=== PATIENT | female | born 1950 | race Caucasian/White ===

== ENCOUNTER 2017-02-16 21:42 | Inpatient (IN) | payer MEDICARE, OTHER, BC ==
[~2017-02-16 21:42] MED LIST: ISOVUE-370 76%-LOCM 1 ML ONE
[2017-02-16 22:16] LABS: PTT 28.6 SEC (22.9-36.1); Prothrombin Time 13.2 SEC (12.0-14.7)
[2017-02-16 22:33] LABS: ALT (SGPT) 15 U/L (8-55); AST (SGOT) 19 U/L (5-34); Alkaline Phosphatase 99 U/L (40-150); Anion Gap 14 mmol/L (10-20); BUN (Urea Nitrogen) 14 mg/dL (9.8-20.1); Bilirubin, Total 0.3 mg/dL (0.2-1.2); CK (CPK) 86 U/L (29-168); Calc. Creatinine Clearance 0 mL/min (70-130); Calcium 9.6 mg/dL (7.8-10.44); Carbon Dioxide 26 mmol/L (23-31); Chloride 100 mmol/L (98-107); Estimated GFR-MDRD 61; Globulin 3.3 g/dL (2.4-3.5); Protein, Total 7.2 g/dL (6.0-8.3)
[2017-02-16 22:35] LABS: Troponin I Less than 0.010 ng/mL (< 0.028)
[2017-02-16 22:36] LABS: Hematocrit 42.3 % (36.0-47.0); Mean Platelet Volume 7.3 fL (7.4-10.4); Neutrophil 31 % (42-75); White Blood Cell (WBC) Count 8.5 thou/uL (4.8-10.8)
--- NOTE | 2017-02-16 22:43 | RAD ---
PORTABLE CHEST: 02/16/17 HISTORY: Stroke-like symptoms. COMPARISON: 06/09/16 study. The heart size and mediastinum are within normal limits. An electronic device is seen overlying the left chest. No infiltrative process. IMPRESSION: No active intrathoracic disease. POS: [facility]
[2017-02-16] MEDS ORDERED: Labetalol HCl 100 MG/20 ML VIAL ONE (23:01)
--- NOTE | 2017-02-16 23:05 | CT ---
CT OF BRAIN PERFORMED WITHOUT CONTRAST ENHANCEMENT: 02/16/17 HISTORY: Slurred speech. COMPARISON: 06/14/16 study. Mild ventricular and sulcal prominence is noted. There is encephalomalacia change in the left fronta l lobe. This was an area of a previous infarct. No signs of hemorrhage or mass effect. IMPRESSION: No acute intracranial abnormalities. Findings telephoned to Dr. Lancaster at 2202 hours. POS: [facility]
--- NOTE | 2017-02-16 23:37 | CT ---
CT ANGIO OF HEAD AND NECK PERFORMED WITH INTRAVENOUS CONTRAST ENHANCEMENT WITH 3D RECONSTRUCTIONS: 02/16/17 HISTORY: Stroke alert. Patient has stroke-like symptoms with slurred speech. CT ANGIOGRAM OF NECK: This examination is degraded by venous contamination and some motion artifact at the carotid bifurca tion level. It makes it difficult to exclude some element of stenosis, particularly at the origin of the right internal carotid artery. No definitive signs of stenosis. Vertebral arteries are codomina nt. CT ANGIO OF BRAIN PERFORMED WITH CONTRAST ENHANCEMENT WITH 3D RECONSTRUCTIONS: There is some diminished vascularity in the left frontal lobe. This corresponds to the area of encep halomalacia change. I do not see any signs of any areas of significant narrowing of the anterior and middle cerebral artery main branches. No signs of any embolic finding. The posterior cerebral arter ies appear unremarkable. IMPRESSION: Area of encephalomalacia change in the left frontal lobe with some decreased vascularity in this reg ion, otherwise unremarkable exam. Findings telephoned to Dr. Lancaster at 2220 hours. POS: [facility]
[2017-02-17] MEDS ORDERED: Ondansetron HCl/PF 4 MG/2 ML Vial IVP PRN (01:25)
[2017-02-17] MEDS ORDERED: Ondansetron ODT 4 MG TAB SL PRN (01:25)
[2017-02-17] MEDS ORDERED: Sodium Chloride 0.45% 1,000 ML IV SCH (01:25)
[2017-02-17] MEDS ORDERED: Labetalol HCl 100 MG/20 ML VIAL SLOW IVP PRN ×2 (01:28→16:12)
[2017-02-17 01:38] VITALS: BMI 28.3
[2017-02-17 02:43] LABS: Troponin I 0.038 ng/mL (< 0.028)
[2017-02-17 05:44] LABS: Troponin I 0.029 ng/mL (< 0.028)
[2017-02-17] MEDS ORDERED: HumaLOG 300 UNITS/3 ML VIAL SC PRN (07:26)
[2017-02-17] MEDS ORDERED: Acetaminophen 325 MG TAB PO PRN (07:26)
[2017-02-17] MEDS ORDERED: Ondansetron ODT 4 MG TAB PO PRN ×2 (07:26→15:49)
[2017-02-17] MEDS ORDERED: Bisacodyl 5 MG TAB PO PRN (07:26)
[2017-02-17] MEDS ORDERED: Dextrose 50% Abboject 50 ML SYRINGE SLOW IVP PRN (07:26)
[2017-02-17] MEDS ORDERED: Dextrose 5% in Water 1,000 ML IV PRN (07:26)
[2017-02-17] MEDS ORDERED: Lorazepam 2 MG/ML VIAL SLOW IVP SCH (09:15)
--- NOTE | 2017-02-17 09:52 | HP ---
PRIMARY CARE PHYSICIAN: Ron Bennett M.D. CHIEF COMPLAINT: Garbled speech. HISTORY OF PRESENT ILLNESS: Ms. Gonsalves is a pleasant 66-year-old lady who was seen at [facility] on 02/17/2017. Last night, she had an episode where her speech was garbled f or about 45 minutes. She also had facial droop. Her noticed that her speech was garbled. Patient was also able to realize that her speech was garbled and it was coming out different from wh at she intended. She denies any chest pain or shortness of breath. She denies any fevers or chills . She denies any recurrence of the episode. The following complete review of systems was negative, unless otherwise mentioned in the HPI or belo w: Constitutional: Weight loss or gain, sense of well-being, ability to conduct usual activities, exer cise tolerance. Skin/Breast: Rash, itching, changes in hair growth or loss, nail changes, breast lumps, tenderness, swelling, nipple discharge. Eyes: Vision, double vision, tearing, blind spots, pain. ENT/Mouth: Headaches (location, time of onset, duration, precipitating factors), vertigo, lighthead edness, injury. Vision, double vision, tearing, blind spots, pain, nose bleeding, colds, obstruction , discharge, dental difficulties, gingival bleeding, dentures, neck stiffness, pain, tenderness, mas ses in thyroid or other areas. Cardiovascular: Precordial pain, substernal distress, palpitations, syncope, dyspnea on exertion, o rthopnea, nocturnal paroxysmal dyspnea, edema, cyanosis, hypertension, heart murmurs, varicosities, phlebitis, claudication. Respiratory: Pain, shortness of breath, wheezing, stridor, cough, hemoptysis, fever or night sweats . Gastrointestinal: Poor appetite, dysphagia, indigestion, abdominal pain, heartburn, eructation, [place], vomiting, hematemesis, jaundice, constipation, or diarrhea, abnormal stools (bunny-colored, tricia y, bloody, greasy, foul smelling), flatulence, hemorrhoids, recent changes in bowel habits. Genitourinary: Urgency, frequency, dysuria, nocturia, hematuria, polyuria, oliguria, unusual (or ch laura in) color of urine, stones, hesitancy, change in size of stream, dribbling, acute retention or incontinence, libido, potency. Musculoskeletal: Pain, swelling, redness or heat of muscles or joints, limitation, of motion, muscu lar weakness, atrophy, cramps. Neurologic/Psychiatric: Convulsions, paralyses, tremor, incoordination, paraesthesias, difficulties with memory of speech, sensory or motor disturbances, or muscular coordination (ataxia, tremor), em otional problems, anxiety, depression, previous psychiatric care, unusual perceptions, hallucination s. Allergy/Immunologic: Skin rash, anemia, bleeding tendency, polydipsia, polyuria, intolerance to hea t or cold. PAST MEDICAL HISTORY: Significant for deep vein thrombosis on Eliquis therapy, hypertension, dyslip idemia, diabetes mellitus type 2, fibromyalgia, and ischemic cerebrovascular accident x2. PAST SURGICAL HISTORY: Significant for right foot surgery, left humeral fracture surgery, hysterect jacob, and stent placement for DVT. SOCIAL HISTORY: The patient denies tobacco use, alcohol use or recreational drug use. ALLERGIES: No known drug allergies. FAMILY HISTORY: Congestive heart failure and cerebrovascular accident in her mother and a brother w ith multiple cerebrovascular accident episodes. CURRENT MEDICATIONS: Metformin 500 mg 3 times a day, Ambien 10 mg at bedtime, lisinopril 20 mg kristopher y, metoprolol 50 mg 2 times a day, Eliquis 5 mg 2 times a day, and simvastatin 40 mg daily. CODE STATUS: I discussed her code status. She is FULL CODE. PHYSICAL EXAMINATION: GENERAL: On examination, Ms. Gonsalves is awake and alert, not in acute distress. VITAL SIGNS: Blood pressure is 141/63, pulse is 70. She is breathing at rate of 14 and saturating 92% on room air. She is afebrile. EYES: No scleral icterus. No conjunctival pallor. ENT: Moist mucosal membranes, no oropharyngeal erythema or exudates. NECK: Supple, nontender, normal range of movement, trachea is midline. RESPIRATORY: Accessory muscles of breathing are not active. Chest wall movements are symmetric kimberly aterally. LUNGS: Clear to auscultation without wheeze, rhonchi or crepitations. CARDIOVASCULAR: S1 and S2 are heard, regular. Peripheral pulses palpable. No carotid bruit, no pe ricardial rub. ABDOMEN: Soft, nontender, bowel sounds heard, no hepatomegaly, no splenomegaly. NEUROLOGIC: She has expressive aphasia. Cranial nerves II-XII intact otherwise. No facial droop. Power is 5/5 in all 4 extremities. Deep tendon reflexes 2+, plantars downgoing bilaterally. MUSCULOSKELETAL: Power is 5/5 in all 4 extremities, normal range of movement at all major extremity joints. SKIN: No rashes or subcutaneous nodules. PSYCHIATRIC: Normal mood, normal affect, patient is oriented to person, place, and time. LYMPHATIC: No cervical lymphadenopathy. LABORATORY DATA: Ms. Gonsalves's labs and investigations were reviewed. I reviewed her electrocardi ogram, which shows normal sinus rhythm, no ST changes to suggest an acute coronary syndrome. I also reviewed her chest x-ray, which does not show any pulmonary infiltrates. CT scan of the brain with out contrast did not reveal any acute intracranial abnormalities. CT angiography of neck had motion artifact and radiologist could not exclude some element of stenosis, particularly at the origin of the right internal carotid artery. CT angiogram of the brain showed area of encephalomalacia in the left frontal lobe with some decreased vascularity in that region. Laboratory investigations showed an unremarkable CBC, INR 1.0, normal comprehensive metabolic profile and indeterminate troponin I o f 0.038. ASSESSMENT AND PLAN: Mr. Gonsalves is a pleasant 66-year-old lady who was seen at [facility] on 02/17/2017. Her problem list includes: 1. Transient ischemic attack: Her presentation is concerning for a transient ischemic attack. She will be admitted to the hospital for further workup, including MRI of the brain, carotid Dopplers, and 2D echocardiogram. Neurology Service and Stroke Team will be consulted. We will continue her h ome medications once clarified. 2. Elevated troponin: Her troponins are in the indeterminate range, trending down. She denies any chest pain at this time. If there are significant abnormalities on the 2D echocardiogram, may need further workup to rule out ischemic heart disease. 3. Diabetes mellitus: Continue home medications, start insulin sliding scale. 4. Hypertension: Her blood pressure was elevated in the emergency room. Monitor vital signs, resu me home medications and titrate antihypertensives as needed. 5. Dyslipidemia: Continue statin. 6. History of deep vein thrombosis: Continue apixaban. Many thanks for allowing me to participate in your patient's care. Please feel free to contact me w ith any questions or concerns. LEVEL OF RISK: High. LEVEL OF COMPLEXITY: High.
--- NOTE | 2017-02-17 10:01 | ULT ---
ULTRASOUND CAROTID DOPPLER: HISTORY: CVA. COMPARISON: Carotid Doppler 06/01/16. TECHNIQUE: Real-time cardenas scale color evaluation of the extracranial carotid arteries and vertebral arteries pe rformed with a linear ray transducer. FINDINGS: No elevated peak systolic velocity to suggest hemodynamically significant stenosis. Right internal carotid artery peak systolic velocity measures up to 95 cm/s and left internal carotid artery peak s ystolic velocity measures up to 88 cm/s. Right ICA/CCA ratio is 1.01. Left ICA/CCA ratio is 1.05. Antegrade flow of both vertebral arteries. IMPRESSION: No hemodynamically significant stenosis. POS: [facility]
--- NOTE | 2017-02-17 12:30 | MRI ---
NONCONTRAST MADINA MRI: CLINICAL HISTORY: TIA, slurred speech. FINDINGS: There is encephalomalacia of the anterior division left MCA territory correlating to prior infarctio n with associated hemosiderin staining. There are a few scattered punctate foci of restriction invo lving the left MCA territory indicating tiny scattered cortical/subcortical infarcts. No mass effec t or midline shift. Tiny remote left cerebellar hemispheric lacunar infarcts are present. IMPRESSION: 1. Punctate areas of cortical/subcortical infarction of the left cerebral hemisphere. 2. Encephalomalacia with hemosiderin staining of the anterior division left middle cerebral artery territory. POS: [facility]
[2017-02-17] MEDS ORDERED: hydrOXYzine 25 MG TAB PO PRN (15:49)
[2017-02-17] MEDS: metFORMIN 500 MG TAB PO SCH (16:28)
[2017-02-17] MEDS: Acetaminophen 500 MG TAB PO PRN ×2 (17:00→21:47)
--- NOTE | 2017-02-17 17:51 | CON ---
DATE OF CONSULTATION: 02/17/2017 CONSULTING PHYSICIAN: Hospitalist Service. HISTORY OF PRESENT ILLNESS: Ms. Gonsalves was admitted last evening with transient expressive aphasi a. Her initial workup including CT and CTA were unremarkable other than some diminished flow in the left frontal region. Subsequent MRI revealed evidence of some punctate ischemic changes in the lef t middle cerebral artery territory. Carotid ultrasound does not show any extracranial stenosis. Jaskaran quiroga has not had any recurrence of symptoms. She was on Eliquis and a statin prior to this event. On exam, now she has occasional stumbling in her speech with a little bit of word finding difficulty , but is otherwise, clear. Her exam is nonfocal. Given that she is already on anticoagulation, her only option left would be to add some aspirin for antiplatelet therapy, suggested that she did this about every third day. She will follow up with [facility] as an outpatient.
[2017-02-17] MEDS: Atorvastatin Calcium 20 MG TAB PO SCH (21:43)
[2017-02-17] MEDS: Zolpidem Tartrate 5 MG TAB PO PRN (21:44)
[2017-02-17] MEDS: Metoprolol Tartrate 50 MG TAB PO SCH (21:44)
[2017-02-18 05:13] LABS: Anion Gap 11 mmol/L (10-20); BUN (Urea Nitrogen) 12 mg/dL (9.8-20.1); Calc. Creatinine Clearance 91 mL/min (70-130); Calcium 8.8 mg/dL (7.8-10.44); Carbon Dioxide 26 mmol/L (23-31); Chloride 106 mmol/L (98-107); Cholesterol 115 mg/dl (< 200 Desired); Estimated GFR-MDRD 71; LDL Cholesterol, Calculated 52 mg/dL
[2017-02-18 05:35] LABS: Hematocrit 36.3 % (36.0-47.0); Mean Platelet Volume 7.1 fL (7.4-10.4); Neutrophil 42 % (42-75); Reactive Lymphocytes 7 % (0-10); Red Blood Cell (RBC) Count 3.74 mill/uL (4.20-5.40); White Blood Cell (WBC) Count 5.9 thou/uL (4.8-10.8)
[2017-02-18] MEDS: Loratadine 10 MG TAB PO SCH (08:53)
[2017-02-18] MEDS: Lisinopril 20 MG TAB PO SCH (08:54)
[2017-02-18] MEDS: Multivitamin W/ Minerals 1 TAB PO SCH (08:54)
[2017-02-18] MEDS: metFORMIN 500 MG TAB PO SCH ×3 (08:54→17:34)
[2017-02-18] MEDS: Metoprolol Tartrate 50 MG TAB PO SCH ×2 (08:54→21:23)
[2017-02-18] MEDS: Ubidecarenone 50 MG CAP PO SCH (08:54)
[2017-02-18] MEDS ORDERED: Apixaban 5 MG TAB PO SCH (11:30)
[2017-02-18] MEDS ORDERED: Aspirin 81 mg Enteric Coated Tablet PO SCH (11:30)
[2017-02-18] MEDS: Acetaminophen 500 MG TAB PO PRN (13:11)
--- NOTE | 2017-02-18 17:11 | PDOC.PN ---
- Subjective Encounter Start Date: 02/18/17 Encounter Start Time: 17:08 P{t seen for followup re: ischemic CVA. Denies chest pain, shortness of breath , fevers. - Objective Resuscitation Status: Resuscitation Status FULL:Full Resuscitation MAR Reviewed: Yes Vital Signs & Weight: Vital Signs (12 hours) Temp Pulse Resp BP BP BP Pulse Ox 02/18/17 15:35 97.5 F L 77 16 157/76 H 95 02/18/17 11:38 97.7 F 67 16 145/65 H 95 02/18/17 08:54 141/67 H 02/18/17 08:00 98.5 F 74 16 02/18/17 07:36 98.5 F 74 16 141/67 H 94 L Weight Weight 189 lb 4.8 oz Result Diagrams: 02/18/17 04:43 02/18/17 04:43 Additional Labs: Accuchecks 02/18/17 02/18/17 02/18/17 17:01 10:54 05:14 POC Glucose 106 139 H 116 H 02/17/17 02/17/17 19:47 17:34 POC Glucose 154 H 159 H EKG Reviewed by me: Yes (Tele: NSR) Phys Exam - Physical Examination Constitutional: NAD HEENT: oral pharynx no lesions Neck: supple Respiratory: clear to auscultation bilateral Cardiovascular: RRR Gastrointestinal: soft Musculoskeletal: pulses present Neurological: moves all 4 limbs expressive aphasia Psychiatric: normal affect Skin: no rash Dx/Plan (1) Idiopathic ischemic cerebrovascular accident (CVA) in adult Code(s): I63.9 - CEREBRAL INFARCTION, UNSPECIFIED Status: Acute (2) Hypertensive urgency Code(s): I16.0 - HYPERTENSIVE URGENCY Status: Acute (3) DM type 2 (diabetes mellitus, type 2) Status: Chronic (4) HLD (hyperlipidemia) Code(s): E78.5 - HYPERLIPIDEMIA, UNSPECIFIED Status: Chronic - Plan PT/OT, out of bed/ambulate * . Pt was discharged earlier but had high blood pressure, therefore holding the discharge. Eliquis resumed. Aspirin started. Will add PRN antihypertensives. Likely home tomorrow. Review of Systems - Review of Systems Constitutional: negative: Fever, Chills, Sweats, Weakness, Malaise Cardiovascular: negative: Chest Pain, Palpitations, Orthopnea, Paroxysmal Noc. Dyspnea, Edema, Light Headedness Neurological: Change in Speech. negative: Weakness, Numbness, Incoordination, Confusion, Seizures - Medications/Allergies Allergies/Adverse Reactions: Allergies Allergy/AdvReac Type Severity Reaction Status Date / Time No Known Allergies Allergy Verified 02/17/17 01:44 Medications: Current Medications Acetaminophen (Tylenol) 500 mg PO Q4H PRN PRN Reason: Pain Last Admin: 02/18/17 13:11 Dose: 500 mg Apixaban (Eliquis) 5 mg PO BID [facility] Aspirin (Ecotrin) 81 mg PO Q3D@0900 [facility] Atorvastatin Calcium (Lipitor) 20 mg PO HS [facility] Last Admin: 02/17/17 21:43 Dose: 20 mg Bisacodyl (Dulcolax) 10 mg PO DAILYPRN PRN PRN Reason: Constipation Clonidine HCl (Catapres) 0.2 mg PO NOW [facility] Stop: 02/18/17 19:15 Coenzyme Q10 (Coenzyme Q10) 100 mg PO DAILY [facility] Last Admin: 02/18/17 08:54 Dose: 100 mg Dextrose/Water (Dextrose 50%) 25 gm SLOW IVP PRN PRN PRN Reason: Hypoglycemia Glucagon (Glucagon) 1 mg IM PRN PRN PRN Reason: Hypoglycemia Hydroxyzine HCl (Atarax) 25 mg PO QID PRN PRN Reason: Itching Dextrose/Water (D5w) 1,000 mls @ 0 mls/hr IV .Q0M PRN; As Directed PRN Reason: Hypoglycemia Insulin Human Lispro (Humalog) 0 units SC .MILD SLIDING SCALE PRN PRN Reason: Mild Correctional Scale Iron/Minerals/Multivitamins (Theragran M) 1 tab PO DAILY [facility] Last Admin: 02/18/17 08:54 Dose: 1 tab Labetalol HCl (Normodyne) 20 mg SLOW IVP Q4H PRN PRN Reason: SBP Greater Than 180 Last Admin: 02/17/17 16:28 Dose: 20 mg Lisinopril (Zestril) 20 mg PO DAILY [facility] Last Admin: 02/18/17 08:54 Dose: 20 mg Loratadine (Claritin) 10 mg PO DAILY [facility] Last Admin: 02/18/17 08:53 Dose: 10 mg Metformin HCl (Glucophage) 500 mg PO TID-[facility] Last Admin: 02/18/17 11:15 Dose: 500 mg Metoprolol Tartrate (Lopressor) 50 mg PO BID [facility] Last Admin: 02/18/17 08:54 Dose: 50 mg Ondansetron HCl (Zofran Odt) 4 mg PO Q6H PRN PRN Reason: Nausea Sodium Chloride (Flush - Normal Saline) 10 ml IVF Q12HR [facility] Last Admin: 02/18/17 08:55 Dose: 10 ml Sodium Chloride (Flush - Normal Saline) 10 ml IVF PRN PRN PRN Reason: Saline Flush Zolpidem Tartrate (Ambien) 10 mg PO HSPRN PRN PRN Reason: Insomnia Last Admin: 02/17/17 21:44 Dose: 10 mg
[2017-02-18] MEDS ORDERED: cloNIDine 0.2 MG TAB PO SCH (17:15)
[2017-02-18] MEDS ORDERED: cloNIDine 0.1 MG TAB PO PRN (17:20)
--- NOTE | 2017-02-18 20:28 | DIS ---
PRIMARY CARE PHYSICIAN: Ron Bennett M.D. DATE OF ADMISSION: 02/17/2017 DATE OF DISCHARGE: 02/18/2017 DISCHARGE DIAGNOSIS: Ischemic cerebrovascular accident. CONDITION OF PATIENT AT THE TIME OF DISCHARGE: Stable. I assessed Ms. Gonsalves on the day of disch arge. She continues to have episodes of expressive aphasia from previous stroke, denies any new guadalupe rologic complaints. Vital signs are stable. S1 and S2 are heard, regular. Lungs are clear to ausc ultation bilaterally. CONSULTATIONS DURING THIS HOSPITALIZATION: Dr. Major from Neurology. DISCHARGE MEDICATIONS: Acetaminophen 500 mg every 4 hours as needed, apixaban 5 mg 2 times a day, c ephalexin 500 mg 3 times a day, lisinopril 20 mg daily, loratadine 10 mg daily, multivitamins 1 caps ule daily, metoprolol 50 mg 2 times a day, Zofran 4 mg every 6 hours as needed, Zocor 40 mg at bedti me, Coenzyme Q10 of 100 mg daily, Ambien 10 mg at bedtime as needed, hydroxyzine 25 mg 4 times a day as needed, metformin 500 mg 3 times a day, and aspirin 81 mg every 72 hours, it was started during this hospitalization. HOSPITAL COURSE: Ms. Gonsalves is a pleasant 66-year-old lady, who was admitted to [facility] for suspected TIA/CVA because of an episode of gibberish speech. MRI of the brain on 02/17/2017 showed punctate areas of cortical/subcortical infarction of the left cerebral hemisphe re. She also had encephalomalacia with hemosiderin staining of the anterior division of the left mi ddle cerebral artery territory. CT angiogram of [place] and neck showed areas of encephalo malacia in the left frontal lobe with some decreased vascularity. Because of motion artifact, it wa s difficult to exclude carotid stenosis particularly at the origin of the right internal carotid art pascual. She went on to have carotid Doppler study on 02/17/2017, which did not reveal any hemodynamica lly significant stenosis. Echocardiogram was also done, and the preliminary report indicates that she had an ejection fraction of 60% to 65%. She was seen by Neurology Service and has been started on aspirin 81 mg every third day. On 02/18/2017, she has white count of 5900, hemoglobin 12, platelet count 195,000, normal electrolyt es and normal creatinine. She has triglycerides 82, cholesterol 115, LDL cholesterol 52 and HDL cho lesterol 47. Many thanks for allowing me to participate in your patient's care. Please feel free to contact me w ith any questions or concerns. DISCHARGE DESTINATION: Home. TOTAL AMOUNT OF TIME SPENT COORDINATING THIS DISCHARGE: 33 minutes.
[2017-02-18] MEDS: Apixaban 5 MG TAB PO SCH (21:23)
[2017-02-18] MEDS: Atorvastatin Calcium 20 MG TAB PO SCH (21:23)
[2017-02-18] MEDS: Zolpidem Tartrate 5 MG TAB PO PRN (21:29)
[2017-02-19 05:40] LABS: Anion Gap 10 mmol/L (10-20); BUN (Urea Nitrogen) 17 mg/dL (9.8-20.1); Calc. Creatinine Clearance 94 mL/min (70-130); Carbon Dioxide 25 mmol/L (23-31); Chloride 104 mmol/L (98-107); Estimated GFR-MDRD 73
[2017-02-19 05:51] LABS: Band 3 % (5-11); Hematocrit 36.9 % (36.0-47.0); Mean Platelet Volume 7.7 fL (7.4-10.4); Neutrophil 40 % (42-75); White Blood Cell (WBC) Count 6.2 thou/uL (4.8-10.8)
[2017-02-19 07:35] VITALS: TEMP 98.6
[2017-02-19] MEDS: Multivitamin W/ Minerals 1 TAB PO SCH (09:23)
[2017-02-19] MEDS: Ubidecarenone 50 MG CAP PO SCH (09:23)
[2017-02-19] MEDS: Apixaban 5 MG TAB PO SCH (09:23)
[2017-02-19] MEDS: Loratadine 10 MG TAB PO SCH (09:24)
[2017-02-19] MEDS: Metoprolol Tartrate 50 MG TAB PO SCH (09:24)
[2017-02-19] MEDS: Lisinopril 20 MG TAB PO SCH (09:24)
[2017-02-19] MEDS: metFORMIN 500 MG TAB PO SCH (09:24)
--- NOTE | 2017-02-19 10:45 | DIS ---
DATE OF ADMISSION: 02/16/2017 DATE OF DISCHARGE: 02/19/2017 PRIMARY CARE PROVIDER: Ron Bennett M.D. DISCHARGE DIAGNOSIS: Ischemic cerebrovascular accident. Please note that I dictated a discharge summary yesterday, 02/18/2017, for this patient. However, sherly turner was not discharged, because her blood pressure was elevated. Her blood pressure was monitore d overnight and she is being discharged home. CONDITION OF PATIENT AT THE TIME OF DISCHARGE: Stable. I assessed Ms. Gonsalves on 02/19/2017. She denies any chest pain or shortness of breath. Vital signs are stable. S1 and S2 are heard, regula r. Lungs are clear to auscultation bilaterally. CONSULTATIONS DURING THIS HOSPITALIZATION: Neurology, Dr. Major. DISCHARGE MEDICATIONS: As dictated on the discharge summary from 02/18/2017. Her preadmission home medications were resumed. In addition, she is being discharged home on aspirin 81 mg every 72 hour s, which was started during this hospitalization. ADDENDUM: Ms. Gonsalves is also being discharged home on clonidine 0.1 mg daily every 8 hours as nee ded for systolic blood pressure greater than 170 mmHg, 30 doses to be dispensed. HOSPITAL COURSE: Ms. Gonsalves is a pleasant 66-year-old lady, who was admitted to [facility], because of an episode of gibberish speech on 02/16/2017. MRI of the brain showed punctate areas of cortical/subcortical infarction of the left cerebral hemisphere as well as encepha lomalacia with hemosiderin staining of anterior division of the left MCA territory. She also had CT angiogram, carotid Dopplers, and 2D echocardiogram. Results were summarized on the discharge summa ry dictated on 02/18/2017. She was seen by Neurology Service and started on aspirin 81 mg every thi rd day. She had high blood pressures on the evening of 02/18/2017. She received a dose of clonidin e, with improvement of her blood pressure. Her blood pressures have been stable since then. On the day of discharge, she has a white count of 6200, hemoglobin 12.4, and platelet count 199,000. Her sodium is 135, potassium 4, and creatinine 0.79. She also had a lipid profile during this hos pitalization, summarized on the discharge summary dictated on 02/18/2017. She has been advised to check her blood pressure and heart rate 3 times a day and show the readings to her primary care physician. Many thanks for allowing me to participate in your patient's care. Please feel free to contact me w ith any questions or concerns. DISCHARGE DESTINATION: Home. TOTAL AMOUNT OF TIME SPENT COORDINATING THIS DISCHARGE: 35 minutes.
[2017-02-19] MEDS ORDERED: cloNIDine 0.1 MG TAB PO PRN (11:57)
[2017-02-19 12:40] VITALS: BP 152/61
[2017-02-20] MEDS ORDERED: Aspirin 81 mg Enteric Coated Tablet PO SCH (09:00)
== END 2017-02-19 11:40 | disposition home or self-care (01) | DRG 66 ==
LOC: ERS 21:42 → 2SE 23:10
PROVIDERS: ADMIT Internal Medicine; ATTEND Internal Medicine
DX: I63.9 Cerebral infarction, unspecified (principal); G93.89 Other specified disorders of brain; I10 Essential (primary) hypertension; R47.81 Slurred speech; E11.9 Type 2 diabetes mellitus without complications; Z79.84 Long term (current) use of oral hypoglycemic drugs; E78.5 Hyperlipidemia, unspecified; Z86.73 Personal history of transient ischemic attack (TIA), and cerebral infarction without residual deficits; Z86.718 Personal history of other venous thrombosis and embolism; Z79.01 Long term (current) use of anticoagulants; I16.0 Hypertensive urgency
CPT/HCPCS: 36415; 36416; 70450; 70496; 70498; 70551; 71010; 80048; 80053; 80061; 82553; 84484; 85025; 85610; 85730; 86850; 86900; 86901; 93005; 93306; 93880; 94760; 96374; A4216; G8987-GO-CJ; G8988-GO-CJ; G8989-GO-CJ; G8996-GN-CJ; G8997-GN-CI; J2060

== ENCOUNTER 2017-02-19 22:29 | Observation (INO) | payer MEDICARE, OTHER, BC ==
--- NOTE | 2017-02-20 00:05 | CT ---
CT BRAIN: History: Altered mental status. Technique: Noncontrast enhanced CT images of the brain obtained. Date: 02-19-17 Comparison: 02-16-17 FINDINGS: There is an old area of stroke in the left frontal lobe. No evidence of significant interval changes seen. No acute intracranial pathology is noted. IMPRESSION: 1. Old left frontal lobe stroke. 2. No acute intracranial abnormality is seen. 3. Previous MRI areas of signal abnormality noted of MRI from two days earlier is not visible on CT. POS: [facility]
[2017-02-20] MEDS ORDERED: Ondansetron HCl/PF 4 MG/2 ML Vial IVP PRN ×2 (01:09→01:16)
[2017-02-20] MEDS ORDERED: Acetaminophen 325 MG TAB PO PRN ×2 (01:09→01:16)
[2017-02-20] MEDS ORDERED: Ondansetron ODT 4 MG TAB SL PRN (01:09)
[2017-02-20] MEDS ORDERED: Mag-Al 1200 mg/1200 mg/30 ML UDCUP PO PRN (01:16)
[2017-02-20] MEDS ORDERED: Ondansetron ODT 4 MG TAB PO PRN (01:16)
[2017-02-20] MEDS ORDERED: hydrALAZINE 20 MG/ML VIAL SLOW IVP PRN (01:16)
[2017-02-20] MEDS ORDERED: Senokot 8.6 MG TAB PO PRN (01:16)
[2017-02-20] MEDS ORDERED: HYDROcodone/Acetaminophen 5/325 mg Tablet PO PRN (01:16)
[2017-02-20] MEDS ORDERED: Milk Of Magnesia 30 ML UDCUP PO PRN (01:16)
[2017-02-20] MEDS ORDERED: Loperamide HCl 2 MG CAP PO PRN (01:16)
[2017-02-20] MEDS ORDERED: Zolpidem Tartrate 5 MG TAB PO PRN (01:16)
[2017-02-20] MEDS ORDERED: cloNIDine 0.1 MG TAB PO PRN (01:17)
[2017-02-20] MEDS ORDERED: HumaLOG 300 UNITS/3 ML VIAL SC PRN ×2 (01:18)
[2017-02-20] MEDS ORDERED: Dextrose 50% Abboject 50 ML SYRINGE SLOW IVP PRN (01:18)
[2017-02-20] MEDS ORDERED: Dextrose 5% in Water 1,000 ML IV PRN (01:18)
[2017-02-20] MEDS ORDERED: Lorazepam 2 MG/ML VIAL SLOW IVP PRN (01:19)
[2017-02-20 01:40] VITALS: BMI 27.2
--- NOTE | 2017-02-20 03:01 | HP ---
PRIMARY CARE PHYSICIAN: Ron Bennett M.D. REASON FOR ADMISSION: Stroke-like symptoms. HISTORY OF PRESENT ILLNESS: A 66-year-old female who was recently admitted in our hospital on 02/16/2017. At that time, the patient came to the emergency room and she had CT angiography which showed encephalomalacia in left frontal lobe. The patient also had MRI brain, which showed a punctate area of cortical and subcortical infarction in left cerebral hemisphere with encephalomalacia in left middle cerebral artery territory. Neurology consulted and they recommended to continue Eliquis therapy and they recommended to add aspirin every third day. After all this investigation, the patient was discharged home earlier today. After going home, the patient had supper and she also had a shower. After that, she was resting at home and she was doing aphasia puzzle work. She was having difficulty with puzzle and that is why she was asking her to help and her noticed that while playing puzzle game, the patient was having garbled speech and the patient was becoming more altered and that is why he was concerned about and decided to bring her back to the emergency room, but when she was coming to the ER, the patient's reported that her speech was improving and she was coming back to normal. Today in the emergency room, the patient had CT brain, which showed old left frontal lobe stroke, no acute intracranial abnormality. The patient denies any chest pain, palpitation, or shortness of breath. She denies any headache. She denies any focal motor or sensory symptoms. She denies any difficulty swallowing. She denies any facial asymmetry. REVIEW OF SYSTEMS: The following complete review of systems was negative, unless otherwise mentioned in the HPI or below: Constitutional: Weight loss or gain, ability to conduct usual activities. Skin: Rash, itching. Eyes: Double vision, pain. ENT/Mouth: Nose bleeding, neck stiffness, pain, tenderness. Cardiovascular: Palpitations, dyspnea on exertion, orthopnea. Respiratory: Shortness of breath, wheezing, cough, hemoptysis, fever or night sweats. Gastrointestinal: Poor appetite, abdominal pain, heartburn, nausea, vomiting, constipation, or diarrhea. Genitourinary: Urgency, frequency, dysuria, nocturia. Musculoskeletal: Pain, swelling. Neurologic/Psychiatric: Anxiety, depression. Allergy/Immunologic: Skin rash, bleeding tendency. Please see my HPI for pertinent positives and negatives. All other review of system reviewed and negative except as mentioned in the HPI. PAST MEDICAL HISTORY: History of ischemic CVA x2, history of subcortical infarct recently, DVT on chronic Eliquis therapy, hypertension, dyslipidemia, diabetes type 2, fibromyalgia. PAST SURGICAL HISTORY: Right foot surgery, left humeral fracture surgery, hysterectomy. PAST PSYCHIATRY HISTORY: Reviewed and negative. SOCIAL HISTORY: The patient is , lives at home with the family. No history of tobacco, alcohol, or illicit drug abuse. ALLERGIES: No known drug allergies. FAMILY HISTORY: Mother had a stroke as well as congestive heart failure. One brother diagnosed with multiple strokes. CURRENT HOME MEDICATIONS: The patient was discharged home on following medication: Eliquis 5 mg p.o. b.i.d., aspirin 81 mg p.o. every third day, lisinopril 20 mg p.o. daily, multivitamin 1 tablet p.o. daily, metoprolol 50 mg p.o. b.i.d., Zocor 40 mg p.o. at bedtime, Coenzyme Q10 100 mg p.o. daily, metformin 500 mg p.o. t.i.d., and clonidine 0.1 mg p.o. q. 8 hourly p.r.n. ADDITIONAL INFORMATION: When this patient was having stroke-like symptoms at that time, the patient's checked her blood pressure which was 190 systolic and after waiting for a while, the patient's blood pressure dropped to 160 and then again went up to 190s and this type of fluctuation was happening at home for blood pressure and the patient was given clonidine one dose. After that, blood pressure was improved. EMERGENCY ROOM COURSE: Reviewed. PHYSICAL EXAMINATION: VITAL SIGNS: On arrival, blood pressure 179/107, pulse 73, respiratory rate 18 , temperature 97.5, saturation 97% on room air. Weight 76.2 kilograms. GENERAL: The patient is currently alert, awake, no obvious acute distress. HEAD: Normocephalic, atraumatic. EYES: Pupils round, reactive to light. Extraocular muscle intact. ENT: Oropharynx within normal limits. Moist mucous membranes. No oral lesions. No pharyngeal erythema. No exudate. NECK: Supple. Range of motion is normal. No meningeal signs of irritation. LUNGS: Clear to auscultation without any rhonchi or rales. CARDIAC: S1, S2 appears regular without any murmur, no gallop, no rub. ABDOMEN: Soft, bowel sounds present, nontender, nondistended. No organomegaly , no mass, no suprapubic tenderness. BACK: Unremarkable, no CVA tenderness. EXTREMITIES: Upper extremity: Passive movement of all joints are normal. Lower extremity: No edema. Good peripheral pulsation. SKIN: No skin rash. HEMATOLOGIC: No lymphadenopathy. NEUROLOGIC: The patient is currently alert and oriented x3. Cranial nerves II through XII intact. Motor 5/5 in all four limbs. Sensation bilaterally symmetrical. Plantar bilateral flexor. No pronator drift. No cerebellar sign. No focal neurological deficit noted. SIGNIFICANT LABORATORY DATA: WBC 6.2, hemoglobin 12.4, platelets 199. INR 1.0. Sodium 135, potassium 4.0, BUN 17, creatinine 0.79, calcium 9.0. IMAGING STUDIES: CT brain is showing old left frontal lobe stroke, no acute abnormality seen. ASSESSMENT AND PLAN: 1. Stroke-like symptoms. At this point, the patient has some difficulty speaking which already resolved. Doubtful whether this is a transient ischemic attack or just frustration while playing puzzle game, but the patient and the patient's is really overanxious about ruling out stroke. This patient already had recently MRI brain and that did show a cortical-subcortical stroke. This patient's symptoms could be related with small vessel disease. At this point, the patient is already on the full treatment with Eliquis and aspirin. Only thing can be done at this point is aspirin on a daily basis. Risk and benefit of aspirin and Eliquis therapy were discussed with the patient. At this point, we do not want to repeat a lipid profile because she already had during the previous admission. We will repeat MRI brain per family request and the patient is claustrophobic and that is why we will give her Ativan 1 mg IV before MRI. Even after MRI, treatment plan will not change. This patient is advised to follow up with Neurology after discharge on an outpatient basis. In the next 24 hours, we will monitor on telemetry floor for her neuro check and then we will consider discharging her home. 2. History of recurrent cerebrovascular accident. The patient already had a full workup done in the past including homocysteine level is normal, lipid profile is at target. The patient is already on the full optimum treatment. We will monitor on the stroke floor. 3. Hypertension. We will continue lisinopril 20 mg p.o. daily, metoprolol 50 mg p.o. b.i.d. 4. Dyslipidemia. We will continue Zocor 40 mg p.o. at bedtime. 5. Diabetes type 2. We will continue insulin as per sliding scale protocol. We will continue metformin 500 mg p.o. t.i.d. 6. History of deep venous thrombosis on chronic anticoagulation therapy with Eliquis. We will continue Eliquis 5 mg p.o. b.i.d. 7. Deep venous thrombosis prophylaxis not needed because the patient is already on chronic anticoagulation therapy. 8. Gastrointestinal prophylaxis, Pepcid 20 mg p.o. b.i.d. CODE STATUS: The patient is FULL CODE. The patient's is the surrogate decision maker. DISPOSITION PLAN: Based on clinical course. We are expecting the patient's stay in the hospital for 24 hours. CRISTOFERD
[2017-02-20] MEDS: metFORMIN 500 MG TAB PO SCH ×3 (08:27→17:43)
[2017-02-20] MEDS ORDERED: Ubidecarenone 50 MG CAP PO SCH (09:00)
[2017-02-20] MEDS ORDERED: Lisinopril 10 MG TAB PO SCH (09:00)
[2017-02-20] MEDS ORDERED: Apixaban 5 MG TAB PO SCH (09:00)
[2017-02-20] MEDS ORDERED: Aspirin 81 mg Enteric Coated Tablet PO SCH (09:00)
[2017-02-20] MEDS ORDERED: Famotidine 20 MG TAB PO SCH (09:00)
[2017-02-20] MEDS ORDERED: Metoprolol Tartrate 50 MG TAB PO SCH (09:00)
--- NOTE | 2017-02-20 10:03 | MRI ---
BRAIN MRI WITHOUT CONTRAST: Date: 02-20-17 Comparison: 02-17-17 History: Transient ischemic attack, stroke. Technique: Multiplanar, multisequence MR imaging of the brain is obtained without contrast. FINDINGS: The diffusion weighted imaging demonstrates no evidence for acute infarction. The gradient echo imaging demonstrates persistent linear areas of blooming artifact which appear to be confined to the cortex and subcortical white matter of the left frontal region, in an area of gee or hemorrhagic infarction initially visualized on the 06-01-16 brain MRI. There is no additional moseley ing artifact seen to suggest the presence of interval development of intracranial hemorrhage. The T2 and FLAIR imaging demonstrate numerous foci of increased T2 and FLAIR signal within the periv entricular deep and subcortical white matter, evidence of small vessel disease. There are a few opac ified mastoid air cells bilaterally, right greater than left. Arterial flow voids at the axial level of the skull base appear grossly unremarkable. There is encephalomalacia within the MCA and SPENCER territory on the left in the frontal region, eviden ce of prior infarction, similar when compared to prior imaging. IMPRESSION: 1. Chronic findings as detailed above. No acute findings are seen. The punctate areas of cortical/pat bcortical infarction in the left cerebral hemisphere seen on the recent prior MRI are no longer visu alized. POS: LELO
--- NOTE | 2017-02-20 12:28 | PDOC.PN ---
- Subjective Encounter Start Date: 02/20/17 Encounter Start Time: 12:26 Patient seen at bedside. Her speech has improved and almost returned to baseline prior to this event. No overnight events, no new complaints. - Objective Resuscitation Status: Resuscitation Status FULL:Full Resuscitation MAR Reviewed: Yes Vital Signs & Weight: Vital Signs (12 hours) Temp Pulse Resp BP Pulse Ox 02/20/17 11:47 98.2 F 62 20 141/57 H 95 02/20/17 08:00 98.2 F 66 18 02/20/17 07:52 98.2 F 66 18 164/57 H 94 L 02/20/17 04:14 97.6 F 65 16 146/71 H 95 02/20/17 01:34 97.3 F L 85 18 02/20/17 01:05 97.3 F L 85 18 160/56 H 96 Weight Weight 179 lb 6.4 oz I&O: 02/19/17 02/20/17 02/21/17 06:59 06:59 06:59 Intake Total 470 Balance 470 Additional Labs: Accuchecks 02/20/17 02/20/17 11:20 06:04 POC Glucose 108 118 H Phys Exam - Physical Examination Constitutional: NAD HEENT: moist MMs Neck: no JVD Respiratory: no rales Cardiovascular: no significant murmur Gastrointestinal: soft Musculoskeletal: pulses present Neurological: moves all 4 limbs Psychiatric: A&O x 3 Dx/Plan (1) Hypertensive urgency Code(s): I16.0 - HYPERTENSIVE URGENCY Status: Resolved (2) DM type 2 (diabetes mellitus, type 2) Status: Chronic (3) HLD (hyperlipidemia) Code(s): E78.5 - HYPERLIPIDEMIA, UNSPECIFIED Status: Chronic (4) HTN (hypertension) Code(s): I10 - ESSENTIAL (PRIMARY) HYPERTENSION Status: Chronic (5) Dysarthria Code(s): R47.1 - DYSARTHRIA AND ANARTHRIA Status: Acute - Plan cont current plan of care, PT/OT, certified social workers in health care, out of bed/ambulate * Continue with current management. * Continue with Eliquis. * Currrently she is taking ASA every third day. Will consult neurology as to whether there is any utility to taking ASA daily with Eliquis * Neuro consult * OOB/Ambulate
[2017-02-20 15:35] VITALS: BP 111/44; TEMP 97.7
--- NOTE | 2017-02-20 19:55 | DIS ---
DATE OF OBSERVATION AND PLACEMENT: 02/20/2017 DATE OF DISCHARGE: 02/20/2017 DISCHARGE DISPOSITION: Home. DISCHARGE FOLLOWUP: With her PCP as an outpatient. DISCHARGE DIAGNOSES: 1. Dysarthria - from residual neurological event versus transient ischemic attack. 2. History of ischemic cerebrovascular accident x2. 3. History of deep venous thrombosis on chronic Eliquis therapy. 4. Hypertension. 5. Dyslipidemia. 6. Diabetes mellitus type 2. 7. Fibromyalgia. DISCHARGE MEDICATIONS: 1. Eliquis 5 mg p.o. b.i.d. 2. Aspirin 81 mg every other day. This has been changed from every 3 days. 3. Keflex 500 mg p.o. b.i.d. 4. Zestril 10 mg p.o. daily. 5. Loratadine. 6. Metoprolol tartrate 50 mg p.o. b.i.d. 7. Zocor 40 mg p.o. at bedtime. 8. CoQ10 100 mg p.o. daily. 9. Catapres p.r.n. q.8 hours 0.1 mg. 10. Atarax 25 mg p.o. 4 times a day. 11. Glucophage 500 mg p.o. t.i.d. with meals. INPATIENT CONSULTATION: Dr. Major, Neurology. INPATIENT PROCEDURES: None. INPATIENT RADIOGRAPHIC EXAMINATIONS: 1. CT of the brain without contrast, which revealed an old left frontal lobe stroke as well as prev ious MRI areas of signal abnormality. 2. MRI of the brain, which revealed chronic findings. There are no acute findings in the punctate areas of cortical/subcortical infarct in left cerebral hemisphere were no longer visualized. BRIEF HOSPITAL COURSE: Ms. Yolanda Gonsalves is a 66-year-old female who was recently admitted to [facility] who presented to the emergency room complaining of stroke-like symptoms. Patient stated sh junaid was having difficulty with her speech and her noticed that she was having difficulty with certain movements and was unable to express herself. She was subsequently brought to the emergency room where she was evaluated. In the emergency room, CT brain revealed old left frontal lobe stroke with no acute intracranial abnormalities. The patient was then subsequently placed in observation onto the stroke floor. The patient recently had an echocardiogram and carotid Doppler as these were not done. A repeat MRI was performed, whic h revealed no acute findings in the punctate areas of cortical and subcortical infarction in the lef t cerebral hemisphere when no longer visualized. Her speech has improved. She was evaluated by Theresa kim who recommended her aspirin be changed every 3 days to every 2 days and this may eventually a fter evaluation be discontinued in the outpatient setting. She is clinically appropriate for discha rge home and feels much better and will be discharged home later today in stable condition. DISCHARGE DIET: Heart healthy. ACTIVITY: As tolerated. RESTRICTIONS: None. CODE STATUS: FULL CODE. ALLERGIES: TETANUS VACCINE and TOXOID. DISCHARGE FOLLOWUP: With PCP as an outpatient. The patient understands all aspects of discharge. She will be discharged home later today in stable condition. Time required to prepare for discharge was 31 minutes.
[2017-02-20] MEDS ORDERED: Atorvastatin Calcium 20 MG TAB PO SCH (21:00)
--- NOTE | 2017-02-20 22:11 | CON ---
DATE OF CONSULTATION: 02/20/2017 FOLLOWUP NEUROLOGIC NOTE CONSULTING PHYSICIAN: Hospitalist Service. Mr. Gonsalves who was at home, working word puzzles when she noticed she was having a little more dif ficulty solving them than normally. Her noticed that she seemed to be coming out with words that did not make sense for the situation. He checked her blood pressure and found her systolic to be about 190. He gave her a clonidine at that point and rechecked it some 30 minutes later, systol ic dropped to 170. She continued to have some word choice abnormalities, decided to bring her to [facility], but gave her an Ambien on the way out. She came into the emergency room and had a CT sc an done, no acute hemorrhage was found. A subsequent MRI evaluation showed a resolution of her prio r diffusion abnormalities and no evidence of any acute ischemic changes. She is now back to her bas jacey. Given that she is already on maximum medical therapy with combination of Eliquis and aspirin. There is little else we can do, I have advised them that she would not be a TPA candidate as the result b eing on these medications. I have suggested that use EMS as a screening tool, if she has some furth er symptoms, she may show some variability in her aphasia, especially when she is fatigued, I am als o advised her to use Ambien cautiously and only right before bed. I will be happy to follow up with her as an outpatient.
[2017-02-22] MEDS ORDERED: Aspirin 81 mg Enteric Coated Tablet PO SCH (09:00)
--- NOTE | 2017-03-03 18:40 | EKG ---
Test Reason : Blood Pressure : / mmHG Vent. Rate : 069 BPM Atrial Rate : 069 BPM P-R Int : 138 ms QRS Dur : 088 ms QT Int : 412 ms P-R-T Axes : 029 030 053 degrees QTc Int : 441 ms Normal sinus rhythm Normal ECG Confirmed by ALETHA PICKARD, SANDI Garcia ([id number]), supervising editor trailer JEANETTE WINN ([id number]) on 03/03/2017 6:40:23 PM Referred By: Confirmed By:SANDI POMPA MD
== END 2017-02-20 19:03 | disposition home or self-care (01) ==
LOC: ERS 22:29 → 2SE 02-20 00:09
PROVIDERS: ADMIT Internal Medicine; ATTEND Internal Medicine
DX: I69.322 Dysarthria following cerebral infarction (principal); I10 Essential (primary) hypertension; E78.5 Hyperlipidemia, unspecified; E11.9 Type 2 diabetes mellitus without complications; M79.7 Fibromyalgia; G93.89 Other specified disorders of brain; I16.0 Hypertensive urgency; Z79.899 Other long term (current) drug therapy; Z79.2 Long term (current) use of antibiotics; Z79.01 Long term (current) use of anticoagulants; Z88.7 Allergy status to serum and vaccine; Z90.710 Acquired absence of both cervix and uterus; Z98.890 Other specified postprocedural states; Z87.81 Personal history of (healed) traumatic fracture; Z86.718 Personal history of other venous thrombosis and embolism; Z82.49 Family history of ischemic heart disease and other diseases of the circulatory system
CPT/HCPCS: 70450; 70551; 82962 ×2; 93005; 96374; 97139; 99285; G0378; 36416; A4216; J2060

== ENCOUNTER 2017-07-31 10:41 | Observation (INO) | payer MEDICARE, BC ==
[2017-07-31 11:01] LABS: #Basophils 0.1 thou/uL (0.0-0.2); #Lymphocytes 3.1 thou/uL (1.20-3.40); #Monocytes 0.6 thou/uL (0.11-0.59); #Neutrophils 4.7 thou/uL (1.40-6.50); %Basophils 1.1 % (0.0-1.0); %Eosinophils 0.4 % (0.0-10.0); %Lymphocytes 36.6 % (21.0-51.0); %Monocytes 6.5 % (0.0-10.0); %Neutrophils 55.3 % (42.0-75.0); Hemoglobin 14.7 g/dL (12.0-16.0); Mean Corpuscular HGB CONC 34.5 g/dL (32.0-36.0); Mean Corpuscular Hemoglobin 31.9 pg (27.0-31.0); Mean Corpuscular Volume 92.4 fl (81.0-99.0); Platelet Count 266 thou/uL (130-400); RBC Distribution Width 13.8 % (11.5-14.5); Red Blood Cell (RBC) Count 4.62 mill/uL (4.20-5.40); White Blood Cell (WBC) Count 8.6 thou/uL (4.8-10.8)
[2017-07-31 11:09] LABS: INR-International Normal Ratio 1.1; Prothrombin Time 14.3 SEC (12.0-14.7)
[2017-07-31 11:10] LABS: PTT 30.5 SEC (22.9-36.1)
[2017-07-31 11:16] LABS: ALT (SGPT) 18 U/L (8-55); AST (SGOT) 24 U/L (5-34); Albumin 4.5 g/dL (3.4-4.8); Alkaline Phosphatase 85 U/L (40-150); Anion Gap 13 mmol/L (10-20); BUN (Urea Nitrogen) 18 mg/dL (9.8-20.1); Bilirubin, Total 0.6 mg/dL (0.2-1.2); Calc. Creatinine Clearance 0 mL/min (70-130); Calcium 10.2 mg/dL (7.8-10.44); Carbon Dioxide 26 mmol/L (23-31); Chloride 90 mmol/L (98-107); Estimated GFR-MDRD 61; Globulin 3.6 g/dL (2.4-3.5); Glucose 133 mg/dL (80-115); Potassium 4.2 mmol/L (3.5-5.1); Protein, Total 8.1 g/dL (6.0-8.3); Sodium 125 mmol/L (136-145)
[2017-07-31 11:20] LABS: CKMB 2.4 ng/mL (0-6.6); Troponin I Less than 0.010 ng/mL (< 0.028)
--- NOTE | 2017-07-31 11:25 | CT ---
CT HEAD WITHOUT CONTRAST: INDICATIONS: Stroke protocol. There is a history of a prior stroke. New speech deficit and right-sided weakness. COMPARISON: CT from 02/19/2017 and MRI from 02/20/2017. TECHNIQUE: Multiple axial tomograms obtained through the head without IV enhancement. FINDINGS: Encephalomalacia in the left frontal lobe is again seen, consistent with an old left frontal lobe inf arct. This is stable in appearance. There is no evidence of acute cortical infarct. No mass or hem orrhage. Findings related to Dr. Gonzalez at 11:00 a.m. CODE CR POS: OSIEL
--- NOTE | 2017-07-31 11:47 | CT ---
CT ANGIO HEAD WITH CONTRAST: Date: 07/31/17 Multiple axial tomograms obtained through the head with arterial phase enhancement following angio pr otocol with multiplanar reconstruction and 3D postprocessing. INDICATION: Stroke. Right side weakness. FINDINGS: The intracranial internal carotid arteries are patent. There is atherosclerotic calcification in the cavernous portion of both internal carotid arteries, although no evidence of significant stenosis dutch ntified. The anterior cerebral arteries are patent and symmetric. The M1 and M2 branches of the middle cerebral arteries are patent and symmetric with no evidence of f ocal stenosis or occlusion. Basilar artery is patent. Posterior cerebrals appear symmetric and patent. IMPRESSION: No evidence of proximal cerebral artery stenosis or occlusion. CT ANGIO NECK: Multiple axial tomograms obtained through the neck following angio phase with multiplanar reconstruct ion and 3D postprocessing. INDICATION: Stroke. FINDINGS: No evidence of stenosis seen at the origin of the arch vessels. Left common carotid artery is unremarkable with no stenosis. There is mild atherosclerotic change at the left bulb and left proximal ICA. This does not produce he modynamically significant stenosis. The ICA above the bulb is unremarkable. The right common carotid is unremarkable with no stenosis. There is atherosclerotic change seen in the proximal right ICA with calcified and soft plaque present . This does result in mild stenosis in the proximal right ICA; however, the degree of stenosis does n ot appear hemodynamically significant and is estimated in the 30-40% diameter stenosis range. There i s evidence of ulceration into the soft plaque at the bulb and proximal ICA, which could represent a f ocus of emboli. The right ICA above the bulb is unremarkable. Vertebral arteries are patent and symmetric. IMPRESSION: Moderate atherosclerotic changes in the right bulb and proximal right ICA resulting in mild to modera te stenosis in the proximal right ICA. The degree of stenosis does not appear to be hemodynamically s ignificant according to NASCET criteria when comparison is made with the more distal ICA lumen. There is some ulceration of the soft plaque in the bulb on the right as described above. POS: OSIEL
[2017-07-31 12:00] LABS: Bilirubin Negative (Negative); Blood, Urine Negative (Negative); Clarity CLEAR (Clear); Glucose, Urine (Dipstick) Negative (Negative); Leukocyte Negative (Negative); Nitrite Negative (Negative); Protein, Urine (Dipstick) Negative (Neg-Trace); Specific Gravity, Urine 1.014 (1.002-1.036); Urobilinogen 0.2 mg/dL (0.2-1.0)
[2017-07-31 13:21] LABS: Magnesium 1.7 mg/dL (1.6-2.6); Phosphorus 3.4 mg/dL (2.3-4.7)
[2017-07-31 14:26] LABS: Troponin I 0.041 ng/mL (< 0.028)
[2017-07-31] MEDS ORDERED: ISOVUE-370 76%-LOCM 1 ML ONE (14:47)
[2017-07-31] MEDS ORDERED: Ondansetron HCl/PF 4 MG/2 ML Vial IVP PRN ×2 (14:48→20:02)
[2017-07-31] MEDS ORDERED: Ondansetron ODT 4 MG TAB PO PRN ×2 (14:48→20:02)
[2017-07-31] MEDS ORDERED: Acetaminophen 325 MG TAB PO PRN (14:49)
[2017-07-31 15:56] VITALS: BMI 27.8
[2017-07-31 17:14] LABS: Osmolality, Urine 250 mOsm/kg (300-900)
[2017-07-31 17:57] LABS: Sodium, Urine 73 mmol/L (Not Available)
[2017-07-31] MEDS ORDERED: Aspirin 81 mg Enteric Coated Tablet PO SCH (18:00)
[2017-07-31 18:19] LABS: Troponin I 0.047 ng/mL (< 0.028)
--- NOTE | 2017-07-31 19:55 | PDOC.PN ---
- Subjective Encounter Start Date: 07/31/17 Encounter Start Time: 19:53 Patient seen and examined. Note dictated. - Objective MAR Reviewed: Yes Vital Signs & Weight: Vital Signs (12 hours) Temp Pulse Resp 07/31/17 15:42 97.5 F L 72 18 Weight Weight 180 lb 8 oz I&O: 07/30/17 07/31/17 08/01/17 06:59 06:59 06:59 Intake Total 240 Output Total 900 Balance -660 Result Diagrams: 07/31/17 10:55 07/31/17 10:55 Radiology Reviewed by me: Yes (CT brain - neg) EKG Reviewed by me: Yes (SR) Phys Exam - Physical Examination Constitutional: NAD HEENT: PERRLA, moist MMs, sclera anicteric Neck: no nodes, no JVD, supple Respiratory: no wheezing, no rhonchi Cardiovascular: RRR, no significant murmur, no rub no heaves/pulsations Gastrointestinal: soft, non-tender, no distention, positive bowel sounds Musculoskeletal: no edema Neurological: normal sensation, moves all 4 limbs Psychiatric: normal affect, A&O x 3 Skin: no rash, normal turgor Dx/Plan - Plan * Dictated Review of Systems - Review of Systems Constitutional: negative: fever, chills, sweats, weakness, malaise, other Eyes: negative: Pain, Vision Change, Conjunctivae Inflammation, Eyelid Inflammation, Redness, Other ENT: negative: Ear Pain, Ear Discharge, Nose Pain, Nose Discharge, Nose Congestion, Mouth Pain, Mouth Swelling, Throat Pain, Throat Swelling, Other Respiratory: negative: Cough, Dry, Shortness of Breath, Hemoptysis, SOB with Excertion, Pleuritic Pain, Sputum, Wheezing Cardiovascular: negative: chest pain, palpitations, orthopnea, paroxysmal nocturnal dyspnea, edema, light headedness, other Gastrointestinal: negative: Nausea, Vomiting, Abdominal Pain, Diarrhea, Constipation, Melena, Hematochezia, Other Genitourinary: negative: Dysuria, Frequency, Incontinence, Hematuria, Retention , Other Musculoskeletal: negative: Neck Pain, Shoulder Pain, Arm Pain, Back Pain, Hand Pain, Leg Pain, Foot Pain, Other Skin: negative: Rash, Lesions, Blayne, Bruising, Other Neurological: Numbness (Rt hand), Change in Speech. negative: Weakness, Incoordination, Confusion, Seizures - Medications/Allergies Allergies/Adverse Reactions: Allergies Allergy/AdvReac Type Severity Reaction Status Date / Time Tetanus Vaccines and Toxoid Allergy Verified 07/31/17 15:14 Medications: Current Medications Acetaminophen (Tylenol) 650 mg PO Q4H PRN PRN Reason: Headache/Fever or Pain Stop: 07/31/17 23:00 Last Admin: 07/31/17 18:04 Dose: 650 mg Aspirin (Ecotrin) 81 mg PO NOW [facility] Stop: 07/31/17 20:00 Last Admin: 07/31/17 18:04 Dose: 81 mg Ondansetron HCl (Zofran) 4 mg IVP Q6H PRN PRN Reason: Nausea/Vomiting Stop: 07/31/17 23:00 Ondansetron HCl (Zofran Odt) 4 mg PO Q6H PRN PRN Reason: Nausea/Vomiting Stop: 07/31/17 23:00 Sodium Chloride (Flush - Normal Saline) 10 ml IVF Q12HR [facility] Last Admin: 07/31/17 19:50 Dose: 10 ml Sodium Chloride (Flush - Normal Saline) 10 ml IVF PRN PRN PRN Reason: Saline Flush
[2017-07-31] MEDS ORDERED: Senokot 8.6 MG TAB PO PRN (20:02)
[2017-07-31] MEDS ORDERED: Calcium Carbonate 500 MG ChewTAB PO PRN (20:02)
[2017-07-31] MEDS ORDERED: Nitroglycerin 0.4 MG TAB (25 Tab Bottle) PO PRN (20:02)
[2017-07-31] MEDS ORDERED: hydrALAZINE 20 MG/ML VIAL SLOW IVP PRN (20:07)
[2017-07-31] MEDS ORDERED: Insulin Regular 300 UNITS/3 ML VIAL SC PRN ×2 (20:13)
[2017-07-31] MEDS ORDERED: Dextrose 50% Abboject 50 ML SYRINGE SLOW IVP PRN (20:13)
[2017-07-31] MEDS ORDERED: Dextrose 5% in Water 1,000 ML IV PRN (20:13)
--- NOTE | 2017-07-31 20:14 | HP ---
DATE OF ADMISSION: 07/31/2017 PRIMARY CARE PHYSICIAN: Dr. Bennett. CHIEF COMPLAINT: Stroke-like symptoms. HISTORY OF PRESENT ILLNESS: Patient is a 67-year-old female with CVA in the past, currently on Eliqu is with 81 mg aspirin every other day, presented to the emergency room with above complaints. The patient presented with acute CVA in 05/2016 while she was on Pradaxa. Pradaxa was changed to Mitzy mary. She was discharged home after a loop recorder. In 01/2017, the patient presented again with stroke. At this time, she was started on aspirin every third day and was discharged. The next day, she presented back to the hospital with stroke-like symp toms; at this time, aspirin was changed to every other day. Since then she has not had stroke-like s ymptoms. This morning around 10:15 a.m., while she was at home, she had sudden onset of speech difficulty catherine g with numbness of the right hand. Her speech was garbled. There was no change in consciousness. S he was alert, awake, oriented x4. For this reason, she was brought in to the emergency room. She un derwent CT scan in the emergency room that was negative for acute findings. After the CT scan, jose sams's speech and right hand numbness resolved. She denies any headache, double vision, blurring of vi markus, facial asymmetry or weakness of any of her extremities. She is compliant with all of her medic ations. She was evaluated by Dr. Major last week and was advised to continue Eliquis with every ot her day, aspirin. She was seen by Dr. Naranjo earlier this year and underwent echocardiogram per sherly turner's report. PAST MEDICAL HISTORY: 1. History of several strokes in the past, currently on Eliquis with every other day, aspirin. 2. Chronic dysarthria from strokes. 3. History of deep venous thrombosis on chronic anticoagulation. 4. Hypertension. 5. Hyperlipidemia. 6. Fibromyalgia. PAST SURGICAL HISTORY: 1. Loop recorder placement. 2. Right foot surgery. 3. Left humeral fracture surgery. 4. Hysterectomy. ALLERGIES: TETANUS TOXOID and VACCINE. CURRENT HOME MEDICATIONS: Eliquis 5 mg b.i.d., aspirin every other day, clonidine as needed, Tylenol as needed, lisinopril 20 mg twice a day, hydroxyzine as needed, loratadine 10 mg daily, metformin 50 0 mg 3 times daily, metoprolol tartrate 50 mg b.i.d., multivitamin 1 tablet daily, Zofran as needed, Zocor 40 mg at bedtime, Coenzyme Q10 of 100 mg daily, Ambien as needed. SOCIAL HISTORY: Patient currently lives at home with her . No smoking, alcohol, drug use. S he makes her own decision with the help of her . She is FULL CODE. FAMILY HISTORY: Mother with stroke and congestive heart failure. One brother with several strokes. REVIEW OF SYSTEM, PHYSICAL EXAMINATION, LABORATORY FINDINGS: Please refer to my progress note from shannon timmons. IMPRESSION: 1. Transient ischemic attack. 2. Hypotonic hyponatremia of unclear etiology. 3. History of recurrent cerebrovascular accidents on Eliquis with every other day aspirin. 4. Hypertension. 5. Dyslipidemia. 6. Fibromyalgia. 7. Diabetes mellitus type 2. 8. History of deep venous thrombosis, on Eliquis. PLAN: The patient will be monitored in the stroke unit. Her home medications will be continued. MR I of the brain will be obtained. We will also interrogate loop recorder. Consult Neurology civil division deputy sheriff. Continue current home medications. We will consult Physical Therapy. Patient has passed swallow e valuation. Plan of care was discussed with the patient and the family at the bedside. They stated understanding .
[2017-07-31] MEDS: Sodium Chloride 0.9% 1,000 ML IV SCH (21:02)
[2017-07-31] MEDS: Docusate 100 MG CAP PO SCH (21:02)
[2017-07-31] MEDS: Lisinopril 20 MG TAB PO SCH (21:03)
[2017-07-31] MEDS: Famotidine 20 MG TAB PO SCH (21:03)
[2017-07-31] MEDS: Simvastatin 40 MG TAB PO SCH (21:03)
[2017-07-31] MEDS: Metoprolol Tartrate 50 MG TAB PO SCH (21:04)
[2017-07-31] MEDS: Apixaban 5 MG TAB PO SCH (21:04)
[2017-07-31] MEDS: Zolpidem Tartrate 5 MG TAB PO PRN (21:51)
[2017-08-01 05:00] LABS: Anion Gap 13 mmol/L (10-20); BUN (Urea Nitrogen) 15 mg/dL (9.8-20.1); Calc. Creatinine Clearance 84 mL/min (70-130); Calcium 9.3 mg/dL (7.8-10.44); Carbon Dioxide 24 mmol/L (23-31); Cardiac Risk 2.6 (Less than 4.5); Chloride 94 mmol/L (98-107); Cholesterol 128 mg/dl (< 200 Desired); Estimated GFR-MDRD 68; Glucose 101 mg/dL (80-115); HDL Cholesterol 50 mg/dL (>60 Neg Risk); LDL Cholesterol, Calculated 65 mg/dL; Potassium 3.8 mmol/L (3.5-5.1); Sodium 127 mmol/L (136-145); Triglycerides 66 mg/dL (Less than 150)
[2017-08-01 05:04] LABS: Troponin I 0.018 ng/mL (< 0.028)
[2017-08-01] MEDS ORDERED: Aspirin 81 mg Enteric Coated Tablet PO SCH (09:00)
[2017-08-01] MEDS: Apixaban 5 MG TAB PO SCH ×2 (09:13→20:22)
[2017-08-01] MEDS: Famotidine 20 MG TAB PO SCH ×2 (09:14→20:22)
[2017-08-01] MEDS: Lisinopril 20 MG TAB PO SCH ×2 (09:14→20:22)
[2017-08-01] MEDS: Metoprolol Tartrate 50 MG TAB PO SCH ×2 (09:14→20:22)
[2017-08-01] MEDS: Loratadine 10 MG TAB PO SCH (09:14)
[2017-08-01] MEDS: Docusate 100 MG CAP PO SCH ×2 (09:14→20:22)
[2017-08-01] MEDS ORDERED: ALPRAZolam 0.5 MG TAB PO SCH (11:45)
[2017-08-01] MEDS: Acetaminophen 325 MG TAB PO PRN (12:04)
--- NOTE | 2017-08-01 16:07 | PDOC.PN ---
- Subjective Encounter Start Date: 08/01/17 Encounter Start Time: 11:00 William is seen today with at Bedside, She has multiple Strokes in the past, and is on Eleiquis and Aspirin, Waiting on Neurology consult. - Objective Resuscitation Status: Resuscitation Status FULL:Full Resuscitation MAR Reviewed: Yes Vital Signs & Weight: Vital Signs (12 hours) Temp Pulse Pulse Pulse Resp BP BP 08/01/17 15:35 97.6 F 65 18 08/01/17 12:15 08/01/17 11:20 97.3 F L 63 18 08/01/17 09:14 191/74 H 08/01/17 08:32 66 66 190/75 H 08/01/17 07:56 97.8 F 64 18 08/01/17 07:45 98.1 F 60 20 BP BP Pulse Ox 08/01/17 15:35 135/63 96 08/01/17 12:15 154/88 H 08/01/17 11:20 189/73 H 96 08/01/17 09:14 08/01/17 08:32 146/64 H 08/01/17 07:56 173/75 H 92 L 08/01/17 07:45 Weight Weight 186 lb 14.4 oz I&O: 07/31/17 08/01/17 08/02/17 06:59 06:59 06:59 Intake Total 1455 600 Output Total 2200 1200 Balance -745 -600 Result Diagrams: 07/31/17 10:55 08/01/17 04:31 Additional Labs: Accuchecks 08/01/17 07/31/17 11:18 21:00 POC Glucose 172 H 162 H Radiology Reviewed by me: Yes Phys Exam - Physical Examination HEENT: PERRLA, moist MMs Neck: no nodes, no JVD Respiratory: no wheezing, no rales Cardiovascular: RRR, no significant murmur Gastrointestinal: soft, non-tender Musculoskeletal: no edema, pulses present Neurological: non-focal, normal sensation Lymphatic: no nodes Psychiatric: normal affect Dx/Plan (1) Acute CVA (cerebrovascular accident) Code(s): I63.9 - CEREBRAL INFARCTION, UNSPECIFIED Status: Acute Comment: ? failed Pradaxa and Eliquis and Aspirin now, She will need thorough evalautionby neurology for recurrent strokes. MRI is pending. (2) Dysarthria Code(s): R47.1 - DYSARTHRIA AND ANARTHRIA Status: Acute Comment: Base line deficits. (3) Idiopathic ischemic cerebrovascular accident (CVA) in adult Code(s): I63.9 - CEREBRAL INFARCTION, UNSPECIFIED Status: Acute (4) DM type 2 (diabetes mellitus, type 2) Status: Chronic Comment: well controlled, continue on SSI/ Home meds. (5) HLD (hyperlipidemia) Code(s): E78.5 - HYPERLIPIDEMIA, UNSPECIFIED Status: Chronic (6) HTN (hypertension) Code(s): I10 - ESSENTIAL (PRIMARY) HYPERTENSION Status: Chronic Comment: Continue on Htn MEds. - Plan cont current plan of care, PT/OT, aids social worker, incentive spirometry, DVT proph w/lovenox * . - Discharge Day Encounter end time: 11:35 Review of Systems - Review of Systems Constitutional: weakness, malaise Eyes: negative: Pain, Vision Change, Conjunctivae Inflammation, Eyelid Inflammation, Redness, Other ENT: negative: Ear Pain, Ear Discharge, Nose Pain, Nose Discharge, Nose Congestion, Mouth Pain, Mouth Swelling, Throat Pain, Throat Swelling, Other Respiratory: negative: Cough, Dry, Shortness of Breath, Hemoptysis, SOB with Excertion, Pleuritic Pain, Sputum, Wheezing Cardiovascular: negative: chest pain, palpitations, orthopnea, paroxysmal nocturnal dyspnea, edema, light headedness, other Neurological: Weakness, Change in Speech - Medications/Allergies Allergies/Adverse Reactions: Allergies Allergy/AdvReac Type Severity Reaction Status Date / Time Tetanus Vaccines and Toxoid Allergy Verified 07/31/17 15:14 Medications: Current Medications Acetaminophen (Tylenol) 650 mg PO Q4H PRN PRN Reason: Headache/Fever or Pain Last Admin: 08/01/17 12:04 Dose: 650 mg Apixaban (Eliquis) 5 mg PO BID [facility] Last Admin: 08/01/17 09:13 Dose: 5 mg Aspirin (Ecotrin) 81 mg PO Q2D [facility] Last Admin: 08/01/17 09:14 Dose: 81 mg Calcium Carbonate (Tums) 1,000 mg PO Q4H PRN PRN Reason: Heartburn or Indigestion Dextrose/Water (Dextrose 50%) 25 gm SLOW IVP PRN PRN PRN Reason: Hypoglycemia Docusate Sodium (Colace) 100 mg PO BID [facility] Last Admin: 08/01/17 09:14 Dose: 100 mg Famotidine (Pepcid) 20 mg PO BID [facility] Last Admin: 08/01/17 09:14 Dose: 20 mg Glucagon (Glucagon) 1 mg IM PRN PRN PRN Reason: Hypoglycemia Hydralazine HCl (Apresoline) 10 mg SLOW IVP Q4H PRN PRN Reason: SBP Greater Than 180 Dextrose/Water (D5w) 1,000 mls @ 0 mls/hr IV .Q0M PRN; As Directed PRN Reason: Hypoglycemia Insulin Human Regular (Humulin R) 0 units SC .MILD SLIDING SCALE PRN PRN Reason: Mild Correctional Scale Insulin Human Regular (Humulin R) 0 units SC .BEDTIME SLIDING SC PRN PRN Reason: Bedtime Correctional Scale Lisinopril (Zestril) 20 mg PO BID [facility] Last Admin: 08/01/17 09:14 Dose: 20 mg Loratadine (Claritin) 10 mg PO DAILY [facility] Last Admin: 08/01/17 09:14 Dose: 10 mg Metoprolol Tartrate (Lopressor) 50 mg PO BID [facility] Last Admin: 08/01/17 09:14 Dose: 50 mg Nitroglycerin (Nitrostat) 0.4 mg PO Q5MIN PRN PRN Reason: Chest Pain Ondansetron HCl (Zofran Odt) 4 mg PO Q6H PRN PRN Reason: Nausea/Vomiting Ondansetron HCl (Zofran) 4 mg IVP Q6H PRN PRN Reason: Nausea/Vomiting Senna (Senokot) 2 tab PO HSPRN PRN PRN Reason: Constipation Simvastatin (Zocor) 40 mg PO HS [facility] Last Admin: 07/31/17 21:03 Dose: 40 mg Sodium Chloride (Flush - Normal Saline) 10 ml IVF Q12HR [facility] Last Admin: 08/01/17 09:15 Dose: 10 ml Sodium Chloride (Flush - Normal Saline) 10 ml IVF PRN PRN PRN Reason: Saline Flush Zolpidem Tartrate (Ambien) 10 mg PO HS PRN PRN Reason: .INSOMNIA Last Admin: 07/31/17 21:51 Dose: 10 mg
[2017-08-01] MEDS: Sodium Chloride 0.9% 1,000 ML IV SCH (16:16)
--- NOTE | 2017-08-01 17:52 | MRI ---
BRAIN MRI WITHOUT CONTRAST: Date: 08/01/17 HISTORY: Stroke activation. Right-sided weakness. Stroke. COMPARISON: 02/20/17. CORRELATION: Angiogram head dated 07/31/17. TECHNIQUE: Brain MRI is performed without intravenous Gadolinium administration. Multisequential, multiplanar im aging is performed. FINDINGS: Calvarium has a normal T1 marrow signal intensity. Midline brain parenchymal structures are unremarka ble. There is stable malacic gliotic change involving the left frontal lobe, compatible with a remote MCA distribution infarction. Hypointensity in the axial gradient echo sequence due to hemosiderin deposit ion is noted. There is associated T2 and FLAIR hyperintensity. Small focus of malacic change/gliotic change in the left occipital lobe is also identified. Chronic small vessel ischemic changes are ident ified. Central arterial flow-voids are maintained. Absent restricted diffusion. Adequate aeration of the sin uses. Partial opacification of both mastoid air cells. IMPRESSION: 1. Remote left MCA distribution infarction. 2. Absent restricted diffusion. No acute infarct. POS: [facility]
[2017-08-01] MEDS: Simvastatin 40 MG TAB PO SCH (20:22)
[2017-08-01] MEDS: Zolpidem Tartrate 5 MG TAB PO PRN (21:15)
--- NOTE | 2017-08-02 00:10 | CON ---
DATE OF CONSULTATION: 08/01/2017 REFERRING PHYSICIAN: Martínez Hernandez MD REASON FOR CONSULTATION: Stroke-like symptoms. HISTORY OF PRESENT ILLNESS: Ms. Gonsalves is a pleasant 67-year-old female who has been con sulted for evaluation of stroke-like symptoms. History was obtained from the patient as well as the patient's medical chart. The patient reports that she has a history of stroke in 05/2016, which resu lted in significant difficulty with her speech, where she was having difficulty with expressing herse lf. She had to undergo extensive speech therapy both as inpatient as well as outpatient. She was ab le to recover most of her speech back. She states that she has been admitted to the hospital twice s dee dee then with similar episodes of worsening speech. She is now taking Eliquis along with aspirin 81 mg every other day for secondary stroke prevention. She reports that on yesterday, she had gone to a restaurant with her , where she suddenly started having difficulty with getting her words ou t. She was not able to talk at all at that time. She also noted numbness in her right hand. She wa s trying to explain that to her that she was having numbness in her right hand; however, was not able to get any words out. Her realized that she was struggling with her words, which pr ompted him to call EMS and the patient was brought [facility]. She had a CT he ad without contrast and CT angiogram of the head and neck on arrival to the emergency room, which ad wed moderate atherosclerotic changes in the right bulb and proximal right ICA resulting in mild-to-mo derate stenosis in the proximal right ICA, which was not hemodynamically significant stenosis. There were some ulcerations and soft plaque in the bulb of the right carotid artery. She notes that her s ymptoms started improving after she presented to the emergency room. She currently reports her sympt oms are back to baseline. She denies any headache, chest pain, palpitation, numbness, tingling, weak ness. PAST MEDICAL HISTORY: Significant for hypertension; hyperlipidemia; fibromyalgia; history of stroke; history of deep venous thrombosis, on chronic anticoagulation therapy. PAST SURGICAL HISTORY: Significant for right foot surgery, loop recorder placement, left humeral fra cture surgery, and hysterectomy. CURRENT MEDICATIONS: Please review MAR. ALLERGIES: Include TETANUS TOXOID and VACCINE. SOCIAL HISTORY: She denies smoking, alcohol use, or illicit drug use. She is currently and lives with her . FAMILY HISTORY: Significant for mother with stroke and congestive heart failure and one brother with history of strokes. REVIEW OF SYSTEMS: As mentioned above in HPI, otherwise negative. PHYSICAL EXAMINATION: VITAL SIGNS: Blood pressure of 135/63, pulse of 65, temperature of 97.6, respirations of 18, O2 sats of 96% on room air. GENERAL: Well-developed, well-nourished female in no apparent distress. RESPIRATORY: Clear to auscultation bilaterally. CARDIOVASCULAR: Regular rate and rhythm. NEUROLOGIC: Mental status: The patient is awake, alert, oriented x3. Speech and language: Mild ex pressive aphasia noted. Cranial nerves: Pupils are 3 mm and reactive. Visual yadav are intact. E xtraocular muscles are intact. No nystagmus is noted. Face is symmetric. Tongue and uvula midline. Motor exam showed normal tone and bulk with 5/5 strength in both upper and lower extremities. Sens ory: Sensation is intact and symmetric. Deep tendon reflexes 2+ flexion in both upper and lower ext remities. Babinski: Plantar responses flexion bilaterally. Coordination intact to [id number] er and finger tapping bilaterally. LABORATORY DATA: Reviewed, which included CBC, coag panel, CMP, lipid profile, urinalysis, which is significant for sodium of 127, glucose of 187, otherwise unremarkable. IMAGING STUDIES: MRI brain without contrast was reviewed, which showed no acute intracranial abnorma lity. CT angiogram results were reviewed. Findings are as noted in the HPI section. IMPRESSION: 1. Transient episode of expressive aphasia, now resolved, likely suggestive of transient ischemic at tack. 2. Hyponatremia. 3. Carotid artery stenosis. Ms. Gonsalves is a pleasant 67-year-old female who presented with worsening expressive aphas ia. Her symptoms resolved within few hours. She had an MRI brain done, which showed no acute intrac ranial abnormality. It showed prior left middle cerebral artery distribution ischemic infarct. She had a low sodium on arrival to the emergency room, which can precipitate prior stroke symptoms and ma y be a contributing factor to her event. She did have a CT angiogram of the head and neck, which did show carotid artery stenosis of mild to moderate with soft plaque in the right internal carotid john ry. I would recommend consulting Cardiovascular Surgery for their recommendations for right internal carotid artery plaque. I would recommend continuing her on Eliquis and aspirin at the current dose. Thank you for the consultation.
[2017-08-02 00:21] VITALS: TEMP 97.6
[2017-08-02] MEDS: Acetaminophen 325 MG TAB PO PRN (05:58)
[2017-08-02] MEDS: Loratadine 10 MG TAB PO SCH (08:38)
[2017-08-02] MEDS: Lisinopril 20 MG TAB PO SCH (08:38)
[2017-08-02] MEDS: Metoprolol Tartrate 50 MG TAB PO SCH (08:38)
[2017-08-02] MEDS: Docusate 100 MG CAP PO SCH (08:38)
[2017-08-02] MEDS: Apixaban 5 MG TAB PO SCH (08:38)
[2017-08-02] MEDS: Famotidine 20 MG TAB PO SCH (08:38)
--- NOTE | 2017-08-02 09:18 | PDOC.PN ---
- Subjective Encounter Start Date: 08/02/17 Encounter Start Time: 09:16 Ms. Gonsalves was seen today in follow-up. She does not have any complaints. she says her speech is back to normal. - Objective Resuscitation Status: Resuscitation Status FULL:Full Resuscitation MAR Reviewed: Yes Vital Signs & Weight: Vital Signs (12 hours) Temp Pulse Resp BP BP BP Pulse Ox 08/02/17 07:36 97.6 F 63 16 176/72 H 93 L 08/02/17 03:15 97.6 F 63 18 150/70 H 97 08/01/17 23:42 97.6 F 60 15 121/58 L 97 Weight Weight 190 lb 1.6 oz I&O: 08/01/17 08/02/17 08/03/17 06:59 06:59 06:59 Intake Total 1455 2490 Output Total 2200 3150 Balance -745 -660 Result Diagrams: 07/31/17 10:55 08/01/17 04:31 Additional Labs: Accuchecks 08/02/17 08/01/17 08/01/17 05:23 20:43 16:28 POC Glucose 124 H 117 H 187 H 08/01/17 11:18 POC Glucose 172 H Phys Exam - Physical Examination HEENT: PERRLA Respiratory: no wheezing, no rales, no rhonchi, clear to auscultation bilateral Cardiovascular: RRR, no significant murmur, no rub Gastrointestinal: soft, non-tender, positive bowel sounds Musculoskeletal: no edema Dx/Plan (1) Transient ischemic attack (TIA) Status: Acute (2) DM type 2 (diabetes mellitus, type 2) Status: Chronic Comment: well controlled, continue on SSI/ Home meds. (3) HLD (hyperlipidemia) Code(s): E78.5 - HYPERLIPIDEMIA, UNSPECIFIED Status: Chronic (4) HTN (hypertension) Code(s): I10 - ESSENTIAL (PRIMARY) HYPERTENSION Status: Chronic Comment: Continue on Htn MEds. - Plan * TIA- her symptoms have resolved * HTN- blood pressure has been labile * I discussed the results of the CTA with the patient, having an inpatient Vascular Surgery consult vs. Outpatient. She has discussed this with her , she would like to have this done as an outpatient * Stable for discharge home..
[2017-08-02 10:11] LABS: Sodium 127 mmol/L (136-145)
[2017-08-02 11:59] VITALS: BP 153/72
--- NOTE | 2017-08-02 13:39 | DIS ---
PRIMARY CARE: Dr. Ron Bennett DATE OF ADMISSION: 07/31/2017 DATE OF DISCHARGE: 08/02/2017 DISCHARGE DISPOSITION: Home. PRIMARY DISCHARGE DIAGNOSES: 1. Transient ischemic attack. 2. Hypertension. 3. History of cerebral vascular disease. 4. Dyslipidemia. 5. History of fibromyalgia. DISCHARGE MEDICATIONS: She is to continue aspirin 81 mg daily, Eliquis 5 mg twice a day, clonidine 0 .1. as needed, Tylenol q.4 hours as needed, hydroxyzine 25 mg p.r.n., Zestril 20 mg twice a day, anjelica atadine 10 mg daily, metformin 500 mg t.i.d. with meals, metoprolol 50 mg twice daily, Zofran 4 mg q. 6h. as needed, simvastatin 40 mg at bedtime, CoQ10 100 mg daily, Ambien 10 mg at bedtime and multivit amins with folic acid 1 capsule daily. HOSPITAL COURSE: Ms. Gonsalves is a pleasant 67-year-old female who presented to the emergency room w ith complaints of garbled speech. She also was having some right hand numbness, the symptoms of whic h have resolved. The patient was placed in observation. She had a CT scan of the brain done which w as negative. She also had a CT angiogram of the neck as well as the brain which demonstrated no flow limiting disease. There was some mild to moderate stenosis in the right internal carotid artery whi ch did not appear to be hemodynamically significant according to Nasik criteria and this is when comp arison was made to the more distal lumen and the left common carotid artery was unremarkable. There was no stenosis. The patient also had an MRI of the brain which was significant for remote left MCA distribution infarct, but no acute stroke was noted. The patient was seen by Neurology and it was re commended that she likely get a Vascular Surgery consult with regards to some of the plaque that was noted on the CT angiogram. I discussed this with the patient and the patient discussed these finding s with her as well and the decision was made to do this on an outpatient basis. Also, it was noted in Neurology's note that he felt that some of her symptoms could be based on her sodium level which was low on admission and appeared to be improving during the course of her hospital stay. We w ill recommend that the patient have the sodium rechecked as an outpatient as well. Otherwise, the pa aleshia is stable for discharge home. She is currently symptom free and will need close followup in [facility] outpatient setting.
--- NOTE | 2017-08-02 15:02 | EKG ---
Test Reason : Blood Pressure : / mmHG Vent. Rate : 074 BPM Atrial Rate : 074 BPM P-R Int : 160 ms QRS Dur : 076 ms QT Int : 382 ms P-R-T Axes : 041 037 068 degrees QTc Int : 424 ms Normal sinus rhythm Possible Left atrial enlargement Septal infarct , age undetermined Abnormal ECG Confirmed by BRITTANY HENNESSY ([id number]), social media editor JEANETTE WINN ([id number]) on 08/02/2017 3:00:41 PM Referred By: Confirmed By:BRITTANY HENNESSY
== END 2017-08-02 12:59 | disposition home or self-care (01) ==
LOC: ERS 10:41 → 2SW 15:05
PROVIDERS: ADMIT Internal Medicine; ATTEND Internal Medicine
DX: G45.9 Transient cerebral ischemic attack, unspecified; M79.7 Fibromyalgia; E78.5 Hyperlipidemia, unspecified; Z82.3 Family history of stroke; Z86.73 Personal history of transient ischemic attack (TIA), and cerebral infarction without residual deficits; E87.1 Hypo-osmolality and hyponatremia; I65.29 Occlusion and stenosis of unspecified carotid artery; I10 Essential (primary) hypertension; Z79.01 Long term (current) use of anticoagulants; Z98.890 Other specified postprocedural states; E11.9 Type 2 diabetes mellitus without complications; Z88.7 Allergy status to serum and vaccine
CPT/HCPCS: 70450; 70496; 70498; 70551; 80048; 80053; 80061; 81003; 82553; 82962 ×3; 83735; 83930; 83935; 84100; 84295; 84300; 84484 ×3; 85025; 85610; 85730; 93005; 94760 ×2; 96360; 96361 ×2; 97116; 97139 ×2; 97530; 97535; 99285; G0378; G8978; G8979; G8987; G8988; G8989; 36415; 36416; A4216; G9162-GN-CJ; G9163-GN-CI

== ENCOUNTER 2017-08-22 02:29 | Inpatient (IN) | payer MEDICARE, BC ==
[2017-08-22 03:20] LABS: #Basophils 0.1 thou/uL (0.0-0.2); #Eosinphils 0.1 thou/uL (0.0-0.7); #Lymphocytes 3.8 thou/uL (1.20-3.40); #Monocytes 0.6 thou/uL (0.11-0.59); #Neutrophils 3.6 thou/uL (1.40-6.50); %Basophils 0.9 % (0.0-1.0); %Lymphocytes 46.8 % (21.0-51.0); %Monocytes 7.3 % (0.0-10.0); Hemoglobin 12.9 g/dL (12.0-16.0); Mean Corpuscular HGB CONC 34.9 g/dL (32.0-36.0); Mean Corpuscular Hemoglobin 32.7 pg (27.0-31.0); Mean Corpuscular Volume 93.5 fl (81.0-99.0); Mean Platelet Volume 7.1 fL (7.4-10.4); Platelet Count 240 thou/uL (130-400); RBC Distribution Width 13.6 % (11.5-14.5); Red Blood Cell (RBC) Count 3.94 mill/uL (4.20-5.40); White Blood Cell (WBC) Count 8.1 thou/uL (4.8-10.8)
[2017-08-22 03:29] LABS: INR-International Normal Ratio 1.1; PTT 30.7 SEC (22.9-36.1)
[2017-08-22 03:48] LABS: ALT (SGPT) 17 U/L (8-55); AST (SGOT) 22 U/L (5-34); Alkaline Phosphatase 88 U/L (40-150); Anion Gap 15 mmol/L (10-20); BUN (Urea Nitrogen) 17 mg/dL (9.8-20.1); Bilirubin, Total 0.4 mg/dL (0.2-1.2); Calc. Creatinine Clearance 0 mL/min (70-130); Calcium 9.6 mg/dL (7.8-10.44); Carbon Dioxide 22 mmol/L (23-31); Chloride 92 mmol/L (98-107); Estimated GFR-MDRD 70; Glucose 102 mg/dL (80-115); Potassium 4.1 mmol/L (3.5-5.1); Sodium 125 mmol/L (136-145)
[2017-08-22 03:56] LABS: Bilirubin Negative (Negative); Blood, Urine Negative (Negative); Clarity CLEAR (Clear); Glucose, Urine (Dipstick) Negative (Negative); Leukocyte Negative (Negative); Nitrite Negative (Negative); Protein, Urine (Dipstick) Negative (Neg-Trace); Specific Gravity, Urine 1.006 (1.002-1.036); Urobilinogen 0.2 mg/dL (0.2-1.0)
[2017-08-22] MEDS ORDERED: Sodium Chloride 0.9% 1,000 ML IV SCH (05:09)
[2017-08-22] MEDS ORDERED: Ondansetron HCl/PF 4 MG/2 ML Vial IVP PRN (05:09)
[2017-08-22] MEDS ORDERED: Ondansetron ODT 4 MG TAB SL PRN (05:09)
[2017-08-22 05:58] VITALS: BMI 29.5
[2017-08-22] MEDS ORDERED: cloNIDine 0.1 MG TAB PO PRN (10:34)
[2017-08-22] MEDS ORDERED: Aspirin 81 mg Enteric Coated Tablet ONE (11:15)
[2017-08-22 11:16] LABS: Thyroid Stimulating Hormone 3.9861 uIU/mL (0.35-4.94)
[2017-08-22] MEDS: metFORMIN 500 MG TAB PO SCH ×2 (11:19→18:19)
[2017-08-22] MEDS: Acetaminophen 325 MG TAB PO PRN ×2 (11:19→18:19)
--- NOTE | 2017-08-22 12:07 | CT ---
PRELIMINARY REPORT/[facility]/EMERGENTY AFTER-HOURS PROCEDURE CT Head Without Intravenous Contrast CLINICAL HISTORY: 67 years old, female; Signs and symptoms; Weakness, facial; Patient HX: Patient reports that she had numbness/tingling of the left hand and lower face starting at ~2230 last night. TECHNIQUE: Axial computed tomography images of the head/brain without intravenous contrast. COMPARISON: No relevant prior studies available. FINDINGS: Brain: Age appropriate atrophy and small vessel ischemic change. There is an old infarct in the left frontal lobe. No mass effect, midline shift or extra axial fluid collections. Taylor-white matter diffe rentiation is normal. No hemorrhage. Ventricles: Unremarkable. No ventriculomegaly. Bones/joints: Unremarkable. No acute fracture. Soft tissues: Unremarkable. Vasculature: Carotid and vertebral artery atherosclerotic calcification. Sinuses: Unremarkable as visualized. No acute sinusitis. Mastoid air cells: Unremarkable as visualized. No mastoid effusion. IMPRESSION: No acute findings. Old left frontal lobe infarct. Thank you for allowing us to participate in the care of your patient. Dictated and Authenticated by: Jose Guadalupe Rondon MD 08/22/2017 3:58 AM Central Time ([place] & [place]) FINAL REPORT CT BRAIN WITHOUT CONTRAST: Date: 08/22/17 FINDINGS/IMPRESSION: I agree with the preliminary report given by Oskar. Comparison is made with exam of 07/31/17. No significant interval change is seen. POS: [facility]
[2017-08-22] MEDS ORDERED: Lisinopril 20 MG TAB PO SCH ×2 (13:00→21:00)
[2017-08-22] MEDS ORDERED: chlorproMAZINE HCl 25 MG TAB PO SCH (13:00)
[2017-08-22] MEDS ORDERED: Metoprolol Tartrate 50 MG TAB PO SCH ×2 (13:00→21:00)
[2017-08-22] MEDS ORDERED: Apixaban 5 MG TAB PO SCH ×2 (13:00→21:00)
[2017-08-22 15:20] LABS: Creatinine, Urine Less than 20.00 mg/dL (47-110); Sodium, Urine 78 mmol/L (Not Available)
--- NOTE | 2017-08-22 21:27 | HP ---
PRIMARY CARE PHYSICIAN: Dr. Bennett. CHIEF COMPLAINT: Left-sided facial numbness. HISTORY OF PRESENT ILLNESS: Patient is a very pleasant 67-year-old female with a history of a 3-4 TI As in the past and also history of left MCA with residual right-sided weakness, who was recently disc harged from the hospital earlier this month who comes in with complaints of left-sided lower face num bness. Patient stated that she was feeling well at home. Last night around 9:30 after eating her di nner, she was watching TV, suddenly started feeling numbness on her lower part of her face around her jaw and around her mouth. The patient at that time took her blood pressure which was elevated, so s he has instructions to take clonidine which she did. Patient's stated that we will reevaluat e her in about an hour. If she does not feel well, we will take her to the emergency room. However, the patient's stated that he kind of fell asleep, so did she and when she woke up at 2:00 a. m. to go to the bathroom, she continued to have numbness to her left lower face and also started havi ng numbness to her left hand. At this time, she was taken into the ER for further evaluation. The p atient in the ER had a CT head which did not indicate any acute abnormalities. PAST MEDICAL HISTORY: 1. History of several strokes in the past. She is currently on Eliquis and takes aspirin every othe r day. 2. Chronic dysarthria. 3. History of DVTs. 4. Hypertension. 5. Hyperlipidemia. 6. Fibromyalgia. PAST SURGICAL HISTORY: 1. She had a loop recorder placement. 2. Left humeral fracture surgery and hysterectomy. ALLERGIES: She is allergic to TETANUS TOXOID and VACCINES. CURRENT MEDICATIONS: She takes, 1. Eliquis 5 mg p.o. b.i.d. 2. Aspirin every other day. 3. Clonidine 0.1 b.i.d. p.r.n. for systolic greater than 170. 4. Lisinopril 20 mg twice a daily. 5. Hydroxyzine as needed. 6. Loratadine 10 mg daily. 7. Metformin 500 mg p.o. t.i.d. 8. Metoprolol 50 mg b.i.d. 9. Multivitamin 1 tablet daily. 10. Zofran 4 mg oral as needed. 11. Zocor 40 mg at bedtime. 12. Ambien as needed. SOCIAL HISTORY: She currently lives with her . She denies any alcohol or drug use or smoking history. FAMILY HISTORY: Mother young with stroke and heart failure. One brother had several strokes. REVIEW OF SYSTEMS: The following complete review of systems was negative, unless otherwise mentioned in the HPI or below: Constitutional: Weight loss or gain, ability to conduct usual activities. Sk in: Rash, itching. Eyes: Double vision, pain. ENT/Mouth: Nose bleeding, neck stiffness, pain, te nderness. Cardiovascular: Palpitations, dyspnea on exertion, orthopnea. Respiratory: Shortness of breath, wheezing, cough, hemoptysis, fever, or night sweats. Gastrointestinal: Poor appetite, abdo lamar pain, heartburn, nausea, vomiting, constipation, or diarrhea. Genitourinary: Urgency, frequen cy, dysuria, nocturia. Musculoskeletal: Pain, swelling. Neurologic/Psychiatric: Anxiety, depressi on. Allergy/Immunologic: Skin rash, bleeding tendency. Please see my HPI for pertinent positives a nd negatives. All other review of systems reviewed and negative except as mentioned in the HPI. LABORATORY DATA: WBC is 8.1, hemoglobin of 12.9, hematocrit of 36.9, platelets of 240. Chemistry: Sodium of 125, potassium of 4.1, BUN of 17, creatinine 0.81. LFTs are normal. ASSESSMENT AND PLAN: The patient is a very pleasant 67-year-old female who comes to the hospital wit h complaints of left-sided numbness: 1. Possible transient ischemic attack. Patient's CT initially is negative. She recently had an MRI of the brain on the which indicated remote left MCA distribution infarct. She was supposed to b e seen by Vascular Surgery for the plaque that was noted on her right carotid. We will consult Neuro logy. We will continue her Eliquis and her aspirin for now. 2. Hyponatremia. We will check serum osmolality. We will check urine electrolytes to calculate the cause of her hyponatremia. She is not on any diuretics which could possibly be causing her to have hyponatremia, nor is she on any SSRIs. 3. Deep venous thrombosis prophylaxis. The patient is already on Eliquis. 4. Hypertension. We will continue her home medication. 5. Diabetes. We will continue to monitor her Accu-Cheks.
[2017-08-22] MEDS: Zolpidem Tartrate 5 MG TAB PO PRN (21:50)
[2017-08-22] MEDS: Atorvastatin Calcium 20 MG TAB PO SCH (21:51)
[2017-08-22] MEDS: Metoprolol Tartrate 50 MG TAB PO SCH (21:51)
[2017-08-22] MEDS: Lisinopril 20 MG TAB PO SCH (21:51)
[2017-08-22] MEDS: Apixaban 5 MG TAB PO SCH (21:52)
--- NOTE | 2017-08-23 02:29 | CON ---
DATE OF CONSULTATION: 08/22/2017 REFERRING PROVIDER: Starla Nixon M.D. REASON FOR CONSULTATION: Left-sided numbness. HISTORY OF PRESENT ILLNESS: Ms. Gonsalves is a pleasant 67-year-old female, who has been co nsulted for evaluation of left-sided numbness. The patient is known patient to me from her prior adm ission on 08/01/2017. She has a history of hypertension, hyperlipidemia, history of DVT and embolic stroke in 2017 and on anticoagulation therapy and Eliquis. She presented with a complaint of left-si ded numbness. She reports that yesterday night she started noticing numbness on the left side of the face and left hand. She went to sleep hoping that they will resolve; around 3:00 at night, she noti leander that the symptoms were getting worse, which prompted her to wake her up who decided to br ing her to the [facility]. reported that she was able to talk appropriately. Her vision was not impaired. She was able to walk without any assistance and she did not complain o f having any weakness. She denies having any headache, chest pain, palpitation, lightheadedness or d izziness. She notes that her symptoms are persisting since being admitted to the hospital. PAST MEDICAL HISTORY: Significant for hypertension, hyperlipidemia, fibromyalgia, history of DVT, hi story of stroke on chronic anticoagulation therapy. PAST SURGICAL HISTORY: Significant for right foot surgery, loop recorder placement, left humeral fra cture surgery and hysterectomy. CURRENT MEDICATIONS: Please review MAR. ALLERGIES: Include TETANUS TOXOID and VACCINE. SOCIAL HISTORY: She denies smoking, alcohol use, or illicit drug use. She is and lives with her . FAMILY HISTORY: Significant for mother with history of stroke and congestive heart failure and one b rother with history of stroke. REVIEW OF SYSTEMS: As mentioned in the HPI, otherwise negative. PHYSICAL EXAMINATION: VITAL SIGNS: Blood pressure of 163/68, pulse of 70, temperature of 97.5, respirations of 16, O2 sats of 94% on room air. GENERAL: Well-developed, well-nourished female. RESPIRATORY: Clear to auscultation bilaterally. CARDIOVASCULAR: Regular rate and rhythm. NEUROLOGIC: Mental status: The patient is awake, alert, oriented x3. Speech and language: Fluent speech. Cranial nerves: Pupils are 3 mm and reactive. Visual yadav are intact. External muscles are intact. No nystagmus is noted. Face is symmetric. Tongue and uvula midline. Motor exam showed normal tone and bulk with 5/5 strength in both upper and lower extremities. Sensory: Sensation is subjectively diminished to the left side of the face and upper extremity to touch and temperature com pared to the right side. Deep tendon reflexes 2+ reflexes in both upper and lower extremities. Estefanía nski: Plantar responses flexion bilaterally. Coordination intact to [id number] on both side s. LABORATORY DATA: Reviewed, which included CBC, CMP, TSH, and urinalysis, which is significant for so dium of 125, glucose of 194, otherwise unremarkable. IMAGING STUDIES: CT head without contrast was reviewed which showed no acute intracranial abnormalit y. IMPRESSION: 1. Recurrent episode of left-sided numbness. 2. Right internal carotid artery stenosis with soft plaque. 3. Hyponatremia. Ms. Gonsalves is a pleasant 67-year-old female who presents with the recurrent episode of le ft-sided numbness. Given that she had right ICA and mild to moderate stenosis with soft plaque. I a m concerned that her symptoms are secondary to the thromboembolism to the right MCA distribution. I would recommend consulting Cardiovascular Surgery for their recommendations. This could also be seco ndary to hyponatremia, although it would be unusual to have hyponatremia causing unilateral numbness. I would recommend continuing her on Eliquis along with aspirin at the current dose. If Cardiovascu lar Surgery feels that there is no indication for surgery, then the aspirin can be changed to 81 mg o n a daily basis. Thank you for your consultation.
[2017-08-23] MEDS: Lisinopril 20 MG TAB PO SCH ×2 (08:05→21:11)
[2017-08-23] MEDS: Apixaban 5 MG TAB PO SCH ×2 (08:06→21:11)
[2017-08-23] MEDS: Acetaminophen 325 MG TAB PO PRN ×2 (08:06→13:38)
[2017-08-23] MEDS: Ubidecarenone 50 MG CAP PO SCH (08:06)
[2017-08-23] MEDS: Metoprolol Tartrate 50 MG TAB PO SCH ×2 (08:06→21:11)
[2017-08-23] MEDS: chlorproMAZINE HCl 25 MG TAB PO SCH (08:06)
[2017-08-23] MEDS: metFORMIN 500 MG TAB PO SCH ×3 (08:06→19:56)
[2017-08-23] MEDS ORDERED: Aspirin 81 mg Enteric Coated Tablet PO SCH (09:00)
[2017-08-23 10:41] LABS: Anion Gap 13 mmol/L (10-20); BUN (Urea Nitrogen) 15 mg/dL (9.8-20.1); Calc. Creatinine Clearance 84 mL/min (70-130); Calcium 9.1 mg/dL (7.8-10.44); Carbon Dioxide 25 mmol/L (23-31); Chloride 94 mmol/L (98-107); Estimated GFR-MDRD 65; Glucose 229 mg/dL (80-115); Potassium 3.9 mmol/L (3.5-5.1); Sodium 128 mmol/L (136-145)
--- NOTE | 2017-08-23 15:49 | PDOC.PN ---
- Subjective Encounter Start Date: 08/23/17 Encounter Start Time: 10:30 - Objective Resuscitation Status: Resuscitation Status FULL:Full Resuscitation Vital Signs & Weight: Vital Signs (12 hours) Temp Pulse Pulse Pulse Resp BP BP 08/23/17 11:42 97.2 F L 66 20 08/23/17 10:24 69 73 131/64 168/94 H 08/23/17 08:10 98.4 F 69 15 08/23/17 07:56 98.4 F 69 15 08/23/17 07:00 69 68 199/74 H 215/91 H BP Pulse Ox 08/23/17 11:42 136/59 L 96 08/23/17 10:24 08/23/17 08:10 95 08/23/17 07:56 197/77 H 95 08/23/17 07:00 Weight Weight 188 lb 12.8 oz I&O: 08/22/17 08/23/17 08/24/17 06:59 06:59 06:59 Intake Total 450 Balance 450 Result Diagrams: 08/22/17 03:04 08/23/17 10:00 Additional Labs: Accuchecks 08/23/17 08/23/17 11:39 05:54 POC Glucose 118 H 110 Phys Exam - Physical Examination HEENT: PERRLA, moist MMs, sclera anicteric, TM's clear, oral pharynx no lesions , 2+ tonsils Neck: no nodes, no JVD, supple, full ROM Respiratory: no wheezing, no rales, no rhonchi, wheezing present, clear to auscultation bilateral Cardiovascular: RRR, no significant murmur, no rub, gallop, irregular left lower face tingling and left hand tingling Psychiatric: normal affect, A&O x 3 Dx/Plan - Plan 1) tia 2) hyponatremia 3) hx of dvt 4) htn plan: neurology consulted, vascular surgery consulted given her current symptoms and she did have some Right ICA plaque. pt's hyponatremia is most likely due to SIADH based on urine osmolarity and urine sodium. will continue AC. Awaiting CV surgery recommendation. * . Review of Systems - Review of Systems Eyes: negative: Pain, Vision Change, Conjunctivae Inflammation, Eyelid Inflammation, Redness, Other ENT: negative: Ear Pain, Ear Discharge, Nose Pain, Nose Discharge, Nose Congestion, Mouth Pain, Mouth Swelling, Throat Pain, Throat Swelling, Other Respiratory: negative: Cough, Dry, Shortness of Breath, Hemoptysis, SOB with Excertion, Pleuritic Pain, Sputum, Wheezing Cardiovascular: negative: chest pain, palpitations, orthopnea, paroxysmal nocturnal dyspnea, edema, light headedness, other Gastrointestinal: negative: Nausea, Vomiting, Abdominal Pain, Diarrhea, Constipation, Melena, Hematochezia, Other Other: mild tingling - Medications/Allergies Allergies/Adverse Reactions: Allergies Allergy/AdvReac Type Severity Reaction Status Date / Time Tetanus Vaccines and Toxoid Allergy Verified 07/31/17 15:14 Medications: Current Medications Acetaminophen (Tylenol) 650 mg PO Q4H PRN PRN Reason: Headache/Fever or Pain Stop: 08/23/17 16:00 Last Admin: 08/23/17 13:38 Dose: 650 mg Apixaban (Eliquis) 5 mg PO BID [facility] Last Admin: 08/23/17 08:06 Dose: 5 mg Aspirin (Ecotrin) 81 mg PO Q2D [facility] Last Admin: 08/23/17 08:29 Dose: Not Given Atorvastatin Calcium (Lipitor) 20 mg PO HS [facility] Last Admin: 08/22/17 21:51 Dose: 20 mg Chlorpromazine HCl (Thorazine) 25 mg PO DAILY [facility] Last Admin: 08/23/17 08:06 Dose: 25 mg Clonidine (Catapres) 0.1 mg PO BID PRN PRN Reason: SBP Greater Than 170 Coenzyme Q10 (Coenzyme Q10) 100 mg PO DAILY [facility] Last Admin: 08/23/17 08:06 Dose: 100 mg Lisinopril (Zestril) 20 mg PO BID [facility] Last Admin: 08/23/17 08:05 Dose: 20 mg Metformin HCl (Glucophage) 500 mg PO TID-[facility] Last Admin: 08/23/17 13:38 Dose: 500 mg Metoprolol Tartrate (Lopressor) 50 mg PO BID [facility] Last Admin: 08/23/17 08:06 Dose: 50 mg Ondansetron HCl (Zofran) 4 mg IVP Q6H PRN PRN Reason: Nausea/Vomiting Stop: 08/23/17 16:00 Ondansetron HCl (Zofran Odt) 4 mg SL Q6H PRN PRN Reason: Nausea/Vomiting Stop: 08/23/17 16:00 Sodium Chloride (Flush - Normal Saline) 10 ml IVF Q12HR [facility]E Last Admin: 08/23/17 08:30 Dose: Not Given Sodium Chloride (Flush - Normal Saline) 10 ml IVF PRN PRN PRN Reason: Saline Flush Zolpidem Tartrate (Ambien) 10 mg PO HS PRN PRN Reason: Insomnia Last Admin: 08/22/17 21:50 Dose: 10 mg
[2017-08-23] MEDS ORDERED: cloNIDine 0.1 MG TAB PO PRN (16:16)
[2017-08-23] MEDS ORDERED: hydrALAZINE 20 MG/ML VIAL SLOW IVP PRN (19:05)
[2017-08-23] MEDS: Atorvastatin Calcium 20 MG TAB PO SCH (21:12)
[2017-08-23] MEDS: Zolpidem Tartrate 5 MG TAB PO PRN (21:15)
--- NOTE | 2017-08-23 22:27 | CON ---
DATE OF CONSULTATION: 08/23/2017 HISTORY OF PRESENT ILLNESS: This is a pleasant 67-year-old accompanied by her , who suffered a left middle cerebral artery CVA about 1 year ago or 15 months ago. Workup at that time included ca rotid ultrasonography, CT angiography, and a transesophageal echo. The only findings at that time we re about a 50% right carotid stenosis. She then presented in February with a TIA and some hypertensi on and her symptom at that time was expressive aphasia. Carotid Doppler study at that time was unrem arkable and CT angiography showed mild right internal carotid artery disease and an area of encephalo malacia in the left frontal lobe consistent with her stroke earlier in the year. She then presented again with expressive aphasia about [address] angiography again done showing mild to moderat e stenosis in the right internal carotid artery at the origin. She then presented this time with lef t facial numbness and left hand numbness with no new motor findings and no obvious speech changes, al though the thinks she may have slightly more difficulty with word finding. She has been on E liquis and then baby aspirin every other day at home. Her Eliquis this partially for treatment of he r TIAs, but she also has had a remote history of DVT in the right leg about 17 years ago and has been on some form of oral anticoagulation since that time. PAST MEDICAL HISTORY: Otherwise includes hypertension, dyslipidemia, and fibromyalgia. PAST SURGICAL HISTORY: Includes a loop recorder with evidently no significant findings and a previou s left arm fracture and a previous hysterectomy. MEDICATIONS: Include, lisinopril, clonidine, aspirin, and Eliquis. She is also on metformin 500 t.i .d., metoprolol 50 b.i.d., and Zocor 40 at bedtime. SOCIAL HISTORY: She has never smoked. She lives with her , who is retired nuclear equipment test engineer and [employer]. At this time, I do not think right carotid endarterectomy will be of any benefit to this lady. If georgina quiroga has recurrent right hemispheric symptoms, consideration could be given to this, but surgical interv ention for a 50% stenosis for sensory finding in her left hand is probably not indicated.
[2017-08-24 05:51] LABS: Hemoglobin 12.2 g/dL (12.0-16.0); Platelet Count 221 thou/uL (130-400)
[2017-08-24] MEDS: Ubidecarenone 50 MG CAP PO SCH (08:07)
[2017-08-24] MEDS: Metoprolol Tartrate 50 MG TAB PO SCH (08:07)
[2017-08-24] MEDS: metFORMIN 500 MG TAB PO SCH ×2 (08:07→11:16)
[2017-08-24] MEDS: Lisinopril 20 MG TAB PO SCH (08:07)
[2017-08-24] MEDS: chlorproMAZINE HCl 25 MG TAB PO SCH (08:07)
[2017-08-24] MEDS: Apixaban 5 MG TAB PO SCH (08:07)
[2017-08-24] MEDS ORDERED: Acetaminophen 325 MG TAB PO PRN (09:22)
[2017-08-24 12:03] VITALS: BP 143/66; TEMP 97.3
[2017-08-24 12:14] LABS: Sodium 129 mmol/L (136-145)
--- NOTE | 2017-08-25 19:06 | DIS ---
DATE OF DISCHARGE: 08/24/2017 DISCHARGE DISPOSITION: Home. FOLLOWUP: 1. Follow up with primary care physician, Dr. Ron Bennett, in 1 week. [facility]. [facility] 3. Follow up with Dr. Amarjit Major in 2 weeks. ALLERGIES: The patient is allergic to TETANUS TOXOID and VACCINE. The patient was seen on the day of discharge, denies any new complaints, no chest pain, shortness of breath or palpitations. No new focal deficit. DISCHARGE MEDICATIONS: Aspirin was changed to 81 mg daily from every other day. All other home medi cations were continued including Eliquis. BRIEF HOSPITAL COURSE: The patient is a 67-year-old female with several CVA, currently on aspirin ev pascual other day with Eliquis, presented to the emergency room with stroke like symptoms. Please refer to the history and physical dated 08/15/2017, by Dr. Nixon for further details. The patient was admitted to the hospital with a diagnosis of suspected CVA. A CT scan of the brain w as negative for acute findings. The patient was evaluated by Neurology, Dr. Parson. Dr. Parson recommen ded Cardiovascular consultation due to history of right internal carotid artery stenosis. The patien t was seen by Cardiovascular, Dr. Pride. Dr. Pride recommended not to proceed with carotid endartere ctomy due to 50% stenosis. The patient was advised to follow up with Neurology and Cardiovascular as outpatient. Aspirin has been changed to daily per neurology recommendation. FINAL DIAGNOSES 1. Transient ischemic attack with suspected acute cerebrovascular accident. 2. Hypertension. 3. Hyperlipidemia. 4. Diabetes mellitus type 2. 5. History of venous thrombosis on anticoagulation for the last 15 years. 6. History of cerebrovascular accident. 7. Right internal carotid artery stenosis approximately 50%. 8. Hyponatremia. Sodium on admission was 125, at discharge is 129. 9. Basic metabolic after 1 week is recommended. Primary care physician is advised to follow.
== END 2017-08-24 15:01 | disposition home health service (06) | DRG 65 ==
LOC: ERS 02:29 → 2SE 04:20
PROVIDERS: ADMIT Internal Medicine; ATTEND Internal Medicine
DX: I63.9 Cerebral infarction, unspecified (principal); E22.2 Syndrome of inappropriate secretion of antidiuretic hormone; Z79.01 Long term (current) use of anticoagulants; R47.1 Dysarthria and anarthria; I10 Essential (primary) hypertension; E78.5 Hyperlipidemia, unspecified; M79.7 Fibromyalgia; E11.9 Type 2 diabetes mellitus without complications; I65.21 Occlusion and stenosis of right carotid artery
CPT/HCPCS: 36415; 36416; 70450; 80048; 80053; 81003; 82533; 82565; 82570; 83930; 83935; 84295; 84300; 84443; 85014; 85018; 85025; 85049; 85610; 85730; 93005; A4216; G8978-GP-CI; G8979-GP-CI; G8980-GP-CI; G8987-GO-CI; G8988-GO-CI; G8989-GO-CI; G9162-GN-CJ; G9163-GN-CI; Q0161

== ENCOUNTER 2017-12-02 09:25 | Emergency (ER) | payer MEDICARE, BC ==
[2017-12-02] MEDS ORDERED: Ketorolac Tromethamine 30 MG/ML VIAL ONE (09:57)
--- NOTE | 2017-12-02 11:56 | RAD ---
LUMBAR SPINE 3 VIEWS: Date: 12/02/17 HISTORY: Emergency exam. Fall. Tailbone pain. COMPARISON: None. FINDINGS: The radiographs are severely limited due to patient rotation. There appears to be a new from comparis on examination superior end plate deformity at L5. There is narrowing of the L3-4, L4-5, and L2-3 int erspinous space. IMPRESSION: Age-indeterminate superior end plate deformity at L5. POS: LELO
--- NOTE | 2017-12-02 11:57 | RAD ---
SACRUM AND COCCYX AP AND LATERAL STANDARD: Date: 12/02/17 HISTORY: Injury. COMPARISON: None. FINDINGS: There is a very mild superior end plate deformity of L5. There is anterior displacement of the coccyx relative to the sacrum, age-indeterminate. Vascular stent projects over the right pelvis. Moderate vascular calcifications. IMPRESSION: 1. Anterior displacement of the coccyx relative to the sacrum is age-indeterminate. 2. Mild superior end plate deformity at L5, although does not appear as severe as the lumbar spine r adiographs have shown. Lumbar spine radiograph images, however, were limited. POS: OSIEL
[2017-12-02] MEDS ORDERED: traMADol HCl 50 MG TAB ONE (12:39)
[2017-12-02] MEDS ORDERED: cloNIDine 0.1 MG TAB ONE (12:53)
== END 2017-12-02 13:05 | disposition home or self-care (01) ==
LOC: ERS 09:25
DX: S30.0XXA Contusion of lower back and pelvis, initial encounter (principal); Z86.718 Personal history of other venous thrombosis and embolism; I10 Essential (primary) hypertension; E78.00 Pure hypercholesterolemia, unspecified; E11.9 Type 2 diabetes mellitus without complications; Z86.73 Personal history of transient ischemic attack (TIA), and cerebral infarction without residual deficits; Z79.899 Other long term (current) drug therapy; Z79.84 Long term (current) use of oral hypoglycemic drugs; W01.0XXA Fall on same level from slipping, tripping and stumbling without subsequent striking against object, initial encounter
CPT/HCPCS: 36416; 72100; 72220; 96372; J1885

== ENCOUNTER 2017-12-06 15:50 | Inpatient (IN) | payer MEDICARE, BC ==
[2017-12-06 16:29] LABS: Hemoglobin 15.8 g/dL (12.0-16.0); Mean Corpuscular HGB CONC 35.3 g/dL (32.0-36.0); Mean Corpuscular Volume 93.3 fL (78.0-98.0); Mean Platelet Volume 6.7 fL (7.4-10.4); Platelet Count 274 thou/uL (130-400); Red Blood Cell (RBC) Count 4.78 mill/uL (4.20-5.40); White Blood Cell (WBC) Count 18.1 thou/uL (4.8-10.8)
[2017-12-06 16:49] LABS: Band 12 % (5-11); Lymphocytes 9 % (21-51); MDiff Complete? YES; Monocytes 1 % (0-10); Neutrophil 77 % (42-75); PLT Morphology Comment Appears Adequate; RBC Morphology Normal; Reactive Lymphocytes 1 % (0-10)
--- NOTE | 2017-12-06 16:50 | CT ---
CT HEAD NONCONTRAST: 12/06/17 HISTORY: Altered mental status. COMPARISON: 08/22/17. FINDINGS: There is no evidence of acute intracranial hemorrhage or infarct. Old left frontal infarct and old la cunar infarcts are stable. There is no mass effect or shift of midline structures. The visualized par anasal sinuses remain well aerated. IMPRESSION: Chronic type findings are stable. No acute intracranial abnormalities are demonstrated on noncontrast CT head. POS: LELO
[2017-12-06 16:52] LABS: ALT (SGPT) 15 U/L (8-55); AST (SGOT) 22 U/L (5-34); Albumin 4.1 g/dL (3.4-4.8); Alkaline Phosphatase 106 U/L (40-150); Anion Gap 17 mmol/L (10-20); BUN (Urea Nitrogen) 15 mg/dL (9.8-20.1); Bilirubin, Total 0.7 mg/dL (0.2-1.2); Calc. Creatinine Clearance 0 mL/min (70-130); Calcium 9.6 mg/dL (7.8-10.44); Carbon Dioxide 23 mmol/L (23-31); Chloride 81 mmol/L (98-107); Estimated GFR-MDRD 49; Globulin 3.3 g/dL (2.4-3.5); Glucose 172 mg/dL (80-115); Magnesium 1.6 mg/dL (1.6-2.6); Potassium 4.1 mmol/L (3.5-5.1); Protein, Total 7.4 g/dL (6.0-8.3)
[2017-12-06 16:56] LABS: Sodium 117 mmol/L (136-145); Troponin I Less than 0.010 ng/mL (< 0.028)
[2017-12-06 17:08] LABS: Bilirubin Negative (Negative); Blood, Urine Negative (Negative); Clarity CLEAR (Clear); Glucose, Urine (Dipstick) Negative (Negative); Leukocyte Negative (Negative); Nitrite Negative (Negative); Protein, Urine (Dipstick) Negative (Neg-Trace); Specific Gravity, Urine 1.012 (1.002-1.036); pH, Urine 5.5 (5.0-9.0)
[2017-12-06] MEDS ORDERED: Senokot 8.6 MG TAB PO PRN (19:23)
[2017-12-06] MEDS ORDERED: Bisacodyl 5 MG TAB PO PRN (19:23)
[2017-12-06] MEDS ORDERED: Ondansetron ODT 4 MG TAB PO PRN ×2 (19:23→22:25)
[2017-12-06 20:19] LABS: Anion Gap 13 mmol/L (10-20); BUN (Urea Nitrogen) 13 mg/dL (9.8-20.1); Calc. Creatinine Clearance 0 mL/min (70-130); Calcium 9.1 mg/dL (7.8-10.44); Carbon Dioxide 25 mmol/L (23-31); Chloride 85 mmol/L (98-107); Estimated GFR-MDRD 66; Glucose 138 mg/dL (80-115); Potassium 4.1 mmol/L (3.5-5.1)
[2017-12-06 20:23] LABS: Sodium 119 mmol/L (136-145)
[2017-12-06] MEDS: Famotidine/PF 20 mg/2ml Vial SLOW IVP SCH (21:10)
[2017-12-06] MEDS ORDERED: Acetaminophen 500 MG TAB PO PRN (22:23)
[2017-12-06] MEDS ORDERED: cloNIDine 0.1 MG TAB PO PRN (22:24)
[2017-12-06] MEDS ORDERED: Metoprolol Tartrate 50 MG TAB PO SCH (23:15)
[2017-12-06] MEDS ORDERED: Apixaban 5 MG TAB PO SCH (23:15)
[2017-12-06] MEDS ORDERED: Simvastatin 40 MG TAB PO SCH (23:15)
[2017-12-07 02:04] VITALS: BMI 28.5
[2017-12-07 02:17] LABS: #Basophils 0.1 thou/uL (0.0-0.2); #Lymphocytes 2.7 thou/uL (1.20-3.40); #Monocytes 0.7 thou/uL (0.11-0.59); %Basophils 0.8 % (0.0-1.0); %Eosinophils 0.2 % (0.0-10.0); %Lymphocytes 28.5 % (21.0-51.0); %Monocytes 7.6 % (0.0-10.0); %Neutrophils 62.8 % (42.0-75.0); Mean Corpuscular HGB CONC 35.6 g/dL (32.0-36.0); Mean Corpuscular Hemoglobin 32.8 pg (27.0-31.0); Mean Corpuscular Volume 91.9 fL (78.0-98.0); Mean Platelet Volume 6.5 fL (7.4-10.4); Platelet Count 202 thou/uL (130-400); RBC Distribution Width 11.9 % (11.5-14.5); Red Blood Cell (RBC) Count 3.65 mill/uL (4.20-5.40); White Blood Cell (WBC) Count 9.5 thou/uL (4.8-10.8)
[2017-12-07 02:31] LABS: Anion Gap 13 mmol/L (10-20); BUN (Urea Nitrogen) 16 mg/dL (9.8-20.1); Calc. Creatinine Clearance 82 mL/min (70-130); Calcium 8.7 mg/dL (7.8-10.44); Carbon Dioxide 25 mmol/L (23-31); Chloride 85 mmol/L (98-107); Estimated GFR-MDRD 64; Glucose 184 mg/dL (80-115); Potassium 3.7 mmol/L (3.5-5.1)
[2017-12-07 02:34] LABS: Sodium 119 mmol/L (136-145)
[2017-12-07 02:41] LABS: Cardiac Risk 2.3 (Less than 4.5)
[2017-12-07 07:11] LABS: Anion Gap 14 mmol/L (10-20); BUN (Urea Nitrogen) 14 mg/dL (9.8-20.1); Calc. Creatinine Clearance 92 mL/min (70-130); Calcium 8.8 mg/dL (7.8-10.44); Carbon Dioxide 23 mmol/L (23-31); Chloride 86 mmol/L (98-107); Estimated GFR-MDRD 72; Glucose 113 mg/dL (80-115); Potassium 3.7 mmol/L (3.5-5.1)
[2017-12-07 07:15] LABS: Sodium 119 mmol/L (136-145)
[2017-12-07] MEDS ORDERED: metFORMIN 500 MG TAB PO SCH (08:00)
[2017-12-07] MEDS ORDERED: Ondansetron ODT 4 MG TAB PO PRN (08:23)
[2017-12-07] MEDS ORDERED: cloNIDine 0.1 MG TAB PO PRN ×2 (08:23→19:53)
--- NOTE | 2017-12-07 08:30 | PDOC.EVN ---
Event Note - Event Note Event Note: h&p [id number]
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
[2017-12-07] MEDS ORDERED: Ubidecarenone 50 MG CAP PO SCH (09:00)
[2017-12-07] MEDS ORDERED: Non-Formulary Item 1 EACH (Ubidecarenone [Co Q-10] 100 MG) PO SCH (09:00)
[2017-12-07] MEDS ORDERED: Aspirin 81 mg Enteric Coated Tablet PO SCH (09:00)
[2017-12-07] MEDS ORDERED: Metoprolol Tartrate 50 MG TAB PO SCH (09:00)
[2017-12-07] MEDS ORDERED: Apixaban 5 MG TAB PO SCH (09:00)
[2017-12-07] MEDS ORDERED: Lisinopril 20 MG TAB PO SCH (09:00)
[2017-12-07] MEDS ORDERED: Prevnar 13-Val Conj/PF 0.5 ML SYRINGE IM ONE (09:00)
[2017-12-07] MEDS ORDERED: Loratadine 10 MG TAB PO SCH (09:00)
[2017-12-07] MEDS ORDERED: Multivitamin W/ Minerals 1 TAB PO SCH (09:00)
[2017-12-07] MEDS: Multivitamin W/ Minerals 1 TAB PO SCH (09:32)
[2017-12-07] MEDS: Metoprolol Tartrate 50 MG TAB PO SCH ×2 (09:32→22:11)
[2017-12-07] MEDS: Apixaban 5 MG TAB PO SCH ×2 (09:32→22:11)
[2017-12-07] MEDS: Famotidine/PF 20 mg/2ml Vial SLOW IVP SCH ×2 (09:32→22:11)
[2017-12-07] MEDS: Ubidecarenone 50 MG CAP PO SCH (09:32)
[2017-12-07] MEDS: Lisinopril 20 MG TAB PO SCH (09:33)
[2017-12-07] MEDS: Loratadine 10 MG TAB PO SCH (09:33)
[2017-12-07] MEDS: Aspirin 81 mg Enteric Coated Tablet PO SCH (09:33)
[2017-12-07] MEDS: Sodium Chloride 0.9% 1,000 ML IV SCH (09:37)
--- NOTE | 2017-12-07 09:58 | CON ---
DATE OF CONSULTATION: 12/07/2017 IMPRESSION: Basilar transient ischemic attack versus hypotensive event. PLAN: 1. Continue aspirin and Eliquis. 2. Continue Lipitor. 3. Patient can be discharged home. Ms. Gonsalves is a 67-year-old woman with a past history of a left frontal stroke with mild expressive aphasia. She was sitting at home when she started experiencing dizziness, mild nausea, mild headach e, blurred vision and a little more difficulty speaking. Her symptoms lasted about 2 hours by her as sessment. She came into the emergency room for evaluation. Her CT scan of the brain only showed chr onic ischemic changes, but nothing acute. She was in the hospital in July and had an extensive vasc ular workup including a transesophageal echo. PHYSICAL EXAMINATION: On exam at this point she has a mild expressive aphasia. Her exam is otherwis e nonfocal. VITAL SIGNS: Appear unremarkable. SUMMARY: This is a 67-year-old woman on maximum medical therapy for stroke prevention. Her symptoms would suggest a possible basilar transient ischemic attack versus hypotensive event. She appears ba ck to baseline. I do not see anything further we can do to reduce her risk.
[2017-12-07] MEDS: Acetaminophen 500 MG TAB PO PRN ×2 (10:29→16:13)
[2017-12-07 10:35] LABS: Osmolality, Urine 162 mOsm/kg (300-900)
[2017-12-07 11:09] LABS: Sodium, Urine 32 mmol/L (Not Available)
[2017-12-07] MEDS ORDERED: Lorazepam 0.5 MG TAB PO PRN (11:44)
--- NOTE | 2017-12-07 12:43 | CON ---
DATE OF CONSULTATION: 12/07/2017 CONSULTING PHYSICIAN: Dr. Flores REASON FOR CONSULTATION: Hyponatremia. REASON FOR ADMISSION: Diarrhea and weakness. HISTORY OF PRESENT ILLNESS: This is a 67-year-old female with past medical history positive for DVT, TIAs and CVA. The patient was admitted to the hospital with weakness and was found to have hyponatremia, sodium level of 119. Nephrology is consulted. The patient complains of diarrhea lately. was at the bedside. No chest pain, no shortness of breath, no fever or chills. No nausea, vomiting. PAST MEDICAL HISTORY: 1. Positive for deep venous thrombosis. 2. Transient ischemic attacks. 3. Cerebrovascular accident. 4. ____. 5. Hypertension. 6. Hyperlipidemia. PAST SURGICAL HISTORY: 1. Hysterectomy. 2. Multiple orthopedic surgeries. HOME MEDICATIONS: Zofran, Eliquis, aspirin, lisinopril, metoprolol, simvastatin , clonidine, metformin. ALLERGIES: TETANUS TOXOID. SOCIAL HISTORY: No smoking or alcohol. FAMILY HISTORY: Noncontributory. REVIEW OF SYSTEMS: The following complete review of systems was negative, unless otherwise mentioned in the HPI or below: Constitutional: Weight loss or gain, ability to conduct usual activities. Skin: Rash, itching. Eyes: Double vision, pain. ENT/Mouth: Nose bleeding, neck stiffness, pain, tenderness. Cardiovascular: Palpitations, dyspnea on exertion, orthopnea. Respiratory: Shortness of breath, wheezing, cough, hemoptysis, fever or night sweats. Gastrointestinal: Poor appetite, abdominal pain, heartburn, nausea, vomiting, constipation, or diarrhea. Genitourinary: Urgency, frequency, dysuria, nocturia. Musculoskeletal: Pain, swelling. Neurologic/Psychiatric: Anxiety, depression. Allergy/Immunologic: Skin rash, bleeding tendency. PHYSICAL EXAMINATION: GENERAL: A 67-year-old female in no apparent distress. VITAL SIGNS: Temperature 96, pulse 70, respiratory rate 18, blood pressure 122/ 50. HEENT: Atraumatic, normocephalic. Oral mucosa is moist. NECK: Supple. HEART: S1, S2 heard. ABDOMEN: Soft, nontender. RESPIRATORY: Clear. MUSCULOSKELETAL: 1+ edema. DERMATOLOGIC: No skin rash. NEUROLOGIC: Alert and awake normal. PSYCH: Mood and affect normal. LABORATORY: Sodium is 190, potassium 3.7, BUN 14, creatinine 0.7. ASSESSMENT AND PLAN: 1. Hyponatremia, most likely volume depletion. Check urine studies, start on IV fluids, monitor sodium closely. Plan is to check BMP q.4h. x5. 2. Edema, controlled. 3. Hypertension, stable. 4. Hypochloremia. Monitor sodium closely. Continue IV fluids. Thank you for the consult. ROLLY
[2017-12-07 14:13] LABS: Anion Gap 13 mmol/L (10-20); BUN (Urea Nitrogen) 12 mg/dL (9.8-20.1); Calc. Creatinine Clearance 85 mL/min (70-130); Calcium 8.7 mg/dL (7.8-10.44); Carbon Dioxide 25 mmol/L (23-31); Chloride 87 mmol/L (98-107); Estimated GFR-MDRD 66; Glucose 159 mg/dL (80-115); Potassium 3.6 mmol/L (3.5-5.1); Sodium 121 mmol/L (136-145)
--- NOTE | 2017-12-07 15:38 | MRI ---
MRI LUMBAR SPINE: History: Back pain, history of fall. Technique: Multiplanar, multisequence noncontrast enhanced MRI images were obtained of the lumbar spi ne. FINDINGS: Images demonstrate signal abnormality seen in the T12 vertebral body with height loss in the inferior endplate of T12. This is compatible with T12 compression fracture which appears to be acute. No sign ificant retropulsed fragments seen posteriorly. The central canal is patent. T12-L1: Unremarkable. L1-2: Unremarkable. L2-3: Unremarkable. L3-4: There is mild broad based disc bulge with bilateral facet and ligamentous flavum hypertrophy re sulting in a mild degree of central and lateral recess stenosis. L4-5: Disc desiccation is seen. There is a broad based disc bulge with bilateral facet and ligamentum flavum hypertrophy resulting in mild to moderate central and lateral stenosis. The neural foramen ar e patent. L5-S1: Unremarkable. IMPRESSION: Acute T12 compression fracture. POS: [facility]
[2017-12-07] MEDS: metFORMIN 500 MG TAB PO SCH ×2 (17:08→17:56)
[2017-12-07] MEDS ORDERED: traMADol HCl 50 MG TAB PO PRN (18:12)
[2017-12-07] MEDS ORDERED: Lidocaine 5% Patch TD SCH (18:30)
[2017-12-07] MEDS: HYDROcodone/Acetaminophen 5/325 mg Tablet PO PRN (19:25)
[2017-12-07] MEDS ORDERED: Cyclobenzaprine 10 MG TAB PO PRN (19:53)
--- NOTE | 2017-12-07 19:54 | PDOC.PN ---
- Subjective Encounter Start Date: 12/07/17 Encounter Start Time: 20:00 Subjective: nsg notes rev, gertrdue ovn, pt c/o sig back pain - no change from prior -: denies further constipation/ no urinary incont/ no b/l LE paresthesias -: describes "spasm" like pain in her lower back, denies upper back pain - Objective Resuscitation Status: Resuscitation Status FULL:Full Resuscitation Vital Signs & Weight: Vital Signs (12 hours) Temp Pulse Resp BP BP Pulse Ox 12/07/17 16:48 145/77 H 12/07/17 16:47 94 L 12/07/17 16:27 98.0 F 76 16 219/86 H 94 L 12/07/17 12:21 97.3 F L 62 16 168/86 H 95 12/07/17 12:11 168/86 H 12/07/17 10:00 97.8 F 71 18 196/108 H 97 12/07/17 09:33 179/86 H Weight Weight 189 lb I&O: 12/06/17 12/07/17 12/08/17 06:59 06:59 06:59 Intake Total 300 Output Total 750 Balance -450 Result Diagrams: 12/08/17 01:12 12/08/17 12:06 Additional Labs: Accuchecks 12/07/17 12/07/17 12/07/17 17:08 12:17 06:06 POC Glucose 147 H 140 H 111 H 12/06/17 21:09 POC Glucose 124 H Phys Exam - Physical Examination Constitutional: NAD seated on the edge of the hospital bed HEENT: PERRLA, moist MMs, sclera anicteric Respiratory: no wheezing, no rales, no rhonchi, clear to auscultation bilateral Cardiovascular: RRR, no significant murmur Gastrointestinal: soft, non-tender, no distention, positive bowel sounds Musculoskeletal: no edema, pulses present Neurological: moves all 4 limbs Psychiatric: normal affect, A&O x 3 Dx/Plan - Plan cont current plan of care * back pain * pain is not at T12 compression fx site - conservative mgmt * minimize opioid and narcotic use - trial lidoderm patch and flexeril prn low dose metabolic encephalopathy, resolved possibly 2/2 hyponatremia. could have also sustained a TIA - has a hx of known TIAs but is already on maximal secondary prevention regimen apprec neuro c/s hyponatremia, improving suspect 2/2 excessive laxative use apprec nephrology c/s hx TIA, stroke continue home regimen, monitor diet: as kamran activity: PT/ OT/ ST dvt ppx Review of Systems - Medications/Allergies Allergies/Adverse Reactions: Allergies Allergy/AdvReac Type Severity Reaction Status Date / Time Tetanus Vaccines and Toxoid Allergy Verified 07/31/17 15:14 Medications: Current Medications Acetaminophen (Tylenol) 500 mg PO Q4H PRN PRN Reason: Pain Last Admin: 12/07/17 16:13 Dose: 500 mg Hydrocodone Bitart/Acetaminophen ([place] 5/325) 1 tab PO Q4H PRN PRN Reason: Moderate Pain (4-6) Last Admin: 12/07/17 19:25 Dose: 1 tab Apixaban (Eliquis) 5 mg PO BID [facility] Last Admin: 12/07/17 09:32 Dose: 5 mg Aspirin (Ecotrin) 81 mg PO DAILY [facility] Last Admin: 12/07/17 09:33 Dose: 81 mg Atorvastatin Calcium (Lipitor) 20 mg PO HS [facility] Bisacodyl (Dulcolax) 10 mg PO DAILYPRN PRN PRN Reason: Constipation Clonidine (Catapres) 0.05 mg PO BID PRN PRN Reason: Hypertension Coenzyme Q10 (Coenzyme Q10) 100 mg PO DAILY [facility] Last Admin: 12/07/17 09:32 Dose: 100 mg Cyclobenzaprine HCl (Flexeril) 5 mg PO TID PRN PRN Reason: Muscle Spasm Famotidine (Pepcid) 20 mg SLOW IVP Q12HR [facility] Last Admin: 12/07/17 09:32 Dose: 20 mg Sodium Chloride (Normal Saline 0.9%) 1,000 mls @ 75 mls/hr IV .[id number] [facility] Last Admin: 12/07/17 09:37 Dose: 1,000 mls Iron/Minerals/Multivitamins (Theragran M) 1 tab PO DAILY [facility] Last Admin: 12/07/17 09:32 Dose: 1 tab Lidocaine (Lidoderm 5% Patch) 1 patch TD DAILY [facility] Lisinopril (Zestril) 20 mg PO DAILY [facility] Last Admin: 12/07/17 09:33 Dose: 20 mg Loratadine (Claritin) 10 mg PO DAILY [facility] Last Admin: 12/07/17 09:33 Dose: 10 mg Metformin HCl (Glucophage) 500 mg PO TID-WM [facility] Last Admin: 12/07/17 17:56 Dose: 500 mg Metoprolol Tartrate (Lopressor) 50 mg PO BID [facility] Last Admin: 12/07/17 09:32 Dose: 50 mg Miscellaneous Medication (Lidocaine Patch Removal) 1 each TOP 2100 PETE Morphine Sulfate (Morphine) 2 mg SLOW IVP Q4H PRN PRN Reason: Breakthrough Pain Ondansetron HCl (Zofran Odt) 4 mg PO Q4HR PRN PRN Reason: Nausea/Vomiting Senna (Senokot) 2 tab PO HSPRN PRN PRN Reason: Constipation Sodium Chloride (Flush - Normal Saline) 10 ml IVF PRN PRN PRN Reason: Saline Flush Last Admin: 12/07/17 16:18 Dose: 10 ml Tramadol HCl (Ultram) 50 mg PO Q6H PRN PRN Reason: Mild Pain (1-3)
[2017-12-07 20:23] LABS: Anion Gap 14 mmol/L (10-20); BUN (Urea Nitrogen) 13 mg/dL (9.8-20.1); Calc. Creatinine Clearance 78 mL/min (70-130); Calcium 9.9 mg/dL (7.8-10.44); Carbon Dioxide 27 mmol/L (23-31); Chloride 89 mmol/L (98-107); Estimated GFR-MDRD 59; Glucose 151 mg/dL (80-115); Potassium 3.7 mmol/L (3.5-5.1); Sodium 126 mmol/L (136-145)
[2017-12-07] MEDS ORDERED: Simvastatin 40 MG TAB PO SCH ×2 (21:00)
[2017-12-07] MEDS: Atorvastatin Calcium 20 MG TAB PO SCH (22:11)
[2017-12-08 01:45] LABS: #Basophils 0.1 thou/uL (0.0-0.2); #Eosinphils 0.1 thou/uL (0.0-0.7); #Lymphocytes 3.8 thou/uL (1.20-3.40); #Monocytes 0.7 thou/uL (0.11-0.59); #Neutrophils 4.6 thou/uL (1.40-6.50); %Basophils 0.6 % (0.0-1.0); %Eosinophils 0.7 % (0.0-10.0); %Lymphocytes 41.3 % (21.0-51.0); %Monocytes 7.7 % (0.0-10.0); %Neutrophils 49.6 % (42.0-75.0); Mean Corpuscular HGB CONC 35.2 g/dL (32.0-36.0); Mean Corpuscular Hemoglobin 33.1 pg (27.0-31.0); Mean Platelet Volume 7.1 fL (7.4-10.4); Platelet Count 234 thou/uL (130-400); RBC Distribution Width 12.1 % (11.5-14.5); Red Blood Cell (RBC) Count 3.92 mill/uL (4.20-5.40); White Blood Cell (WBC) Count 9.2 thou/uL (4.8-10.8)
[2017-12-08 02:06] LABS: Anion Gap 16 mmol/L (10-20); BUN (Urea Nitrogen) 12 mg/dL (9.8-20.1); Calc. Creatinine Clearance 95 mL/min (70-130); Calcium 9.4 mg/dL (7.8-10.44); Carbon Dioxide 21 mmol/L (23-31); Chloride 93 mmol/L (98-107); Estimated GFR-MDRD 75; Glucose 111 mg/dL (80-115); Potassium 4.1 mmol/L (3.5-5.1); Sodium 126 mmol/L (136-145)
[2017-12-08] MEDS: Sodium Chloride 0.9% 1,000 ML IV SCH ×3 (04:15→14:15)
[2017-12-08] MEDS: Acetaminophen 500 MG TAB PO PRN (04:38)
[2017-12-08] MEDS: cloNIDine 0.1 MG TAB PO PRN ×2 (04:38→11:30)
[2017-12-08] MEDS ORDERED: Ondansetron ODT 4 MG TAB PO PRN (04:45)
[2017-12-08 05:35] LABS: Anion Gap 10 mmol/L (10-20); BUN (Urea Nitrogen) 11 mg/dL (9.8-20.1); Calc. Creatinine Clearance 96 mL/min (70-130); Calcium 8.9 mg/dL (7.8-10.44); Carbon Dioxide 27 mmol/L (23-31); Chloride 94 mmol/L (98-107); Estimated GFR-MDRD 76; Glucose 111 mg/dL (80-115); Potassium 3.7 mmol/L (3.5-5.1); Sodium 127 mmol/L (136-145)
[2017-12-08] MEDS: Ubidecarenone 50 MG CAP PO SCH (09:07)
[2017-12-08] MEDS: Lisinopril 20 MG TAB PO SCH (09:09)
[2017-12-08] MEDS: Apixaban 5 MG TAB PO SCH ×2 (09:09→20:36)
[2017-12-08] MEDS: Aspirin 81 mg Enteric Coated Tablet PO SCH (09:13)
[2017-12-08] MEDS: Multivitamin W/ Minerals 1 TAB PO SCH (09:13)
[2017-12-08] MEDS: metFORMIN 500 MG TAB PO SCH ×3 (09:13→18:16)
[2017-12-08] MEDS: Loratadine 10 MG TAB PO SCH (09:14)
[2017-12-08] MEDS: Metoprolol Tartrate 50 MG TAB PO SCH ×2 (09:14→20:36)
[2017-12-08] MEDS: Famotidine/PF 20 mg/2ml Vial SLOW IVP SCH (10:27)
[2017-12-08] MEDS: HYDROcodone/Acetaminophen 5/325 mg Tablet PO PRN ×2 (10:28→20:35)
[2017-12-08 12:41] LABS: Anion Gap 9 mmol/L (10-20); BUN (Urea Nitrogen) 11 mg/dL (9.8-20.1); Calc. Creatinine Clearance 96 mL/min (70-130); Calcium 9.4 mg/dL (7.8-10.44); Carbon Dioxide 30 mmol/L (23-31); Chloride 94 mmol/L (98-107); Estimated GFR-MDRD 76; Glucose 104 mg/dL (80-115); Potassium 3.8 mmol/L (3.5-5.1); Sodium 129 mmol/L (136-145)
--- NOTE | 2017-12-08 13:08 | PRG ---
DATE OF SERVICE: 12/08/2017 SUBJECTIVE: The patient was seen and examined at bedside and overnight events noted. The patient de nies any shortness of breath or chest pain or palpitation. No history of nausea or vomiting or diarr hea or fever or chills or cramps. OBJECTIVE: GENERAL: This is a thin-built female, in no apparent distress. VITAL SIGNS: Temperature 97.9, pulse 64, respiratory rate 16, blood pressure 143/72. HEENT: Atraumatic, normocephalic. Oral mucosa is moist. NECK: Supple. CARDIOVASCULAR: S1, S2 heard. Rate and rhythm regular. RESPIRATORY: Clear to auscultation. GASTROINTESTINAL: Abdomen is soft. MUSCULOSKELETAL: No tenderness. No edema. DERMATOLOGIC: No skin rash. NEUROLOGIC: Alert and awake and oriented x3. No focal neurologic deficits. Moving all the extremit ies. PSYCHIATRIC: Mood and affect normal. LABORATORY DATA: Potassium is 3.7, sodium is 127, creatinine is 0.7. ASSESSMENT AND PLAN: 1. Hyponatremia, getting better with volume depletion. Continue to monitor. 2. Edema, controlled. 3. Hypertension. 4. Hypochloremia. Continue IV fluids, monitor sodium.
[2017-12-08] MEDS: Lidocaine 5% Patch TD SCH ×2 (14:14→18:16)
[2017-12-08] MEDS: Cyclobenzaprine 10 MG TAB PO PRN ×2 (18:15→23:38)
[2017-12-08] MEDS: Famotidine 20 MG TAB PO SCH (20:35)
[2017-12-08] MEDS: Atorvastatin Calcium 20 MG TAB PO SCH (20:36)
[2017-12-08] MEDS: Lidocaine Patch Removal 1 EACH TOP SCH (20:36)
--- NOTE | 2017-12-08 20:38 | PDOC.PN ---
- Subjective Encounter Start Date: 12/08/17 Encounter Start Time: 20:37 Subjective: nsg notes rev, gertrude ovn, no new c/o -: back spasms better controlled, only req 1 norco in last 24 hr - Objective Resuscitation Status: Resuscitation Status FULL:Full Resuscitation Vital Signs & Weight: Vital Signs (12 hours) Temp Pulse Resp BP BP Pulse Ox 12/08/17 16:59 95 12/08/17 16:00 98.4 F 73 16 147/84 H 95 12/08/17 11:47 98.2 F 69 16 185/94 H 96 12/08/17 11:30 187/111 H 12/08/17 09:09 187/111 H Weight Weight 182 lb I&O: 12/07/17 12/08/17 12/09/17 06:59 06:59 06:59 Intake Total 300 1545 Output Total 750 Balance -450 1545 Result Diagrams: 12/08/17 01:12 12/08/17 12:06 Additional Labs: Accuchecks 12/08/17 12/08/17 11:06 06:44 POC Glucose 141 H 121 H Phys Exam - Physical Examination Constitutional: NAD seated on the edge of bed HEENT: moist MMs Respiratory: no wheezing, no rales, no rhonchi, clear to auscultation bilateral Cardiovascular: RRR, no significant murmur, no rub Gastrointestinal: soft, non-tender, no distention, positive bowel sounds Musculoskeletal: no edema, pulses present Neurological: moves all 4 limbs Psychiatric: normal affect, A&O x 3 slowed verbalization but not slurred. grossly stable c/w yesterday Dx/Plan - Plan back pain pain is not at T12 compression fx site - conservative mgmt minimize opioid and narcotic use - trial lidoderm patch and flexeril prn low dose metabolic encephalopathy, resolved possibly 2/2 hyponatremia. could have also sustained a TIA - has a hx of known TIAs but is already on maximal secondary prevention regimen apprec neuro c/s hyponatremia, improving suspect 2/2 excessive laxative use apprec nephrology c/s serial BMP - has been improving, suspect may be able to D/C IVF tomorrow hx TIA, stroke continue home regimen, monitor diet: as kamran activity: PT/ OT/ ST dvt ppx d/w pt at bedside. possible d/c home in AM if continued pain control, no anticipated inpt surgical intervention on T12 compression fx and pain is controlled. greater than 30 min at bedside Review of Systems - Medications/Allergies Allergies/Adverse Reactions: Allergies Allergy/AdvReac Type Severity Reaction Status Date / Time Tetanus Vaccines and Toxoid Allergy Verified 07/31/17 15:14 Medications: Current Medications Acetaminophen (Tylenol) 500 mg PO Q4H PRN PRN Reason: Pain Last Admin: 12/08/17 04:38 Dose: 500 mg Hydrocodone Bitart/Acetaminophen ([place] 5/325) 1 tab PO Q4H PRN PRN Reason: Moderate Pain (4-6) Last Admin: 12/08/17 20:35 Dose: 1 tab Apixaban (Eliquis) 5 mg PO BID [facility] Last Admin: 12/08/17 20:36 Dose: 5 mg Aspirin (Ecotrin) 81 mg PO DAILY [facility] Last Admin: 12/08/17 09:13 Dose: 81 mg Atorvastatin Calcium (Lipitor) 20 mg PO HS [facility] Last Admin: 12/08/17 20:36 Dose: 20 mg Bisacodyl (Dulcolax) 10 mg PO DAILYPRN PRN PRN Reason: Constipation Clonidine (Catapres) 0.05 mg PO BIDPRN PRN PRN Reason: Hypertension Last Admin: 12/08/17 11:30 Dose: 0.05 mg Coenzyme Q10 (Coenzyme Q10) 100 mg PO DAILY [facility] Last Admin: 12/08/17 09:07 Dose: 100 mg Cyclobenzaprine HCl (Flexeril) 5 mg PO TIDPRN PRN PRN Reason: Muscle Spasm Last Admin: 12/08/17 18:15 Dose: 5 mg Famotidine (Pepcid) 20 mg PO BID [facility] Last Admin: 12/08/17 20:35 Dose: 20 mg Sodium Chloride (Normal Saline 0.9%) 1,000 mls @ 75 mls/hr IV .[id number] [facility] Last Admin: 12/08/17 14:15 Dose: Not Given Iron/Minerals/Multivitamins (Theragran M) 1 tab PO DAILY [facility] Last Admin: 12/08/17 09:13 Dose: 1 tab Lidocaine (Lidoderm 5% Patch) 1 patch TD DAILY [facility] Last Admin: 12/08/17 18:16 Dose: 1 patch Lisinopril (Zestril) 20 mg PO DAILY [facility] Last Admin: 12/08/17 09:09 Dose: 20 mg Loratadine (Claritin) 10 mg PO DAILY [facility] Last Admin: 12/08/17 09:14 Dose: 10 mg Metformin HCl (Glucophage) 500 mg PO TID-[facility] Last Admin: 12/08/17 18:16 Dose: 500 mg Metoprolol Tartrate (Lopressor) 50 mg PO BID [facility] Last Admin: 12/08/17 20:36 Dose: 50 mg Miscellaneous Medication (Lidocaine Patch Removal) 1 each TOP 2100 [facility] Last Admin: 12/08/17 20:36 Dose: 1 each Morphine Sulfate (Morphine) 2 mg SLOW IVP Q4H PRN PRN Reason: Breakthrough Pain Ondansetron HCl (Zofran Odt) 4 mg PO Q4H PRN PRN Reason: Nausea/Vomiting Senna (Senokot) 2 tab PO HSPRN PRN PRN Reason: Constipation Last Admin: 12/08/17 09:07 Dose: 2 tab Sodium Chloride (Flush - Normal Saline) 10 ml IVF PRN PRN PRN Reason: Saline Flush Last Admin: 12/08/17 09:06 Dose: 10 ml Tramadol HCl (Ultram) 50 mg PO Q6H PRN PRN Reason: Mild Pain (1-3)
[2017-12-09] MEDS: Sodium Chloride 0.9% 1,000 ML IV SCH ×2 (06:39→16:13)
[2017-12-09] MEDS: Cyclobenzaprine 10 MG TAB PO PRN (06:40)
--- NOTE | 2017-12-09 08:03 | CON ---
DATE OF CONSULTATION: 12/09/2017 at 07:27 IMAGING REVIEW This is an imaging review of patient, Yolanda Gonsalves. She is a 67-year-old female, who was admitted for generalized weakness and hyponatremia. She also reported back pain, status post fall from a few days prior to admission, which reveals an inferior endplate acute T12 compression deformity of roughl y 15%-20% height loss. There is minimal kyphotic angulation and there is no retropulsion into the ca nal. From all notes that I have read from primary team, she has no significant neurologic complaint and her site of pain is actually distal, more towards the tailbone than it is up at the site of T12. Recommendation from the Neurosurgical service for this patient would be a TLSO brace and short-term followup in our outpatient clinic. Again, this is all based on imaging review and secondary report. I have not visited with this patient in person. Edgard Pryor PA-C., dictating for Dr. Jarrett.
[2017-12-09] MEDS: Lidocaine 5% Patch TD SCH (08:13)
[2017-12-09] MEDS: Lisinopril 20 MG TAB PO SCH ×2 (08:13→09:22)
[2017-12-09] MEDS: Ubidecarenone 50 MG CAP PO SCH (08:13)
[2017-12-09] MEDS: Famotidine 20 MG TAB PO SCH ×2 (08:13→20:35)
[2017-12-09] MEDS: Metoprolol Tartrate 50 MG TAB PO SCH ×2 (08:14→20:36)
[2017-12-09] MEDS: Aspirin 81 mg Enteric Coated Tablet PO SCH (08:14)
[2017-12-09] MEDS: Loratadine 10 MG TAB PO SCH (08:14)
[2017-12-09] MEDS: Apixaban 5 MG TAB PO SCH ×2 (08:14→20:35)
[2017-12-09] MEDS: Multivitamin W/ Minerals 1 TAB PO SCH (08:14)
[2017-12-09] MEDS: cloNIDine 0.1 MG TAB PO PRN ×2 (08:32→16:16)
[2017-12-09 08:48] LABS: #Basophils 0.1 thou/uL (0.0-0.2); #Eosinphils 0.1 thou/uL (0.0-0.7); #Lymphocytes 3.4 thou/uL (1.20-3.40); #Monocytes 0.6 thou/uL (0.11-0.59); #Neutrophils 4.4 thou/uL (1.40-6.50); %Eosinophils 0.7 % (0.0-10.0); %Lymphocytes 39.2 % (21.0-51.0); %Monocytes 7.2 % (0.0-10.0); Hemoglobin 13.6 g/dL (12.0-16.0); Mean Corpuscular Hemoglobin 32.9 pg (27.0-31.0); Mean Corpuscular Volume 94.2 fL (78.0-98.0); Mean Platelet Volume 6.5 fL (7.4-10.4); Platelet Count 242 thou/uL (130-400); RBC Distribution Width 12.3 % (11.5-14.5); Red Blood Cell (RBC) Count 4.12 mill/uL (4.20-5.40); White Blood Cell (WBC) Count 8.5 thou/uL (4.8-10.8)
[2017-12-09] MEDS: metFORMIN 500 MG TAB PO SCH ×3 (09:21→16:16)
[2017-12-09] MEDS: HYDROcodone/Acetaminophen 5/325 mg Tablet PO PRN ×2 (10:25→18:49)
--- NOTE | 2017-12-09 11:43 | PDOC.PN ---
- Subjective Encounter Start Date: 12/09/17 Encounter Start Time: 11:35 Subjective: f/u for hyponatremia, AMS and fall. MRI of L-spine showing compression fx -: T12 with recommendations for TLSO brace. Overall feels ok. Appetite -: improved. - Objective Resuscitation Status: Resuscitation Status FULL:Full Resuscitation MAR Reviewed: Yes Vital Signs & Weight: Vital Signs (12 hours) Temp Pulse Resp BP BP Pulse Ox 12/09/17 11:32 97.6 F 65 16 150/61 H 96 12/09/17 09:22 182/71 H 12/09/17 08:32 187/111 H 12/09/17 07:40 98.5 F 72 18 192/116 H 96 Weight Weight 182 lb I&O: 12/08/17 12/09/17 12/10/17 06:59 06:59 06:59 Intake Total 1545 Balance 1545 Result Diagrams: 12/09/17 08:39 12/08/17 12:06 Additional Labs: Accuchecks 12/09/17 12/09/17 10:50 06:44 POC Glucose 115 H 115 H Laboratory Tests 12/07/17 12/07/17 12/08/17 13:28 19:52 01:12 Sodium 121 L 126 L 126 L 12/08/17 05:03 Sodium 127 L Radiology Reviewed by me: Yes (MRI L-spine - T12 inf endplate compression fx) EKG Reviewed by me: Yes (Tele - SR) Phys Exam - Physical Examination Constitutional: NAD HEENT: PERRLA, sclera anicteric, oral pharynx no lesions Neck: no nodes, no JVD, supple, full ROM Respiratory: no wheezing, no rales, no rhonchi, clear to auscultation bilateral Cardiovascular: RRR, no significant murmur, no rub, gallop Gastrointestinal: soft, non-tender, no distention, positive bowel sounds Musculoskeletal: no edema, pulses present Neurological: non-focal, normal sensation, moves all 4 limbs Psychiatric: normal affect, A&O x 3 Skin: no rash, normal turgor, cap refill <2 seconds Dx/Plan (1) Hyponatremia Code(s): E87.1 - HYPO-OSMOLALITY AND HYPONATREMIA Status: Acute Comment: Likely multifactorial and improving, continue IV NS 70ml/h, serial Na+ (2) Acute metabolic encephalopathy Code(s): G93.41 - METABOLIC ENCEPHALOPATHY Status: Acute Comment: Secondary to #1, resolved (3) T12 vertebral fracture Code(s): S22.089A - UNSP FRACTURE OF T11-T12 VERTEBRA, INIT FOR CLOS FX Status : Acute Comment: Stable, TLSO bracing per Neurosurgery recommendations, ? home PT (4) Status post fall Code(s): Z91.81 - HISTORY OF FALLING Status: Acute Comment: Fall precautions , consider HH with PT (5) DM type 2 (diabetes mellitus, type 2) Status: Chronic Comment: well controlled, continue on SSI, Metformin 500mg TID (6) HTN (hypertension) Code(s): I10 - ESSENTIAL (PRIMARY) HYPERTENSION Status: Chronic Qualifiers: Hypertension type: essential hypertension Qualified Code(s): I10 - Essential (primary) hypertension Comment: Labile, serial monitoring, may need additional titration of home regimen - Plan plan discussed w/ family, PT/OT, perinatal social worker, out of bed/ambulate, DVT proph w/SCDs Stable overall -: TLSO brace application -: PT for mobilization -: Continue IVF's another 24h -: Pain control Lidoderm patch, Flexeril and [place] for back pain * AM lab: BMP * Likely home in am
--- NOTE | 2017-12-09 15:10 | PRG ---
DATE OF SERVICE: 12/09/2017 SUBJECTIVE: Patient was seen and examined at bedside and overnight events noted. Patient denies any shortness of breath or chest pain or palpitation. No history of nausea or vomitin g or diarrhea or fever or chills or cramps. OBJECTIVE: GENERAL: This is a thin built female, in no apparent distress. VITAL SIGNS: Temperature 97.6, pulse 60, respiratory rate 16, blood pressure 150/61. HEENT: Atraumatic, normocephalic. Oral mucosa is moist. NECK: Supple. CARDIOVASCULAR: S1 and S2 heard. Rate and rhythm regular. RESPIRATORY: Clear to auscultation. GASTROINTESTINAL: Abdomen is soft. MUSCULOSKELETAL: No tenderness. No edema. DERMATOLOGIC: No skin rash. NEUROLOGIC: Alert and awake and oriented x3. No focal neurologic deficits. Moving all the extremit ies. PSYCHIATRIC: Mood and affect normal. LABORATORY DATA: Potassium 3.8, BUN 11, creatinine 0.7. Sodium is 129. ASSESSMENT AND PLAN: 1. Hyponatremia, getting better with volume resuscitation and we will continue to follow. Recheck l abs in the morning. 2. Edema, controlled. 3. Hypertension. 4. Hypochloremia. 5. Sodium level is getting better. Continue IV fluids. We will reduce to 50 mL per hour.
[2017-12-09] MEDS: Atorvastatin Calcium 20 MG TAB PO SCH (20:36)
[2017-12-09] MEDS: Lidocaine Patch Removal 1 EACH TOP SCH (21:00)
[2017-12-10] MEDS: Sodium Chloride 0.9% 1,000 ML IV SCH (03:57)
[2017-12-10 05:21] LABS: Anion Gap 13 mmol/L (10-20); BUN (Urea Nitrogen) 10 mg/dL (9.8-20.1); Calc. Creatinine Clearance 99 mL/min (70-130); Calcium 9.3 mg/dL (7.8-10.44); Carbon Dioxide 24 mmol/L (23-31); Chloride 99 mmol/L (98-107); Estimated GFR-MDRD 82; Glucose 98 mg/dL (80-115); Potassium 3.8 mmol/L (3.5-5.1); Sodium 132 mmol/L (136-145)
[2017-12-10] MEDS: Cyclobenzaprine 10 MG TAB PO PRN ×2 (05:34→12:06)
[2017-12-10] MEDS: Multivitamin W/ Minerals 1 TAB PO SCH (08:21)
[2017-12-10] MEDS: Famotidine 20 MG TAB PO SCH (08:23)
[2017-12-10] MEDS: Ubidecarenone 50 MG CAP PO SCH (08:27)
[2017-12-10] MEDS: Aspirin 81 mg Enteric Coated Tablet PO SCH (08:28)
[2017-12-10] MEDS: metFORMIN 500 MG TAB PO SCH ×3 (08:28→18:18)
[2017-12-10] MEDS: Loratadine 10 MG TAB PO SCH (08:28)
[2017-12-10] MEDS: Metoprolol Tartrate 50 MG TAB PO SCH (08:28)
[2017-12-10] MEDS: Apixaban 5 MG TAB PO SCH (08:28)
[2017-12-10] MEDS: Lidocaine 5% Patch TD SCH (08:29)
[2017-12-10] MEDS: cloNIDine 0.1 MG TAB PO PRN (08:53)
[2017-12-10] MEDS: Lisinopril 20 MG TAB PO SCH (10:51)
--- NOTE | 2017-12-10 14:36 | DIS ---
DATE OF ADMISSION: 12/06/2017 DATE OF DISCHARGE: 12/10/2017 DISCHARGE DIAGNOSES: 1. Hyponatremia, multifactorial, resolving. 2. Acute metabolic encephalopathy secondary to #1, resolved. 3. T12 vertebral compression fracture, conservative management with TLSO bracing. 4. Status post mechanical fall. 5. Diabetes mellitus type 2, stable. 6. Hypertension, stable. CONSULTATIONS: Dr. Ji with Neurosurgical Service. Dr. Major with Neurology Service. PERTINENT LABORATORY DATA AND X-RAY FINDINGS: Sodium ranged between 117-132, total cholesterol 99, t riglycerides 109, HDL 43, LDL 34. CBC showed a white blood cell count ranging between 8.5-18.1, hemo globin ranged between 12.0-15.8. CT of the brain without contrast dated 12/06/2017 showed chronic is chemic white matter changes without acute process. Lumbar spine MRI dated 12/07/2017 showed acute T1 2 compression fracture. HOSPITAL COURSE: Patient was admitted after presenting with generalized weakness status post mechani isabella fall and back pain. The patient underwent extensive evaluation including neuro imaging showing n o central or acute neurologic process. The patient had been complaining of generalized weakness and difficulty with speech and initial concern resolved around potential TIA or CVA. The patient was guille luated by the Neurology Service; however, given patient's constellation of symptoms presentation and evaluation, likely patient's symptoms secondary to hypotensive event. The patient was also noted wit h severe hyponatremia with initial sodium level of 117. The patient was placed on IV normal saline a nd underwent Nephrology evaluation. The patient was monitored with serial sodium assessments showing overall improving values with IV fluid hydration. Likely patient's presentation also secondary to h yponatremia and dehydration. With supportive management and conservative therapy, patient continued to clinically improve. The patient had been complaining of back pain after a mechanical fall, underg oing MRI imaging showing evidence of an acute T12 endplate inferior endplate compression fracture. A fter neurosurgical evaluation and recommendations for conservative measures, patient was placed in oracic, thoracolumbar orthotic device for bracing and general supportive measures. Overall, patient did remain clinically stable throughout the hospital course. I have examined the patient at the time of discharge and discussed followup instructions, at which point the patient and spouse verbalized u nderstanding and agreement. The patient is ready for discharge 12/10/2017. DISCHARGE MEDICATIONS: 1. Tylenol 500 mg p.o. q.4-6 hours p.r.n. 2. Eliquis 5 mg p.o. b.i.d. 3. Clonidine 0.1 mg p.o. b.i.d. 4. Lisinopril 20 mg p.o. q.a.m. 5. Loratadine 10 mg p.o. daily. 6. Metoprolol 50 mg p.o. b.i.d. 7. Multivitamin 1 tab p.o. daily. 8. Zofran 4 mg p.o. q.4-6 hours p.r.n. 9. Zocor 40 mg p.o. at bedtime. 10. Coenzyme Q10 100 mg p.o. daily. 11. Enteric-coated aspirin 81 mg p.o. daily. 12. Flexeril 5 mg p.o. t.i.d. p.r.n. 13. [place] 5/325 mg 1 tab p.o. q.6. p.r.n. pain, #20. 14. Lidocaine patch 1 patch transdermally daily. 15. Metformin 500 mg p.o. t.i.d. FOLLOWUP: Patient will follow up with Dr. Ron Bennett within 7 days of discharge. CONDITION ON DISCHARGE: Stable. ACTIVITY: AD MITCH. DIET: Heart healthy and ADA. CODE STATUS: Full. DISPOSITION: Home 12/10/2017. Total time in preparing and coordinating discharge is 33 minutes.
[2017-12-10 15:44] VITALS: BP 170/61; TEMP 98.3
[2017-12-10] MEDS: HYDROcodone/Acetaminophen 5/325 mg Tablet PO PRN (16:27)
== END 2017-12-10 17:33 | disposition home or self-care (01) | DRG 640 ==
LOC: ERS 15:50 → 2NO 19:32 → 2SE 12-07 09:58
PROVIDERS: ADMIT Internal Medicine; ATTEND Internal Medicine
DX: E87.1 Hypo-osmolality and hyponatremia (principal); G93.41 Metabolic encephalopathy; S22.089A Unspecified fracture of T11-T12 vertebra, initial encounter for closed fracture; I10 Essential (primary) hypertension; E78.5 Hyperlipidemia, unspecified; R47.81 Slurred speech; E11.9 Type 2 diabetes mellitus without complications; M79.7 Fibromyalgia; W19.XXXA Unspecified fall, initial encounter; Z86.718 Personal history of other venous thrombosis and embolism; Z86.73 Personal history of transient ischemic attack (TIA), and cerebral infarction without residual deficits
CPT/HCPCS: 36415; 36416; 51701; 70450; 72148; 80048; 80053; 80061; 81003; 82553; 83735; 83935; 84300; 84484; 85025; 93005; 96360; 96361; A4353; G8978-GP-CJ; G8979-GP-CJ; G8980-GP-CJ; G8996-GN-CI; G8997-GN-CI; S0028

== ENCOUNTER 2018-01-24 13:55 | Outpatient (CLI) | payer MEDICARE, BC ==
--- NOTE | 2018-01-24 14:51 | RAD ---
THORACIC SPINE TWO VIEWS: History: 67-year-old female with unspecific thoracic vertebrae, T12 fracture. Comparison: 12-18-17 FINDINGS: Marked compression fracture of T12 with greater than 50% vertical height loss with retropulsion. Yovany le changed from the prior study. IMPRESSION: Compression fracture of T12 vertebral body with retropulsion showing little change from prior 12-18-17 study. POS: [facility]
== END 2018-01-24 13:56 | disposition home or self-care (01) ==
LOC: TBSIIMAG 13:55
PROVIDERS: ATTEND Neurological Surgery
DX: S22.089D Unspecified fracture of T11-T12 vertebra, subsequent encounter for fracture with routine healing (principal)
CPT/HCPCS: 72070

== ENCOUNTER 2018-03-14 14:57 | Outpatient (CLI) | payer MEDICARE, BC ==
--- NOTE | 2018-03-14 17:11 | RAD ---
THORACIC SPINE: 03/14/18 Three views. HISTORY: Unspecified abnormality of the thoracic vertebrae. Followup T12 fracture. COMPARISON: 12/18/17 exam. Prior exam reveals compression deformity of the T12 vertebra. On today's exam, this wedge compression deformity is again seen and does not appear significantly moises nged. Minimal retropulsion of the posterior inferior corner of T12 appears unchanged in appearance. T he other thoracic vertebrae maintain height and alignment with mild degenerative change. IMPRESSION: The anterior wedge compression deformity at T12 appears stable from 12/18/17. POS: [facility]
== END 2018-03-14 14:58 | disposition home or self-care (01) ==
LOC: TBSIIMAG 14:57
PROVIDERS: ATTEND Neurological Surgery
DX: S22.008A Other fracture of unspecified thoracic vertebra, initial encounter for closed fracture (principal); M43.9 Deforming dorsopathy, unspecified
CPT/HCPCS: 72072

== ENCOUNTER 2018-04-11 13:10 | Inpatient (IN) | payer MEDICARE, BC ==
[2018-04-11] MEDS ORDERED: Ondansetron PF 4 MG/2 ML Vial ONE (13:35)
--- NOTE | 2018-04-11 13:57 | RAD ---
CHEST 1 VIEW: HISTORY: Cough and congestion. COMPARISON: 02/16/2017. FINDINGS: Cardiac silhouette is magnified by projection. Pulmonary vasculature is unremarkable. Mediastinum i s midline. No confluent airspace consolidation or evidence of pneumothorax. Dystrophic calcificatio n just inferior to the right coracoid process is unchanged in appearance and likely represents loose body within the subcoracoid recess. Electronic monitoring device overlies the left lower chest. IMPRESSION: No active cardiopulmonary abnormalities are demonstrated. POS: [facility]
[2018-04-11 13:58] LABS: #Lymphocytes 2.8 thou/uL (1.20-3.40); #Monocytes 0.6 thou/uL (0.11-0.59); #Neutrophils 6.7 thou/uL (1.40-6.50); %Basophils 0.2 % (0.0-1.0); %Eosinophils 0.4 % (0.0-10.0); %Lymphocytes 27.5 % (21.0-51.0); %Monocytes 5.6 % (0.0-10.0); %Neutrophils 66.3 % (42.0-75.0); Hemoglobin 12.7 g/dL (12.0-16.0); Mean Corpuscular HGB CONC 35.3 g/dL (32.0-36.0); Mean Corpuscular Hemoglobin 32.4 pg (27.0-31.0); Mean Corpuscular Volume 91.9 fL (78.0-98.0); Mean Platelet Volume 6.7 fL (7.4-10.4); Platelet Count 265 thou/uL (130-400); RBC Distribution Width 11.5 % (11.5-14.5); Red Blood Cell (RBC) Count 3.91 mill/uL (4.20-5.40); White Blood Cell (WBC) Count 10.2 thou/uL (4.8-10.8)
[2018-04-11 14:22] LABS: ALT (SGPT) 19 U/L (8-55); AST (SGOT) 26 U/L (5-34); Albumin 3.7 g/dL (3.4-4.8); Alkaline Phosphatase 92 U/L (40-150); Anion Gap 14 mmol/L (10-20); BUN (Urea Nitrogen) 5 mg/dL (9.8-20.1); Bilirubin, Total 0.4 mg/dL (0.2-1.2); Calc. Creatinine Clearance 0 mL/min (70-130); Calcium 8.4 mg/dL (7.8-10.44); Carbon Dioxide 25 mmol/L (23-31); Estimated GFR-MDRD Greater than 90; Globulin 2.6 g/dL (2.4-3.5); Glucose 125 mg/dL (80-115); Magnesium 1.2 mg/dL (1.6-2.6); Potassium 3.3 mmol/L (3.5-5.1); Protein, Total 6.3 g/dL (6.0-8.3)
[2018-04-11 14:26] LABS: Chloride 73 mmol/L (98-107); Sodium 109 mmol/L (136-145)
[2018-04-11 15:27] LABS: Bilirubin Negative (Negative); Blood, Urine Negative (Negative); Clarity CLEAR (Clear); Glucose, Urine (Dipstick) 250 mg/dL (Negative); Leukocyte Negative (Negative); Nitrite Negative (Negative); Protein, Urine (Dipstick) Negative (Neg-Trace); Specific Gravity, Urine 1.007 (1.002-1.036); Urobilinogen 0.2 mg/dL (0.2-1.0); pH, Urine 7.5 (5.0-9.0)
[2018-04-11] MEDS ORDERED: Magnesium 2 GM/50 ML BAG (IN WATER) ONE (15:57)
[2018-04-11] MEDS ORDERED: Ondansetron ODT 4 MG TAB PO PRN (16:51)
[2018-04-11] MEDS ORDERED: Ondansetron PF 4 MG/2 ML Vial IVP PRN (16:51)
[2018-04-11] MEDS ORDERED: Acetaminophen 325 MG TAB PO PRN (16:51)
[2018-04-11] MEDS ORDERED: Sodium Chloride 0.9% 1,000 ML IV SCH (17:00)
[2018-04-11] MEDS: Famotidine 20 MG TAB PO SCH (22:51)
[2018-04-11 23:00] VITALS: BMI 26.6
[2018-04-11] MEDS ORDERED: HumaLOG 300 UNITS/3 ML VIAL SC PRN (23:10)
[2018-04-11] MEDS ORDERED: Dextrose 50% Abboject 50 ML SYRINGE SLOW IVP PRN (23:10)
[2018-04-11] MEDS ORDERED: Dextrose 5% in Water 1,000 ML IV PRN (23:10)
[2018-04-11 23:28] LABS: Osmolality, Urine 136 mOsm/kg (300-900)
[2018-04-11 23:42] LABS: Sodium, Urine 39 mmol/L (Not Available)
[2018-04-12] MEDS ORDERED: Midazolam HCl 2 mg/2 ml Vial ONE (00:08)
[2018-04-12] MEDS ORDERED: Midazolam HCl 2 mg/2 ml Vial IVP SCH (00:15)
[2018-04-12] MEDS ORDERED: Sodium Chloride 0.9% 1,000 ML IV SCH (01:00)
[2018-04-12] MEDS ORDERED: Sodium Chloride 3% 500 ML IVPB SCH (02:00)
[2018-04-12 03:33] LABS: Magnesium 1.3 mg/dL (1.6-2.6)
[2018-04-12 03:36] LABS: Osmolality, Serum 232 mOsm/kg (280-295)
[2018-04-12 03:37] LABS: Anion Gap 12 mmol/L (10-20); BUN (Urea Nitrogen) 5 mg/dL (9.8-20.1); Calc. Creatinine Clearance 110 mL/min (70-130); Calcium 8.4 mg/dL (7.8-10.44); Carbon Dioxide 28 mmol/L (23-31); Chloride 78 mmol/L (98-107); Estimated GFR-MDRD Greater than 90; Glucose 112 mg/dL (80-115)
[2018-04-12 03:38] LABS: Potassium 2.7 mmol/L (3.5-5.1); Sodium 115 mmol/L (136-145)
[2018-04-12] MEDS ORDERED: Magnesium 2 GM/50 ML 2 GM in Premix Bag 1 BAG IVPB SCH (04:30)
[2018-04-12] MEDS: Potassium Chloride 20 MEQ in Premix Bag 1 BAG IVPB SCH ×3 (05:00→11:48)
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
[2018-04-12 06:55] LABS: Sodium 116 mmol/L (136-145)
--- NOTE | 2018-04-12 08:14 | RAD ---
PORTABLE CHEST: Date: 04/12/18 PROVIDED CLINICAL HISTORY: Status post central line placement attempt. FINDINGS: Comparison with 04/11/18. Cardiac and mediastinal silhouette is unchanged in appearance. Vascular calcification involves the ao rtic arch. No focal consolidation, pleural fluid, or pneumothorax apparent. Implanted loop recorder d evice overlies the left chest. IMPRESSION: No evidence for an acute cardiopulmonary process. POS: [facility]
[2018-04-12] MEDS: Famotidine 20 MG TAB PO SCH ×2 (08:26→20:15)
[2018-04-12 08:46] LABS: Sodium 117 mmol/L (136-145)
[2018-04-12 10:45] LABS: Sodium 119 mmol/L (136-145)
[2018-04-12] MEDS: HumaLOG 300 UNITS/3 ML VIAL SC PRN (11:47)
[2018-04-12 13:11] LABS: Sodium 121 mmol/L (136-145)
--- NOTE | 2018-04-12 14:16 | PQF ---
CLINICAL DOCUMENTATION IMPROVEMENT CLARIFICATION FORM: ICD-10 Updated PLEASE DO AN ADDENDUM TO THE PROGRESS NOTE WITH ANY DOCUMENTATION UPDATES OR ADDITIONS AND CARRY THROUGH TO DC SUMMARY. THANK YOU. DATE: 04/12/18 ATTN: DR. ESPINOSA Please exercise your independent, professional judgment in responding to the clarification form. Clinical indicators are provided on the bottom of this form for your review Please check appropriate box(s): [ x ] Encephalopathy: Type: [ x ] Acute [ ] Subacute [ ] Chronic Etiology: [ ] Hypertensive [ x ] Metabolic [ ] Toxic [ ] Hepatic with Coma [ ] Hepatic w/o Coma [ ] Hypoxic [ ] Septic [ ] Drug induced: [ ] Unspecified [ ] in the setting of underlying dementia [ ] Other (please specify) [ ] Transient Alteration of Awareness [ ] Other diagnosis [ ] Unable to determine In addition, please specify: Present on Admission (POA): [ x ] Yes [ ] No [ ] Unable to determine For continuity of documentation, please document condition throughout progress notes and discharge summary. Thank You. CLINICAL INDICATORS - SIGNS / SYMPTOMS / LABS H&P: "SHE APPEARS PLEASANTLY CONFUSED AND IS EASILY DISTRACTED DURING MY VISIT..." "ALTERED MENTAL STATUS" RISKS: H/O STROKE H/O HYPERTENSION HYPONATREMIA TREATMENT: IMCU MONITORING IV FLUIDS (ER) ELECTROLYTE REPLACEMENT (04/12) SERIAL SODIUM LEVELS (This form is maintained as a part of the permanent medical record) 2014 [employer]. All Rights Reserved [email or web address] Office: [phone] [facility]
[2018-04-12 15:50] LABS: Sodium 123 mmol/L (136-145)
--- NOTE | 2018-04-12 17:25 | PDOC.PN ---
- Subjective Encounter Start Date: 04/12/18 Encounter Start Time: 08:30 Subjective: is awake and oriented this am -: no h/o alcohol or tob abuse -: had diarrhea 3-4 times and vomiting prior to arrival, is better now - Objective Resuscitation Status - Order Detail: 04/11/18 16:51 Resuscitation Status Routine Co-Sign Provider: Resuscitation Status: FULL: Full Resuscitation MAR Reviewed: Yes Vital Signs & Weight: Vital Signs (12 hours) Temp Pulse Pulse Pulse Resp BP BP 04/12/18 15:14 98.5 F 85 16 04/12/18 11:09 89 142/75 H 175/83 H 04/12/18 11:05 88 88 142/75 H 175/83 H 04/12/18 10:40 97.9 F 81 16 04/12/18 07:20 04/12/18 07:18 98.4 F 78 16 BP Pulse Ox Pulse Ox 04/12/18 15:14 138/60 93 L 04/12/18 11:09 97 04/12/18 11:05 04/12/18 10:40 127/54 L 96 04/12/18 07:20 98 04/12/18 07:18 152/61 H 93 L Weight Weight 170 lb 7 oz I&O: 04/11/18 04/12/18 04/13/18 06:59 06:59 06:59 Intake Total 600 Output Total 200 Balance 400 Result Diagrams: 04/11/18 13:47 04/12/18 15:13 Additional Labs: Accuchecks 04/12/18 04/12/18 04/12/18 16:28 10:19 05:32 POC Glucose 131 H 218 H 137 H Phys Exam - Physical Examination HEENT: PERRLA, moist MMs Neck: no JVD, supple Respiratory: no wheezing, no rales Cardiovascular: RRR, no significant murmur Gastrointestinal: soft, non-tender, positive bowel sounds Musculoskeletal: no edema, pulses present Neurological: non-focal, moves all 4 limbs Psychiatric: normal affect, A&O x 3 Dx/Plan (1) Hyponatremia Code(s): E87.1 - HYPO-OSMOLALITY AND HYPONATREMIA Status: Acute Comment: Likely multifactorial and improving (2) Acute metabolic encephalopathy Code(s): G93.41 - METABOLIC ENCEPHALOPATHY Status: Acute Comment: Secondary to #1, resolved (3) DM type 2 (diabetes mellitus, type 2) Status: Chronic Qualifiers: Diabetes mellitus alf insulin use: without alf use Diabetes mellitus complication status: with unspecified complications Qualified Code(s) : E11.8 - Type 2 diabetes mellitus with unspecified complications (4) H/O venous thrombosis and embolism Code(s): Z86.718 - PERSONAL HISTORY OF OTHER VENOUS THROMBOSIS AND EMBOLISM Status: Chronic (5) HLD (hyperlipidemia) Code(s): E78.5 - HYPERLIPIDEMIA, UNSPECIFIED Status: Chronic Qualifiers: Hyperlipidemia type: unspecified Qualified Code(s): E78.5 - Hyperlipidemia , unspecified (6) HTN (hypertension) Code(s): I10 - ESSENTIAL (PRIMARY) HYPERTENSION Status: Chronic Qualifiers: Hypertension type: essential hypertension (7) H/O: CVA (cerebrovascular accident) Code(s): Z86.73 - PRSNL HX OF TIA (TIA), AND CEREB INFRC W/O RESID DEFICITS Status: Chronic - Plan 3% nacl is off, sodium is steadily improving from 109 on admission -: replace potassium -: start home dose lopressor, eliquis, metformin bid and zocor -: may tx to medical floor -: PT to mobilize as tolerated, labs in am, encourage po fluid and food intake * . Review of Systems - Medications/Allergies Allergies/Adverse Reactions: Allergies Allergy/AdvReac Type Severity Reaction Status Date / Time Tetanus Vaccines and Toxoid Allergy Verified 07/31/17 15:14 Medications: Current Medications Acetaminophen (Tylenol) 650 mg PO Q4H PRN PRN Reason: Headache/Fever/Mild Pain (1-3) Dextrose/Water (Dextrose 50%) 25 gm SLOW IVP PRN PRN PRN Reason: Hypoglycemia Famotidine (Pepcid) 20 mg PO BID [facility] Last Admin: 04/12/18 08:26 Dose: 20 mg Glucagon (Glucagon) 1 mg IM PRN PRN PRN Reason: Hypoglycemia Dextrose/Water (D5w) 1,000 mls @ 0 mls/hr IV .Q0M PRN PRN Reason: Hypoglycemia Insulin Human Lispro (Humalog) 0 units SC .MILD SLIDING SCALE PRN PRN Reason: Mild Correctional Scale Last Admin: 04/12/18 11:47 Dose: 3 unit Insulin Human Lispro (Humalog) 0 units SC .BEDTIME SLIDING SC PRN PRN Reason: Bedtime Correctional Scale Ondansetron HCl (Zofran Odt) 4 mg PO Q6H PRN PRN Reason: Nausea/Vomiting Ondansetron HCl (Zofran) 4 mg IVP Q6H PRN PRN Reason: Nausea/Vomiting Sodium Chloride (Flush - Normal Saline) 10 ml IVF Q12HR PETE Last Admin: 04/12/18 08:26 Dose: Not Given Sodium Chloride (Flush - Normal Saline) 10 ml IVF PRN PRN PRN Reason: Saline Flush
[2018-04-12] MEDS ORDERED: Cyclobenzaprine 10 MG TAB PO PRN (17:28)
[2018-04-12 19:36] LABS: Sodium 121 mmol/L (136-145)
[2018-04-12] MEDS: Apixaban 5 MG TAB PO SCH (20:15)
[2018-04-12] MEDS: Simvastatin 40 MG TAB PO SCH (20:15)
[2018-04-12] MEDS: Lisinopril 5 MG TAB PO SCH (20:15)
[2018-04-12] MEDS: metFORMIN 500 MG TAB PO SCH (20:15)
[2018-04-12] MEDS: Metoprolol Tartrate 50 MG TAB PO SCH (20:22)
[2018-04-12 23:04] LABS: Sodium 123 mmol/L (136-145)
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
--- NOTE | 2018-04-13 01:00 | CON ---
DATE OF CONSULTATION: CONSULTING PHYSICIAN: Kelley Cook MD REQUESTING PHYSICIAN: Dr. Geovanny Brady. REASON FOR CONSULTATION: Severe hyponatremia. IMPRESSION: Severe hyponatremia disease in the context of poor p.o. osmolar intake compounded by excessive free water ingestion. PLAN: 1. Given the altered mental status of this patient and the neurologic symptoms from the severe hyponatremia, we will initiate hypertonic saline 3% infusion. Monitor the sodium level accordingly with the target of one-point change every 2 hours. 2. Counseled the patient on the need to increase the p.o. osmolar intake, be aware increased protein intake, and decreased excessive free water ingestion. HISTORY: A 68-year-old female patient who was brought in with altered mental status, weakness, nausea, and vomiting. According to the patient, she has not been eating well lately, but she has been drinking quite a bit of water. The patient on presentation was noted with a sodium of 117. The patient admitted recently, dates back as far back as November of this year. As a result of severe symptomatic hyponatremia, adecision was taken to involve Renal in the management of this case. PAST MEDICAL HISTORY: Significant for hyponatremia, vertebral compression fracture, hypertension, type 2 diabetes. MEDICATIONS: Reviewed and as documented on [employer]. SOCIAL HISTORY: Denies alcohol, tobacco, or illicit drug use. FAMILY HISTORY: No family history of kidney disease. REVIEW OF SYSTEMS: As documented in the body of history. All other systems were reviewed and found not to be significantly related to presenting illness. PHYSICAL EXAMINATION: VITAL SIGNS: On examination, the patient was found with the following vital signs; afebrile, temperature 97.9, pulse 81, respirations 16, O2 saturations 96% with blood pressure 142/75. HEENT: Unremarkable. Moist oral mucosa. NECK: Supple. No conjunctival injection or icterus. CARDIOVASCULAR: First and second heart sounds were heard. RESPIRATORY: Clear to auscultation. DIGESTIVE SYSTEM: Revealed a benign abdomen with positive bowel sounds. EXTREMITIES: No peripheral edema. SKIN: No new gross rash. LYMPHATICS: No peripheral lymphadenopathy. SUMMARY: A 68-year-old female patient who presented here with altered mental status in the context of severe hyponatremia. Thank you for this consultation. We will follow with you. Job ID: [id number]
[2018-04-13 05:34] LABS: ALT (SGPT) 27 U/L (8-55); AST (SGOT) 34 U/L (5-34); Albumin 3.1 g/dL (3.4-4.8); Alkaline Phosphatase 84 U/L (40-150); Anion Gap 13 mmol/L (10-20); BUN (Urea Nitrogen) 8 mg/dL (9.8-20.1); Bilirubin, Total 0.3 mg/dL (0.2-1.2); Calc. Creatinine Clearance 103 mL/min (70-130); Calcium 8.6 mg/dL (7.8-10.44); Carbon Dioxide 25 mmol/L (23-31); Chloride 88 mmol/L (98-107); Estimated GFR-MDRD Greater than 90; Globulin 3.6 g/dL (2.4-3.5); Glucose 114 mg/dL (80-115); Potassium 4.2 mmol/L (3.5-5.1); Protein, Total 6.7 g/dL (6.0-8.3); Sodium 122 mmol/L (136-145)
[2018-04-13 05:54] LABS: Band 4 % (5-11); Eosinophils 1 % (0-10); Hemoglobin 11.6 g/dL (12.0-16.0); Lymphocytes 21 % (21-51); MDiff Complete? YES; Mean Corpuscular Hemoglobin 32.6 pg (27.0-31.0); Mean Platelet Volume 7.5 fL (7.4-10.4); Metamyelocyte 1 % (0-0); Monocytes 3 % (0-10); Neutrophil 70 % (42-75); PLT Morphology Comment Appears Adequate; Platelet Count 269 thou/uL (130-400); RBC Distribution Width 11.8 % (11.5-14.5); RBC Morphology Normal; Red Blood Cell (RBC) Count 3.57 mill/uL (4.20-5.40); White Blood Cell (WBC) Count 9.9 thou/uL (4.8-10.8)
[2018-04-13] MEDS: Famotidine 20 MG TAB PO SCH ×2 (07:54→20:03)
[2018-04-13] MEDS: Apixaban 5 MG TAB PO SCH ×2 (07:54→20:02)
[2018-04-13] MEDS: metFORMIN 500 MG TAB PO SCH ×2 (07:55→20:03)
[2018-04-13] MEDS: Lisinopril 5 MG TAB PO SCH ×2 (07:55→20:02)
[2018-04-13] MEDS: Metoprolol Tartrate 50 MG TAB PO SCH ×2 (07:55→20:03)
[2018-04-13] MEDS: Nystatin Powder 15 GM BOT TOP SCH ×2 (11:00→20:04)
--- NOTE | 2018-04-13 11:53 | PDOC.PN ---
- Subjective Encounter Start Date: 04/13/18 Encounter Start Time: 10:20 Subjective: had rough night with confusion -: at bedside, is oriented now -: no sob, is moving all extremities - Objective Resuscitation Status - Order Detail: 04/11/18 16:51 Resuscitation Status Routine Co-Sign Provider: Resuscitation Status: FULL: Full Resuscitation MAR Reviewed: Yes Vital Signs & Weight: Vital Signs (12 hours) Temp Pulse Resp BP Pulse Ox 04/13/18 11:14 98.9 F 70 18 127/79 94 L 04/13/18 08:00 95 04/13/18 07:55 58 L 04/13/18 07:50 98.6 F 58 L 20 168/72 H 04/13/18 04:00 97.4 F L 58 L 18 145/78 H 95 Weight Weight 170 lb 7 oz I&O: 04/12/18 04/13/18 04/14/18 06:59 06:59 06:59 Intake Total 600 1770 240 Output Total 200 Balance 400 1770 240 Result Diagrams: 04/13/18 04:46 04/13/18 04:46 Additional Labs: Accuchecks 04/13/18 04/13/18 04/12/18 11:17 04:40 19:39 POC Glucose 112 H 124 H 128 H 04/12/18 16:28 POC Glucose 131 H Phys Exam - Physical Examination HEENT: PERRLA, sclera anicteric Neck: no JVD, supple Respiratory: no wheezing, no rales Cardiovascular: RRR, no significant murmur Gastrointestinal: soft, non-tender, positive bowel sounds Musculoskeletal: no edema, pulses present Neurological: non-focal, moves all 4 limbs Psychiatric: normal affect, A&O x 3 Dx/Plan (1) Hyponatremia Code(s): E87.1 - HYPO-OSMOLALITY AND HYPONATREMIA Status: Acute Comment: Likely multifactorial and improving (2) Acute metabolic encephalopathy Code(s): G93.41 - METABOLIC ENCEPHALOPATHY Status: Resolved Comment: Secondary to #1, resolved (3) DM type 2 (diabetes mellitus, type 2) Status: Chronic Qualifiers: Diabetes mellitus skilled nursing insulin use: without skilled nursing use Diabetes mellitus complication status: with unspecified complications Qualified Code(s) : E11.8 - Type 2 diabetes mellitus with unspecified complications (4) H/O venous thrombosis and embolism Code(s): Z86.718 - PERSONAL HISTORY OF OTHER VENOUS THROMBOSIS AND EMBOLISM Status: Chronic (5) HLD (hyperlipidemia) Code(s): E78.5 - HYPERLIPIDEMIA, UNSPECIFIED Status: Chronic Qualifiers: Hyperlipidemia type: unspecified Qualified Code(s): E78.5 - Hyperlipidemia , unspecified (6) HTN (hypertension) Code(s): I10 - ESSENTIAL (PRIMARY) HYPERTENSION Status: Chronic Qualifiers: Hypertension type: essential hypertension (7) H/O: CVA (cerebrovascular accident) Code(s): Z86.73 - PRSNL HX OF TIA (TIA), AND CEREB INFRC W/O RESID DEFICITS Status: Chronic Comment: no residual motor deficits - Plan mentions she drinks atleast 3 liters of water daily and eats poorly -: diarrhea has resolved with no nausea now, PT to mobilize more -: encourage po solid intake, stool studies if she gets diarrhea again -: nystatin powder to inframammary area, right lat neck echymosis sec to need -: -le stick?. Continue asp, eliquis, lopressor, lisinopril. Hold chorthalidon * . Review of Systems - Medications/Allergies Allergies/Adverse Reactions: Allergies Allergy/AdvReac Type Severity Reaction Status Date / Time Tetanus Vaccines and Toxoid Allergy Verified 07/31/17 15:14 Medications: Current Medications Acetaminophen (Tylenol) 650 mg PO Q4H PRN PRN Reason: Headache/Fever/Mild Pain (1-3) Apixaban (Eliquis) 5 mg PO BID [facility] Last Admin: 04/13/18 07:54 Dose: 5 mg Aspirin (Aspirin Chewable) 81 mg PO DAILY [facility] Last Admin: 04/13/18 07:55 Dose: 81 mg Cyclobenzaprine HCl (Flexeril) 5 mg PO TIDPRN PRN PRN Reason: Muscle Spasm Dextrose/Water (Dextrose 50%) 25 gm SLOW IVP PRN PRN PRN Reason: Hypoglycemia Famotidine (Pepcid) 20 mg PO BID [facility] Last Admin: 04/13/18 07:54 Dose: 20 mg Glucagon (Glucagon) 1 mg IM PRN PRN PRN Reason: Hypoglycemia Dextrose/Water (D5w) 1,000 mls @ 0 mls/hr IV .Q0M PRN PRN Reason: Hypoglycemia Insulin Human Lispro (Humalog) 0 units SC .MILD SLIDING SCALE PRN PRN Reason: Mild Correctional Scale Last Admin: 04/12/18 11:47 Dose: 3 unit Insulin Human Lispro (Humalog) 0 units SC .BEDTIME SLIDING SC PRN PRN Reason: Bedtime Correctional Scale Lisinopril (Zestril) 5 mg PO BID [facility] Last Admin: 04/13/18 07:55 Dose: 5 mg Metformin HCl (Glucophage) 500 mg PO BID [facility] Last Admin: 04/13/18 07:55 Dose: 500 mg Metoprolol Tartrate (Lopressor) 50 mg PO BID [facility] Last Admin: 04/13/18 07:55 Dose: 50 mg Nystatin (Mycostatin Powder) 0 gm TOP BID [facility] Ondansetron HCl (Zofran Odt) 4 mg PO Q6H PRN PRN Reason: Nausea/Vomiting Ondansetron HCl (Zofran) 4 mg IVP Q6H PRN PRN Reason: Nausea/Vomiting Simvastatin (Zocor) 40 mg PO HS [facility] Last Admin: 04/12/18 20:15 Dose: 40 mg Sodium Chloride (Flush - Normal Saline) 10 ml IVF Q12HR [facility] Last Admin: 04/13/18 07:55 Dose: 10 ml Sodium Chloride (Flush - Normal Saline) 10 ml IVF PRN PRN PRN Reason: Saline Flush
[2018-04-13 12:21] LABS: Sodium 122 mmol/L (136-145)
--- NOTE | 2018-04-13 13:43 | EKG ---
Test Reason : Blood Pressure : / mmHG Vent. Rate : 072 BPM Atrial Rate : 072 BPM P-R Int : 132 ms QRS Dur : 108 ms QT Int : 436 ms P-R-T Axes : 041 048 062 degrees QTc Int : 477 ms Normal sinus rhythm Possible Left atrial enlargement Incomplete left bundle branch block Nonspecific ST and T wave abnormality Abnormal ECG Confirmed by CRISTIN MACK ([id number]), editor [place] SHAVON FREEMAN ([id number]) on 04/13/2018 1:43:00 PM Referred By: Confirmed By:CRISTIN MACK
--- NOTE | 2018-04-13 18:08 | PRG ---
DATE OF SERVICE: SUBJECTIVE: Yolanda Gonsalves has no complaints. Apparently, she was confused last night. OBJECTIVE: VITAL SIGNS: She is afebrile. Heart rate 75, respiratory rate 20, oximetry is 94, blood pressure 158/82. LUNGS: Clear. HEART: Regular rhythm. S1, S2 are normal. ABDOMEN: Soft. EXTREMITIES: Without asymmetry. LABORATORY DATA: Sodium is still down at 122. IMPRESSION: 1. Syndrome of inappropriate antidiuretic hormone secretion. 2. History of hypertension. 3. Diabetes. 4. History of vertebral compression fractures. 5. Sundowning. 6. Peripheral vascular disease. PLAN: Continue current supportive care with fluid restriction. Job ID: [id number]
[2018-04-13] MEDS: Simvastatin 40 MG TAB PO SCH (20:03)
--- NOTE | 2018-04-13 21:39 | PRG ---
DATE OF SERVICE: 04/13/2018 SUBJECTIVE: The patient is seen and examined, seems to be feeling and doing much better and noted with the following vital signs. OBJECTIVE: VITAL SIGNS: Afebrile, temperature 98.2, pulse 75, respiratory rate of 18, O2 sats 93% with blood pressure 159/70. HEENT EXAMINATION: Unremarkable. CARDIOVASCULAR SYSTEM: First and second heart sounds were heard. RESPIRATORY SYSTEM: Clear to auscultation. DIGESTIVE SYSTEM: Revealed a benign abdomen. EXTREMITIES: No peripheral edema. SKIN EXAMINATION: No new gross rash. LYMPHATICS: No peripheral lymphadenopathy. LABORATORY INVESTIGATIONS: Presently showed sodium of 122. IMPRESSION: Hyponatremia in the context of poor osmolar intake and excessive oral intake. PLAN: 1. We will change the diet to regular diet with increased protein intake. 2. Repeat the sodium level in the morning. 3. Further management to be dependent on the clinical course. Job ID: [id number]
[2018-04-14] MEDS: Metoprolol Tartrate 50 MG TAB PO SCH ×2 (08:26→19:59)
[2018-04-14] MEDS: Apixaban 5 MG TAB PO SCH ×2 (08:26→19:58)
[2018-04-14] MEDS: Lisinopril 5 MG TAB PO SCH ×2 (08:26→19:59)
[2018-04-14] MEDS: metFORMIN 500 MG TAB PO SCH ×2 (08:26→19:58)
[2018-04-14] MEDS: Famotidine 20 MG TAB PO SCH ×2 (08:27→19:58)
[2018-04-14] MEDS: Nystatin Powder 15 GM BOT TOP SCH ×2 (08:27→19:59)
[2018-04-14 09:49] LABS: #Eosinphils 0.1 thou/uL (0.0-0.7); #Lymphocytes 2.2 thou/uL (1.20-3.40); #Monocytes 0.4 thou/uL (0.11-0.59); #Neutrophils 5.2 thou/uL (1.40-6.50); %Basophils 0.5 % (0.0-1.0); %Eosinophils 0.9 % (0.0-10.0); %Lymphocytes 27.9 % (21.0-51.0); %Monocytes 5.4 % (0.0-10.0); %Neutrophils 65.3 % (42.0-75.0); Hemoglobin 12.6 g/dL (12.0-16.0); Mean Corpuscular HGB CONC 34.9 g/dL (32.0-36.0); Mean Corpuscular Volume 94.7 fL (78.0-98.0); Mean Platelet Volume 6.7 fL (7.4-10.4); Platelet Count 277 thou/uL (130-400); RBC Distribution Width 11.8 % (11.5-14.5); White Blood Cell (WBC) Count 7.9 thou/uL (4.8-10.8)
[2018-04-14 10:08] LABS: Anion Gap 13 mmol/L (10-20); BUN (Urea Nitrogen) 7 mg/dL (9.8-20.1); Calc. Creatinine Clearance 109 mL/min (70-130); Calcium 9.2 mg/dL (7.8-10.44); Carbon Dioxide 27 mmol/L (23-31); Chloride 87 mmol/L (98-107); Estimated GFR-MDRD Greater than 90; Glucose 99 mg/dL (80-115); Potassium 3.6 mmol/L (3.5-5.1); Sodium 123 mmol/L (136-145)
[2018-04-14] MEDS: HumaLOG 300 UNITS/3 ML VIAL SC PRN (12:56)
--- NOTE | 2018-04-14 13:15 | PDOC.PN ---
- Subjective Encounter Start Date: 04/14/18 Encounter Start Time: 09:30 Subjective: awake, follows verbal stimuli -: at bedside says she told him [facility] -: is moving all extremities, trying to eat her breakfast - Objective Resuscitation Status - Order Detail: 04/11/18 16:51 Resuscitation Status Routine Co-Sign Provider: Resuscitation Status: FULL: Full Resuscitation MAR Reviewed: Yes Vital Signs & Weight: Vital Signs (12 hours) Temp Pulse Resp BP BP Pulse Ox 04/14/18 13:02 97.1 F L 71 16 150/79 H 93 L 04/14/18 08:47 170/72 H 93 L 04/14/18 08:26 75 174/81 H 04/14/18 08:00 93 L 04/14/18 07:58 98.5 F 77 18 174/81 H 90 L Weight Weight 168 lb 8 oz I&O: 04/13/18 04/14/18 04/15/18 06:59 06:59 06:59 Intake Total 1770 720 Balance 1770 720 Result Diagrams: 04/14/18 09:36 04/14/18 09:36 Additional Labs: Accuchecks 04/14/18 04/14/18 04/13/18 11:19 06:02 20:18 POC Glucose 185 H 123 H 145 H 04/13/18 16:40 POC Glucose 97 Phys Exam - Physical Examination HEENT: PERRLA, sclera anicteric Neck: no JVD, supple Respiratory: no wheezing, no rales Cardiovascular: RRR, no significant murmur Gastrointestinal: soft, non-tender, positive bowel sounds Musculoskeletal: no edema, pulses present Neurological: non-focal, moves all 4 limbs Dx/Plan (1) Hyponatremia Code(s): E87.1 - HYPO-OSMOLALITY AND HYPONATREMIA Status: Acute Comment: Likely multifactorial and improving (2) Acute metabolic encephalopathy Code(s): G93.41 - METABOLIC ENCEPHALOPATHY Status: Resolved Comment: Secondary to #1, resolved (3) DM type 2 (diabetes mellitus, type 2) Status: Chronic Qualifiers: Diabetes mellitus nursing home insulin use: without nursing home use Diabetes mellitus complication status: with unspecified complications Qualified Code(s) : E11.8 - Type 2 diabetes mellitus with unspecified complications (4) H/O venous thrombosis and embolism Code(s): Z86.718 - PERSONAL HISTORY OF OTHER VENOUS THROMBOSIS AND EMBOLISM Status: Chronic (5) HLD (hyperlipidemia) Code(s): E78.5 - HYPERLIPIDEMIA, UNSPECIFIED Status: Chronic Qualifiers: Hyperlipidemia type: unspecified Qualified Code(s): E78.5 - Hyperlipidemia , unspecified (6) HTN (hypertension) Code(s): I10 - ESSENTIAL (PRIMARY) HYPERTENSION Status: Chronic Qualifiers: Hypertension type: essential hypertension (7) H/O: CVA (cerebrovascular accident) Code(s): Z86.73 - PRSNL HX OF TIA (TIA), AND CEREB INFRC W/O RESID DEFICITS Status: Chronic Comment: no residual motor deficits - Plan still has off and on confusions, sod is 123 -: no imaging has been done for brain since admission, will get MRI in view of -: prior cva. Is moving all extremities -: on lopressor, asp, eliquis, lisinopril -: PT to mobilize in hallway as tolerated * . restrict oral fluid intake to 1500ml/day Review of Systems - Medications/Allergies Allergies/Adverse Reactions: Allergies Allergy/AdvReac Type Severity Reaction Status Date / Time Tetanus Vaccines and Toxoid Allergy Verified 07/31/17 15:14 Medications: Current Medications Acetaminophen (Tylenol) 650 mg PO Q4H PRN PRN Reason: Headache/Fever/Mild Pain (1-3) Apixaban (Eliquis) 5 mg PO BID [facility] Last Admin: 04/14/18 08:26 Dose: 5 mg Aspirin (Aspirin Chewable) 81 mg PO DAILY [facility] Last Admin: 04/14/18 08:26 Dose: 81 mg Cyclobenzaprine HCl (Flexeril) 5 mg PO TIDPRN PRN PRN Reason: Muscle Spasm Dextrose/Water (Dextrose 50%) 25 gm SLOW IVP PRN PRN PRN Reason: Hypoglycemia Famotidine (Pepcid) 20 mg PO BID [facility] Last Admin: 04/14/18 08:27 Dose: 20 mg Glucagon (Glucagon) 1 mg IM PRN PRN PRN Reason: Hypoglycemia Dextrose/Water (D5w) 1,000 mls @ 0 mls/hr IV .Q0M PRN PRN Reason: Hypoglycemia Insulin Human Lispro (Humalog) 0 units SC .MILD SLIDING SCALE PRN PRN Reason: Mild Correctional Scale Last Admin: 04/14/18 12:56 Dose: 2 unit Insulin Human Lispro (Humalog) 0 units SC .BEDTIME SLIDING SC PRN PRN Reason: Bedtime Correctional Scale Lisinopril (Zestril) 5 mg PO BID [facility] Last Admin: 04/14/18 08:26 Dose: 5 mg Metformin HCl (Glucophage) 500 mg PO BID [facility] Last Admin: 04/14/18 08:26 Dose: 500 mg Metoprolol Tartrate (Lopressor) 50 mg PO BID [facility] Last Admin: 04/14/18 08:26 Dose: 50 mg Nystatin (Mycostatin Powder) 0 gm TOP BID [facility] Last Admin: 04/14/18 08:27 Dose: 1 applic Ondansetron HCl (Zofran Odt) 4 mg PO Q6H PRN PRN Reason: Nausea/Vomiting Ondansetron HCl (Zofran) 4 mg IVP Q6H PRN PRN Reason: Nausea/Vomiting Simvastatin (Zocor) 40 mg PO HS [facility] Last Admin: 04/13/18 20:03 Dose: 40 mg Sodium Chloride (Flush - Normal Saline) 10 ml IVF Q12HR [facility] Last Admin: 04/14/18 08:27 Dose: 10 ml Sodium Chloride (Flush - Normal Saline) 10 ml IVF PRN PRN PRN Reason: Saline Flush
--- NOTE | 2018-04-14 14:53 | PRG ---
DATE OF SERVICE: 04/14/2018 SUBJECTIVE: Ms. Gonsalves is still very weak. She has not been out of bed. OBJECTIVE: VITAL SIGNS: She is afebrile. Heart rate 71, respiratory rate 16, oximetry is 93% on room air, blood pressure 150/79. LUNGS: Clear. HEART: Regular rhythm. ABDOMEN: Soft. LABORATORY DATA: White count 7.9, hemoglobin 12.6, platelets 277. Sodium 123, potassium 3.6, chloride 87, bicarb 27, BUN 7, creatinine 0.59. IMPRESSION: 1. Hyperosmotic hyponatremia. She needs fluid restriction. 2. Deconditioning. She will likely need placement for mcfp/physical therapy. 3. History of hypertension. 4. Diabetes. We will continue with supportive care. Job ID: [id number]
--- NOTE | 2018-04-14 15:47 | MRI ---
MRI BRAIN NONCONTRAST: DATE: 04/14/2018. TIME: 3:06 p.m. HISTORY: A 68-year-old female with altered mental status and generalized weakness. COMPARISON: MRI of 08/01/2017. FINDINGS: All of the images on the current study are degraded by patient motion, some more than others. There i s a moderately large region of encephalomalacia and gliosis in the left frontal lobe, representing an old infarction in the left MCA territory. It contains hemosiderin stain representing prior hemorrhag ic conversion. This is contiguous with a strip of encephalomalacia and gliosis in the left superior frontal gyrus, r epresenting an old infarction in the left SPENCER territory. There is a strip of encephalomalacia and gliosis in the left parietooccipital junction, representing another small old infarction, either in the left MCA territory, left INTERNET MARKETING COORDINATOR territory, or watershed zone in-between. There is mild to moderate ventriculomegaly due to diffuse parenchymal volume loss of the brain. No a cute hemorrhage, restricted diffusion, mass effect, midline shift, or extraaxial fluid collection. M oderate chronic ischemic white matter changes of the cerebrum. No restricted diffusion to indicate a ny acute infarction. There are bilateral mastoid effusions on the current MRI, worse than on the pre vious one. Otherwise, no major interval change is detected. IMPRESSION: 1. No acute findings. 2. Moderate to large old infarction in left middle cerebral artery territory. Prior hemorrhagic con version within it. 3. Small old infarction in the left anterior cerebral artery territory. 4. Small old infarction at either left posterior cerebral artery territory, left middle cerebral art pascual territory, or watershed zone in-between. 5. Involutional changes and moderate chronic ischemic white matter changes. 6. Bilateral mastoid effusions. PRECIOUS Perez POS: [facility]
--- NOTE | 2018-04-14 17:47 | PRG ---
DATE OF SERVICE: SUBJECTIVE: The patient noted with following vital signs. OBJECTIVE: VITAL SIGNS: Afebrile, temperature 97.1, pulse 71, respiratory rate of 16, O2 saturations are 93%, and blood pressure 150/79. HEENT: Unremarkable. CARDIOVASCULAR SYSTEM: First and second heart sounds were heard. RESPIRATORY SYSTEM: Clear to auscultation. DIGESTIVE SYSTEM: Revealed a benign abdomen. EXTREMITIES: No peripheral edema. SKIN: No new gross rash. LYMPHATICS: No peripheral edema. LABORATORY INVESTIGATION: Showed a sodium of 123, BUN of 7. IMPRESSION: Hyponatremia, which seems to be stuck at 123 now. This is in the context of poor p.o. osmolar intake. PLAN: The patient to continue with current high-protein diet, which was started today. Tomorrow, hopefully the sodium level will improve. Otherwise, we will initiate free water restriction in this patient. Job ID: [id number]
[2018-04-14] MEDS: Simvastatin 40 MG TAB PO SCH (19:59)
[2018-04-15 07:29] LABS: Anion Gap 14 mmol/L (10-20); BUN (Urea Nitrogen) 9 mg/dL (9.8-20.1); Calc. Creatinine Clearance 96 mL/min (70-130); Calcium 9.5 mg/dL (7.8-10.44); Carbon Dioxide 26 mmol/L (23-31); Chloride 88 mmol/L (98-107); Estimated GFR-MDRD 87; Glucose 111 mg/dL (80-115); Potassium 3.8 mmol/L (3.5-5.1); Sodium 124 mmol/L (136-145)
[2018-04-15] MEDS: Nystatin Powder 15 GM BOT TOP SCH (07:59)
[2018-04-15] MEDS: Apixaban 5 MG TAB PO SCH (07:59)
[2018-04-15] MEDS: Metoprolol Tartrate 50 MG TAB PO SCH (07:59)
[2018-04-15] MEDS: Famotidine 20 MG TAB PO SCH (07:59)
[2018-04-15] MEDS: metFORMIN 500 MG TAB PO SCH (07:59)
[2018-04-15] MEDS: Lisinopril 5 MG TAB PO SCH (07:59)
[2018-04-15] MEDS ORDERED: Bisacodyl 10 MG SUPP PR SCH (09:15)
[2018-04-15 12:03] VITALS: BP 151/79
--- NOTE | 2018-04-15 13:01 | PDOC.PN ---
- Subjective Encounter Start Date: 04/15/18 Encounter Start Time: 07:00 Subjective: feels good, is amb around 100ft with PT -: wants to go home -: at bedside agrees to above - Objective Resuscitation Status - Order Detail: 04/11/18 16:51 Resuscitation Status Routine Co-Sign Provider: Resuscitation Status: FULL: Full Resuscitation MAR Reviewed: Yes Vital Signs & Weight: Vital Signs (12 hours) Temp Pulse Resp BP Pulse Ox 04/15/18 12:02 99.0 F 73 20 151/79 H 90 L 04/15/18 08:00 97.6 F 84 18 178/67 H 92 L 04/15/18 04:00 97.7 F 71 18 152/64 H 91 L Weight Weight 169 lb 1 oz I&O: 04/14/18 04/15/18 04/16/18 06:59 06:59 06:59 Intake Total 720 850 Balance 720 850 Result Diagrams: 04/14/18 09:36 04/15/18 06:48 Additional Labs: Accuchecks 04/15/18 04/15/18 04/14/18 11:12 05:53 19:47 POC Glucose 126 H 117 H 129 H 04/14/18 17:04 POC Glucose 134 H Phys Exam - Physical Examination HEENT: PERRLA, moist MMs Neck: no JVD, supple Respiratory: no wheezing, no rales Cardiovascular: RRR, no significant murmur Gastrointestinal: soft, non-tender, positive bowel sounds Musculoskeletal: no edema, pulses present Neurological: non-focal, moves all 4 limbs Psychiatric: A&O x 3 Dx/Plan (1) Hyponatremia Code(s): E87.1 - HYPO-OSMOLALITY AND HYPONATREMIA Status: Acute Comment: Likely multifactorial and improving (2) Acute metabolic encephalopathy Code(s): G93.41 - METABOLIC ENCEPHALOPATHY Status: Resolved Comment: Secondary to #1, resolved (3) DM type 2 (diabetes mellitus, type 2) Status: Chronic Qualifiers: Diabetes mellitus chcf insulin use: without office aide use Diabetes mellitus complication status: with unspecified complications Qualified Code(s) : E11.8 - Type 2 diabetes mellitus with unspecified complications (4) H/O venous thrombosis and embolism Code(s): Z86.718 - PERSONAL HISTORY OF OTHER VENOUS THROMBOSIS AND EMBOLISM Status: Chronic (5) HLD (hyperlipidemia) Code(s): E78.5 - HYPERLIPIDEMIA, UNSPECIFIED Status: Chronic Qualifiers: Hyperlipidemia type: unspecified Qualified Code(s): E78.5 - Hyperlipidemia , unspecified (6) HTN (hypertension) Code(s): I10 - ESSENTIAL (PRIMARY) HYPERTENSION Status: Chronic Qualifiers: Hypertension type: essential hypertension (7) H/O: CVA (cerebrovascular accident) Code(s): Z86.73 - PRSNL HX OF TIA (TIA), AND CEREB INFRC W/O RESID DEFICITS Status: Chronic Comment: no residual motor deficits - Plan likely has vasc dementia with h/o multiple cva -: d/w and patient -: dc pt home with PT * .
[2018-04-15 13:43] LABS: Osmolality, Urine 327 mOsm/kg (300-900)
[2018-04-15 14:01] LABS: Sodium, Urine 45 mmol/L (Not Available)
[2018-04-15] MEDS ORDERED: Fleet Enema 133 ML BOT FS ONE (15:45)
[2018-04-15 16:38] VITALS: TEMP 98.1
--- NOTE | 2018-04-16 15:11 | DIS ---
DATE OF ADMISSION: 04/11/2018 DATE OF DISCHARGE: 04/15/2018 DISCHARGE DISPOSITION: To home with home health. PRIMARY DISCHARGE DIAGNOSES: Hyponatremia which is multifactorial and mostly due to excessive intake of oral fluids, acute encephalopathy secondary to above, and vascular dementia with sundowning. SECONDARY DISCHARGE DIAGNOSES: Hypertension, diabetes mellitus type 2, history of deep venous thrombosis, and dyslipidemia. PROCEDURES DONE DURING HOSPITALIZATION: Chest x-ray done showed no acute cardiopulmonary abnormalities. MRI brain done showed no acute findings. There was an old [id number] infarct in the left MCA territory, prior hemorrhagic conversion within it. There was old small infarct in the left anterior cerebral artery territory, small old infarct in either the left CATCHER FILTER TIP, left MCA, or watershed zone in between. There were also involutional changes and moderate chronic ischemic white matter changes seen. Hemoglobin and hematocrit were 12 and 36, platelet count 277, MCV is 94. Initial sodium level was 109 with discharge numbers of 124, BUN 9, creatinine 0.6 on the day of discharge. Albumin 3.1. Serum osmolality 232 on arrival. Cortisol was 9.3. TSH 0.95. Urine osmolality was 136 on admission with numbers of 327 on the day of discharge. INPATIENT CONSULTS: 1. Dr. Benson for Nephrology,. 2. Dr. Isabel for Pulmonology. DISCHARGE PLAN: The patient is to follow up with her primary care physician in one week and she will also need a metabolic panel to be done in a week. DISCHARGE MEDICATIONS: Eliquis 5 mg p.o. twice daily for history of chronic DVTs, Lopressor 50 mg twice daily, simvastatin 40 mg p.o. at bedtime, Ultram p.r.n., aspirin 81 mg p.o. daily, lisinopril 5 mg twice daily, and metformin 500 mg p.o. three times daily. ALLERGIES: TO TETANUS TOXOID. BRIEF COURSE DURING HOSPITALIZATION: The patient initially was brought to emergency room on the for confusion, nausea, and vomiting. She also had multiple episodes of diarrhea. Her initial sodium was around 109. In view of the patient being symptomatic with hyponatremia, the patient was admitted to [facility]. She was on 3% sodium chloride and the sodium levels were closely monitored. She has had consultation with Dr. Benson for the same. The patient's sodium has gradually responded well and is likely at her chronic baseline around 124. The patient has history of drinking up to 3 L of free water/fluids at home and likely might have gotten exacerbated with her diarrheal episodes as well. Medications might have contributed as well. The patient also has sundowning with likely vascular dementia with multiple prior strokes. Prior to discharge, she was ambulated more than 100 feet with a rolling walker and she is wanting to go home. is here at bedside and is ready to take care of her at home. She needs to have a repeat metabolic panel done in a week. I have discussed this with the patient's and the patient prior to discharge. She was also counseled not to drink more than 1.5 L of free water/all fluids in a day. Please see [id number] documentation for the day of discharge on [employer]. Job ID: [id number]
== END 2018-04-15 17:20 | disposition home health service (06) | DRG 640 ==
LOC: ERS 13:10 → IMCU/EMU 22:08 → T4-A 04-12 22:08
PROVIDERS: ADMIT Internal Medicine Infectious Disease; ATTEND Internal Medicine Infectious Disease
DX: E87.1 Hypo-osmolality and hyponatremia (principal); G93.41 Metabolic encephalopathy; I10 Essential (primary) hypertension; E78.5 Hyperlipidemia, unspecified; E11.9 Type 2 diabetes mellitus without complications; F01.50 Vascular dementia, unspecified severity, without behavioral disturbance, psychotic disturbance, mood disturbance, and anxiety; E86.0 Dehydration; Z79.82 Long term (current) use of aspirin; Z79.84 Long term (current) use of oral hypoglycemic drugs; Z86.73 Personal history of transient ischemic attack (TIA), and cerebral infarction without residual deficits; Z86.718 Personal history of other venous thrombosis and embolism; Z95.820 Peripheral vascular angioplasty status with implants and grafts
CPT/HCPCS: 36415; 36416; 70551; 71045; 80048; 80053; 81003; 82533; 83735; 83930; 83935; 84295; 84300; 84443; 84484; 85025; 93005; A4353; G8978-GP-CL; G8979-GP-CK; G8987-GO-CM; G8988-GO-CK; J2250; J2405; J3480; J7131

== ENCOUNTER 2018-05-16 13:03 | Outpatient (CLI) | payer MEDICARE, BC ==
--- NOTE | 2018-05-16 14:23 | RAD ---
THORACIC SPINE RADIOGRAPHS 3 VIEWS: DATE: 05/16/2018. PROVIDED CLINICAL HISTORY: Back pain. FINDINGS: Comparison is made with a study dated 01/24/2018. Compression deformity involving the T12 vertebral b gretchen is redemonstrated, stable. Thoracic vertebral body heights appear otherwise preserved. Thoracic alignment is unchanged. Pedicles appear intact. Implanted loop recorder device overlies the left c hest. IMPRESSION: Stable exam. POS: [facility]
== END 2018-05-16 13:04 | disposition home or self-care (01) ==
LOC: TBSIIMAG 13:03
PROVIDERS: ATTEND Neurological Surgery
DX: M54.9 Dorsalgia, unspecified (principal)
CPT/HCPCS: 72070

== ENCOUNTER 2018-06-20 09:58 | Outpatient (CLI) | payer MEDICARE, BC ==
--- NOTE | 2018-06-20 11:06 | RAD ---
THORACIC SPINE 3 VIEWS: INDICATION: Followup T12 fracture. COMPARISON: 05/16/2018. There is anterior wedge compression of the T12 vertebrae which does not appear significantly changed. There is mild loss of disk space at T11-T12 and T12-L1, stable. Minimal retropulsion of the rcp ior inferior corner of T12 is unchanged. The other thoracic vertebrae maintain height and alignment. Mild degenerative spurring is present. IMPRESSION: The compression deformity at T12 is stable when compared to prior exam. POS: [facility]
== END 2018-06-20 09:59 | disposition home or self-care (01) ==
LOC: TBSIIMAG 09:58
PROVIDERS: ATTEND Neurological Surgery
DX: S22.089D Unspecified fracture of T11-T12 vertebra, subsequent encounter for fracture with routine healing (principal); M43.8X4 Other specified deforming dorsopathies, thoracic region
CPT/HCPCS: 72072

== ENCOUNTER 2018-08-13 20:01 | Inpatient (IN) | payer MEDICARE, BC ==
--- NOTE | 2018-08-13 20:21 | CT ---
EXAM: Brain CT scan Without contrast: HISTORY: Slurred speech, incoherent, stroke alert COMPARISON: 12/06/2017 FINDINGS: Old area of encephalomalacia in the left posterior frontal lobe, stable. Atrophy and chronic white matter ischemic change. No focal mass or midline shift. No intra or extra-axial hemorrhage. IMPRESSION: No mass or bleed or other significant acute intracranial process. Findings discussed with Dr. Urena in the emergency room at 8:15 PM CODE CR
[2018-08-13 20:25] LABS: Hemoglobin 13.5 g/dL (12.0-16.0); Mean Corpuscular HGB CONC 33.5 g/dL (32.0-36.0); Mean Corpuscular Hemoglobin 32.2 pg (27.0-31.0); Mean Corpuscular Volume 96.1 fL (78.0-98.0); Mean Platelet Volume 7.3 fL (7.4-10.4); Platelet Count 262 thou/uL (130-400); RBC Distribution Width 12.8 % (11.5-14.5); White Blood Cell (WBC) Count 11.2 thou/uL (4.8-10.8)
[2018-08-13 20:30] LABS: INR-International Normal Ratio 0.9; PTT 28.9 SEC (22.9-36.1); Prothrombin Time 12.7 SEC (12.0-14.7)
[2018-08-13 20:45] LABS: ALT (SGPT) 14 U/L (8-55); AST (SGOT) 31 U/L (5-34); Albumin 4.3 g/dL (3.4-4.8); Alkaline Phosphatase 112 U/L (40-150); Anion Gap 16 mmol/L (10-20); BUN (Urea Nitrogen) 15 mg/dL (9.8-20.1); Bilirubin, Total 0.3 mg/dL (0.2-1.2); Calc. Creatinine Clearance 0 mL/min (70-130); Calcium 9.8 mg/dL (7.8-10.44); Carbon Dioxide 24 mmol/L (23-31); Chloride 92 mmol/L (98-107); Estimated GFR-MDRD 67; Glucose 116 mg/dL (80-115); Lymphocytes 68 % (21-51); MDiff Complete? YES; Monocytes 1 % (0-10); Neutrophil 28 % (42-75); Potassium 5.4 mmol/L (3.5-5.1); Protein, Total 8.3 g/dL (6.0-8.3); Reactive Lymphocytes 2 % (0-10); Sodium 127 mmol/L (136-145)
--- NOTE | 2018-08-13 20:57 | CT ---
EXAM: CT angiogram of the head including 3-D rendering: HISTORY: Level 2 stroke alert, slurred speech, incoherent COMPARISON: 07/31/2017 FINDINGS: There is adequate opacification of the intracranial arteries. Visualized vertebral and basilar arteries: Unremarkable. Right and left intracranial internal carotid arteries: Unremarkable. Right and left Anterior and posterior cerebral arteries: Unremarkable. Right and left middle cerebral arteries: Unremarkable. No evidence for an M1 segment occlusion. No evidence for intracranial aneurysm. IMPRESSION: No significant major branch occlusion or stenosis. No evidence for intracranial aneurysm. EXAM: CT angiogram of the neck including 3-D rendering: HISTORY: Stroke alert, slurred speech, incoherent COMPARISON: 07/31/2017 FINDINGS: There is adequate opacification of the extracranial arterial tree. The origins of the right and left carotid and vertebral arteries demonstrate no significant stenosis. Right common, internal, and external carotid arteries: Using Nascet Criteria, Mild to moderate stenos is of the proximal right ICA with associated calcified plaque. Left common, internal, and external carotid arteries:Mild stenosis of the proximal left ICA with asso ciated plaque. Right and left vertebral arteries and basilar artery:No significant stenosis or occlusion. Soft tissue neck demonstrates no evidence for significant adenopathy, mass, or abnormal fluid collect ion. IMPRESSION: Using Nascet Criteria, there is mild to moderate stenosis of the proximal right ICA and mild stenosis of the proximal left ICA with little change from prior study.
[2018-08-13] MEDS ORDERED: Aspirin Chewable 81 MG TAB ONE (21:39)
[2018-08-13 23:22] LABS: Bilirubin Negative (Negative); Blood, Urine Negative (Negative); Clarity CLEAR (Clear); Glucose, Urine (Dipstick) Negative (Negative); Leukocyte Negative (Negative); Nitrite Negative (Negative); Protein, Urine (Dipstick) Negative (Neg-Trace); Specific Gravity, Urine 1.014 (1.002-1.036); Urobilinogen 0.2 mg/dL (0.2-1.0)
[2018-08-14 04:01] VITALS: BMI 27.0
[2018-08-14] MEDS ORDERED: Acetaminophen 325 MG TAB PO PRN ×2 (05:09→06:40)
--- NOTE | 2018-08-14 06:25 | HP ---
CHIEF COMPLAINT: Slurred speech. HISTORY OF PRESENT ILLNESS: The patient is a 68-year-old female with a history of multiple strokes, currently on anticoagulation. She has a history of hyponatremia, history of hypertension and diabetes, who presented to the hospital with complaints of slurred speech. The patient states that she was talking with her when she noticed that she was talking "gibberish." The patient felt that her speech was not normal. She was having trouble word finding. At this time, her drove her to the ER for further evaluation. The patient stated that her symptoms started to resolve once she was in the ER. The patient states that she has been compliant with her medications and has not missed any medications. She denies any fevers, chills, any nausea, vomiting, diarrhea, or any shortness of breath. PAST MEDICAL HISTORY: 1. History of DVTs. She has a filter. 2. History of TIAs and CVAs. 3. History of diabetes. 4. Hypertension. 5. Hyperlipidemia. 6. Fibromyalgia. PAST SURGICAL HISTORY: 1. She does have IVC filter. 2. She had a hysterectomy. 3. She has had multiple orthopedic surgeries. ALLERGIES: SHE IS ALLERGIC TO TETANUS VACCINE. MEDICATIONS: 1. Eliquis 5 mg b.i.d. 2. Lisinopril 20 mg daily. 3. Aspirin 81 mg daily. 4. Metoprolol 50 mg b.i.d. 5. Simvastatin 40 mg daily. 6. Multivitamin 1 p.o. daily. 7. Metformin 500 mg t.i.d. FAMILY HISTORY: She denies any history of heart disease, strokes, or any kidney disease. SOCIAL HISTORY: She denies any alcohol use, drug use, or tobacco. She is and lives with her . She is currently a full code. REVIEW OF SYSTEMS: All negative except for the ones mentioned above in the HPI. PHYSICAL EXAMINATION: VITAL SIGNS: Temperature of 98.5, pulse 77, respiratory rate 18, oxygen saturation 93% on room air, blood pressure 119/58. GENERAL: She is awake, alert, and oriented x3. Does not appear in any distress. HEENT: Normocephalic, atraumatic. No lymphadenopathy noted. Pupils are equal and reactive to light. CV: S1 and S2 present. No murmurs, rubs, or gallops. LUNGS: Clear to auscultation. No rhonchi or wheezes noted. ABDOMEN: Soft and nontender. Bowel sounds are present x2. EXTREMITIES: No edema. Pedal pulses are present x2. NEUROVASCULAR: No focal deficits noted. The patient has 5/5 bilateral upper extremity and bilateral lower extremity strength. Sensation is intact bilaterally. According to the patient, the speech is still not back to her baseline. SKIN: No cuts, lesions, or bruises noted. LABORATORY RESULTS: WBC of 11.2, hemoglobin of 13.5, hematocrit of 40.4, platelets of 262. Chemistry; sodium of 127, potassium of 5.4, chloride of 92, BUN of 15, creatinine 0.84. Troponin x1 was negative. She did have a CTA that did not indicate any acute abnormalities. She also had a CT brain, which was also normal. ASSESSMENT AND PLAN: The patient is 68-year-old female, who presents to the hospital with slurred speech. 1. Slurred speech, most likely secondary to either transient ischemic attack versus a stroke. The patient's CTA is negative; however, she has had multiple CV strokes in the past that have been noted on the MRI. I will get an MRI brain. She had a CT angiogram, which was negative. A CT head was negative. Also, we will continue her lipid medications. We will hold off on the Eliquis till we get the results of the MRI. Also, the patient does have a loop recorder. 2. History of cerebrovascular accident and transient ischemic attacks. We will hold off on Eliquis for now. We will continue the aspirin. 3. History of deep vein thrombosis. The patient does have an IVC filter. We will continue to hold on the Eliquis till we get the MRI results. 4. Hypertension. We will hold off on some of the blood pressure medications. Her blood pressure currently is normal. 5. Deep vein thrombosis prophylaxis. We will put the patient on some SCDs. Job ID: [id number]
[2018-08-14] MEDS ORDERED: Ondansetron ODT 4 MG TAB PO PRN ×2 (06:40→12:12)
[2018-08-14] MEDS ORDERED: Ondansetron PF 4 MG/2 ML Vial IVP PRN (06:40)
[2018-08-14] MEDS ORDERED: Sodium Chloride 0.9% 1,000 ML IV SCH (06:45)
[2018-08-14] MEDS: Amlodipine 5 MG TAB PO SCH (09:21)
[2018-08-14] MEDS: Aspirin Chewable 81 MG TAB PO SCH (09:21)
[2018-08-14] MEDS: Loratadine 10 MG TAB PO SCH (09:26)
[2018-08-14] MEDS ORDERED: Diazepam 5 MG TAB PO SCH (09:30)
--- NOTE | 2018-08-14 11:20 | MRI ---
BRAIN MRI WITHOUT CONTRAST: Date 08/14/18 COMPARISON: 04/14/18. CLINICAL HISTORY: Slurred speech. History of stroke. FINDINGS: There are multifocal punctate areas of increased signal by DWI imaging within each centrum semiovale. Focus of increased restriction involving the medial aspect of the patient's chronic anterior divisio n left MCA infarction is similar, although the foci within the right centrum semiovale are new from 1 06/15/17 exam. Hemosiderin staining at patient's remote MCA territory infarction is redemonstrated, as is surrounding gliosis. There is scattered white matter gliosis related to chronic ischemic disease. Small area of encephalomalacia at the left parietooccipital lobe is similar, indicating sequelae fro m prior ischemia. There is no new mass effect or midline shift. Mild global atrophy with compensatory dilatation of ventricular system is present. Bilateral mastoid fluid is seen. IMPRESSION: 1. Foci of restriction, punctate in size involving the right centrum semiovale indicating recent nii ershed infarctions. 2. Areas of remote ischemia with associated hemosiderin staining again seen. POS: OFF
--- NOTE | 2018-08-14 12:17 | PDOC.EVN ---
Event Note - Event Note Event Note: MRI positive for watershed stroke, neurology consulted. No bleeding so anticoagulant restarted.
[2018-08-14] MEDS: metFORMIN 500 MG TAB PO SCH ×2 (12:59→17:58)
[2018-08-14] MEDS ORDERED: traMADol HCl 50 MG TAB PO PRN (13:00)
[2018-08-14] MEDS: Apixaban 5 MG TAB PO SCH (20:39)
[2018-08-14] MEDS ORDERED: Simvastatin 40 MG TAB PO SCH (21:00)
[2018-08-15 05:38] LABS: Anion Gap 14 mmol/L (10-20); BUN (Urea Nitrogen) 13 mg/dL (9.8-20.1); Calc. Creatinine Clearance 94 mL/min (70-130); Carbon Dioxide 23 mmol/L (23-31); Chloride 100 mmol/L (98-107); Estimated GFR-MDRD 83; Glucose 105 mg/dL (80-115); Potassium 4.2 mmol/L (3.5-5.1); Sodium 133 mmol/L (136-145)
[2018-08-15 06:10] LABS: Band 2 % (5-11); Eosinophils 1 % (0-10); Hemoglobin 11.6 g/dL (12.0-16.0); Lymphocytes 56 % (21-51); MDiff Complete? YES; Mean Corpuscular HGB CONC 32.3 g/dL (32.0-36.0); Mean Corpuscular Hemoglobin 31.1 pg (27.0-31.0); Mean Corpuscular Volume 96.4 fL (78.0-98.0); Mean Platelet Volume 7.2 fL (7.4-10.4); Monocytes 6 % (0-10); Neutrophil 35 % (42-75); Platelet Count 230 thou/uL (130-400); RBC Distribution Width 12.9 % (11.5-14.5); Red Blood Cell (RBC) Count 3.74 mill/uL (4.20-5.40); White Blood Cell (WBC) Count 6.5 thou/uL (4.8-10.8)
[2018-08-15] MEDS: metFORMIN 500 MG TAB PO SCH ×4 (08:34→17:26)
[2018-08-15] MEDS: Amlodipine 5 MG TAB PO SCH (08:34)
[2018-08-15] MEDS: Loratadine 10 MG TAB PO SCH (08:35)
[2018-08-15] MEDS: Aspirin Chewable 81 MG TAB PO SCH (08:35)
[2018-08-15] MEDS: Apixaban 5 MG TAB PO SCH (08:36)
[2018-08-15] MEDS ORDERED: Magnesium Oxide 400 MG TAB PO SCH (09:00)
[2018-08-15] MEDS ORDERED: Ubidecarenone 50 MG CAP PO SCH (09:00)
[2018-08-15] MEDS ORDERED: Multivit, Therapeutic 1 TAB PO SCH (09:00)
[2018-08-15 12:26] LABS: Hemoglobin A1c 5.3 % (4.0-6.0)
[2018-08-15] MEDS ORDERED: Dextrose 50% Abboject 50 ML SYRINGE IVP PRN (14:48)
[2018-08-15] MEDS ORDERED: Dextrose 5% in Water 1,000 ML IV PRN (14:48)
[2018-08-15] MEDS ORDERED: HumaLOG 300 UNITS/3 ML VIAL SC PRN (14:48)
--- NOTE | 2018-08-15 14:54 | PDOC.PN ---
- Subjective Encounter Start Date: 08/15/18 Encounter Start Time: 10:30 Subjective: pt up in bed no complains - Objective Resuscitation Status - Order Detail: 08/14/18 05:09 Resuscitation Status Routine Resuscitation Status: FULL: Full Resuscitation Vital Signs & Weight: Vital Signs (12 hours) Temp Pulse Resp BP BP Pulse Ox 08/15/18 11:00 98.8 F 89 20 153/67 H 95 08/15/18 08:40 95 08/15/18 08:34 94 175/70 H 08/15/18 07:00 98 F 75 20 145/67 H 95 08/15/18 03:27 97.6 F 76 16 157/72 H 92 L Weight Weight 172 lb 12.8 oz I&O: 08/14/18 08/15/18 08/16/18 06:59 06:59 06:59 Intake Total 573 Balance 573 Result Diagrams: 08/15/18 05:14 08/15/18 05:14 Additional Labs: Accuchecks 08/15/18 08/15/18 08/14/18 10:36 06:06 20:08 POC Glucose 209 H 111 H 169 H 08/14/18 08/14/18 16:28 10:55 POC Glucose 127 H 130 H Phys Exam - Physical Examination Neck: no nodes, no JVD, supple, full ROM Respiratory: no wheezing, no rales, no rhonchi, wheezing present, clear to auscultation bilateral Cardiovascular: RRR, no significant murmur, no rub, gallop, irregular Gastrointestinal: soft, non-tender, no distention, positive bowel sounds Musculoskeletal: no edema, pulses present, edema present Dx/Plan (1) Acute CVA (cerebrovascular accident) Code(s): I63.9 - CEREBRAL INFARCTION, UNSPECIFIED Status: Acute Comment: ? failed Pradaxa and Eliquis and Aspirin now, She will need thorough evalautionby neurology for recurrent strokes. MRI is pending. (2) Hyponatremia Code(s): E87.1 - HYPO-OSMOLALITY AND HYPONATREMIA Status: Acute Comment: Likely multifactorial and improving (3) HTN (hypertension) Code(s): I10 - ESSENTIAL (PRIMARY) HYPERTENSION Status: Chronic Qualifiers: (4) HLD (hyperlipidemia) Code(s): E78.5 - HYPERLIPIDEMIA, UNSPECIFIED Status: Chronic Qualifiers: - Plan pt on eliquis had a new stroke -: ? changing AC -: neurology consulted. * . Review of Systems - Review of Systems Respiratory: negative: Cough, Dry, Shortness of Breath, Hemoptysis, SOB with Excertion, Pleuritic Pain, Sputum, Wheezing Cardiovascular: negative: chest pain, palpitations, orthopnea, paroxysmal nocturnal dyspnea, edema, light headedness, other Gastrointestinal: negative: Nausea, Vomiting, Abdominal Pain, Diarrhea, Constipation, Melena, Hematochezia, Other Genitourinary: negative: Dysuria, Frequency, Incontinence, Hematuria, Retention , Other - Medications/Allergies Allergies/Adverse Reactions: Allergies Allergy/AdvReac Type Severity Reaction Status Date / Time Tetanus Vaccines and Toxoid Allergy Verified 07/31/17 15:14 Medications: Current Medications Acetaminophen (Tylenol) 650 mg PO Q4H PRN PRN Reason: Headache/Fever/Mild Pain (1-3) Last Admin: 08/14/18 20:43 Dose: 325 mg Amlodipine Besylate (Norvasc) 5 mg PO DAILY [facility] Last Admin: 08/15/18 08:34 Dose: 5 mg Apixaban (Eliquis) 5 mg PO BID [facility] Last Admin: 08/15/18 08:36 Dose: 5 mg Aspirin (Aspirin Chewable) 81 mg PO DAILY [facility] Last Admin: 08/15/18 08:35 Dose: 81 mg Coenzyme Q10 (Coenzyme Q10) 100 mg PO DAILY [facility] Last Admin: 08/15/18 08:35 Dose: 100 mg Dextrose/Water (Dextrose 50%) 25 gm IVP PRN PRN PRN Reason: HYPOGLYCEMIA PROTOCOL Diazepam (Valium) 10 mg PO WILLCALL [facility] Last Admin: 08/14/18 09:41 Dose: 10 mg Glucagon (Glucagon) 1 mg IM PRN PRN PRN Reason: HYPOGLYCEMIA PROTOCOL Dextrose/Water (D5w) 1,000 mls @ 0 mls/hr IV INF PRN PRN Reason: HYPOGLYCEMIA PROTOCOL Insulin Human Lispro (Humalog) 0 units SC .MILD SLIDING SCALE PRN; Protocol PRN Reason: MILD SLIDING SCALE Loratadine (Claritin) 10 mg PO DAILY [facility] Last Admin: 08/15/18 08:35 Dose: 10 mg Magnesium Oxide (Magnesium Oxide) 400 mg PO DAILY [facility] Last Admin: 08/15/18 08:35 Dose: 400 mg Metformin HCl (Glucophage) 500 mg PO TID-WM [facility] Last Admin: 08/15/18 08:34 Dose: 500 mg Multivitamins (Theragran) 1 tab PO DAILY [facility] Last Admin: 08/15/18 08:36 Dose: 1 tab Ondansetron HCl (Zofran Odt) 4 mg PO Q4H PRN PRN Reason: Nausea/Vomiting Simvastatin (Zocor) 40 mg PO HS [facility] Last Admin: 08/14/18 20:39 Dose: 40 mg Sodium Chloride (Flush - Normal Saline) 10 ml IVF Q12HR [facility] Last Admin: 08/15/18 08:36 Dose: 10 ml Sodium Chloride (Flush - Normal Saline) 10 ml IVF PRN PRN PRN Reason: Saline Flush Tramadol HCl (Ultram) 50 mg PO QID PRN PRN Reason: Pain
[2018-08-15 15:53] VITALS: BP 156/67; TEMP 97.7
--- NOTE | 2018-08-15 17:54 | CON ---
DATE OF CONSULTATION: 08/15/2018 CONSULTING PHYSICIAN: Hospitalist Service. Ms. Gonsalves was admitted for dysarthria. Her MRI of the brain showed a new right centrum semiovale area of infarct. Her previous CT angiogram last year did not show any large vessel disease. She was already on maximum medical therapy with anticoagulation, antiplatelet, and statin. She has made a full recovery. She has nothing focal on exam at this point. Given the current treatment plan, I do not see any need for further hospitalization. She can have an outpatient echo just for completeness, but it would not change our management. Job ID: [id number]
--- NOTE | 2018-08-15 19:01 | DIS ---
DATE OF ADMISSION: 08/13/2018 DATE OF DISCHARGE: 08/15/2018 DISCHARGE DIAGNOSES: 1. Slurred speech secondary to acute cerebrovascular accident. 2. Hyponatremia. 3. Hypertension. 4. Hyperlipidemia. HOSPITAL COURSE: The patient is a very pleasant 68-year-old female, who presented to the hospital with slurred speech. The patient has a history of multiple strokes in the past, is currently on Eliquis and on aspirin. The patient did undergo CT brain and CT angio, which did not indicate any acute abnormalities. However, a brain MRI did indicate a foci of restricted involving the right centrum semiovale indicating recent watershed infarct. The patient was seen by Neurology, no changes. Recommended to continue the Eliquis for now and echo as outpatient. The patient continued to improve. She had no significant deficits. We will provide her home health as outpatient. DISCHARGE MEDICATIONS: 1. Acetaminophen 500 mg q.4 p.r.n. 2. Eliquis 5 mg b.i.d. 3. Metoprolol 50 mg b.i.d. 4. Metformin 500 t.i.d. 5. Amlodipine 5 mg daily. 6. Olmesartan (Benicar) 40 mg daily. 7. Zocor 40 mg at bedtime. I have discontinued the hydrochlorothiazide given hyponatremia. However, the patient stated that her hyponatremia could be secondary to her not eating very much and drinking significant amounts of water, however, she was hyponatremic. She will follow up with her primary care doctor and Neurology as an outpatient. She will also require an echocardiogram. This has been communicated with the patient's and the patient. The patient was seen and examined. There is a progress note written for today. The patient is stable to be discharged home. Job ID: [id number]
== END 2018-08-15 19:51 | disposition home or self-care (01) | DRG 65 ==
LOC: ERS 20:01 → 2SE 21:37
PROVIDERS: ADMIT Emergency Medicine; ATTEND Emergency Medicine
DX: I63.9 Cerebral infarction, unspecified (principal); E87.1 Hypo-osmolality and hyponatremia; R47.81 Slurred speech; I10 Essential (primary) hypertension; E11.9 Type 2 diabetes mellitus without complications; E78.5 Hyperlipidemia, unspecified; M79.7 Fibromyalgia; Z79.82 Long term (current) use of aspirin; Z79.01 Long term (current) use of anticoagulants; Z79.84 Long term (current) use of oral hypoglycemic drugs; Z86.718 Personal history of other venous thrombosis and embolism; Z86.73 Personal history of transient ischemic attack (TIA), and cerebral infarction without residual deficits
CPT/HCPCS: 36415; 36416; 70450; 70496; 70498; 70551; 80048; 80053; 81003; 83036; 84484; 85025; 85610; 85730; 93005; 93306; Q9966

== ENCOUNTER 2018-10-29 12:39 | Observation (INO) | payer MEDICARE, BC ==
[2018-10-29 12:57] LABS: #Eosinphils 0.1 thou/uL (0.0-0.7); #Lymphocytes 3.9 thou/uL (1.20-3.40); #Monocytes 0.5 thou/uL (0.11-0.59); #Neutrophils 4.2 thou/uL (1.40-6.50); %Basophils 0.2 % (0.0-1.0); %Lymphocytes 45.5 % (21.0-51.0); %Monocytes 5.3 % (0.0-10.0); Hemoglobin 13.2 g/dL (12.0-16.0); Mean Corpuscular HGB CONC 33.9 g/dL (32.0-36.0); Mean Corpuscular Hemoglobin 32.5 pg (27.0-31.0); Mean Corpuscular Volume 95.9 fL (78.0-98.0); Mean Platelet Volume 7.5 fL (7.4-10.4); Platelet Count 245 thou/uL (130-400); Red Blood Cell (RBC) Count 4.07 mill/uL (4.20-5.40); White Blood Cell (WBC) Count 8.7 thou/uL (4.8-10.8)
--- NOTE | 2018-10-29 12:58 | CT ---
CT BRAIN NONCONTRAST: DATE: 10/29/2018 HISTORY: 68-year-old female with acute onset stroke symptoms, unilateral weakness. Dr. Gonzáles gave this acute stroke alert protocol CT report stat to Dr. Morillo of the emergency Depart[facility] at 12:54 PM on 10/29/2018. FINDINGS: There is no evidence of acute intra-axial or extra-axial hemorrhage. There is no midline shift or any other mass effect. There is no extra-axial fluid collection. There is no evidence of obstructive hydrocephalus. Calvarium is intact. Moderate-sized old infarction lateral left frontal lobe. Small to moderate-sized old infarction left paramedian upper frontal lobe. Small old infarction left parieto-occipital junction. No interval change overall compared to 08/13/2018. IMPRESSION: 1. No acute intracranial findings. 2. old infarctions in left middle cerebral artery territory and left anterior cerebral artery territ ory. 3. Tiny old lacunar infarction in right thalamus.
[2018-10-29 13:02] LABS: INR-International Normal Ratio 1.1; PTT 31.4 SEC (22.9-36.1); Prothrombin Time 14.2 SEC (12.0-14.7)
[2018-10-29 13:09] LABS: ALT (SGPT) 14 U/L (8-55); AST (SGOT) 19 U/L (5-34); Albumin 4.3 g/dL (3.4-4.8); Alkaline Phosphatase 96 U/L (40-150); Anion Gap 12 mmol/L (10-20); BUN (Urea Nitrogen) 13 mg/dL (9.8-20.1); Bilirubin, Total 0.4 mg/dL (0.2-1.2); CK (CPK) 50 U/L (29-168); Calc. Creatinine Clearance 0 mL/min (70-130); Carbon Dioxide 26 mmol/L (23-31); Chloride 101 mmol/L (98-107); Estimated GFR-MDRD 65; Globulin 3.3 g/dL (2.4-3.5); Glucose 142 mg/dL (80-115); Potassium 4.4 mmol/L (3.5-5.1); Protein, Total 7.6 g/dL (6.0-8.3); Sodium 135 mmol/L (136-145)
--- NOTE | 2018-10-29 13:24 | RAD ---
PORTABLE CHEST 10/29/18 PROVIDED CLINICAL HISTORY: Left arm weakness. COMPARISON: 04/12/18. FINDINGS: The cardiac and mediastinal silhouette is unchanged in appearance. Vascular calcification is noted. I mplanted loop recorder device overlies the left chest. No focal consolidation, pleural fluid or pneum othorax apparent. IMPRESSION: No evidence for an acute cardiopulmonary process. POS: OFF
--- NOTE | 2018-10-29 13:30 | CT ---
CTA Angio Head W WO Con History: Level 1 stroke alert. Comparison: CT angiogram August 13, 2018 Findings: CT angiogram of the head and neck performed after the intravenous administration of contras t. 3-D rendering provided. Lung apices are clear. Visualized portion of the transverse aorta is normal. Normal cervical spine alignment. Left vertebral artery is dominant. Origins of both vertebral arteries are patent. Mild calcifications of the intradural vertebral arteries. Origins of both common carotid arteries are patent. Per NASCET criteria a approximately 40% narrowing proximal right internal carotid artery for length o f 5 mm due to calcific and soft plaque. Remainder the internal carotid artery is patent. Left common carotid artery is patent. Per NASCET there is approximately 20% stenosis proximal left internal carotid artery due to calcific and soft plaque for a length of 4 mm. [place] is patent without stenosis, thrombosis, nor aneurysm formation. Impression: 1. Patent ak chin of [place] without stenosis, thrombosis, nor aneurysm formation. 2. Per NASCET criteria no hemodynamically significant stenosis of the internal carotid arteries. CODE: AMY Morillo
[2018-10-29] MEDS ORDERED: HYDROcodone/Acetaminophen 5/325 mg Tablet PO PRN (16:12)
[2018-10-29] MEDS ORDERED: Acetaminophen 325 MG TAB PO PRN (16:12)
[2018-10-29] MEDS ORDERED: Senokot S 8.6-50 MG TAB PO PRN (16:12)
[2018-10-29] MEDS ORDERED: Acetaminophen 500 MG TAB PO PRN (16:20)
[2018-10-29] MEDS ORDERED: Dextrose 50% Abboject 50 ML SYRINGE SLOW IVP PRN (16:22)
[2018-10-29] MEDS ORDERED: Dextrose 5% in Water 1,000 ML IV PRN (16:22)
[2018-10-29] MEDS ORDERED: HumaLOG 300 UNITS/3 ML VIAL SC PRN ×2 (16:22)
[2018-10-29] MEDS: Lorazepam 2 MG/ML VIAL SLOW IVP PRN ×2 (16:35→16:41)
[2018-10-29] MEDS ORDERED: metFORMIN 500 MG TAB PO SCH (17:00)
[2018-10-29 17:16] VITALS: BMI 28.8
--- NOTE | 2018-10-29 18:04 | MRI ---
NONCONTRAST MRI OF BRAIN: 10/29/18 HISTORY: Left arm and hand numbness for one month. COMPARISON: 08/14/18. FINDINGS: There is a noted area of encephalomalacia and associated gliosis involving the left anterior frontal lobe in the distribution of remote anterior division left MCA infarction is again seen. A punctate fo cus of restricted diffusion at the medial aspect of the remote MCA distribution infarction is redemon strated and unchanged. Areas of hemosiderin deposition within the remote left MCA distribution infarc tion are also again seen and stable. There is a stable area of encephalomalacia and gliosis in the left parieto-occipital lobe likely rela tracy to remote area of infarction as well. Again noted is increased FLAIR and T2 weighted signal intensity within the periventricular and subcor tical white matter which is nonspecific but likely attributable to chronic small vessel ischemic rob ges which have not significantly progressed when compared to the prior exam. Punctate remote cavitate d infarction in the right thalamus as well as right lentiform nucleus are again present. No new focal area of restricted diffusion is seen to suggest interval development of an acute area of infarction. The punctate signal abnormalities in the right centrum semiovale noted on the prior exam are not visualized on this study. The septum pellucidum and third ventricle are in the midline. The ventricular system is normal in siz e, shape and position. There is mild cerebral and cerebellar volume loss again present. Mastoid effusions are seen bilaterally which were also present on the prior exam although mastoid eff usions on the left do appear minimally improved. IMPRESSION: 1. No acute intracranial abnormality is demonstrated. 2. Remote areas of infarction with areas of encephalomalacia and gliosis within the left cerebra l hemisphere with associated hemosiderin staining unchanged from prior exam. 3. Stable chronic small vessel ischemic changes and cerebral volume loss. 4. Stable remote cavitated lacunar infarctions in the right lentiform nucleus and right thalamus . 5. Stable bilateral mastoid effusions. POS: VICKY
[2018-10-29 18:06] LABS: Troponin I Less than 0.010 ng/mL (< 0.028)
[2018-10-29] MEDS ORDERED: Simvastatin 40 MG TAB PO SCH (21:00)
[2018-10-29 21:26] LABS: Troponin I Less than 0.010 ng/mL (< 0.028)
[2018-10-29] MEDS: Apixaban 5 MG TAB PO SCH (22:48)
[2018-10-29] MEDS: Famotidine 20 MG TAB PO SCH (22:48)
[2018-10-29] MEDS: Metoprolol Tartrate 50 MG TAB PO SCH (22:49)
--- NOTE | 2018-10-29 23:48 | CON ---
DATE OF CONSULTATION: 10/29/2018 CONSULTING PHYSICIAN: Hospitalist Service. IMPRESSION: Mild left upper extremity weakness, possibly secondary to a new lacunar infarction. PLAN: MRI is pending. HISTORY OF PRESENT ILLNESS: Ms. Gonsalves is a 68-year-old woman with a past history of multiple TIAs and strokes. She presented with complaints of left arm weakness. She had a CT scan of the brain done in the emergency room and all that was noted was old infarctions in the left middle cerebral and anterior cerebral artery territory. CT angiogram was also performed. No evidence of blockage was noted in the osage of [place] and there was no evidence of carotid disease present either. On exam now, she is alert and appropriate. Her speech is fluent and clear. There is no facial asymmetry. She has some slightly diminished rapid alternating movements in the left hand. She has no problem with the right side at this point. She is currently on maximum medical therapy with both anticoagulation and antiplatelet as well as a statin. I do not see anything further that can be done. Job ID: [id number]
--- NOTE | 2018-10-30 00:01 | HP ---
PRIMARY CARE PHYSICIAN: Dr. Bennett. CHIEF COMPLAINT: Left arm numbness, fatigue, and dysarthria. HISTORY OF PRESENT ILLNESS: Ms. Gonsalves is a 68-year-old female who presented to the emergency room today for evaluation of left arm numbness and tingling that started an hour and a half prior to arrival. Reports that she has a headache, which worsened this morning and initially she started feeling more fatigued and had this left arm weakness, has some lingering dysarthria. Reports intermittent vision changes and some blurriness. Reports that she had a pretty strong headache when all this started, but it has since eased up, but is still present. She denies any chest pain, recent falls. Reports that she has taken her Eliquis and her aspirin as scheduled. Blood sugar was 134. She does take some metformin. Past medical historyis pertinent for prior strokes, she has had about 5 in the last 2 years. She also has a history of deep vein thrombosis, hypertension, high cholesterol, diabetes type 2, fibromyalgia, has had TIAs x3. The patient underwent CT of the head, which showed an old lacunar infarct and an old left-sided MCA. No acute findings. Cervical spine CT was also negative. The patient had a chest x-ray which showed no evidence of acute cardiopulmonary process. The patient also had a CTA of her brain and neck, which showed a patent [place] without stenosis, thrombosis, or aneurysm formation. Per NSAID criteria, no hemodynamically significant stenosis of the internal carotid arteries. Lab work unremarkable and the patient is subsequently admitted to the stroke unit for further management. The patient was admitted here in July 2018 for some similar symptoms. At that time, she had experienced some slurred speech. MRI on 08/14/2018 shows a foci of restriction punctate and size involving the right centrum semiovale indicating recent watershed infarctions. Areas of remote ischemia with associated hemosiderin staining again seen. The patient also had an echocardiogram on 08/21/2018 which showed an LVEF of 55 to 60. E/A flow reversal suggestive of diastolic dysfunction. She had some mild mitral regurg, mitral annular calcification, mild tricuspid regurg, and normal pulmonary artery pressure. We will admit for further management. PAST MEDICAL HISTORY: As above, history of DVTs, has a filter, history of TIAs and CVAs, history of diabetes, hypertension, hyperlipidemia, and fibromyalgia. PAST SURGICAL HISTORY: Has an IVC filter, has had a hysterectomy, multiple orthopedic surgeries. ALLERGIES: SHE IS ALLERGIC TO TETANUS VACCINE. HOME MEDICATIONS: Include; 1. Tylenol 500 mg p.o. q.4 hours as needed. 2. Amlodipine 5 mg p.o. daily. 3. Eliquis 5 mg p.o. b.i.d. 4. Loratadine 10 mg p.o. daily. 5. Mag-Ox 400 mg p.o. daily. 6. Metoprolol 500 mg p.o. b.i.d. 7. Multivitamin 1 capsule p.o. daily. 8. Benicar 40 mg p.o. daily. 9. Zofran 4 mg p.o. q.4 hours as needed. 10. Simvastatin 40 mg p.o. at bedtime. 11. Coenzyme Q 100 mg p.o. daily. 12. Aspirin 81 mg p.o. daily. 13. Metformin 500 mg p.o. t.i.d. FAMILY HISTORY: She denies any history of heart disease, strokes, or any kidney disease. SOCIAL HISTORY: Denies any alcohol, drug, or tobacco use. She is and lives with her . REVIEW OF SYSTEMS: All negative except the ones mentioned above in the HPI. PHYSICAL EXAMINATION: VITAL SIGNS: Blood pressure 148/71, pulse is 72, respirations 18, pO2 sats are 97% on room air, temperature 98.2. CONSTITUTIONAL: The patient appears nontoxic. She is alert and oriented to person, place, and time, is in no apparent distress. She does have some difficulty finding her words, but speech is not slurred. HEAD: Atraumatic and normocephalic. EYES: Pupils are equally round and reactive to light. Extraocular muscles are intact. ENT: Mouth exam is normal. Mucous membranes are moist. NECK: Normal range of motion. Trachea is midline. RESPIRATORY/CHEST: Breath sounds are clear. Chest movement is symmetrical. CARDIOVASCULAR: Regular heart rate and rhythm. Systolic murmur present, grade 2/6 at the right sternal border. ABDOMEN: Nontender. Bowel sounds are heard. BACK: Normal range of motion. No tenderness. UPPER EXTREMITY: Normal inspection. Normal range of motion. LOWER EXTREMITY: Normal inspection. Normal range of motion. Pedal pulses are equal. NEURO: Cranial nerves 2 through 12 are grossly intact. 4/5, left upper extremity and left lower extremity strength. NEURO: Oriented to person, place, and time. Speech is somewhat dysarthric. She does have some sensory deficits to the left arm. Reports sensation is decreased, left versus right. SKIN: Warm, dry, normal in color. PSYCH: She has a normal affect. PERTINENT LABORATORY DATA: White blood cell count 8.7, hemoglobin 13.2, hematocrit is 39, platelet count is 245. Troponin is undetectable. CK is 50. Sodium is 135, potassium 4.4, chloride 101, carbon dioxide 26, gap is 12, BUN is 13, creatinine is 0.86, estimated GFR is 65, glucose is 142, calcium 10. Liver function tests are unremarkable. PT is 14, INR is 1.1, PTT 31.4. EKG in the emergency room shows a normal sinus rhythm, beats per minute 75. No changes seen since last EKG. Nonspecific ST abnormality. T-waves are normal. [place] is normal. PLAN/ASSESSMENT: 1. Left-sided weakness, primarily left arm with some dysarthria. The patient is already on Eliquis and aspirin. However, due to her history and symptoms, we will schedule MRI in the a.m. without contrast. The patient has asked to be premedicated which we will order due to claustrophobia. We will ask the Stroke Team to evaluate. We will ask Neurology for further input. 2. Hypertension. We will continue home medications. 3. Diabetes mellitus type 2. We will Accu-Chek before meals and at bedtime. Add sliding scale for coverage. We will restart home medications. We are going to hold the metformin today and tomorrow as the patient has some contrast for the CTA and then we will resume. 4. Hyperlipidemia. We will restart home medication. 5. Chronic anticoagulation. We will restart her Eliquis and her aspirin. There were no signs of bleeding on the CT scan of her brain. 6. Deep venous thrombosis and gastrointestinal prophylaxis. Deep venous thrombosis, the patient is already on Eliquis and aspirin, and Pepcid b.i.d. will be started. 7. Hospital course will be dependent on clinical findings. Job ID: [id number]
[2018-10-30 05:20] LABS: Band 2 % (5-11); Hemoglobin 11.4 g/dL (12.0-16.0); Lymphocytes 59 % (21-51); MDiff Complete? YES; Mean Corpuscular HGB CONC 33.8 g/dL (32.0-36.0); Mean Corpuscular Hemoglobin 32.6 pg (27.0-31.0); Mean Corpuscular Volume 96.4 fL (78.0-98.0); Mean Platelet Volume 7.5 fL (7.4-10.4); Neutrophil 39 % (42-75); Platelet Count 209 thou/uL (130-400); Platelet Morphology Comment Appears Adequate; RBC Distribution Width 13.3 % (11.5-14.5); RBC Morphology Normal; White Blood Cell (WBC) Count 7.6 thou/uL (4.8-10.8)
[2018-10-30 05:24] LABS: ALT (SGPT) 11 U/L (8-55); AST (SGOT) 17 U/L (5-34); Albumin 3.5 g/dL (3.4-4.8); Alkaline Phosphatase 79 U/L (40-150); Anion Gap 14 mmol/L (10-20); BUN (Urea Nitrogen) 16 mg/dL (9.8-20.1); Bilirubin, Total 0.4 mg/dL (0.2-1.2); Calc. Creatinine Clearance 78 mL/min (70-130); Calcium 9.3 mg/dL (7.8-10.44); Carbon Dioxide 22 mmol/L (23-31); Chloride 103 mmol/L (98-107); Estimated GFR-MDRD 62; Globulin 2.7 g/dL (2.4-3.5); Glucose 102 mg/dL (80-115); Potassium 4.1 mmol/L (3.5-5.1); Protein, Total 6.2 g/dL (6.0-8.3); Sodium 135 mmol/L (136-145)
[2018-10-30 08:02] VITALS: TEMP 97.9
[2018-10-30] MEDS ORDERED: Amlodipine 5 MG TAB PO SCH (09:00)
[2018-10-30] MEDS ORDERED: Loratadine 10 MG TAB PO SCH (09:00)
[2018-10-30] MEDS ORDERED: Magnesium Oxide 400 MG TAB PO SCH (09:00)
[2018-10-30] MEDS ORDERED: Aspirin Chewable 81 MG TAB PO SCH (09:00)
[2018-10-30] MEDS ORDERED: Multivitamin W/ Minerals 1 TAB PO SCH (09:00)
[2018-10-30] MEDS: Apixaban 5 MG TAB PO SCH (09:16)
[2018-10-30] MEDS: Famotidine 20 MG TAB PO SCH (09:16)
[2018-10-30] MEDS: Metoprolol Tartrate 50 MG TAB PO SCH (09:17)
[2018-10-30 13:13] LABS: Cardiac Risk 2.1 (Less than 4.5)
[2018-10-30 13:21] VITALS: BP 129/68
--- NOTE | 2018-10-30 16:47 | DIS ---
DATE OF ADMISSION: 10/29/2018 DATE OF DISCHARGE: 10/30/2018 DISCHARGE DIAGNOSES: As of the following; 1. Left-sided weakness and dysarthria. 2. Hypertension. 3. Diabetes. 4. History of previous strokes, on anticoagulation. 5. Hyperlipidemia. 6. Deep vein thrombosis. HOSPITAL COURSE: The patient is a very nice 68-year-old female with history of multiple strokes, who presents to the hospital with complaints of left arm numbness, fatigue, and dysarthria. Please refer to the H and P for further evaluation. The patient did have a CTA, which indicated patent [place] without stenosis, thrombosis nor aneurysm formation. No significant stenosis was noted to the internal carotid arteries. The patient at that time had a CT brain, which indicated no acute intracranial findings. The patient then underwent a brain MRI, which indicated no acute intracranial abnormalities. No new strokes, just had stable chronic small vessel ischemic changes and also stable remote cavitated lacunar infarcts in right lentiform nuclei and right thalamus and remote areas of infarct in encephalomalacia and gliosis in the left cerebral hemisphere. The patient, at this time, was back to her baseline. Since she recently had an echocardiogram in July, I did not order an echocardiogram. Her echocardiogram in July indicated an EF of 55% to 60% with mild mitral regurgitation and mild tricuspid regurgitation. The patient was at baseline. She will be discharged home. She will follow up with her primary and Dr. Major as needed. MEDICATIONS: 1. Aspirin 81 mg daily. 2. Eliquis 5 mg b.i.d. 3. Amlodipine 5 mg daily. 4. Zocor 40 mg at bedtime. 5. Benicar 40 mg daily. 6. Metformin 500 mg t.i.d., I told her to start that tomorrow due to the contrast. 7. Metoprolol 50 mg b.i.d. 8. Magnesium 400 mg daily. 9. Multivitamin one p.o. daily. PHYSICAL EXAMINATION: VITAL SIGNS: Temperature of 97.9, pulse 66, respiratory rate 16, oxygen saturation 93% on room air, and blood pressure 121/56. GENERAL: She is awake, alert, and oriented x3. Does not appear in distress. CARDIOVASCULAR: S1 and S2 present. No murmurs, rubs, or gallops. ABDOMEN: Soft and nontender. Bowel sounds are present x2. EXTREMITIES: No edema. Again, she will be discharged home. Follow up with her Primary And neurology as needed. Job ID: [id number]
== END 2018-10-30 15:05 | disposition home or self-care (01) ==
LOC: ERS 12:39 → 2SE 15:41
PROVIDERS: ADMIT Internal Medicine; ATTEND Internal Medicine
DX: R53.1 Weakness (principal); R47.1 Dysarthria and anarthria; R20.0 Anesthesia of skin; I10 Essential (primary) hypertension; E11.9 Type 2 diabetes mellitus without complications; E78.5 Hyperlipidemia, unspecified; E78.00 Pure hypercholesterolemia, unspecified; M79.7 Fibromyalgia; Z86.718 Personal history of other venous thrombosis and embolism; Z86.73 Personal history of transient ischemic attack (TIA), and cerebral infarction without residual deficits; Z79.01 Long term (current) use of anticoagulants; Z79.82 Long term (current) use of aspirin; Z79.84 Long term (current) use of oral hypoglycemic drugs; Z79.899 Other long term (current) drug therapy; Z88.7 Allergy status to serum and vaccine; Z98.890 Other specified postprocedural states
CPT/HCPCS: 70450; 70496; 70498; 70551; 71045; 80053 ×2; 80061; 82550; 82962 ×2; 84484 ×2; 85025 ×2; 85610; 85730; 93005; 96374; 97139 ×3; 99285; G0378 ×2; 36415; 36416; J2060; Q9966

== ENCOUNTER 2018-12-17 13:00 | Outpatient (CLI) | payer MEDICARE, BC ==
--- NOTE | 2018-12-17 13:25 | RAD ---
XR Lumbar Spine 2 Or 3 View History: Low back pain Comparison: Radiographs November 2017 Findings: 5 nonrib-bearing lumbar type vertebrae. New compression fracture at T12 with near complete anterior height loss. There is abnormal narrowing of the interspinous space with sclerosis. The right pelvic vascular stent is present. High-grade vascular calcifications. Impression: New from 2018 compression fracture at T12 with near complete anterior height loss.
--- NOTE | 2018-12-17 13:28 | RAD ---
XR Thoracic Spine 3 V STANDARD History: M [age] low [age] pain Comparison: Radiograph May 2018 Findings: T12 compression fracture is unchanged from the May 2018 examination without further he ight loss.. Paraspinal soft tissues are unremarkable. Cardiac silhouette and mediastinal contours are normal. Impression: No significant further height loss of the T12 compression fracture. No new fracture.
== END 2018-12-17 13:01 | disposition home or self-care (01) ==
LOC: TBSIIMAG 13:00
PROVIDERS: ATTEND Neurological Surgery
DX: M54.5 Low back pain (principal); S22.029D Unspecified fracture of second thoracic vertebra, subsequent encounter for fracture with routine healing
CPT/HCPCS: 72072; 72100

== ENCOUNTER 2019-01-27 08:54 | Observation (INO) | payer MEDICARE, BC ==
[2019-01-27 09:13] LABS: Hemoglobin 14.6 g/dL (12.0-16.0); Mean Corpuscular HGB CONC 33.7 g/dL (32.0-36.0); Mean Corpuscular Hemoglobin 32.7 pg (27.0-31.0); Mean Corpuscular Volume 97.2 fL (78.0-98.0); Mean Platelet Volume 7.5 fL (7.4-10.4); Platelet Count 261 thou/uL (130-400); RBC Distribution Width 12.5 % (11.5-14.5); Red Blood Cell (RBC) Count 4.45 mill/uL (4.20-5.40)
--- NOTE | 2019-01-27 09:14 | CT ---
CT Brain WO Con: 01/27/2019 12:00 AM CLINICAL HISTORY: TIA symptoms, currently resolved. COMPARISON: Brain MRI, and head CT, 10/29/2018 FINDINGS: Hemorrhage: None. Ventricular system: Mild ex vacuo dilatation. Cerebral parenchyma: Chronic ischemic disease and superimposed encephalomalacia most pronounced at le ft frontal lobe. Midline shift: None. Mass: No mass effect. Calvarium: Normal. Visualized Paranasal sinuses: Clear. IMPRESSION: No acute intracranial abnormalities. Chronic ischemic disease and superimposed remote infarctions. Telephone call to ER physician placed at 0907 hours.
[2019-01-27 09:17] LABS: Prothrombin Time 12.9 SEC (12.0-14.7)
[2019-01-27 09:29] LABS: Band 3 % (5-11); Lymphocytes 58 % (21-51); MDiff Complete? YES; Monocytes 4 % (0-10); Neutrophil 33 % (42-75); RBC Morphology Normal; Reactive Lymphocytes 1 % (0-10)
[2019-01-27 09:35] LABS: ALT (SGPT) 15 U/L (8-55); AST (SGOT) 20 U/L (5-34); Albumin 4.8 g/dL (3.4-4.8); Alkaline Phosphatase 101 U/L (40-110); Anion Gap 16 mmol/L (10-20); BUN (Urea Nitrogen) 9 mg/dL (9.8-20.1); Bilirubin, Total 0.4 mg/dL (0.2-1.2); CK (CPK) 50 U/L (29-168); Calc. Creatinine Clearance 0 mL/min (70-130); Calcium 9.9 mg/dL (7.8-10.44); Carbon Dioxide 25 mmol/L (23-31); Chloride 103 mmol/L (98-107); Estimated GFR-MDRD 67; Globulin 3.3 g/dL (2.4-3.5); Glucose 161 mg/dL (80-115); Potassium 4.5 mmol/L (3.5-5.1); Protein, Total 8.1 g/dL (6.0-8.3); Sodium 139 mmol/L (136-145)
[2019-01-27] MEDS ORDERED: Aspirin 325 MG TAB ONE (09:49)
[2019-01-27] MEDS ORDERED: Clopidogrel Bisulfate 75 MG TAB PO SCH (10:30)
[2019-01-27 11:47] LABS: Bilirubin Negative (Negative); Blood, Urine Negative (Negative); Glucose, Urine (Dipstick) Negative (Negative); Leukocyte Small (Negative); Nitrite Negative (Negative); Protein, Urine (Dipstick) Negative (Neg-Trace); Urobilinogen 0.2 mg/dL (Less than 2)
[2019-01-27 11:52] LABS: Clarity Clear (Clear)
[2019-01-27 11:56] LABS: Bacteria/HPF None Seen HPF (None Seen); RBC/HPF None Seen HPF (0-3); Squamous Epithelial 0-3 HPF (0-3); WBC/HPF 0-3 HPF (0-3)
[2019-01-27] MEDS ORDERED: Metoprolol Tartrate 50 MG TAB PO SCH ×2 (12:30→21:00)
[2019-01-27] MEDS ORDERED: Losartan 25 MG TAB PO SCH (12:30)
[2019-01-27] MEDS ORDERED: Apixaban 5 MG TAB PO SCH ×2 (12:30→21:00)
[2019-01-27 12:53] LABS: Troponin I 0.021 ng/mL (< 0.028)
[2019-01-27] MEDS ORDERED: Clopidogrel Bisulfate 75 MG TAB ONE (14:04)
[2019-01-27 15:36] LABS: Troponin I 0.034 ng/mL (< 0.028)
[2019-01-27 15:53] VITALS: TEMP 97.7; BMI 28.5
[2019-01-27 18:14] VITALS: BP 159/78
[2019-01-27 19:06] LABS: Troponin I Less than 0.010 ng/mL (< 0.028)
[2019-01-27] MEDS ORDERED: Atorvastatin Calcium 40 MG TAB PO SCH (21:00)
--- NOTE | 2019-01-27 23:02 | SS ---
DATE OF ADMISSION: 01/27/2019 DATE OF DISCHARGE: 01/27/2019 DISCHARGE DIAGNOSES: 1. Left-sided weakness, possible stroke. 2. Hypertension. 3. History of previous strokes in the past. HOSPITAL COURSE: The patient is a 68-year-old female, who initially presented to the hospital with left-sided weakness and also slurred speech. The patient did complain of slight headache and was noted to have elevated blood pressure. She denied any chest pain, nausea, vomiting, diarrhea or shortness of breath. When the patient came into the hospital, her symptoms resolved. She underwent a CT brain that was unchanged from her prior CAT scans. PAST MEDICAL HISTORY: 1. DVTs. She has a filter, TIAs and CVAs. 2. Diabetes. 3. Hypertension. 4. Hyperlipidemia. 5. Fibromyalgia. PAST SURGICAL HISTORY: 1. She does have an IVC filter. 2. Hysterectomy. 3. Multiple orthopedic surgeries. ALLERGIES: SHE IS ALLERGIC TO TETANUS VACCINE. MEDICATIONS: 1. Eliquis 5 mg b.i.d. 2. Lisinopril 20 mg daily. 3. Aspirin 81 mg daily. 4. Metoprolol 50 mg b.i.d. 5. Simvastatin 40 mg daily. 6. Multivitamin one p.o. daily. 7. Metformin 500 mg t.i.d. FAMILY HISTORY: She denies any history of heart disease, however, her mother had strokes. SOCIAL HISTORY: She denies any alcohol use, drug use, or tobacco. She is , lives with her . She is a full code. REVIEW OF SYSTEMS: All negative except for the ones mentioned above in the HPI. PHYSICAL EXAMINATION: VITAL SIGNS: Temperature of 98.8, heart rate of 80, respirations 16, 98% on room air, blood pressure 121/56. GENERAL: She is awake, alert, and oriented x3. Does not appear in distress. HEENT: Normocephalic, atraumatic. No lymphadenopathy noted. Pupils are equal and reactive to light. CV: S1 and S2 present. No murmurs, rubs, or gallops. LUNGS: Clear to auscultation. No rhonchi or wheezes noted. ABDOMEN: Soft and nontender. Bowel sounds are present x2. EXTREMITIES: No edema. Pedal pulses are present x2. NEUROVASCULAR: No focal deficits noted. She does have some numbness to her left maxillary area, however, everything else is intact. SKIN: No cuts, lesions, or bruises noted. LABORATORY RESULTS: As of the following; WBCs of 9.0, hemoglobin of 14.6, hematocrit of 43.3. Chemistry; sodium of 138, potassium 4.5, BUN of 9, creatinine 0.84. Her troponin was negative. Initially, she did have a CT brain as I mentioned, which did not show any acute abnormalities. ASSESSMENT AND PLAN: The patient is a 68-year-old female, who presents to the hospital with left-sided weakness. 1. Transient ischemic attack, stroke. The patient's symptoms resolved. She is on adequate anticoagulation with Eliquis and aspirin. She recently had an MRI brain in October, which did indicate remote infarcts and encephalomalacia, however, everything was stable. She is on adequate stroke medications. She was seen by Neurology, who did not recommend anymore further treatment or testing. She has also had a recent echocardiogram. This was discussed with the patient and patient was okay to be discharged home. She will follow up with Neurology, has an appointment in February. 2. Diabetes. We will continue her home medications. 3. Hypertension. We will continue her home medications. 4. History of strokes, deep venous thrombosis, and pulmonary embolism. I will continue her Eliquis and aspirin. This was discussed with the patient and patient is agreeable to this and she will be discharged home and she will follow up with her primary and with Neurology. Job ID: [id number]
[2019-01-28] MEDS ORDERED: Aspirin 81 mg Enteric Coated Tablet PO SCH (09:00)
[2019-01-28] MEDS ORDERED: Amlodipine 5 MG TAB PO SCH (09:00)
[2019-01-28] MEDS ORDERED: Clopidogrel Bisulfate 75 MG TAB PO SCH (09:00)
[2019-01-28] MEDS ORDERED: Losartan 25 MG TAB PO SCH (09:00)
--- NOTE | 2019-02-01 10:36 | EKG ---
Test Reason : Blood Pressure : / mmHG Vent. Rate : 080 BPM Atrial Rate : 080 BPM P-R Int : 130 ms QRS Dur : 084 ms QT Int : 386 ms P-R-T Axes : 016 030 052 degrees QTc Int : 445 ms Normal sinus rhythm Normal ECG Confirmed by SPENSER ARTEAGA MD ([id number]), publication editor JEANETTE WINN ([id number]) on 02/01/2019 10:35:29 AM Referred By: Confirmed By:SPENSER ARTEAGA MD
== END 2019-01-27 20:20 | disposition home or self-care (01) ==
LOC: ERS 08:54 → ERHOLD 09:55 → 2SE 15:34 → IMCU/EMU 19:34 → 2SE 19:41
PROVIDERS: ADMIT Internal Medicine; ATTEND Internal Medicine
DX: R53.1 Weakness (principal); R47.81 Slurred speech; I10 Essential (primary) hypertension; E11.9 Type 2 diabetes mellitus without complications; E78.5 Hyperlipidemia, unspecified; M79.7 Fibromyalgia; E78.00 Pure hypercholesterolemia, unspecified; Z86.718 Personal history of other venous thrombosis and embolism; Z86.73 Personal history of transient ischemic attack (TIA), and cerebral infarction without residual deficits; Z79.82 Long term (current) use of aspirin; Z79.01 Long term (current) use of anticoagulants; Z79.84 Long term (current) use of oral hypoglycemic drugs; Z79.899 Other long term (current) drug therapy; Z88.7 Allergy status to serum and vaccine
CPT/HCPCS: 70450; 80053; 82550; 82962; 84484 ×2; 85025; 85610; 85730; 93005; 94760; 99291; G0378 ×2; 36415; 36416; 81003; 81015

== ENCOUNTER 2019-05-14 19:02 | Emergency (ER) | payer MEDICARE, BC ==
[2019-05-14 19:29] LABS: Hemoglobin 13.8 g/dL (12.0-16.0); Mean Corpuscular HGB CONC 33.3 g/dL (32.0-36.0); Mean Corpuscular Hemoglobin 32.4 pg (27.0-31.0); Mean Corpuscular Volume 97.5 fL (78.0-98.0); Platelet Count 252 thou/uL (130-400); RBC Distribution Width 12.6 % (11.5-14.5); Red Blood Cell (RBC) Count 4.27 mill/uL (4.20-5.40); White Blood Cell (WBC) Count 9.7 thou/uL (4.8-10.8)
--- NOTE | 2019-05-14 19:34 | CT ---
CT head noncontrast HISTORY: Left arm symptoms. COMPARISON: 01/27/2019. FINDINGS: There is no evidence of acute intracranial hemorrhage. A subtle wedge-shaped area of decrea sed density in involves the posterior aspect of the right temporal lobe. Not present on the previous exam. Encephalomalacia from an old left frontal infarct is stable. There is no mass effect o r shift of midline structures. Fluid within the right maxillary sinus. IMPRESSION: Interval development of right posterior temporal abnormality. Ischemia/infarct of uncerta in age. Old left frontal infarct and other chronic-type findings are stable. Right maxillary sinusitis. Findings were called to Dr. Hudson in the emergency department at 1927 hours. Code CR.
[2019-05-14 19:55] LABS: Lymphocytes 51 % (21-51); MDiff Complete? YES; Monocytes 4 % (0-10); Neutrophil 44 % (42-75); Platelet Morphology Comment Appears Adequate; RBC Morphology Normal; Reactive Lymphocytes 1 % (0-10)
[2019-05-14 20:23] LABS: Albumin 4.1 g/dL (3.4-4.8)
[2019-05-14 20:24] LABS: Chloride 102 mmol/L (98-107); Potassium 4.3 mmol/L (3.5-5.1); Sodium 138 mmol/L (136-145)
[2019-05-14 20:25] LABS: Calcium 9.5 mg/dL (7.8-10.44); Glucose 113 mg/dL (80-115)
[2019-05-14 20:26] LABS: Globulin 3.2 g/dL (2.4-3.5); Protein, Total 7.3 g/dL (6.0-8.3)
[2019-05-14 20:27] LABS: Anion Gap 14 mmol/L (10-20); Bilirubin, Total 0.3 mg/dL (0.2-1.2); Carbon Dioxide 26 mmol/L (23-31)
[2019-05-14 20:28] LABS: Alkaline Phosphatase 86 U/L (40-110)
[2019-05-14 20:29] LABS: Calc. Creatinine Clearance 0 mL/min (70-130); Estimated GFR-MDRD 62
[2019-05-14 20:30] LABS: AST (SGOT) 20 U/L (5-34); BUN (Urea Nitrogen) 11 mg/dL (9.8-20.1)
[2019-05-14 20:31] LABS: ALT (SGPT) 10 U/L (8-55)
--- NOTE | 2019-05-17 12:00 | EKG ---
Test Reason : Blood Pressure : / mmHG Vent. Rate : 087 BPM Atrial Rate : 087 BPM P-R Int : 142 ms QRS Dur : 080 ms QT Int : 384 ms P-R-T Axes : 048 050 010 degrees QTc Int : 462 ms Sinus rhythm with Premature supraventricular complexes and with occasional Premature ventricular comp lexes Possible Left atrial enlargement Borderline ECG Confirmed by LEIGH PICKARD, ZINA ([id number]), film and video editor SHAVON FREEMAN ([id number]) on 05/17/2019 11:59:56 AM Referred By: Confirmed By:ZINA ABRAHAM MD
== END 2019-05-14 20:46 | disposition home or self-care (01) ==
LOC: ERS 19:02
DX: I63.9 Cerebral infarction, unspecified (principal); E11.9 Type 2 diabetes mellitus without complications; E78.5 Hyperlipidemia, unspecified; E78.00 Pure hypercholesterolemia, unspecified; I10 Essential (primary) hypertension; M79.7 Fibromyalgia; Z79.899 Other long term (current) drug therapy; Z79.01 Long term (current) use of anticoagulants; Z79.84 Long term (current) use of oral hypoglycemic drugs; Z86.718 Personal history of other venous thrombosis and embolism; Z79.82 Long term (current) use of aspirin
CPT/HCPCS: 36415; 36416; 70450; 80053; 85025; 93005

== ENCOUNTER 2019-07-18 07:34 | Inpatient (IN) | payer MEDICARE, BC ==
[2019-07-18 07:56] LABS: Hemoglobin 13.4 g/dL (12.0-16.0); Mean Corpuscular HGB CONC 33.1 g/dL (32.0-36.0); Mean Corpuscular Hemoglobin 32.4 pg (27.0-31.0); Mean Platelet Volume 7.7 fL (7.4-10.4); Platelet Count 231 thou/uL (130-400); RBC Distribution Width 12.6 % (11.5-14.5); Red Blood Cell (RBC) Count 4.12 mill/uL (4.20-5.40); White Blood Cell (WBC) Count 8.1 thou/uL (4.8-10.8)
[2019-07-18 07:57] LABS: INR-International Normal Ratio 0.9; PTT 29.5 SEC (22.9-36.1)
--- NOTE | 2019-07-18 07:59 | CT ---
Brain CT without IV contrast: HISTORY: Level One stroke, left-sided facial droop multiple TIAs COMPARISON: 05/14/2019 FINDINGS: Old left frontal encephalomalacia evidence for old left middle cerebral artery distribution infarct. On the right side there is a poorly defined area of low attenuation change in the posterior temporal region solid more prominent in size than on the prior study evidence for prior infarct. In a ddition there is a small focus of abnormal low-attenuation change in the right frontal lobe which are somewhat more prominent than on prior study. No evidence for significant mass effect or midline s hift. No acute hemorrhage. Extensive right-sided sinus mucosal changes including the frontal sinus, ethmoid sinus, and maxillary sinus. Mastoids are clear. IMPRESSION: Prominent area of encephalomalacia in the left frontal lobe with 2 areas of abnormal low-attenuation change on the right side one of the right frontal region, the other one in the right posterior temporal region more prominent than on prior study, evidence for multiple infarct areas.. No evidence for acute hemorrhage or mass effect. Right-sided sinus mucosal changes. Findings were discussed with Dr. Hinojosa in the emergency room at 7:45 AM CODE CR
[2019-07-18 08:05] LABS: ALT (SGPT) 10 U/L (8-55); AST (SGOT) 19 U/L (5-34); Albumin 4.2 g/dL (3.4-4.8); Alkaline Phosphatase 91 U/L (40-110); Anion Gap 12 mmol/L (10-20); BUN (Urea Nitrogen) 15 mg/dL (9.8-20.1); Bilirubin, Total 0.4 mg/dL (0.2-1.2); Calc. Creatinine Clearance 0 mL/min (70-130); Calcium 9.2 mg/dL (7.8-10.44); Carbon Dioxide 26 mmol/L (23-31); Chloride 103 mmol/L (98-107); Estimated GFR-MDRD 59; Globulin 2.7 g/dL (2.4-3.5); Glucose 151 mg/dL (80-115); Potassium 4.4 mmol/L (3.5-5.1); Protein, Total 6.9 g/dL (6.0-8.3); Sodium 137 mmol/L (136-145)
[2019-07-18 08:12] LABS: Eosinophils 1 % (0-10); Lymphocytes 54 % (21-51); MDiff Complete? YES; Monocytes 8 % (0-10); Neutrophil 37 % (42-75); Platelet Morphology Comment Appears Adequate; RBC Morphology Normal
--- NOTE | 2019-07-18 08:23 | CT ---
EXAM: CT angiogram of the head including 3-D rendering: HISTORY: Facial droop Level One stroke COMPARISON: 10/29/2018 FINDINGS: There is adequate opacification of the intracranial arteries. Visualized vertebral and basilar arteries: Unremarkable. Right and left intracranial internal carotid arteries: Elongated calcified plaques noted within the r ight and left intracranial internal carotid arteries, using [place] Criteria with less than 50% stenosis. Right and left Anterior and posterior cerebral arteries: Unremarkable. Right and left middle cerebral arteries: Unremarkable. No evidence for an M1 segment occlusion. No evidence for intracranial aneurysm. IMPRESSION: No significant major branch occlusion or stenosis. No evidence for intracranial aneurysm. Calcified p laques in the right and left intracranial internal carotid arteries, cavernous region, less than 50% stenosis. Stable from prior study. Right sinus mucosal disease. EXAM: CT angiogram of the neck including 3-D rendering: HISTORY: Level One stroke, facial droop COMPARISON: 10/29/2018 FINDINGS: There is adequate opacification of the extracranial arterial tree. The origins of the right and left carotid and vertebral arteries demonstrate no significant stenosis. Right common, internal, and external carotid arteries:Using N[place]et Criteria there is less than 50% st enosis of the right common carotid artery and proximal ICA at bifurcation. Left common, internal, and external carotid arteries:Less than 50% stenosis of the left common caroti d artery and proximal ICA at the bifurcation. Right and left vertebral arteries and basilar artery:No significant stenosis or occlusion. Soft tissue neck demonstrates no evidence for significant adenopathy, mass, or abnormal fluid collect ion. IMPRESSION: Less than 50% stenosis of the right and left common carotid artery-proximal internal carotid artery b ifurcation region.
[2019-07-18] MEDS ORDERED: Aspirin Chewable 81 MG TAB ONE (09:22)
[2019-07-18] MEDS ORDERED: Iopamidol 370 76% 100 ML VIAL ONE (09:38)
[2019-07-18] MEDS ORDERED: Labetalol HCl 100 MG/20 ML VIAL SLOW IVP PRN (12:51)
[2019-07-18] MEDS ORDERED: hydrALAZINE 20 MG/ML VIAL SLOW IVP PRN (12:51)
[2019-07-18] MEDS ORDERED: Dextrose 50% Abboject 50 ML SYRINGE SLOW IVP PRN (12:55)
[2019-07-18] MEDS ORDERED: Dextrose 5% in Water 1,000 ML IV PRN (12:55)
[2019-07-18] MEDS ORDERED: ALPRAZolam 0.25 MG TAB PO PRN (13:04)
[2019-07-18 13:57] LABS: Troponin I 0.026 ng/mL (< 0.028)
--- NOTE | 2019-07-18 14:11 | HP ---
PRIMARY CARE PROVIDER: Dr. Ron Bennett. CHIEF COMPLAINT: Facial droop. HISTORY OF PRESENT ILLNESS: Ms. Gonsalves is a pleasant 69-year-old lady, who was seen at [facility] on July 18, 2019. She has a history of recurrent CVA and TIA. She reports that today morning shortly after waking up, she noticed that she had a left-sided facial droop. She also reports facial numbness. She reports slurring of speech. She denies any weakness anywhere else in her body. She denies any chest pain, shortness of breath, fevers, or chills. She denies any abdominal pain. REVIEW OF SYSTEMS: All systems were reviewed and found to be negative except for the pertinent positives mentioned above. PAST MEDICAL HISTORY: Diabetes mellitus type 2, dyslipidemia, hypertension, deep vein thrombosis, fibromyalgia, CVA x2, TIA x3, hyponatremia. PAST SURGICAL HISTORY: Hysterectomy, right foot injury, left femoral fracture, IVC filter. SOCIAL HISTORY: The patient denies tobacco use, alcohol use, or recreational drug use. FAMILY HISTORY: No family history of premature coronary artery disease. ALLERGIES: TETANUS VACCINE AND TETANUS TOXOID. CURRENT MEDICATIONS: 1. Amlodipine 7.5 mg daily. 2. Metformin 500 mg 3 times a day. 3. Metoprolol tartrate 50 mg 2 times a day. 4. Eliquis 5 mg 2 times a day. 5. Aspirin 81 mg daily. 6. Magnesium oxide 400 mg daily. 7. Coenzyme Q10 100 mg daily. 8. Centrum Silver 1 tablet daily. 9. Vitamin K 100 mcg daily. 10. Benicar 40 mg daily. 11. Atorvastatin 40 mg daily. PHYSICAL EXAMINATION: GENERAL: On examination, Ms. Gonsalves is awake and alert, not in acute distress. VITAL SIGNS: Blood pressure is 164/69, pulse 90, respiratory rate 18, and oxygen saturation 96% on room air. She is afebrile. EYES: No scleral icterus, no conjunctival pallor. ENT: Moist mucosal membranes. No oropharyngeal erythema or exudates. NECK: Supple, nontender, trachea is midline. RESPIRATORY: Accessory muscles of breathing are not active. Chest wall movements are symmetric bilaterally. LUNGS: Clear to auscultation without wheeze, rhonchi, or crepitations. CARDIOVASCULAR: S1 and S2 are heard, regular. Peripheral pulses palpable. NEUROLOGIC: She has left facial droop and slurring of speech. Otherwise, cranial nerves 2 through 12 are intact. No focal motor or sensory deficits otherwise. Deep tendon reflexes 2+, plantars downgoing bilaterally. ABDOMEN: Soft, nontender, bowel sounds heard. MUSCULOSKELETAL: Power is 5/5 in all 4 extremities. SKIN: No rashes or subcutaneous nodules. LYMPHATIC: No cervical lymphadenopathy. PSYCHIATRIC: Normal mood, normal affect, the patient is oriented to person, place, and time. DIAGNOSTIC DATA: Ms. Gonsalves's labs and investigations were reviewed. I reviewed her electrocardiogram, which shows normal sinus rhythm, no ST changes to suggest an acute coronary syndrome. She has occasional premature ventricular complexes. I also reviewed her noncontrast CT scan of the brain, which showed evidence for multiple infarcts. There is no evidence of bleed. She also had CT angiogram of neck and [place], which did not show any significant abnormalities. She had calcified plaques in the right and left intracranial internal carotid arteries, cavernous region, less than 50% of stenosis. She had less than 50% stenosis of the right and left common carotid artery-proximal internal carotid artery bifurcation region. She has normal white count, normal hemoglobin, normal platelet count, INR 0.9, unremarkable comprehensive metabolic profile, and normal troponin-I x2. CK is normal. ASSESSMENT AND PLAN: Ms. Gonsalves is a pleasant 69-year-old lady, who was seen at [facility] on July 18, 2019. Her problem list includes: 1. Left facial droop: The concern is over recurrence of cerebrovascular accident/transient ischemic attack. She will be admitted to the hospital for further management. She will be monitored on telemetry. I will obtain MRI of the brain as well as 2D echocardiogram. Neurology Service will be consulted. Stroke Team will be consulted as well. I will continue her home medications once clarifying the doses. 2. Diabetes mellitus type 2: She will be started on Accu-Cheks and insulin sliding scale. Metformin will be on hold because of IV contrast study. 3. Dyslipidemia: Continue statin. 4. Hypertension: Resume home medications, monitor vital signs, and titrate antihypertensives as needed. 5. History of deep vein thrombosis: The patient is on Eliquis, which I will continue. Many thanks for allowing me to participate in your patient's care. Please feel free to contact me with any questions or concerns. LEVEL OF RISK: High. LEVEL OF COMPLEXITY: High. Job ID: [id number]
--- NOTE | 2019-07-18 15:10 | MRI ---
MRI BRAIN WITHOUT CONTRAST: HISTORY: Left-sided facial droop, multiple TIAs. COMPARISON: 10/29/2018. CORRELATION: CT brain and CTA of brain and neck of same date. FINDINGS: There are areas of encephalomalacia and gliosis due to old infarctions in the cerebral hemispheres bi laterally. Linear hemosiderin deposition in the left frontoparietal lobe is again seen. There is a new small area of restricted diffusion in the right prefrontal gyrus consistent with acute infarction . The ventricular size is appropriate and the basilar cisterns patent. Changes of cortical atrophy and chronic small-vessel ischemic disease are again seen. No midline shift or abnormal extraaxial fl uid collections are noted. There is mucosal disease in the paranasal sinuses and fluid in the mastoi d air cells, right greater than left. IMPRESSION: Small area of acute right sided infarction. POS: TPC
--- NOTE | 2019-07-18 15:34 | CON ---
DATE OF CONSULTATION: 07/18/2019 IMPRESSION: 1. Questionable transient ischemic attack versus nonconvulsive seizures. 2. Past history of multiple strokes. 3. Maximum medical therapy for stroke prevention. PLAN: 1. Review MRI report when available. 2. Consider adding Keppra 250 mg twice a day. HISTORY OF PRESENT ILLNESS: Ms. Gonsalves is a 69-year-old woman, whom I have seen for several years. She has had multiple admissions for stroke. She came in with complaints of some increased slurred speech from her baseline. She felt like her left side of her face was pulling. She has been under a fair amount of stress. Her was in [facility] with cancer and pneumonia. She reports being compliant with her blood thinners and aspirin. Since admission, she had a CT of the brain and CT angiogram, both of which did not show any significant findings. Her MRI has been completed, but the results are pending. On my review, I do not see any acute diffusion abnormalities. Otherwise, she was a bit hypertensive with diastolics between the mid 90s and 113. She had missed her morning medications including her Xarelto. PHYSICAL EXAMINATION: NEUROLOGIC: On exam, she was alert and cooperative. Her speech had some variable dysarthria. There was some rhythmic movement noted in her abdomen and left leg. She denied that this was purposeful. Gait was not tested. LABORATORY STUDIES: Including a CBC, coags, and chemistry panel were unremarkable other than a blood glucose of 150. SUMMARY: This is a recurrent admission for similar complaints of increased dysarthria from her baseline. The rhythmic movements would raise some question of some focal seizure activity. Her MRI is negative for ischemia. I would add the Keppra as noted and I would be happy to follow up with her as an outpatient. Job ID: [id number]
[2019-07-18] MEDS ORDERED: Ondansetron ODT 4 MG TAB PO PRN (15:35)
[2019-07-18 15:50] VITALS: BMI 28.0
[2019-07-18] MEDS ORDERED: Apixaban 5 MG TAB PO SCH (16:00)
[2019-07-18] MEDS: Metoprolol Tartrate 50 MG TAB PO SCH (16:11)
[2019-07-18] MEDS: Losartan 25 MG TAB PO SCH (21:01)
[2019-07-18] MEDS: Amlodipine 5 MG TAB PO SCH (21:02)
[2019-07-18] MEDS: Atorvastatin Calcium 40 MG TAB PO SCH (21:03)
[2019-07-18] MEDS: Acetaminophen 325 MG TAB PO PRN (22:02)
[2019-07-19 06:01] LABS: Cardiac Risk 2.1 (Less than 4.5)
[2019-07-19] MEDS: Apixaban 5 MG TAB PO SCH ×2 (08:42→22:02)
[2019-07-19] MEDS: Metoprolol Tartrate 50 MG TAB PO SCH ×2 (08:43→16:03)
[2019-07-19] MEDS: Aspirin Chewable 81 MG TAB PO SCH (08:44)
[2019-07-19] MEDS: Magnesium Oxide 400 MG TAB PO SCH (08:45)
[2019-07-19] MEDS: Multivit, Therapeutic 1 TAB PO SCH (08:49)
[2019-07-19] MEDS: Ubidecarenone 50 MG CAP PO SCH (08:50)
[2019-07-19] MEDS ORDERED: VITAMIN K2 100 MG FS SCH (09:00)
[2019-07-19] MEDS: Losartan 25 MG TAB PO SCH (09:38)
[2019-07-19 09:39] LABS: Hemoglobin 12.4 g/dL (12.0-16.0); Platelet Count 246 thou/uL (130-400)
[2019-07-19] MEDS: Amlodipine 5 MG TAB PO SCH (09:40)
[2019-07-19] MEDS: HumaLOG 300 UNITS/3 ML VIAL SC PRN (11:38)
--- NOTE | 2019-07-19 13:13 | PDOC.HOSPP ---
- Subjective Encounter Date: 07/19/19 Encounter Time: 07:00 Subjective: Pt seen for followup re: ischemic CVA. Feels better today. - Objective Vital Signs & Weight: Vital Signs (12 hours) Temp Pulse Resp BP BP Pulse Ox 07/19/19 11:00 97.7 F 76 16 146/102 H 96 07/19/19 09:40 75 162/72 H 07/19/19 08:42 97 07/19/19 07:00 97.5 F L 75 16 162/67 H 97 07/19/19 03:02 97.7 F 67 14 139/67 94 L Weight Weight 179 lb 3 oz I&O: 07/18/19 07/19/19 07/20/19 06:59 06:59 06:59 Intake Total 480 Balance 480 Result Diagrams: 07/19/19 09:15 07/19/19 09:15 Additional Labs: Accuchecks 07/19/19 07/19/19 07/18/19 10:55 05:42 19:12 POC Glucose 189 H 137 H 149 H Labs and MARs reviewed by ut Hospitalist ROS - Review of Systems Respiratory: denies: cough, shortness of breath, SOB with excertion, pleuritic pain, wheezing Cardiovascular: denies: chest pain, palpitations, orthopnea, paroxysmal noc. dyspnea, edema, light headedness Gastrointestinal: denies: nausea, vomiting, abdominal pain, diarrhea, constipation, melena, hematochezia Genitourinary: denies: dysuria, frequency, incontinence, hematuria, retention Musculoskeletal: denies: neck pain, shoulder pain, arm pain, back pain, hand pain, leg pain, foot pain Skin: denies: rash, lesions, paul, bruising Neurological: reports: other (facial droop) - Medication Medications: Active Medications Generic Name Dose Route Start Last Admin Trade Name Freq PRN Reason Stop Dose Admin Acetaminophen 650 mg 07/18/19 21:55 07/18/19 22:02 Tylenol PO 650 mg Q4H PRN Administration Headache/Fever or Pain Alprazolam 0.25 mg 07/18/19 13:04 07/18/19 13:24 Xanax PO 0.25 mg BIDPRN PRN Administration Anxiety Amlodipine Besylate 7.5 mg 07/19/19 09:00 07/19/19 09:40 Norvasc PO 7.5 mg DAILY PETE Administration Apixaban 5 mg 07/19/19 09:00 07/19/19 08:42 Eliquis PO 5 mg BID PETE Administration Aspirin 81 mg 07/19/19 09:00 07/19/19 08:44 Aspirin Chewable PO 81 mg DAILY PETE Administration Atorvastatin Calcium 40 mg 07/18/19 21:00 07/18/19 21:03 Lipitor PO 40 mg HS PETE Administration Coenzyme Q10 100 mg 07/19/19 09:00 07/19/19 08:50 Coenzyme Q10 PO 100 mg DAILY PETE Administration Insulin Human Lispro 0 units 07/18/19 12:55 07/19/19 11:38 Humalog SC 2 unit .MILD SLIDING SCALE PRN Administration Mild Correctional Scale Losartan Potassium 100 mg 07/19/19 09:00 07/19/19 09:38 Cozaar PO 100 mg DAILY PETE Administration Magnesium Oxide 400 mg 07/19/19 09:00 07/19/19 08:45 Magnesium Oxide PO 400 mg DAILY PETE Administration Metoprolol Tartrate 50 mg 07/18/19 17:00 07/19/19 08:43 Lopressor PO 50 mg BID-WM PETE Administration Multivitamins 1 tab 07/19/19 09:00 07/19/19 08:49 Theragran PO 1 tab DAILY PETE Administration Sodium Chloride 10 ml 07/18/19 12:51 07/19/19 08:51 Flush - Normal Saline IVF 10 ml PRN PRN Administration Saline Flush - Exam General Appearance: awake alert Eye: anicteric sclera ENT: normocephalic atraumatic, no oropharyngeal lesions Neck: supple, symmetric, no thyromegaly, no lymphadenopathy Heart: RRR, no gallops, no rubs, normal peripheral pulses Respiratory: CTAB, no wheezes, no rales, no ronchi Gastrointestinal: soft, non-tender, non-distended, normal bowel sounds Skin: no rashes Neurological - other findings: left facial droop Psychiatric: normal affect, normal behavior, A&O x 3 Hosp A/P (1) Acute CVA (cerebrovascular accident) Code(s): I63.9 - CEREBRAL INFARCTION, UNSPECIFIED Status: Acute (2) DM type 2 (diabetes mellitus, type 2) Status: Chronic Qualifiers: Diabetes mellitus long term care pharmacist insulin use: without chcf use Diabetes mellitus complication status: with unspecified complications (3) HLD (hyperlipidemia) Code(s): E78.5 - HYPERLIPIDEMIA, UNSPECIFIED Status: Chronic Qualifiers: (4) HTN (hypertension) Code(s): I10 - ESSENTIAL (PRIMARY) HYPERTENSION Status: Chronic Qualifiers: (5) H/O venous thrombosis and embolism Code(s): Z86.718 - PERSONAL HISTORY OF OTHER VENOUS THROMBOSIS AND EMBOLISM Status: Chronic - Plan PT/OT, out of bed/ambulate Continue aspirin, apixaban. Continue statin. Continue accuchecks and insulin sliding scale. Monitor vital signs and titrate antihyypertensives as needed.
[2019-07-19] MEDS ORDERED: Loratadine 10 MG TAB PO PRN (13:16)
[2019-07-19] MEDS ORDERED: Polyethylene Glycol 3350 17 GM Packet PO PRN (13:16)
[2019-07-19] MEDS: Atorvastatin Calcium 40 MG TAB PO SCH (22:02)
[2019-07-20] MEDS: Ubidecarenone 50 MG CAP PO SCH (08:32)
[2019-07-20] MEDS: Multivit, Therapeutic 1 TAB PO SCH (08:32)
[2019-07-20] MEDS: Apixaban 5 MG TAB PO SCH ×2 (08:32→20:12)
[2019-07-20] MEDS: Losartan 25 MG TAB PO SCH (08:33)
[2019-07-20] MEDS: Aspirin Chewable 81 MG TAB PO SCH (08:33)
[2019-07-20] MEDS: Metoprolol Tartrate 50 MG TAB PO SCH ×2 (08:33→16:16)
[2019-07-20] MEDS: Magnesium Oxide 400 MG TAB PO SCH (08:34)
[2019-07-20] MEDS: Amlodipine 5 MG TAB PO SCH (08:34)
[2019-07-20] MEDS: Acetaminophen 325 MG TAB PO PRN (08:50)
--- NOTE | 2019-07-20 10:48 | PDOC.HOSPP ---
- Subjective Encounter Date: 07/20/19 Encounter Time: 07:00 Subjective: Pt seen for followup re: stroke. Feels better today. - Objective Vital Signs & Weight: Vital Signs (12 hours) Temp Pulse Resp BP Pulse Ox 07/20/19 08:34 70 07/20/19 07:03 97.7 F 70 20 122/60 97 07/20/19 03:35 97.6 F 68 16 135/63 95 07/19/19 22:54 97.8 F 77 16 135/63 98 Weight Weight 179 lb 3 oz I&O: 07/19/19 07/20/19 07/21/19 06:59 06:59 06:59 Intake Total 480 1280 360 Balance 480 1280 360 Result Diagrams: 07/19/19 09:15 07/19/19 09:15 Additional Labs: Accuchecks 07/20/19 07/19/19 07/19/19 05:33 19:17 16:37 POC Glucose 116 H 169 H 115 H 07/19/19 10:55 POC Glucose 189 H Labs and MARs reviewed by me EKG Reviewed by me: Yes (Tele; NSR) Hospitalist ROS - Review of Systems Respiratory: denies: cough, dry, shortness of breath, hemoptysis, SOB with excertion, pleuritic pain, sputum, wheezing Cardiovascular: denies: chest pain, palpitations, orthopnea, paroxysmal noc. dyspnea, edema, light headedness Skin: denies: rash, lesions, paul, bruising Neurological: reports: change in speech - Medication Medications: Active Medications Generic Name Dose Route Start Last Admin Trade Name Gilbertoq PRN Reason Stop Dose Admin Acetaminophen 650 mg 07/18/19 21:55 07/20/19 08:50 Tylenol PO 650 mg Q4H PRN Administration Headache/Fever or Pain Alprazolam 0.25 mg 07/18/19 13:04 07/18/19 13:24 Xanax PO 0.25 mg BIDPRN PRN Administration Anxiety Amlodipine Besylate 7.5 mg 07/19/19 09:00 07/20/19 08:34 Norvasc PO 7.5 mg DAILY PETE Administration Apixaban 5 mg 07/19/19 09:00 07/20/19 08:32 Eliquis PO 5 mg BID PETE Administration Aspirin 81 mg 07/19/19 09:00 07/20/19 08:33 Aspirin Chewable PO 81 mg DAILY PETE Administration Atorvastatin Calcium 40 mg 07/18/19 21:00 07/19/19 22:02 Lipitor PO 40 mg HS PETE Administration Coenzyme Q10 100 mg 07/19/19 09:00 07/20/19 08:32 Coenzyme Q10 PO 100 mg DAILY PETE Administration Insulin Human Lispro 0 units 07/18/19 12:55 07/19/19 11:38 Humalog SC 2 unit .MILD SLIDING SCALE PRN Administration Mild Correctional Scale Loratadine 10 mg 07/19/19 13:16 07/19/19 14:23 Claritin PO 10 mg DAILYPRN PRN Administration Allergies Losartan Potassium 100 mg 07/19/19 09:00 07/20/19 08:33 Cozaar PO 100 mg DAILY PETE Administration Magnesium Oxide 400 mg 07/19/19 09:00 07/20/19 08:34 Magnesium Oxide PO 400 mg DAILY PETE Administration Metoprolol Tartrate 50 mg 07/18/19 17:00 07/20/19 08:33 Lopressor PO 50 mg BID-WM PETE Administration Multivitamins 1 tab 07/19/19 09:00 07/20/19 08:32 Theragran PO 1 tab DAILY PETE Administration Polyethylene Glycol 17 gm 07/19/19 13:16 07/20/19 08:32 Miralax PO 17 gm DAILYPRN PRN Administration Constipation Sodium Chloride 10 ml 07/18/19 12:51 07/20/19 08:36 Flush - Normal Saline IVF 10 ml PRN PRN Administration Saline Flush - Exam General Appearance: NAD Eye: anicteric sclera ENT: moist mucosa Neck: supple Heart: RRR Respiratory: CTAB Gastrointestinal: soft, non-tender Neurological: facial droop, speech deficit Psychiatric: normal affect, normal behavior Hosp A/P (1) Acute CVA (cerebrovascular accident) Code(s): I63.9 - CEREBRAL INFARCTION, UNSPECIFIED Status: Acute (2) DM type 2 (diabetes mellitus, type 2) Status: Chronic Qualifiers: Diabetes mellitus residential insulin use: without marine oil terminal superintendent use Diabetes mellitus complication status: with unspecified complications (3) HLD (hyperlipidemia) Code(s): E78.5 - HYPERLIPIDEMIA, UNSPECIFIED Status: Chronic Qualifiers: (4) HTN (hypertension) Code(s): I10 - ESSENTIAL (PRIMARY) HYPERTENSION Status: Chronic Qualifiers: (5) H/O venous thrombosis and embolism Code(s): Z86.718 - PERSONAL HISTORY OF OTHER VENOUS THROMBOSIS AND EMBOLISM Status: Chronic - Plan PT/OT, out of bed/ambulate Continue aspirin and apixaban. Continue atorvastatin. Continue accuchecks and insulin sliding scale. Monitor vital signs and titrate antihyypertensives as needed. Dispo: Rehab vs home with HH
[2019-07-20] MEDS: HumaLOG 300 UNITS/3 ML VIAL SC PRN (12:22)
[2019-07-20] MEDS: Atorvastatin Calcium 40 MG TAB PO SCH (20:12)
[2019-07-21] MEDS: Multivit, Therapeutic 1 TAB PO SCH (09:10)
[2019-07-21] MEDS: Magnesium Oxide 400 MG TAB PO SCH (09:10)
[2019-07-21] MEDS: Losartan 25 MG TAB PO SCH (09:10)
[2019-07-21] MEDS: Ubidecarenone 50 MG CAP PO SCH (09:10)
[2019-07-21] MEDS: Apixaban 5 MG TAB PO SCH (09:10)
[2019-07-21] MEDS: Amlodipine 5 MG TAB PO SCH (09:10)
[2019-07-21] MEDS: Aspirin Chewable 81 MG TAB PO SCH (09:11)
[2019-07-21] MEDS: Metoprolol Tartrate 50 MG TAB PO SCH (09:11)
[2019-07-21] MEDS: HumaLOG 300 UNITS/3 ML VIAL SC PRN (12:43)
[2019-07-21] MEDS: Acetaminophen 325 MG TAB PO PRN (14:53)
--- NOTE | 2019-07-21 14:53 | DIS ---
DATE OF ADMISSION: 07/18/2019 DATE OF DISCHARGE: 07/21/2019 PRIMARY CARE PROVIDER: Dr. Ron Bennett. DISCHARGE DIAGNOSES: Ischemic cerebrovascular accident. CONDITION: Condition of the patient on the day of discharge, stable. I assessed Ms. Gonsalves on the day of discharge. She denies any chest pain or shortness of breath. Vital signs are stable. S1 and S2 are heard, regular. Lungs are clear to auscultation bilaterally. DISCHARGE MEDICATIONS: No change was made to her pre-admission home medications as dictated in my history and physical note dated July 18, 2019. CONSULTATIONS DURING THIS HOSPITALIZATION: Neurology, Dr. Major. HOSPITAL COURSE: Ms. Gonsalves is a pleasant 69-year-old lady, who was admitted to [facility] on July 21, 2019, for acute ischemic cerebrovascular accident. Please refer to my history and physical note dated July 18, 2019, for further details. She was seen by Neurology Service. Initially, it was felt that her symptoms could be secondary to atypical seizure and Keppra was recommended. However, MRI of the brain showed a small area of acute right-sided infarction. No change was made to her pre-admission home medications. She was seen by Therapy Services. She improved clinically. She is being discharged home on home health for alf, occupational therapy, physical therapy, and speech therapy. POST-ACUTE CARE FOLLOWUP: With primary care provider in 3 days and with neurologist in 2 weeks. DIET: Diabetic and heart healthy. ACTIVITY: As tolerated. DISCHARGE DESTINATION: Home. TIME SPENT: Total amount of time spent in coordinating this discharge: 32 minutes. Please note that fasting lipid profile showed triglycerides 72, cholesterol 103, LDL cholesterol 40, and HDL cholesterol 49. Creatinine was 0.95 on July 18, 2019. Hemoglobin was 12.4 on July 19, 2019. Job ID: [id number]
[2019-07-21 15:38] VITALS: BP 145/65; TEMP 98.4
== END 2019-07-21 16:36 | disposition home health service (06) | DRG 66 ==
LOC: ERS 07:34 → OBSVTOIN 09:30 → 2SE 09:30
PROVIDERS: ADMIT Internal Medicine; ATTEND Internal Medicine
DX: I63.9 Cerebral infarction, unspecified (principal); R29.702 NIHSS score 2; R40.2362 Coma scale, best motor response, obeys commands, at arrival to emergency department; R40.2142 Coma scale, eyes open, spontaneous, at arrival to emergency department; R40.2252 Coma scale, best verbal response, oriented, at arrival to emergency department; R29.810 Facial weakness; E78.5 Hyperlipidemia, unspecified; I10 Essential (primary) hypertension; M79.7 Fibromyalgia; E11.9 Type 2 diabetes mellitus without complications; R47.1 Dysarthria and anarthria; Z86.73 Personal history of transient ischemic attack (TIA), and cerebral infarction without residual deficits; Z88.7 Allergy status to serum and vaccine; Z86.718 Personal history of other venous thrombosis and embolism; Z79.899 Other long term (current) drug therapy; Z79.84 Long term (current) use of oral hypoglycemic drugs; Z79.01 Long term (current) use of anticoagulants; Z79.82 Long term (current) use of aspirin; Z90.710 Acquired absence of both cervix and uterus
CPT/HCPCS: 36415; 36416; 70450; 70496; 70498; 70551; 80053; 80061; 82550; 82565; 84484; 85014; 85018; 85025; 85049; 85610; 85730; 93005; 93306; Q9967

== ENCOUNTER 2019-09-22 21:28 | Observation (INO) | payer MEDICARE, BC ==
[2019-09-22 21:55] LABS: Hemoglobin 13.4 g/dL (12.0-16.0); Mean Corpuscular HGB CONC 32.9 g/dL (32.0-36.0); Mean Corpuscular Hemoglobin 32.5 pg (27.0-31.0); Mean Corpuscular Volume 98.9 fL (78.0-98.0); Mean Platelet Volume 7.6 fL (7.4-10.4); Platelet Count 231 thou/uL (130-400); RBC Distribution Width 12.8 % (11.5-14.5); Red Blood Cell (RBC) Count 4.12 mill/uL (4.20-5.40); White Blood Cell (WBC) Count 11.6 thou/uL (4.8-10.8)
[2019-09-22 21:59] LABS: ALT (SGPT) 11 U/L (8-55); AST (SGOT) 21 U/L (5-34); Albumin 4.3 g/dL (3.4-4.8); Alkaline Phosphatase 88 U/L (40-110); Anion Gap 16 mmol/L (10-20); BUN (Urea Nitrogen) 16 mg/dL (9.8-20.1); Bilirubin, Total 0.4 mg/dL (0.2-1.2); CK (CPK) 58 U/L (29-168); Calc. Creatinine Clearance 0 mL/min (70-130); Calcium 9.4 mg/dL (7.8-10.44); Carbon Dioxide 21 mmol/L (23-31); Chloride 106 mmol/L (98-107); Estimated GFR-MDRD 57; Globulin 2.9 g/dL (2.4-3.5); Glucose 132 mg/dL (80-115); Potassium 4.3 mmol/L (3.5-5.1); Protein, Total 7.2 g/dL (6.0-8.3); Sodium 139 mmol/L (136-145)
[2019-09-22 22:01] LABS: INR-International Normal Ratio 1.2; PTT 29.7 sec (22.9-36.1); Prothrombin Time 14.8 sec (12.0-14.7)
[2019-09-22 22:10] LABS: Eosinophils 4 % (0-10); Lymphocytes 48 % (21-51); MDiff Complete? YES; Monocytes 6 % (0-10); Neutrophil 42 % (42-75)
--- NOTE | 2019-09-22 23:19 | PDOC.FPRHP ---
- History of Present Illness Chief Complaint: L-sided weakness, slurred speech History of Present Illness: 69yo CF with h/o multiple CVA's and TI's with residual L-sided facial droop and speech deficits presents for acute onset of worsening L-sided weakness, facial droop, and slurred speech. Patient states she has been under increased stress lately, her recently within the past few days. She was at usual state of health until approx 1999 when she noted acute onset of sxs. She then presented to ED. Since arriving to ED, sxs have slowly improved and now she only notes mild LUE weakness and slight slurred speech. She denies any sensory deficits, vision changes, CP, SOB, fever/chills, recent illness or sick contacts. She states she has been taking her medications as prescribed and has not missing any doses. She is known to Dr. Major. Of note, patient last admitted 07/18/19 for new R-sided CVA with LUE weakness, slurred speech, and facial droop. At that time an Echo demonstrated 50-55% EF with diastolic dysfunction, CTA demonstrated <50% BL stenosis of ICAs, and Lipid panel demonstrated LDL 40s. She states she has no known cardiac history and no history of arrhythmias. ED Course: CT head without contrast negative. - Allergies/Adverse Reactions Allergies Allergy/AdvReac Type Severity Reaction Status Date / Time Tetanus Vaccines and Toxoid Allergy Verified 09/23/19 01:37 - Home Medications Medication Instructions Recorded Confirmed Type Apixaban [Eliquis] 5 mg PO BID 02/17/17 09/23/19 History Metoprolol Tartrate 50 mg PO BID- 02/17/17 09/23/19 History Amlodipine Besylate [amLODIPine 7.5 mg PO DAILY 08/14/18 09/23/19 History Besylate] Magnesium Oxide 400 mg PO DAILY 08/14/18 09/23/19 History Olmesartan Medoxomil [Benicar] 40 mg PO DAILY 01/27/19 09/23/19 History Ubidecarenone [Co Q-10] 100 mg PO DAILY 01/27/19 09/23/19 History metFORMIN [Glucophage] 500 mg PO TID- 01/27/19 09/23/19 History Atorvastatin Calcium 40 mg PO HS 07/18/19 09/23/19 History Multivit, Therapeutic [Theragran] 1 tab PO DAILY 07/18/19 09/23/19 History Loratadine [Claritin] 10 mg PO DAILY 07/19/19 09/23/19 History Clopidogrel Bisulfate [Plavix] 75 mg PO DAILY 30 Days #30 tab 09/23/19 Rx - History PMHx: CVA x3 (first in 2016, most recent June 2019) - with residual LUE weakness L-facial droop and slight slurred speech; DMII; HLD; HTN; h/o DVT on anticoagulation; TIA x3; allergic rhinitis PSHx: Hyst, L femur repair, RLE stent placement FHx: Mother had multiple CVA's first at age 39 and from CVA at age 57 Social: Recently . No tob, EtOH, or illicit drug use. Lives alone. No children. Has 3 sisters who she would want to make medical decision for her if she was unable. - Review of Systems General: denies: fever/chills, weight/appetite/sleep changes, night sweats, fatigue Eyes: denies: vision changes ENT: denies: nasal congestion, rhinorrhea Respiratory: denies: cough, congestion, shortness of breath Cardiovascular: denies: chest pain, palpitation, edema Gastrointestinal: denies: nausea, vomiting, diarrhea, constipation, abdominal pain Genitourinary: denies: incontinence, dysuria Skin: denies: rashes Musculoskeletal: denies: pain Neurological: reports: weakness (per HPI) Psychological: reports: other (grief, increased stress) - Vital signs BP: 115/72 HR: 83 RR: 20 Tmax: 97.9 Pox: 99% on RA Wt: 79kg - Physical Exam Constitutional: NAD, awake, alert and oriented, well developed HEENT: normocephalic and atraumatic, PERRLA, EOMI, conjunctiva clear, no scleral icterus, normal nasal mucosa, MMM, oropharynx clear Neck: supple, trachea midline Heart: RRR, normal S1/S2, no murmurs/rubs/gallops, pulses present, no edema Lungs: CTAB, no respiratory distress, good air movement, no rales/rhonchi, no wheezing Abdomen: soft, non-tender, bowel sounds present Musculoskeletal: normal structure, normal tone, other (5/5 strength BL UE and LE both proximal and distal) Neurological: normal sensation, other (Mild L-sided facial droop with tongue deviation to the L. 5/5 strength BL UE and LE, normal sensation. Normal finger- to-nose. Articulate speech without slurring or aphasia. No visual field deficit. ) Skin: no rash/lesions Heme/Lymphatic: no unusual bruising or bleeding Psychiatric: normal mood and affect, good judgment and insight, intact recent and remote memory FMR H&P: Results - Labs Result Diagrams: 09/22/19 21:31 09/22/19 21: Lab results: WBC 11.6 thou/uL (4.8-10.8) H 09/22/19 21: Hgb 13.4 g/dL (12.0-16.0) 09/22/19 21: Hct 40.7 % (36.0-47.0) 09/22/19 21: MCV 98.9 fL (78.0-98.0) H 09/22/19 21: Plt Count 231 thou/uL (130-400) 09/22/19 21: Sodium 139 mmol/L (136-145) 09/22/19 21: Potassium 4.3 mmol/L (3.5-5.1) 09/22/19 21: Chloride 106 mmol/L (98-107) 09/22/19 21: Carbon Dioxide 21 mmol/L (23-31) L 09/22/19 21: BUN 16 mg/dL (9.8-20.1) 09/22/19 21: Creatinine 0.97 mg/dL (0.6-1.1) 09/22/19 21: Glucose 132 mg/dL (80-115) H 09/22/19 21: Calcium 9.4 mg/dL (7.8-10.44) 09/22/19 21: Total Bilirubin 0.4 mg/dL (0.2-1.2) 09/22/19 21: AST 21 U/L (5-34) 09/22/19 21: ALT 11 U/L (8-55) 09/22/19 21: Alkaline Phosphatase 88 U/L (40-110) 09/22/19 21: Creatine Kinase 58 U/L (29-168) 09/22/19 21:31 Serum Total Protein 7.2 g/dL (6.0-8.3) 09/22/19 21:31 Albumin 4.3 g/dL (3.4-4.8) 09/22/19 21:31 - EKG Interpretation EKG: NSR. Good R wave progression, no acute ST or T wave changes. Intervals WNL. - Radiology Interpretation CT scan - head Status: image reviewed by me (no acute bleed. areas of BL old infarctions.) Chest x-ray Status: image reviewed by me (sharp costodiaphragmatic angles, no focal consolidation, trachea midline) FMR H&P: A/P - Problem List (1) Transient ischemic attack (TIA) Current Visit: Yes Status: Acute (2) DM type 2 (diabetes mellitus, type 2) Current Visit: Yes Status: Chronic Qualifiers: Diabetes mellitus snf insulin use: without intermediate designer use Diabetes mellitus complication status: with unspecified complications (3) H/O venous thrombosis and embolism Current Visit: Yes Status: Chronic Code(s): Z86.718 - PERSONAL HISTORY OF OTHER VENOUS THROMBOSIS AND EMBOLISM (4) H/O: CVA (cerebrovascular accident) Current Visit: Yes Status: Chronic Code(s): Z86.73 - PRSNL HX OF TIA (TIA), AND CEREB INFRC W/O RESID DEFICITS (5) HLD (hyperlipidemia) Current Visit: Yes Status: Chronic Code(s): E78.5 - HYPERLIPIDEMIA, UNSPECIFIED Qualifiers: (6) HTN (hypertension) Current Visit: Yes Status: Chronic Code(s): I10 - ESSENTIAL (PRIMARY) HYPERTENSION Qualifiers: - Plan 69yo CF with h/o multiple CVA's and TI's with residual L-sided facial droop and speech deficits presents for acute onset of worsening L-sided weakness, facial droop, and slurred speech; admitted for suspected TIA vs CVA. #TIA vs CVA - Presented with acute onset worsening L-facial droop, tongue deviation, LUE weakness, and slurred speech @ 1999 - CT w/o contrast negative for acute bleed - sxs rapidly resolving in ED, NIH 2 - At admission, subjective LUE weakness with mild L facial droop and tongue deviation - multiple CVA's and TIA's in past, most recent June 2019 - records reviewed and at that time new r-sided CVA, Echo 50-55%, and lipid panel at goal. CTA [place] at that time with BL <50% stenosis of ICA's. - EKG without acute changes, troponin negative - Known to Dr. Major, consider neuro consult in AM - MRI ordered for AM - risk stratify with TSH and A1C - Admit to stroke, neuro checks and NIH stroke scale - PT/OT/Speech - Consider addition of plavix for minimum 3 months, ABCD2 score of 5 - permissive HTN until either MRI negative or 48hours post event #h/o DVT - cont home eliquis #DMII - cont home metformin, will check A1C #HLD - lipids at goal at last admission, cont atorva #HTN - Permissive HTN until either MRI negative or 48hours post event - Holding Benicar and norvasc #CKD IIIa - GFR 57, appears at baseline PCP: Dr. Bennett ([facility]) Code: Full Diet: CC IVF: SL VTE: Home Eliquis Disposition/LOS: Admit to stroke obs for TIA vs CVA. MRI pending. Medically optimize. Anticipate LOS <48hrs. FMR H&P: Upper Level - Pertinent history 69 yo F here with complaint of L sided facial droop and UE weakness which started at home today. Upon arrival for EMS, symptoms had resolved. She has a hx of multiple CVAs in the past, most recent 2 months ago. During her previous hospitalization there was some concern for a possible seizure, however MRI was c /w cva. She has been seen by neuro in the outpatient setting. She has been compliant with all meds. Most recent work up found a normal echo other than E/A flow reversal and a normal CTA [place]. At the time of examination she states that she is back to her baseline function. PMHx CVA x2 HTN Afib DM2 Surgical hx Hysterectomy, L femur ORIF Social hx Does not use etoh, tobacco or illicit drugs. - Pertinent findings See dental intern note for full ROS, PE, vitals, and labs ROS General denies fever or chills CV Denies CP, palpitation, or peripheral edema Resp Denies SOB or cough GI Denies n/v/d/c Endo denies of increased thirst and increased urinary frequency denies increased frequency or dysuria Neuro complains of transient left sided facial droop and UE weakness PE General A&O x4, NAD HEENT NCAT CV RRR, no murmur Resp CTA, no respiratory distress Abd Non tender normal BS no distension Extremities no edema, equal pedal pulses Neuro Mild L sided facial droop. Tongue deviates to the L. Numbness in CN V branches 2-3. Normal UE and LE strength - Plan Date/Time: 09/22/19 [id number] I, Bulmaro Adair, DO PGY3, have evaluated this patient and agree with findings/ plan as outlined by dental intern resident. Pertinent changes/additions are listed here. 1.CVA vs TIA -Admit to stroke, MRI in am -Continue home med -Given recent echo and CTA [place], will not repeat. -Consult neurology -Consider starting Plavix due to continue vascular events in setting of otherwise optimal medical management -Check TSH and A1c, most recent lipid shows low normal values 2.HTN -Home meds 3.DM2 -Home meds -Accucheck ACHS -Check A1c -Low carb diet PPx SCD Diet heart healthy, low carb Code Full Addendum - Attending - Attending Attestation Date/Time: 09/23/19 1150 I personally evaluated the patient and discussed the management with Dr. Arroyo/ Giovany. I agree with the History, Examination, Assessment and Plan documented above with any addition or exceptions noted below. Patient with acute life stressor here with concerns for recurrent TIA versus CVA. She is overall medically optimized due to her history of similar events. MRI this morning, possible neuro consult if recurrent CVA with escalation to Plavix. If negative, she should be stable for dc home with outpatient follow up with her neurologist.
[2019-09-23] MEDS ORDERED: Acetaminophen 325 MG TAB PO PRN (01:29)
[2019-09-23] MEDS ORDERED: Calcium Carbonate 500 MG ChewTAB PO PRN (01:29)
[2019-09-23 01:34] VITALS: BMI 27.0
[2019-09-23 01:47] LABS: Hemoglobin A1c 5.9 % (4.0-6.0)
[2019-09-23 07:54] VITALS: BP 176/68
[2019-09-23] MEDS ORDERED: Metoprolol Tartrate 50 MG TAB PO SCH (08:00)
--- NOTE | 2019-09-23 08:00 | CT ---
CT BRAIN WITHOUT CONTRAST: HISTORY: Facial droop. COMPARISON: CT 07/18/2019. FINDINGS: Chronic right maxillary sinusitis. Left anterior MCA, right anterior MCA, right posterior MCA territ ory encephalomalacia is similar. Multiple right-sided lacunar infarcts, similar. No acute hemorrhage. No midline shift. No new focal area of cardenas-white matter differentiation loss. IMPRESSION: No acute hemorrhage. Multifocal old infarcts. Dr. Yoder notified of findings via telephone at 9:58 p.m. CODE CR POS: HOME
--- NOTE | 2019-09-23 08:17 | RAD ---
CHEST 1 VIEW: HISTORY: Altered mental status. COMPARISON: Radiograph 2019. FINDINGS: Lungs are clear. No pneumothorax or effusion. Cardiac silhouette and mediastinal contours within no rmal limits. There is a recording device projecting over the left upper quadrant of the abdomen. IMPRESSION: No acute intrathoracic abnormality. POS: HOME
[2019-09-23] MEDS ORDERED: Aspirin Chewable 81 MG TAB PO SCH (09:00)
[2019-09-23] MEDS ORDERED: Prevnar 13-Val Conj/PF 0.5 ML SYRINGE IM ONE (09:00)
[2019-09-23] MEDS ORDERED: Apixaban 5 MG TAB PO SCH (09:00)
[2019-09-23] MEDS ORDERED: Multivit, Therapeutic 1 TAB PO SCH (09:00)
[2019-09-23] MEDS ORDERED: Magnesium Oxide 400 MG TAB PO SCH (09:00)
[2019-09-23] MEDS ORDERED: Ubidecarenone 50 MG CAP PO SCH (09:00)
[2019-09-23] MEDS ORDERED: Loratadine 10 MG TAB PO SCH (09:00)
--- NOTE | 2019-09-23 09:00 | MRI ---
Exam: Brain MRI without contrast HISTORY: TIA versus stroke. Anxiety attack. COMPARISON: 07/18/2019 FINDINGS: Calvarial marrow signal intensity: Appropriate T1 signal Gradient echo sequence: Stable hemosiderin deposition due to remote insult involving the left frontal lobe. Brain parenchyma: No mass, mass effect or midline shift. Overall, there is age-appropriate atrophy. T here is encephalomalacia and gliosis involving the left frontal lobe, right frontal lobe, right temporal lobe and the left occipital parietal region. The overall degree and distribution is unchange d. No new areas of encephalomalacia or gliosis. The remainder the cerebrum does demonstrate preservation of cortical cardenas-white white matter differentiation Cortical cardenas-white matter differentiation: As above Restricted diffusion: Central arterial flow voids are maintained. Absent restricted diffusion White matter signal intensities:Stable T2 and FLAIR white matter hyperintensities as described above Sinuses: Mild mucosal thickening involving the paranasal sinuses. Bilateral mastoid air cell opacific ation, right greater than left. The degree of sinus and mastoid opacification is similar to the previous exam IMPRESSION: 1. Absent motion effusion. No acute infarct 2. Stable encephalomalacia and gliosis. 3. Stable sinus and mastoid air cell opacification
[2019-09-23] MEDS: metFORMIN 500 MG TAB PO SCH ×2 (09:15→12:29)
[2019-09-23 11:21] VITALS: TEMP 98.3
[2019-09-23] MEDS ORDERED: Clopidogrel Bisulfate 300 MG TAB PO SCH (11:30)
[2019-09-23] MEDS ORDERED: Atorvastatin Calcium 40 MG TAB PO SCH (21:00)
--- NOTE | 2019-09-24 07:09 | DIS ---
DATE OF ADMISSION: 09/23/2019 DATE OF DISCHARGE: 09/23/2019 RESIDENT: Liban Arroyo MD ADMITTING ATTENDING: Huang Maynard MD DISCHARGE ATTENDING: Lavell Anthony MD CONSULTS: Dr. Major was consulted because he is familiar with the patient due to the recurrent history of CVAs and TIAs. He recommended discontinuation of low-dose aspirin 81 mg and to start Plavix 75 mg daily with her continued Eliquis. PROCEDURES: * Brain CT, 09/22/2019, shows no acute hemorrhage. Old multifocal infarcts. * Chest x-ray, 09/22/2019, no acute intrathoracic abnormality. * Brain MRI, 09/23/2019, no acute infarct, stable encephalomalacia and gliosis, stable sinus and mastoid air cell opacification. PRIMARY DIAGNOSIS: 1. TIA. SECONDARY DIAGNOSES: 1. Hypertension 2. Hyperlipidemia 3. Diabetes 4. History of prior CVA 5. History of venous thrombosis and embolism DISCHARGE MEDICATIONS: Continue home medication regimen of: 1. Amlodipine 7.5 mg daily. 2. Metformin 500 mg t.i.d. 3. CoQ10 100 mg daily. 4. Olmesartan 40 mg daily. 5. Theragran 1 tab daily. 6. Metoprolol 50 mg b.i.d. 7. Magnesium oxide 400 mg daily. 8. Claritin 10 mg daily. 9. Atorvastatin 40 mg at bedtime. 10. Eliquis 5 mg daily. Start new medication Plavix 75 mg daily. Discontinue aspirin 81 mg daily. Pneumovax was given during this hospitalization. HISTORY OF PRESENT ILLNESS: The patient is a 69-year-old female with history of multiple CVAs and TIAs with residual left-sided facial droop and speech defects presented for acute onset of worsening left-sided weakness, facial droop and slurred speech. The patient states she has been under increased stress lately, recently within the past few days. She was in her usual state of health until approximately 8 p.m. on 09/22/2019 when she noted acute onset of symptoms. She then presented to the ED. Since arriving to the ED, she had slow symptom improvement and now notes only mild left upper extremity weakness and slight slurred speech, which have resolved during the hospitalization. She denies any sensory deficits, vision changes, chest pain, shortness of breath, fevers, chills, recent illness or sick contacts. She states she has been taking her medications as prescribed, not missing any doses. She is known to Dr. Major. Of note, the patient was last admitted 07/18/2019 for new right-sided CVA with upper extremity weakness, slurred speech and facial droop. At that time, an echo noted demonstrated EF of 50% to 55% with diastolic dysfunction. CTA demonstrated lessthan 50% bilateral stenosis of ICAs and lipid panel demonstrated LDLs in the 40s. She states she has no known cardiac history, no history of arrhythmias. In the ED, CT head was negative. 1. TIA versus CVA. Ruled to be TIA. a. Presented with acute onset of worsening left facial droop, tongue deviation, left upper extremity weakness and slurred speech. At 2000 hours, CT without contrast , negative for acute bleed. b. Symptoms rapidly resolving in ED, NIH 2. c. On admission, subjective left upper extremity weakness with mild left facial droop and tongue deviation. d. Multiple CVAs and TIAs in the past, most recent July 18, 2019. Record reviewed at that time shows new right-sided CVA, echo 50% to 55% and lipid panel. CTA of [place] at that time with bilateral less than 50% ICA stenosis. e. Known to Dr. Major, discussed the case with him and he recommended discontinuing aspirin and starting clopidogrel daily. f. MRI shows no new infarcts as noted above. g. TSH and A1c were within normal limits. h. Lipid panel wnl i. PT recommended home health with physical therapy. j. ABCD2 score of 7. 2. History of DVT. Continue home Eliquis. 3. Diabetes type 2. Continue metformin, A1c was 5.9. 4. Hyperlipidemia. Continue atorvastatin. Lipid panel was within normal limits during last admission in June. 5. Hypertension. Continue home Benicar, Norvasc and metoprolol. 6. CKD stage 3. GFR 57, which is baseline. DISCHARGE INSTRUCTIONS: 1. Location: Home. 2. Activity: As tolerated with the assistance of walker. 3. Diet: Diabetic. 4. Follow up with Dr. Major in 2 weeks; PCP, Dr. Bennett, in 7 days. Discuss with him the need for possible event recorder to rule out cardiac causes. Job ID: [id number] [facility]
== END 2019-09-23 13:13 | disposition home health service (06) ==
LOC: ERS 21:28 → 2SE 09-23 00:09
PROVIDERS: ADMIT Family Medicine; ATTEND Family Medicine
DX: G45.9 Transient cerebral ischemic attack, unspecified (principal); I12.9 Hypertensive chronic kidney disease with stage 1 through stage 4 chronic kidney disease, or unspecified chronic kidney disease; E11.22 Type 2 diabetes mellitus with diabetic chronic kidney disease; N18.3 Chronic kidney disease, stage 3 (moderate); E78.5 Hyperlipidemia, unspecified; I69.334 Monoplegia of upper limb following cerebral infarction affecting left non-dominant side; I69.392 Facial weakness following cerebral infarction; I69.328 Other speech and language deficits following cerebral infarction; J30.9 Allergic rhinitis, unspecified; I48.91 Unspecified atrial fibrillation; M79.7 Fibromyalgia; Z86.718 Personal history of other venous thrombosis and embolism; Z79.01 Long term (current) use of anticoagulants; Z79.84 Long term (current) use of oral hypoglycemic drugs; Z79.899 Other long term (current) drug therapy; Z88.7 Allergy status to serum and vaccine; Z23 Encounter for immunization
CPT/HCPCS: 70450; 70551; 71045; 80053; 82550; 82962 ×2; 83036; 84443; 84484; 85025; 85610; 85730; 90670; 93005; 97116; 97139 ×4; 99285; G0009; G0378 ×2; 36416; 90471

== ENCOUNTER 2019-09-30 19:14 | Observation (INO) | payer MEDICARE, BC ==
[2019-09-30 19:41] LABS: Hemoglobin 13.9 g/dL (12.0-16.0); Mean Corpuscular HGB CONC 34.1 g/dL (32.0-36.0); Mean Corpuscular Hemoglobin 33.5 pg (27.0-31.0); Mean Corpuscular Volume 98.4 fL (78.0-98.0); Mean Platelet Volume 7.9 fL (7.4-10.4); Platelet Count 246 thou/uL (130-400); RBC Distribution Width 12.9 % (11.5-14.5); Red Blood Cell (RBC) Count 4.14 mill/uL (4.20-5.40); White Blood Cell (WBC) Count 11.3 thou/uL (4.8-10.8)
[2019-09-30 19:45] LABS: PTT 27.8 sec (22.9-36.1); Prothrombin Time 12.2 sec (12.0-14.7)
[2019-09-30 19:47] LABS: INR-International Normal Ratio 0.9
--- NOTE | 2019-09-30 19:49 | CT ---
CT HEAD NONCONTRAST: 09/30/19 HISTORY: Altered mental status. COMPARISON: 09/22/19 FINDINGS: There is no evidence of acute intracranial hemorrhage or infarct. Wedge shaped areas of gliosis invol ving each frontal lobe, the right temporal lobe, and the left parietal lobe are similar in appearance to the prior study. No mass effect or shift of midline structures. Ventricles are unremarkable. Righ t paranasal sinusitis is similar in appearance to the prior study. IPMRESSION: Prominent old bilateral infarcts appear stable. No acute intracranial abnormalities are d emonstrated. Findings were called to Dr. Galarza in the Emergency Department at 1935 hours. Code CR POS: BST
[2019-09-30 19:52] LABS: Calcium 9.6 mg/dL (7.8-10.44); Chloride 105 mmol/L (98-107); Potassium 4.3 mmol/L (3.5-5.1); Sodium 139 mmol/L (136-145)
[2019-09-30 20:02] LABS: ALT (SGPT) 13 U/L (8-55); AST (SGOT) 23 U/L (5-34); Albumin 4.3 g/dL (3.4-4.8); Alkaline Phosphatase 105 U/L (40-110); BUN (Urea Nitrogen) 13 mg/dL (9.8-20.1); Bilirubin, Total 0.4 mg/dL (0.2-1.2); Calc. Creatinine Clearance 0 mL/min (70-130); Carbon Dioxide 24 mmol/L (23-31); Estimated GFR-MDRD 64; Globulin 3.5 g/dL (2.4-3.5); Glucose 107 mg/dL (80-115); Protein, Total 7.8 g/dL (6.0-8.3)
[2019-09-30 20:03] LABS: Eosinophils 1 % (0-10); Lymphocytes 55 % (21-51); MDiff Complete? YES; Monocytes 4 % (0-10); Neutrophil 27 % (42-75); Platelet Morphology Comment Appears Adequate; RBC Morphology Normal; Reactive Lymphocytes 13 % (0-10)
[2019-09-30] MEDS ORDERED: Potassium Chloride 20 MEQ TAB ONE (20:07)
[2019-09-30] MEDS ORDERED: Aspirin Chewable 81 MG TAB ONE (20:07)
[2019-09-30 20:11] LABS: Anion Gap 14 mmol/L (10-20)
[2019-09-30] MEDS ORDERED: Labetalol HCl 100 MG/20 ML VIAL SLOW IVP PRN (22:05)
[2019-09-30] MEDS ORDERED: Enalaprilat Dihydrate 1.25 MG/ML VIAL SLOW IVP PRN (22:05)
[2019-09-30] MEDS ORDERED: hydrALAZINE 20 MG/ML VIAL SLOW IVP PRN (22:05)
[2019-09-30] MEDS ORDERED: Ondansetron PF 4 MG/2 ML Vial IVP PRN (22:10)
[2019-09-30] MEDS ORDERED: HYDROcodone/Acetaminophen 5/325 mg Tablet PO PRN (22:10)
[2019-09-30] MEDS ORDERED: Morphine 2 MG/ML SYRINGE SLOW IVP PRN (22:10)
[2019-09-30] MEDS ORDERED: Promethazine HCl 12.5 MG in Sodium Chloride 0.9% 50 ML IVPB PRN (22:10)
[2019-09-30] MEDS ORDERED: Dextrose 5% in Water 1,000 ML IV PRN (22:12)
[2019-09-30] MEDS ORDERED: HumaLOG 300 UNITS/3 ML VIAL SC PRN (22:12)
[2019-09-30] MEDS ORDERED: Dextrose 50% Abboject 50 ML SYRINGE SLOW IVP PRN (22:12)
--- NOTE | 2019-09-30 22:14 | PDOC.HHP ---
Hospitalist HPI - History of Present Illness Dysarthria History of Present Illness: Patient is a 69 year old female with PMH T2DM, HLD, HTN, DVT, fibromyalgia, multiple TIA and strokes who presents to ED with dysarthria which began this morning, patinet having a difficul time speaking and making out the words, may be an aphasia as well, patient denies focal weakness or numbness anywhere else that she is aware of. She has a bif of R sided residual weakness from previous stroke which did not change today. In ED, vitals hypertensive, CT head with 2 areas appearing to be prior strokes but nothing decribed as acute. CTA ordered. Patient sees Dr Major as outaptient. Given ASA and admitted for stroke workup Hospitalist ROS - Review of Systems Constitutional: denies: fever, chills, sweats, weakness, malaise, other Eyes: denies: pain, vision change, conjunctivae inflammation, eyelid inflammation, redness, other ENT: denies: ear pain, ear discharge, nose pain, nose discharge, nose congestion , mouth pain, mouth swelling, throat pain, throat swelling, other Respiratory: denies: cough, dry, shortness of breath, hemoptysis, SOB with excertion, pleuritic pain, sputum, wheezing, other Cardiovascular: denies: chest pain, palpitations, orthopnea, paroxysmal noc. dyspnea, edema, light headedness, other Gastrointestinal: denies: nausea, vomiting, abdominal pain, diarrhea, constipation, melena, hematochezia, other Genitourinary: denies: dysuria, frequency, incontinence, hematuria, retention, other Musculoskeletal: denies: neck pain, shoulder pain, arm pain, back pain, hand pain, leg pain, foot pain, other Skin: denies: rash, lesions, paul, bruising, other Neurological: reports: other (aphasia/dysarthria). denies: weakness, numbness, incoordination, change in speech, confusion, seizures All other systems reviewed; all pertinent +/- noted in HPI/Subj Hospitalist History - Past Medical History Other Medical History: T2DM, HLD, HTN, DVT, fibromyalgia, multiple TIA and strokes - Past Surgical History Other Surgical History: Surgical history of hysterectomy, R FOOT CRUSH INJURY, L FEMUR FX, Stent placement r LEG for DVT. - Family History Family History: reports: no pertinent history - Social History Smoking Status: Never smoker Alcohol: reports: None Drugs: reports: none - Exam General Appearance: NAD, awake alert Eye: PERRL, anicteric sclera ENT: normocephalic atraumatic Neck: supple, symmetric, no JVD, no thyromegaly, no lymphadenopathy, no carotid bruit Heart: RRR, no murmur, no gallops, no rubs, normal peripheral pulses Respiratory: CTAB, no wheezes, no rales, no ronchi, normal chest expansion, no tachypnea, normal percussion Gastrointestinal: soft, non-tender, non-distended, normal bowel sounds, no palpable masses, no hepatomegaly, no splenomegaly, no bruit Extremities: no cyanosis Skin: normal turgor, no lesions, no rashes Neurological: cranial nerve grossly intact, normal sensation to touch, speech deficit Neurological - other findings: aphasia/dysarthria, some chronic R sided weakness Musculoskeletal: normal tone, normal strength, no muscle wasting Psychiatric: normal affect, normal behavior, A&O x 3 Hospitalist Results - Labs Result Diagrams: 10/01/19 04:13 10/01/19 04:13 Lab results: WBC 11.3 thou/uL (4.8-10.8) H 09/30/19 19:29 Hgb 13.9 g/dL (12.0-16.0) 09/30/19 19:29 Hct 40.7 % (36.0-47.0) 09/30/19 19:29 MCV 98.4 fL (78.0-98.0) H 09/30/19 19:29 Plt Count 246 thou/uL (130-400) 09/30/19 19:29 Sodium 139 mmol/L (136-145) 09/30/19 19:29 Potassium 4.3 mmol/L (3.5-5.1) 09/30/19 19:29 Chloride 105 mmol/L (98-107) 09/30/19 19:29 Carbon Dioxide 24 mmol/L (23-31) 09/30/19 19:29 BUN 13 mg/dL (9.8-20.1) 09/30/19 19:29 Creatinine 0.87 mg/dL (0.6-1.1) 09/30/19 19:29 Glucose 107 mg/dL (80-115) 09/30/19 19: Calcium 9.6 mg/dL (7.8-10.44) 09/30/19 19: Total Bilirubin 0.4 mg/dL (0.2-1.2) 09/30/19 19: AST 23 U/L (5-34) 09/30/19: ALT 13 U/L (8-55) 09/30/19: Alkaline Phosphatase 105 U/L (40-110) 09/30/19 19: Troponin I Less than 0.010 ng/mL (< 0.028) 09/30/19: Serum Total Protein 7.8 g/dL (6.0-8.3) 09/30/19: Albumin 4.3 g/dL (3.4-4.8) 09/30/19 19:29 Hospitalist H&P A/P - Plan Plan: Patient is a 69 year old female with PMH T2DM, HLD, HTN, DVT, fibromyalgia, multiple TIA and strokes who presents to ED with dysarthria and aphasia, not given tPA due to old infarct and non-catastrophic symptoms per ED. # new onset aphasia/dysarthria # T2DM #HLD #HTN #history of DVT #fibromyalgia # history of multiple TIA and strokes - admit to stroke floor - consult Dr Major - stroke order set and MRI ordered - SSI for DM, resume home meds for chronic conditions
[2019-09-30 23:08] VITALS: BMI 27.2
[2019-10-01 04:35] LABS: #Basophils 0.1 thou/uL (0.0-0.2); #Eosinphils 0.1 thou/uL (0.0-0.7); #Lymphocytes 4.4 thou/uL (1.20-3.40); #Monocytes 0.6 thou/uL (0.11-0.59); %Basophils 0.6 % (0.0-1.0); %Eosinophils 0.6 % (0.0-10.0); %Lymphocytes 48.4 % (21.0-51.0); %Monocytes 6.3 % (0.0-10.0); %Neutrophils 44.1 % (42.0-75.0); Hemoglobin 12.9 g/dL (12.0-16.0); Mean Corpuscular HGB CONC 33.5 g/dL (32.0-36.0); Mean Corpuscular Hemoglobin 33.4 pg (27.0-31.0); Mean Corpuscular Volume 99.6 fL (78.0-98.0); Mean Platelet Volume 7.9 fL (7.4-10.4); Platelet Count 209 thou/uL (130-400); Red Blood Cell (RBC) Count 3.87 mill/uL (4.20-5.40)
[2019-10-01 04:58] LABS: Anion Gap 12 mmol/L (10-20); BUN (Urea Nitrogen) 12 mg/dL (9.8-20.1); Calc. Creatinine Clearance 92 mL/min (70-130); Carbon Dioxide 22 mmol/L (23-31); Chloride 106 mmol/L (98-107); Estimated GFR-MDRD 81; Potassium 3.9 mmol/L (3.5-5.1); Sodium 136 mmol/L (136-145)
[2019-10-01 04:59] LABS: Cardiac Risk 2.1 (Less than 4.5); Cholesterol 106 mg/dl (< 200 Desired); Glucose 90 mg/dL (80-115); HDL Cholesterol 51 mg/dL (>60 Neg Risk); LDL Cholesterol, Calculated 44 mg/dL; Triglycerides 57 mg/dL (Less than 150)
[2019-10-01] MEDS ORDERED: Non-Formulary Item 1 EACH (Olmesartan Medoxomil [Benicar] 40 MG) PO SCH (09:00)
[2019-10-01] MEDS ORDERED: Non-Formulary Item 1 EACH (Ubidecarenone [Co Q-10] 100 MG) PO SCH (09:00)
[2019-10-01] MEDS: Aspirin 81 mg Enteric Coated Tablet PO SCH (09:16)
[2019-10-01] MEDS: Famotidine 20 MG TAB PO SCH ×2 (09:17→20:27)
[2019-10-01] MEDS: Metoprolol Tartrate 50 MG TAB PO SCH ×2 (09:17→15:56)
[2019-10-01] MEDS: Apixaban 5 MG TAB PO SCH ×2 (09:17→20:27)
[2019-10-01] MEDS: Multivit, Therapeutic 1 TAB PO SCH (09:17)
[2019-10-01] MEDS: Clopidogrel Bisulfate 75 MG TAB PO SCH (09:18)
[2019-10-01] MEDS: Magnesium Oxide 400 MG TAB PO SCH (09:18)
[2019-10-01] MEDS: Polyethylene Glycol 3350 17 GM Packet PO SCH (09:18)
[2019-10-01] MEDS: Ubidecarenone 50 MG CAP PO SCH (09:18)
[2019-10-01] MEDS: Amlodipine 5 MG TAB PO SCH (09:19)
[2019-10-01] MEDS: Losartan 25 MG TAB PO SCH (09:20)
--- NOTE | 2019-10-01 09:35 | MRI ---
MRI BRAIN WITHOUT CONTRAST: HISTORY: Stroke. COMPARISON: 09/23/2019. CORRELATION: CT brain from previous day. FINDINGS: Encephalomalacia and gliosis due to old infarctions are again seen in the left frontal lobe, right fr ontal lobe, right temporal lobe, and the left occipitoparietal region. Cortical atrophy and chronic small-vessel ischemic disease are again noted. The ventricular size is stable and the basilar cister ns patent. No restricted diffusion is seen. No evidence of acute infarct, hemorrhage, midline shift, or abnorma l extraaxial fluid collections are seen. There is mucosal disease in the paranasal sinuses and fluid in the mastoid air cells (right greater than left). IMPRESSION: Stable exam. No evidence of acute intracranial process. POS: AH
--- NOTE | 2019-10-01 10:17 | PDOC.HOSPP ---
- Subjective Encounter Date: 10/01/19 Encounter Time: 07:00 Subjective: Patient seen and examined. No new complaints. No overnight events this morning pt is getting EEG, MRI is negative per pt her speech has improvement - Objective Vital Signs & Weight: Vital Signs (12 hours) Temp Pulse Resp BP BP Pulse Ox 10/01/19 09:19 63 181/70 H 10/01/19 07:33 97.6 F 63 16 181/70 H 97 10/01/19 04:49 97.5 F L 87 18 162/87 H 95 10/01/19 00:00 97.6 F 84 20 178/80 H 100 09/30/19 23:32 99 09/30/19 22:49 97.4 F L 99 20 191/90 H 99 Weight Weight 174 lb Result Diagrams: 10/01/19 04:13 10/01/19 04:13 Additional Labs: Accuchecks 10/01/19 09/30/19 05:28 19:21 POC Glucose 172 H 111 H Radiology Reviewed by me: Yes EKG Reviewed by me: Yes Hospitalist ROS - Review of Systems Constitutional: denies: fever, chills, sweats, weakness, malaise, other Eyes: denies: pain, vision change, conjunctivae inflammation, eyelid inflammation, redness, other ENT: denies: ear pain, ear discharge, nose pain, nose discharge, nose congestion , mouth pain, mouth swelling, throat pain, throat swelling, other Respiratory: denies: cough, dry, shortness of breath, hemoptysis, SOB with excertion, pleuritic pain, sputum, wheezing, other Cardiovascular: denies: chest pain, palpitations, orthopnea, paroxysmal noc. dyspnea, edema, light headedness, other Gastrointestinal: denies: nausea, vomiting, abdominal pain, diarrhea, constipation, melena, hematochezia, other Genitourinary: denies: dysuria, frequency, incontinence, hematuria, retention, other Musculoskeletal: denies: neck pain, shoulder pain, arm pain, back pain, hand pain, leg pain, foot pain, other Neurological: denies: weakness, numbness, incoordination, change in speech, confusion, seizures, other - Medication Medications: Active Medications Generic Name Dose Route Start Last Admin Trade Name Freq PRN Reason Stop Dose Admin Hydrocodone Bitart/Acetaminophen 1 tab 09/30/19 22:10 10/01/19 04:26 [place] 5/325 PO 1 tab Q4H PRN Administration Moderate Pain (4-6) Amlodipine Besylate 5 mg 10/01/19 09:00 10/01/19 09:19 Norvasc PO 5 mg DAILY PETE Administration Apixaban 5 mg 10/01/19 09:00 10/01/19 09:17 Eliquis PO 5 mg BID PETE Administration Aspirin 81 mg 10/01/19 09:00 10/01/19 09:16 Ecotrin PO 81 mg DAILY PETE Administration Clopidogrel Bisulfate 75 mg 10/01/19 09:00 10/01/19 09:18 Plavix PO 75 mg DAILY PETE Administration Coenzyme Q10 100 mg 10/01/19 09:00 10/01/19 09:18 Coenzyme Q10 PO 100 mg DAILY PETE Administration Famotidine 20 mg 10/01/19 09:00 10/01/19 09:17 Pepcid PO 20 mg BID PETE Administration Insulin Human Lispro 0 units 09/30/19 22:12 10/01/19 05:45 Humalog SC 2 unit .MILD SLIDING SCALE PRN Administration Mild Correctional Scale Losartan Potassium 100 mg 10/01/19 09:00 10/01/19 09:20 Cozaar PO 100 mg DAILY PETE Administration Magnesium Oxide 400 mg 10/01/19 09:00 10/01/19 09:18 Magnesium Oxide PO 400 mg DAILY PETE Administration Metoprolol Tartrate 50 mg 10/01/19 08:00 10/01/19 09:17 Lopressor PO 50 mg BID-WM PETE Administration Multivitamins 1 tab 10/01/19 09:00 10/01/19 09:17 Theragran PO 1 tab DAILY PETE Administration Polyethylene Glycol 17 gm 10/01/19 09:00 10/01/19 09:18 Miralax PO 17 gm DAILY PETE Administration - Exam General Appearance: NAD, awake alert Eye: PERRL, anicteric sclera ENT: normocephalic atraumatic, no oropharyngeal lesions Neck: supple, symmetric, no JVD, no thyromegaly Heart: RRR, no murmur, no gallops, no rubs Respiratory: CTAB, no wheezes, no rales, no ronchi, normal chest expansion Gastrointestinal: soft, non-tender, non-distended, normal bowel sounds Extremities: no cyanosis, no clubbing, no edema Skin: normal turgor, no lesions Neurological: cranial nerve grossly intact, normal sensation to touch, no focal deficits, no new deficit Musculoskeletal: normal tone, normal strength Psychiatric: normal affect, normal behavior Hosp A/P (1) Transient ischemic attack (TIA) Status: Acute (2) DM type 2 (diabetes mellitus, type 2) Status: Chronic Qualifiers: Diabetes mellitus chcf insulin use: without molding manager use Diabetes mellitus complication status: with unspecified complications (3) H/O venous thrombosis and embolism Code(s): Z86.718 - PERSONAL HISTORY OF OTHER VENOUS THROMBOSIS AND EMBOLISM Status: Chronic (4) H/O: CVA (cerebrovascular accident) Code(s): Z86.73 - PRSNL HX OF TIA (TIA), AND CEREB INFRC W/O RESID DEFICITS Status: Chronic (5) HLD (hyperlipidemia) Code(s): E78.5 - HYPERLIPIDEMIA, UNSPECIFIED Status: Chronic Qualifiers: (6) HTN (hypertension) Code(s): I10 - ESSENTIAL (PRIMARY) HYPERTENSION Status: Chronic Qualifiers: - Plan old records reviewed/req, PT/OT, speech therapy MRI is negative for acute process, pt has improvement, today EEG pt already had recent echo and CTA head and neck, no need to repeat neurology following continue PT/OT/ST pt is on goal directed therapy expecting discharge soon medication reviewed, symptomatic treatment, supportive care
--- NOTE | 2019-10-01 12:10 | CON ---
NEUROLOGY CONSULTATION DATE OF CONSULTATION: 10/01/2019 REASON FOR CONSULTATION: Dysarthria. HISTORY OF PRESENT ILLNESS: Ms. Gonsalves is a 69-year-old female with medical history significant for diabetes mellitus, hyperlipidemia, hypertension, DVT, multiple TIAs and stroke, presented to the emergency room with an episode of slurred speech this morning. According to the patient, she has difficult time speaking and getting words out of her mouth. The patient denies any new focal weakness or focal paresthesias, nausea, vomiting, headache, dizziness, vertigo, chest pain, abdominal pain, loss of vision, loss of problems with swallowing or loss of vision associated with the episode. She does have residual right-sided weakness from the previous stroke, which is at her baseline. The patient was brought to the emergency room where she was found to be hypertensive. Head CT showed 2 areas of prior stroke , but nothing acute. The symptoms were now improved. PAST MEDICAL HISTORY: Diabetes mellitus, hyperlipidemia, hypertension, deep venous thrombosis, fibromyalgia, multiple TIAs, and prior stroke. PAST SURGICAL HISTORY: Hysterectomy, left femur fracture, stent placement, and surgery for right leg DVT. FAMILY HISTORY: No family history of seizures or stroke. SOCIAL HISTORY: The patient denies smoking, alcohol, or illegal drug use. Vital Signs & Weight: Vital Signs (12 hours) Temp Pulse Resp BP BP Pulse Ox 10/01/19 09:19 63 181/70 H 10/01/19 07:33 97.6 F 63 16 181/70 H 97 10/01/19 04:49 97.5 F L 87 18 162/87 H 95 10/01/19 00:00 97.6 F 84 20 178/80 H 100 09/30/19 23:32 99 09/30/19 22:49 97.4 F L 99 20 191/90 H 99 Weight Weight 174 lb Result Diagrams: 10/01/19 04:13 10/01/19 04:13 Additional Labs: Accuchecks 10/01/19 09/30/19 05:28 19:21 POC Glucose 172 H 111 H Radiology Reviewed by me: Yes EKG Reviewed by me: Yes Hospitalist ROS - Review of Systems Constitutional: denies: fever, chills, sweats, weakness, malaise, other Eyes: denies: pain, vision change, conjunctivae inflammation, eyelid inflammation, redness, other ENT: denies: ear pain, ear discharge, nose pain, nose discharge, nose congestion , mouth pain, mouth swelling, throat pain, throat swelling, other Respiratory: denies: cough, dry, shortness of breath, hemoptysis, SOB with excertion, pleuritic pain, sputum, wheezing, other Cardiovascular: denies: chest pain, palpitations, orthopnea, paroxysmal noc. dyspnea, edema, light headedness, other Gastrointestinal: denies: nausea, vomiting, abdominal pain, diarrhea, constipation, melena, hematochezia, other Genitourinary: denies: dysuria, frequency, incontinence, hematuria, retention, other Musculoskeletal: denies: neck pain, shoulder pain, arm pain, back pain, hand pain, leg pain, foot pain, other Neurological: denies: weakness, numbness, incoordination, change in speech, confusion, seizures, other - Medication Active Medications Generic Name Dose Route Start Last Admin Trade Name Freq PRN Reason Stop Dose Admin Hydrocodone Bitart/Acetaminophen 1 tab 09/30/19 22:10 10/01/19 04:26 [place] 5/325 PO 1 tab Q4H PRN Administration Moderate Pain (4-6) Amlodipine Besylate 5 mg 10/01/19 09:00 10/01/19 09:19 Norvasc PO 5 mg DAILY PETE Administration Apixaban 5 mg 10/01/19 09:00 10/01/19 09:17 Eliquis PO 5 mg BID PETE Administration Aspirin 81 mg 10/01/19 09:00 10/01/19 09:16 Ecotrin PO 81 mg DAILY PETE Administration Clopidogrel Bisulfate 75 mg 10/01/19 09:00 10/01/19 09:18 Plavix PO 75 mg DAILY PETE Administration Coenzyme Q10 100 mg 10/01/19 09:00 10/01/19 09:18 Coenzyme Q10 PO 100 mg DAILY PETE Administration Famotidine 20 mg 10/01/19 09:00 10/01/19 09:17 Pepcid PO 20 mg BID PETE Administration Insulin Human Lispro 0 units 09/30/19 22:12 10/01/19 05:45 Humalog SC 2 unit .MILD SLIDING SCALE PRN Administration Mild Correctional Scale Losartan Potassium 100 mg 10/01/19 09:00 10/01/19 09:20 Cozaar PO 100 mg DAILY PETE Administration Magnesium Oxide 400 mg 10/01/19 09:00 10/01/19 09:18 Magnesium Oxide PO 400 mg DAILY PETE Administration Metoprolol Tartrate 50 mg 10/01/19 08:00 10/01/19 09:17 Lopressor PO 50 mg BID-WM PETE Administration Multivitamins 1 tab 10/01/19 09:00 10/01/19 09:17 Theragran PO 1 tab DAILY PETE Administration Polyethylene Glycol 17 gm 10/01/19 09:00 10/01/19 09:18 Miralax PO 17 gm DAILY PETE Administration - Exam General Appearance: NAD, awake alert Eye: PERRL, anicteric sclera ENT: normocephalic atraumatic, no oropharyngeal lesions Neck: supple, symmetric, no JVD, no thyromegaly Heart: RRR, no murmur, no gallops, no rubs Respiratory: CTAB, no wheezes, no rales, no ronchi, normal chest expansion Gastrointestinal: soft, non-tender, non-distended, normal bowel sounds Extremities: no cyanosis, no clubbing, no edema Skin: normal turgor, no lesions NEUROLOGIC: Mental status, the patient is alert and oriented to person, place, and time. Speech is clear. Cranial nerves 2 through 12 intact. Motor, muscle tone and bulk are normal. Moving all 4 extremities equally and symmetrically. Right upper extremity, 3+/5 to 4+/5, rest 5/5. Sensory, intact. Gait deferred due to the patient's safety reasons. Cerebellar; finger-nose testing intact. DIAGNOSTIC STUDIES: Results reviewed. I reviewed the CT scan which was negative for acute intracranial pathology. I also reviewed the MRI of the brain, which did not reveal any acute intracranial process. The last CT angiogram of the head and neck reviewed, which was also performed on 07/18/2019, which showed no significant major branch occlusion or stenosis. No evidence of intracranial aneurysm. Calcified plaques in right and left intracranial internal carotid artery cavernous region, less than 50% stable study. Labs were essentially unremarkable. ASSESSMENT AND PLAN: Ms. Yolanda Gonsalves is a 69-year-old female with medical history significant for diabetes mellitus, hyperlipidemia, hypertension, deep venous thrombosis, fibromyalgia, multiple transient ischemic attacks and stroke, presented with dysarthria and receptive aphasia, which has now improved. MRI of brain reviewed, which was negative for acute intracranial pathology. Continue home medications. Continue medical management per primary team. Prior echocardiogram performed on 2019 reviewed, which showed ejection fraction of 50% to 55%, no patent foramen ovale or thrombus. Neuro checks every 4 hours. Continue aspirin and Plavix for secondary stroke prevention. Continue high-intensity statin for secondary stroke prevention. Strict control of the blood pressure and blood glucose. PT/OT/Speech. Thank you for the consult. Job ID: [id number] [facility]Jose
--- NOTE | 2019-10-01 14:50 | EEG ---
Referring Physician: Alma Rosa RAMIREZ EEG # [id number] TEST TYPE: CONTINUOUS EXTENDED VIDEO EEG RECORDING REPORT: This EEG was performed using 24 channel [employer] video digital EEG machine with 24 disc electrodes. This was an extended 2 hour 5 minutes of inpatient video EEG recording. Digital analysis of the EEG was done for spike and seizure detection which revealed no abnormalities. BACKGROUND: The posterior background rhythm is 9-10 hertz. The background rhythm attenuates with eye opening and enhances with eye closure. HYPERVENTILATION: Not performed. PHOTIC STIMULATION: Bioccipital symmetric driving response is observed. SLEEP: Drowsiness is observed. EEG DIAGNOSIS: NORMAL AWAKE AND DROWSY EEG. Bilingual Sales Representative: DARIEL Snow Removing Supervisor: EEG.MSJúnior MTDJose
[2019-10-01] MEDS: Acetaminophen 325 MG TAB PO PRN (18:17)
[2019-10-01] MEDS ORDERED: Atorvastatin Calcium 40 MG TAB PO SCH (21:00)
[2019-10-01] MEDS ORDERED: HumaLOG 300 UNITS/3 ML VIAL SC PRN (23:02)
[2019-10-02 05:18] LABS: Anion Gap 13 mmol/L (10-20); BUN (Urea Nitrogen) 14 mg/dL (9.8-20.1); Calc. Creatinine Clearance 84 mL/min (70-130); Calcium 8.9 mg/dL (7.8-10.44); Carbon Dioxide 22 mmol/L (23-31); Chloride 106 mmol/L (98-107); Estimated GFR-MDRD 73; Glucose 94 mg/dL (80-115); Potassium 4.2 mmol/L (3.5-5.1); Sodium 137 mmol/L (136-145)
[2019-10-02 05:36] LABS: Band 1 % (5-11); Eosinophils 1 % (0-10); Hemoglobin 12.9 g/dL (12.0-16.0); Lymphocytes 60 % (21-51); MDiff Complete? YES; Mean Corpuscular HGB CONC 31.6 g/dL (32.0-36.0); Mean Corpuscular Volume 98.3 fL (78.0-98.0); Mean Platelet Volume 7.5 fL (7.4-10.4); Monocytes 7 % (0-10); Neutrophil 30 % (42-75); Platelet Count 216 thou/uL (130-400); Platelet Morphology Comment Appears Adequate; RBC Distribution Width 13.1 % (11.5-14.5); Red Blood Cell (RBC) Count 4.15 mill/uL (4.20-5.40)
[2019-10-02] MEDS: Acetaminophen 325 MG TAB PO PRN ×2 (06:47→10:57)
[2019-10-02] MEDS: Polyethylene Glycol 3350 17 GM Packet PO SCH (09:07)
[2019-10-02] MEDS: Famotidine 20 MG TAB PO SCH (09:08)
[2019-10-02] MEDS: Metoprolol Tartrate 50 MG TAB PO SCH (09:08)
[2019-10-02] MEDS: Ubidecarenone 50 MG CAP PO SCH (09:08)
[2019-10-02] MEDS: Aspirin 81 mg Enteric Coated Tablet PO SCH (09:08)
[2019-10-02] MEDS: Losartan 25 MG TAB PO SCH (09:08)
[2019-10-02] MEDS: Magnesium Oxide 400 MG TAB PO SCH (09:09)
[2019-10-02] MEDS: Multivit, Therapeutic 1 TAB PO SCH (09:09)
[2019-10-02] MEDS: Clopidogrel Bisulfate 75 MG TAB PO SCH (09:09)
[2019-10-02] MEDS: Apixaban 5 MG TAB PO SCH (09:09)
[2019-10-02] MEDS: Amlodipine 5 MG TAB PO SCH (09:09)
--- NOTE | 2019-10-02 10:29 | DIS ---
DATE OF ADMISSION: 09/30/2019 DATE OF DISCHARGE: 10/02/2019 PRIMARY CARE PHYSICIAN: Dr. Ron Bennett. DISCHARGE DISPOSITION: Home. PRIMARY DISCHARGE DIAGNOSIS: Transient ischemic attack, stroke ruled out. SECONDARY DISCHARGE DIAGNOSES: 1. Hypertension. 2. History of cerebrovascular accident. 3. Dyslipidemia. 4. History of deep venous thrombosis and PE. 5. Diabetes type 2. 6. History of T12 vertebral fracture. 7. History of recurrent transient ischemic attack. PRIMARY PROCEDURE/OPERATION: None. RADIOLOGICAL INVESTIGATION: CT of brain on admission, which showed old bilateral infarct. No acute intracranial process. MRI of brain showed no acute intracranial process. EEG was normal. SIGNIFICANT LABORATORY DATA: WBC 8.0, hemoglobin 12.9, platelet 216. INR 0.9. Sodium 137, potassium 4.2, BUN 14, creatinine 0.78, calcium 8.9. DISCHARGE MEDICATIONS: 1. Amlodipine 5 mg p.o. daily. 2. Eliquis 5 mg p.o. b.i.d. 3. Lipitor 40 mg p.o. daily. 4. Claritin 10 mg p.o. daily p.r.n. 5. Magnesium oxide 400 mg p.o. daily. 6. Metformin 500 mg p.o. t.i.d. 7. Metoprolol 50 mg p.o. b.i.d. 8. Multivitamin 1 tablet daily. 9. Benicar 40 mg daily. 10. Coenzyme Q10 of 100 mg daily. 11. Plavix 75 mg p.o. daily. CONTRAINDICATION: None. CODE STATUS: Full code. INPATIENT FLYER MAKER: Dr. Coby Aguilar, Neurology was following while in hospital. TEST RESULTS PENDING ON DISCHARGE: None. ALLERGY: Tetanus toxoid. DISCHARGE PLAN: Post hospital, the patient will follow up with primary care physician in 1 week. HOSPITAL COURSE: A 69-year-old female with above-mentioned medical problem, who was admitted by Dr. Jose Guadalupe Rodriguez. Please see his H and P for more details. The patient has multiple risk factor for CVA and TIA, who presented to the emergency room with dysarthria. The patient was having difficulty speaking as well as difficulty word finding. The patient did not have any focal weakness or numbness anywhere in her body. Initially in the emergency room, CT of brain was showing old infarct without any acute process. The patient was admitted to the hospital and Neurology was consulted. Neurology did EEG, which was normal. MRI of brain was obtained, which was also negative for any acute stroke. Next day, the patient's speech completely improved and she was up to her baseline. We continued all her previous medication. We have not done any change in her medication. PHYSICAL EXAMINATION: GENERAL: The patient is seen and examined at bedside today. The patient is currently alert and oriented x3. VITAL SIGNS: Currently, temperature 97.2, pulse 75, respiratory rate 16, saturation 99% on room air, blood pressure 145/58, weight 174 pounds. HEENT: Head; normocephalic, atraumatic. NECK: Supple. No JVD. No meningeal signs of irritation. LUNGS: Clear to auscultation without any rhonchi or rales. CARDIAC: S1 and S2, regular. No murmur. No gallop. No rub. ABDOMEN: Soft, bowel sounds present, nontender, nondistended. No organomegaly. No mass. EXTREMITIES: No edema. NEUROLOGIC: Nonfocal examination. This patient was initially admitted as an inpatient status, but she was no longer meeting inpatient criteria and that is why on the day of discharge, we did status change to observation. Condition Code 44 will be obtained before discharge. The patient is planned for discharge later on today. Job ID: [id number]
[2019-10-02 11:23] VITALS: BP 166/54; TEMP 98
--- NOTE | 2019-10-02 13:51 | PDOC.HOSPP ---
- Subjective Encounter Date: 10/02/19 Subjective: NEUROLOGY PROGRESS NOTE No acute events overnight. Neurological symptoms resolved. - Objective Vital Signs & Weight: Vital Signs (12 hours) Temp Pulse Resp BP Pulse Ox 10/02/19 11:20 98.0 F 72 16 166/54 H 97 10/02/19 09:09 75 10/02/19 07:09 97.2 F L 75 16 145/58 H 99 10/02/19 04:00 96.6 F L 70 18 145/66 H 96 Weight Weight 174 lb I&O: 10/01/19 10/02/19 10/03/19 06:59 06:59 06:59 Intake Total 480 Balance 480 Result Diagrams: 10/02/19 04:42 10/02/19 04:42 Additional Labs: Accuchecks 10/02/19 10/02/19 10/01/19 10:57 05:54 19:54 POC Glucose 166 H 100 225 H 10/01/19 10/01/19 16:33 14:22 POC Glucose 122 H 150 H Radiology Reviewed by me: Yes EKG Reviewed by me: Yes Hospitalist ROS - Review of Systems Constitutional: denies: fever, chills, sweats, weakness, malaise, other Eyes: denies: pain, vision change, conjunctivae inflammation, eyelid inflammation, redness, other ENT: denies: ear pain, ear discharge, nose pain, nose discharge, nose congestion , mouth pain, mouth swelling, throat pain, throat swelling, other (headache) Respiratory: denies: cough, dry, shortness of breath, hemoptysis, SOB with excertion, pleuritic pain, sputum, wheezing, other Cardiovascular: denies: chest pain, palpitations, orthopnea, paroxysmal noc. dyspnea, edema, light headedness, other Genitourinary: denies: dysuria, frequency, incontinence, hematuria, retention, other Musculoskeletal: denies: neck pain, shoulder pain, arm pain, back pain, hand pain, leg pain, foot pain, other Skin: denies: rash, lesions, paul, bruising, other Neurological: denies: weakness, numbness, incoordination, change in speech, confusion, seizures, other - Medication Medications: Active Medications Generic Name Dose Route Start Last Admin Trade Name Freq PRN Reason Stop Dose Admin Acetaminophen 650 mg 09/30/19 22:10 06/04/20 10:57 Tylenol PO 650 mg Q4H PRN Administration Headache/Fever/Mild Pain (1-3) Hydrocodone Bitart/Acetaminophen 1 tab 09/30/19 22:10 10/01/19 04:26 [place] 5/325 PO 1 tab Q4H PRN Administration Moderate Pain (4-6) Amlodipine Besylate 5 mg 10/01/19 09:00 10/02/19 09:09 Norvasc PO 5 mg DAILY PETE Administration Apixaban 5 mg 10/01/19 09:00 10/02/19 09:09 Eliquis PO 5 mg BID PETE Administration Aspirin 81 mg 10/01/19 09:00 10/02/19 09:08 Ecotrin PO 81 mg DAILY PETE Administration Atorvastatin Calcium 40 mg 10/01/19 21:00 10/01/19 20:27 Lipitor PO 40 mg HS PETE Administration Clopidogrel Bisulfate 75 mg 10/01/19 09:00 10/02/19 09:09 Plavix PO 75 mg DAILY PETE Administration Coenzyme Q10 100 mg 10/01/19 09:00 10/02/19 09:08 Coenzyme Q10 PO 100 mg DAILY PETE Administration Famotidine 20 mg 10/01/19 09:00 10/02/19 09:08 Pepcid PO 20 mg BID PETE Administration Insulin Human Lispro 0 units 09/30/19 22:12 10/01/19 05:45 Humalog SC 2 unit .MILD SLIDING SCALE PRN Administration Mild Correctional Scale Insulin Human Lispro 0 units 10/01/19 23:02 10/01/19 23:43 Humalog SC 2 unit .BEDTIME SLIDING SC PRN Administration Bedtime Correctional Scale Losartan Potassium 100 mg 10/01/19 09:00 10/02/19 09:08 Cozaar PO 100 mg DAILY PETE Administration Magnesium Oxide 400 mg 10/01/19 09:00 10/02/19 09:09 Magnesium Oxide PO 400 mg DAILY PETE Administration Metoprolol Tartrate 50 mg 10/01/19 08:00 10/02/19 09:08 Lopressor PO 50 mg BID-WM PETE Administration Multivitamins 1 tab 10/01/19 09:00 10/02/19 09:09 Theragran PO 1 tab DAILY PETE Administration Polyethylene Glycol 17 gm 10/01/19 09:00 10/02/19 09:07 Miralax PO 17 gm DAILY PETE Administration Sodium Chloride 10 ml 09/30/19 22:05 10/01/19 20:25 Flush - Normal Saline IVF 10 ml PRN PRN Administration Saline Flush - Exam General Appearance: awake alert Eye: PERRL, anicteric sclera ENT: normocephalic atraumatic, no oropharyngeal lesions, moist mucosa Neck: supple Heart: RRR Respiratory: CTAB Gastrointestinal: soft Extremities: no cyanosis, no clubbing, no edema Skin: normal turgor, no lesions, no rashes Neurological: cranial nerve grossly intact, normal sensation to touch, no weakness, no focal deficits, no new deficit Musculoskeletal: normal tone, normal strength, no muscle wasting Psychiatric: normal affect, normal behavior, A&O x 3, oriented to person, oriented to place, oriented to time Hosp A/P (1) Transient ischemic attack (TIA) Status: Acute (2) Dysarthria Code(s): R47.1 - DYSARTHRIA AND ANARTHRIA Status: Acute (3) Hyponatremia Code(s): E87.1 - HYPO-OSMOLALITY AND HYPONATREMIA Status: Acute (4) 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 MRI brain reviewed which was negative for acute intracranial process, EEG negative. Recent echo and CTA head and neck reviewed. No need to repeat PT/OT/Speech Telemetry Continue asa, plavix and high intensity statin for secondary stroke prevention. Continue home medications Continue medical management per primary team.
--- NOTE | 2019-10-04 14:22 | EKG ---
Test Reason : Blood Pressure : / mmHG Vent. Rate : 108 BPM Atrial Rate : 108 BPM P-R Int : 128 ms QRS Dur : 080 ms QT Int : 342 ms P-R-T Axes : 036 037 033 degrees QTc Int : 458 ms Sinus tachycardia with Premature atrial complexes Possible Left atrial enlargement Nonspecific ST and T wave abnormality Abnormal ECG Confirmed by PAOLO PICKARD, CHAPINCITO Glaser ([id number]), greeting card editor SHAVON FREEMAN ([id number]) on 10/04/2019 2:22:49 PM Referred By: Confirmed By:CHAPINCITO BOONE MD
== END 2019-10-02 14:00 | disposition home health service (06) ==
LOC: ERS 19:14 → INTOOBSV 20:36 → 2SE 20:36
PROVIDERS: ADMIT Internal Medicine; ATTEND Internal Medicine
DX: G45.9 Transient cerebral ischemic attack, unspecified (principal); I10 Essential (primary) hypertension; I69.351 Hemiplegia and hemiparesis following cerebral infarction affecting right dominant side; E78.5 Hyperlipidemia, unspecified; E11.9 Type 2 diabetes mellitus without complications; M79.7 Fibromyalgia; E87.1 Hypo-osmolality and hyponatremia; Z86.711 Personal history of pulmonary embolism; Z86.718 Personal history of other venous thrombosis and embolism; Z79.02 Long term (current) use of antithrombotics/antiplatelets; Z79.84 Long term (current) use of oral hypoglycemic drugs; Z79.899 Other long term (current) drug therapy; Z88.7 Allergy status to serum and vaccine
CPT/HCPCS: 70450; 70551; 80048 ×2; 80053; 80061; 82962 ×3; 84484; 85025 ×3; 85610; 85730; 93005; 95712; 95816; 95819; 95957; 97116; 97139 ×4; 99285; G0378; 36415; 36416

== ENCOUNTER 2020-06-07 13:29 | Outpatient (CLI) | payer MEDICARE ==
[~2020-06-07 13:29] MED LIST changes: -ISOVUE-370 76%-LOCM 1 ML ONE; +Magnevist 469MG/ML 20 ML VIAL ONE
--- NOTE | 2020-06-07 15:34 | MRI ---
Exam: Brain MRI with and without contrast HISTORY: Frequent headaches. Daily headaches. For CVA. COMPARISON: 10/01/2019 FINDINGS: Gradient echo sequence: Hemosiderin deposition along the left frontal temporal region due to remote i nsult. Calvarium: Appropriate T1 marrow signal intensity Midline brain parenchyma: Unremarkable Cerebrum:Redemonstration of T2 and FLAIR hyperintensities along the left frontal temporal region comp atible with gliosis and mild encephalomalacia. There is T2 and FLAIR hyperintensity along the right temporal region also due to gliosis and encephalomalacia. There is additional T2 and FLAIR hyperinten sity along the right frontal region representing encephalomalacia and gliosis due to remote insult. The overall T2 and FLAIR white matter hyperintensity is similar to the examination from September 2019. Th ere is no midline shift. Ventricles: No evidence of hydrocephalus. Sinuses and mastoid air cells: There is right maxillary, right anterior ethmoid air cell and right fr ontal sinus disease. Diffusion: Central arterial flow is maintained. Absent restricted diffusion. Postcontrast images: No pathologic enhancement of the brain parenchyma. IMPRESSION: 1. 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 No pathologic enhancement the brain parenchyma 3. Absent restricted diffusion. No acute infarct 4. Right-sided sinus disease.
== END 2020-06-07 13:30 | disposition home or self-care (01) ==
LOC: BICMRI 13:29
PROVIDERS: ATTEND Nurse Practitioner Acute Care
DX: R51.9 Headache, unspecified (principal); J32.9 Chronic sinusitis, unspecified; G93.89 Other specified disorders of brain
CPT/HCPCS: 70553; 82565; A9579

== ENCOUNTER 2022-08-07 03:39 | Inpatient (IN) | payer MEDICARE ==
[2022-08-07 04:35] LABS: #Eosinphils 0.1 thou/uL (0.0-0.7); #Monocytes 0.4 thou/uL (0.11-0.59); #Neutrophils 4.5 thou/uL (1.40-6.50); %Basophils 0.5 % (0.0-1.0); %Eosinophils 0.9 % (0.0-10.0); %Lymphocytes 44.1 % (21.0-51.0); %Monocytes 4.4 % (0.0-10.0); %Neutrophils 50.1 % (42.0-75.0); Hemoglobin 11.3 g/dL (12.0-16.0); Mean Corpuscular HGB CONC 33.4 g/dL (32.0-36.0); Mean Corpuscular Hemoglobin 32.5 pg (27.0-31.0); Mean Corpuscular Volume 97.4 fl (78.0-98.0); Mean Platelet Volume 7.6 fL (7.4-10.4); Platelet Count 274 10x3/uL (130-400); RBC Distribution Width 13.6 % (11.5-14.5); Red Blood Cell (RBC) Count 3.48 mill/uL (4.20-5.40); White Blood Cell (WBC) Count 9.1 10x3/uL (4.8-10.8)
[2022-08-07 04:45] LABS: ALT (SGPT) 66 U/L (8-55); AST (SGOT) 44 U/L (5-34); Albumin 3.7 g/dL (3.4-4.8); Alkaline Phosphatase 85 U/L (40-110); Anion Gap 18 mmol/L (10-20); BUN (Urea Nitrogen) 19 mg/dL (9.8-20.1); Bilirubin, Total 0.6 mg/dL (0.2-1.2); Calc. Creatinine Clearance 0 mL/min (70-130); Calcium 9.4 mg/dL (7.8-10.44); Carbon Dioxide 23 mmol/L (23-31); Chloride 92 mmol/L (98-107); Estimated GFR 61; Globulin 3.4 g/dL (2.4-3.5); Glucose 168 mg/dL (83-110); Potassium 3.6 mmol/L (3.5-5.1); Protein, Total 7.1 g/dL (5.8-8.1); Sodium 129 mmol/L (136-145)
[2022-08-07 05:05] LABS: CKMB 2.9 ng/mL (0-6.6)
[2022-08-07] MEDS ORDERED: Ondansetron ODT 4 MG TAB PO PRN (06:30)
[2022-08-07] MEDS ORDERED: Furosemide 40 MG/4 ML VIAL ONE ×2 (07:20→13:03)
[2022-08-07 07:58] LABS: Magnesium 1.4 mg/dL (1.6-2.6)
[2022-08-07 08:04] LABS: Troponin I 0.147 ng/mL (< 0.028)
[2022-08-07] MEDS ORDERED: Famotidine 20 MG TAB ONE (09:20)
[2022-08-07] MEDS ORDERED: Aspirin Chewable 81 MG TAB ONE (09:20)
[2022-08-07 09:28] LABS: SARS-CoV-2 NAA Rapid Test Not Detected (NotDetected)
[2022-08-07] MEDS ORDERED: Magnesium 2 GM/50 ML(in water) 2 GM in Premix Bag 1 BAG IVPB SCH (09:45)
[2022-08-07] MEDS: Aspirin Chewable 81 MG TAB PO SCH (09:55)
[2022-08-07] MEDS: Famotidine 20 MG TAB PO SCH ×2 (09:58→20:48)
[2022-08-07] MEDS: Sacubitril 24MG/Valsartan 26 MG TAB PO SCH ×2 (09:59→20:48)
[2022-08-07] MEDS: Famotidine/PF 20 mg/2ml Vial SLOW IVP SCH ×2 (10:00→20:48)
[2022-08-07] MEDS ORDERED: Dextrose 50% Abboject 50 ML SYRINGE SLOW IVP PRN (10:41)
[2022-08-07] MEDS ORDERED: Dextrose 5% in Water 1,000 ML IV PRN (10:41)
[2022-08-07] MEDS ORDERED: Magnesium 2 GM/50 ML BAG (IN WATER) ONE (13:03)
[2022-08-07] MEDS: Furosemide 40 MG/4 ML VIAL SLOW IVP SCH (14:20)
[2022-08-07 16:30] LABS: Troponin I 0.243 ng/mL (< 0.028)
[2022-08-07 16:42] VITALS: BMI 26.9
[2022-08-07] MEDS: Atorvastatin Calcium 40 MG TAB PO SCH (20:48)
[2022-08-08 04:56] LABS: #Eosinphils 0.1 thou/uL (0.0-0.7); #Lymphocytes 2.8 thou/uL (1.20-3.40); #Monocytes 0.5 thou/uL (0.11-0.59); #Neutrophils 4.1 thou/uL (1.40-6.50); %Basophils 0.6 % (0.0-1.0); %Eosinophils 0.8 % (0.0-10.0); %Lymphocytes 37.2 % (21.0-51.0); %Monocytes 6.4 % (0.0-10.0); Hemoglobin 10.1 g/dL (12.0-16.0); Mean Corpuscular Hemoglobin 32.3 pg (27.0-31.0); Mean Corpuscular Volume 97.6 fl (78.0-98.0); Mean Platelet Volume 7.3 fL (7.4-10.4); Platelet Count 270 10x3/uL (130-400); RBC Distribution Width 13.6 % (11.5-14.5); Red Blood Cell (RBC) Count 3.14 mill/uL (4.20-5.40); White Blood Cell (WBC) Count 7.4 10x3/uL (4.8-10.8)
[2022-08-08 05:24] LABS: Anion Gap 14 mmol/L (10-20); BUN (Urea Nitrogen) 19 mg/dL (9.8-20.1); Calc. Creatinine Clearance 81 mL/min (70-130); Calcium 8.9 mg/dL (7.8-10.44); Carbon Dioxide 25 mmol/L (23-31); Chloride 97 mmol/L (98-107); Estimated GFR 80; Glucose 111 mg/dL (83-110); Magnesium 1.5 mg/dL (1.6-2.6); Potassium 3.7 mmol/L (3.5-5.1); Sodium 132 mmol/L (136-145)
[2022-08-08] MEDS: Furosemide 40 MG/4 ML VIAL SLOW IVP SCH ×2 (06:05→13:51)
[2022-08-08] MEDS ORDERED: Magnesium Sulfate 4 GM in Sodium Chloride 0.9% 250 ML 250 ML IVPB SCH (07:45)
[2022-08-08] MEDS ORDERED: Electrolyte Replacement Protocol 1 EACH FS SCH (07:45)
[2022-08-08] MEDS: Aspirin Chewable 81 MG TAB PO SCH (08:52)
[2022-08-08] MEDS: Famotidine/PF 20 mg/2ml Vial SLOW IVP SCH ×2 (08:52→22:33)
[2022-08-08] MEDS: Famotidine 20 MG TAB PO SCH ×2 (08:52→22:33)
[2022-08-08] MEDS: Sacubitril 24MG/Valsartan 26 MG TAB PO SCH ×2 (08:52→22:33)
[2022-08-08] MEDS ORDERED: Apixaban 5 MG TAB PO SCH (09:00)
[2022-08-08] MEDS ORDERED: Magnesium Sulfate In Water 4 GM in Premix Bag 1 BAG IVPB SCH (09:00)
[2022-08-08] MEDS: Acetaminophen 325 MG TAB PO PRN (10:22)
[2022-08-08] MEDS: Atorvastatin Calcium 40 MG TAB PO SCH (22:33)
[2022-08-09] MEDS: Furosemide 40 MG/4 ML VIAL SLOW IVP SCH ×2 (05:36→14:37)
[2022-08-09 05:53] LABS: #Monocytes 0.5 thou/uL (0.11-0.59); #Neutrophils 3.6 thou/uL (1.40-6.50); %Basophils 0.1 % (0.0-1.0); %Eosinophils 0.6 % (0.0-10.0); %Neutrophils 50.3 % (42.0-75.0); Hemoglobin 10.5 g/dL (12.0-16.0); Mean Corpuscular HGB CONC 32.7 g/dL (32.0-36.0); Mean Corpuscular Hemoglobin 32.3 pg (27.0-31.0); Mean Corpuscular Volume 98.6 fl (78.0-98.0); Mean Platelet Volume 7.5 fL (7.4-10.4); Platelet Count 280 10x3/uL (130-400); RBC Distribution Width 14.2 % (11.5-14.5); Red Blood Cell (RBC) Count 3.26 mill/uL (4.20-5.40); White Blood Cell (WBC) Count 7.2 10x3/uL (4.8-10.8)
[2022-08-09 06:18] LABS: Anion Gap 15 mmol/L (10-20); BUN (Urea Nitrogen) 16 mg/dL (9.8-20.1); Calc. Creatinine Clearance 74 mL/min (70-130); Carbon Dioxide 25 mmol/L (23-31); Chloride 97 mmol/L (98-107); Estimated GFR 73; Glucose 141 mg/dL (83-110); Magnesium 1.7 mg/dL (1.6-2.6); Potassium 3.6 mmol/L (3.5-5.1); Sodium 133 mmol/L (136-145)
[2022-08-09 06:36] LABS: Free T4 (Free Thyroxine) 1.01 ng/dL (0.70-1.48)
[2022-08-09] MEDS ORDERED: Magnesium 2 GM/50 ML(in water) 2 GM in Premix Bag 1 BAG IVPB SCH (08:00)
[2022-08-09] MEDS: Acetaminophen 325 MG TAB PO PRN ×2 (08:47→14:37)
[2022-08-09] MEDS: Sacubitril 24MG/Valsartan 26 MG TAB PO SCH ×2 (08:47→21:01)
[2022-08-09] MEDS: Famotidine 20 MG TAB PO SCH ×2 (08:49→21:01)
[2022-08-09] MEDS: Famotidine/PF 20 mg/2ml Vial SLOW IVP SCH ×2 (08:49→21:04)
[2022-08-09] MEDS: Aspirin Chewable 81 MG TAB PO SCH (08:49)
[2022-08-09] MEDS ORDERED: Non-Formulary Item 1 EACH (Loratadine [Claritin] 10 MG Capsule) PO SCH (09:00)
[2022-08-09] MEDS: Polyethylene Glycol 3350 17 GM Packet PO PRN (10:11)
[2022-08-09] MEDS: Loratadine 10 MG TAB PO SCH (10:11)
[2022-08-09] MEDS: HumaLOG 300 UNITS/3 ML VIAL SC PRN ×2 (11:35→18:38)
[2022-08-09] MEDS ORDERED: Non-Formulary Item 1 EACH (Travoprost [Travoprost] 2.5 ML Drops) EA EYE SCH (21:00)
[2022-08-09] MEDS: Atorvastatin Calcium 40 MG TAB PO SCH (21:01)
[2022-08-09] MEDS: Latanoprost 0.005% Ophth Soln 2.5 ml Bottle EA EYE SCH (21:01)
[2022-08-10] MEDS: Melatonin 3 MG TAB PO PRN (00:50)
[2022-08-10] MEDS: Furosemide 40 MG/4 ML VIAL SLOW IVP SCH ×2 (05:30→14:14)
[2022-08-10] MEDS: Polyethylene Glycol 3350 17 GM Packet PO PRN (05:30)
[2022-08-10] MEDS: Acetaminophen 325 MG TAB PO PRN ×2 (05:57→10:12)
[2022-08-10] MEDS: HumaLOG 300 UNITS/3 ML VIAL SC PRN ×2 (06:07→20:52)
[2022-08-10] MEDS: Sacubitril 24MG/Valsartan 26 MG TAB PO SCH ×2 (10:12→20:36)
[2022-08-10] MEDS: Aspirin Chewable 81 MG TAB PO SCH (10:12)
[2022-08-10] MEDS: Spironolactone 25 MG TAB PO SCH (10:13)
[2022-08-10] MEDS: Loratadine 10 MG TAB PO SCH (10:14)
[2022-08-10] MEDS: Famotidine 20 MG TAB PO SCH ×2 (10:14→20:36)
[2022-08-10] MEDS: Famotidine/PF 20 mg/2ml Vial SLOW IVP SCH ×2 (10:14→20:37)
[2022-08-10] MEDS: Atorvastatin Calcium 40 MG TAB PO SCH (20:36)
[2022-08-10] MEDS: Latanoprost 0.005% Ophth Soln 2.5 ml Bottle EA EYE SCH (20:36)
[2022-08-11 05:07] LABS: INR-International Normal Ratio 1.1; Prothrombin Time 14.3 sec (12.0-14.7)
[2022-08-11 05:28] LABS: Anion Gap 18 mmol/L (10-20); BUN (Urea Nitrogen) 21 mg/dL (9.8-20.1); Calc. Creatinine Clearance 72 mL/min (70-130); Carbon Dioxide 25 mmol/L (23-31); Chloride 98 mmol/L (98-107); Estimated GFR 71; Glucose 112 mg/dL (83-110); Potassium 3.5 mmol/L (3.5-5.1); Sodium 137 mmol/L (136-145)
[2022-08-11] MEDS: Furosemide 40 MG/4 ML VIAL SLOW IVP SCH ×2 (05:37→16:04)
[2022-08-11] MEDS ORDERED: Potassium Chloride 20 MEQ TAB PO SCH (08:00)
[2022-08-11] MEDS: Acetaminophen 325 MG TAB PO PRN ×3 (09:04→20:53)
[2022-08-11] MEDS: Sacubitril 24MG/Valsartan 26 MG TAB PO SCH ×2 (09:05→20:49)
[2022-08-11] MEDS: Loratadine 10 MG TAB PO SCH (09:05)
[2022-08-11] MEDS: Famotidine 20 MG TAB PO SCH ×2 (09:05→20:50)
[2022-08-11] MEDS: Aspirin Chewable 81 MG TAB PO SCH (09:05)
[2022-08-11] MEDS: Spironolactone 25 MG TAB PO SCH (09:05)
[2022-08-11] MEDS: Polyethylene Glycol 3350 17 GM Packet PO PRN (09:06)
[2022-08-11] MEDS: Famotidine/PF 20 mg/2ml Vial SLOW IVP SCH ×2 (09:06→20:50)
[2022-08-11] MEDS ORDERED: [UNRECOGNIZED DRUG - OTHER] FS SCH (13:58)
[2022-08-11] MEDS: Atorvastatin Calcium 40 MG TAB PO SCH (20:50)
[2022-08-11] MEDS: Latanoprost 0.005% Ophth Soln 2.5 ml Bottle EA EYE SCH (20:50)
[2022-08-11] MEDS: Melatonin 3 MG TAB PO PRN (20:53)
[2022-08-11] MEDS: HumaLOG 300 UNITS/3 ML VIAL SC PRN (21:09)
[2022-08-12] MEDS: Furosemide 40 MG/4 ML VIAL SLOW IVP SCH ×2 (04:44→14:24)
[2022-08-12 05:11] LABS: #Eosinphils 0.1 thou/uL (0.0-0.7); #Lymphocytes 2.7 thou/uL (1.20-3.40); #Monocytes 0.6 thou/uL (0.11-0.59); %Basophils 0.6 % (0.0-1.0); %Eosinophils 1.1 % (0.0-10.0); %Lymphocytes 42.8 % (21.0-51.0); %Monocytes 9.3 % (0.0-10.0); %Neutrophils 46.2 % (42.0-75.0); Hemoglobin 11.8 g/dL (12.0-16.0); Mean Corpuscular Hemoglobin 32.9 pg (27.0-31.0); Mean Corpuscular Volume 99.9 fl (78.0-98.0); Mean Platelet Volume 7.2 fL (7.4-10.4); Platelet Count 338 10x3/uL (130-400); RBC Distribution Width 14.1 % (11.5-14.5); White Blood Cell (WBC) Count 6.4 10x3/uL (4.8-10.8)
[2022-08-12 05:32] LABS: Anion Gap 16 mmol/L (10-20); BUN (Urea Nitrogen) 22 mg/dL (9.8-20.1); Calc. Creatinine Clearance 67 mL/min (70-130); Calcium 9.2 mg/dL (7.8-10.44); Carbon Dioxide 25 mmol/L (23-31); Chloride 98 mmol/L (98-107); Estimated GFR 62; Glucose 121 mg/dL (83-110); Sodium 135 mmol/L (136-145)
[2022-08-12] MEDS: Famotidine 20 MG TAB PO SCH ×2 (08:37→20:36)
[2022-08-12] MEDS: Loratadine 10 MG TAB PO SCH (08:37)
[2022-08-12] MEDS: Aspirin Chewable 81 MG TAB PO SCH (08:37)
[2022-08-12] MEDS: Sacubitril 24MG/Valsartan 26 MG TAB PO SCH ×2 (08:37→20:35)
[2022-08-12] MEDS: Spironolactone 25 MG TAB PO SCH (08:38)
[2022-08-12] MEDS: Famotidine/PF 20 mg/2ml Vial SLOW IVP SCH ×2 (08:40→20:36)
[2022-08-12] MEDS: Acetaminophen 325 MG TAB PO PRN ×2 (10:33→20:41)
[2022-08-12] MEDS: Polyethylene Glycol 3350 17 GM Packet PO PRN (10:33)
[2022-08-12] MEDS: Atorvastatin Calcium 40 MG TAB PO SCH (20:35)
[2022-08-12] MEDS: Latanoprost 0.005% Ophth Soln 2.5 ml Bottle EA EYE SCH (20:36)
[2022-08-12] MEDS: Melatonin 3 MG TAB PO PRN (20:41)
[2022-08-13 05:41] LABS: Anion Gap 17 mmol/L (10-20); BUN (Urea Nitrogen) 22 mg/dL (9.8-20.1); Calc. Creatinine Clearance 68 mL/min (70-130); Calcium 9.3 mg/dL (7.8-10.44); Carbon Dioxide 24 mmol/L (23-31); Chloride 97 mmol/L (98-107); Estimated GFR 63; Glucose 134 mg/dL (83-110); Potassium 3.9 mmol/L (3.5-5.1); Sodium 134 mmol/L (136-145)
[2022-08-13] MEDS: Furosemide 40 MG/4 ML VIAL SLOW IVP SCH (05:48)
[2022-08-13] MEDS: Famotidine/PF 20 mg/2ml Vial SLOW IVP SCH ×2 (08:31→21:21)
[2022-08-13] MEDS ORDERED: Loratadine 10 MG TAB PO SCH (09:00)
[2022-08-13] MEDS: Loratadine 10 MG TAB PO SCH ×2 (09:22→21:20)
[2022-08-13] MEDS: Aspirin Chewable 81 MG TAB PO SCH (09:22)
[2022-08-13] MEDS: Famotidine 20 MG TAB PO SCH ×2 (09:22→21:20)
[2022-08-13] MEDS: Spironolactone 25 MG TAB PO SCH ×2 (09:22→11:12)
[2022-08-13] MEDS: Sacubitril 24MG/Valsartan 26 MG TAB PO SCH ×3 (09:23→21:19)
[2022-08-13] MEDS: HumaLOG 300 UNITS/3 ML VIAL SC PRN (11:48)
[2022-08-13] MEDS: Acetaminophen 325 MG TAB PO PRN (15:14)
[2022-08-13] MEDS: Melatonin 3 MG TAB PO PRN (21:21)
[2022-08-13] MEDS: Atorvastatin Calcium 40 MG TAB PO SCH (21:21)
[2022-08-13] MEDS: Latanoprost 0.005% Ophth Soln 2.5 ml Bottle EA EYE SCH (21:21)
[2022-08-14] MEDS ORDERED: Albumin 5% 500 ML ONE (06:18)
[2022-08-14] MEDS ORDERED: Midazolam HCl 5 mg/5 ml Vial ONE (06:43)
[2022-08-14] MEDS ORDERED: Fentanyl 250 MCG/5 ML VIAL ONE (06:43)
[2022-08-14] MEDS ORDERED: Dexmedetomidine 200 MCG/2 ML VIAL ONE (06:43)
[2022-08-14] MEDS ORDERED: Heparin 10,000 UNITS/1 ML VIAL 30,000 UNITS in Sodium Chloride 0.9% 1,000 ML FS SCH (06:45)
[2022-08-14] MEDS ORDERED: Sodium Chloride 0.9% 100 ML ONE (07:16)
[2022-08-14] MEDS ORDERED: CEFAZOLIN 2 GM VIAL ONE (07:16)
[2022-08-14] MEDS ORDERED: Milrinone 10 MG/10 ML VIAL ONE (07:21)
[2022-08-14] MEDS ORDERED: GLYCOPYRROLATE/PF 0.2 MG/ML VIAL ONE (07:39)
[2022-08-14] MEDS ORDERED: Potassium Chloride 60 MEQ/30 ML VIAL ONE (07:39)
[2022-08-14] MEDS ORDERED: Sodium Bicarb 50 MEQ/50 ML VIAL ONE (07:39)
[2022-08-14] MEDS ORDERED: NEOSTIGMINE 3 MG/3 ML SYR 3 MG/3 ML SYRINGE ONE (07:39)
[2022-08-14] MEDS ORDERED: Dexamethasone 20 MG/5 ML VIAL ONE (07:39)
[2022-08-14] MEDS ORDERED: Thrombin 5000 UNITS/5 ML VIAL ONE (07:39)
[2022-08-14] MEDS ORDERED: Heparin 5,000 UNITS/ML VIAL ONE (07:39)
[2022-08-14] MEDS ORDERED: Norepinephrine 4 MG/4 ML VIAL ONE (07:39)
[2022-08-14] MEDS ORDERED: Aminocaproic Acid 5 GM/20 ML VIAL ONE (07:39)
[2022-08-14] MEDS ORDERED: Protamine Sulfate 250 MG/25 ML VIAL ONE (07:39)
[2022-08-14] MEDS ORDERED: Magnesium 5 GM/10 ML VIAL ONE (07:39)
[2022-08-14] MEDS ORDERED: Vancomycin 1 GM VIAL ONE (07:39)
[2022-08-14] MEDS ORDERED: Papaverine 60 MG/2 ML VIAL ONE (07:39)
[2022-08-14] MEDS ORDERED: Ondansetron PF 4 MG/2 ML Vial ONE (07:39)
[2022-08-14] MEDS ORDERED: Lidocaine 2% PF 100 mg/5 ml Syringe ONE (07:39)
[2022-08-14] MEDS ORDERED: Lidocaine 1% PF 5 ML VIAL ONE (07:39)
[2022-08-14] MEDS ORDERED: Heparin 30,000 units/30 ml VIAL ONE (07:39)
[2022-08-14] MEDS ORDERED: Cardioplegic Soln 1,000 ML BAG ONE (07:39)
[2022-08-14] MEDS ORDERED: Vecuronium 10 MG VIAL ONE (07:39)
[2022-08-14] MEDS ORDERED: Mannitol 12.5 GM/50 ML ONE (07:39)
[2022-08-14] MEDS ORDERED: Calcium Chloride 1 GM/10 ML Abboject SYRINGE ONE (07:39)
[2022-08-14] MEDS ORDERED: Esmolol 100 MG/10 ML VIAL ONE (07:39)
[2022-08-14] MEDS ORDERED: Insulin Regular 300 UNITS/3 ML VIAL ONE (08:13)
[2022-08-14] MEDS: Loratadine 10 MG TAB PO SCH (09:44)
[2022-08-14] MEDS: Spironolactone 25 MG TAB PO SCH (09:44)
[2022-08-14] MEDS: Sacubitril 24MG/Valsartan 26 MG TAB PO SCH (09:46)
[2022-08-14] MEDS ORDERED: niCARdipine 25 MG in Sodium Chloride 0.9% 250 ML 250 ML IVPB PRN (10:17)
[2022-08-14] MEDS ORDERED: Guaifenesin DM 100-10/5 ML UDCUP PO PRN (10:17)
[2022-08-14] MEDS ORDERED: Ipratropium/Albuterol 3 ML NEB NEB PRN (10:17)
[2022-08-14] MEDS ORDERED: Nitroglycerin 50 MG/250 ML BOT 250 ML IVPB PRN (10:17)
[2022-08-14] MEDS ORDERED: DOPamine 400 MG/D5W 250 ML 250 ML IVPB PRN (10:17)
[2022-08-14] MEDS ORDERED: hydrALAZINE 20 MG/ML VIAL SLOW IVP PRN (10:17)
[2022-08-14] MEDS ORDERED: Hetastarch 6% 500 ML 500 ML IVPB PRN (10:17)
[2022-08-14] MEDS ORDERED: Bisacodyl 5 MG TAB PO PRN (10:17)
[2022-08-14] MEDS ORDERED: Bisacodyl 10 MG SUPP PR PRN (10:17)
[2022-08-14] MEDS ORDERED: Post-Op Insulin Drip Protocol IVPB ONE (10:17)
[2022-08-14] MEDS ORDERED: Mag-Al 1200 mg/1200 mg/30 ML UDCUP PO PRN (10:17)
[2022-08-14] MEDS ORDERED: NOREPINEPHRINE 8 MG/250 ML-D5W 250 ML IVPB PRN (10:17)
[2022-08-14] MEDS ORDERED: Morphine 2 MG/ML VIAL SLOW IVP PRN (10:17)
[2022-08-14] MEDS ORDERED: KETAMINE 100 MG/ML (5ML VIAL) ONE (10:27)
[2022-08-14] MEDS ORDERED: Dextrose 50% Abboject 50 ML SYRINGE SLOW IVP PRN (10:30)
[2022-08-14] MEDS ORDERED: Insulin Regular 300 UNITS/3 ML VIAL SC PRN (10:30)
[2022-08-14] MEDS ORDERED: Dextrose 5% in Water 1,000 ML IV PRN (10:30)
[2022-08-14] MEDS ORDERED: HUMULIN R 100 UNITS in Sodium Chloride 0.9% 100 ML IVPB SCH (10:30)
[2022-08-14] MEDS: Lactated Ringer's 1,000 ML IV SCH (11:13)
[2022-08-14 11:35] LABS: Hemoglobin 11.9 g/dL (12.0-16.0); Mean Corpuscular HGB CONC 35.4 g/dL (32.0-36.0); Mean Corpuscular Hemoglobin 34.5 pg (27.0-31.0); Mean Corpuscular Volume 97.6 fl (78.0-98.0); Mean Platelet Volume 7.6 fL (7.4-10.4); Platelet Count 262 10x3/uL (130-400); RBC Distribution Width 14.2 % (11.5-14.5); Red Blood Cell (RBC) Count 3.46 mill/uL (4.20-5.40); White Blood Cell (WBC) Count 19.8 10x3/uL (4.8-10.8)
[2022-08-14 11:48] LABS: INR-International Normal Ratio 1.3; PTT 34.6 sec (22.9-36.1); Prothrombin Time 16.7 sec (12.0-14.7)
[2022-08-14 11:51] LABS: Band 6 % (5-11); Lymphocytes 13 % (21-51); MDiff Complete? YES; Monocytes 2 % (0-10); Neutrophil 69 % (42-75); Platelet Morphology Comment Appears Adequate; Polychromasia SLIGHT = 2-3 cells (100X) (0-2/hpf); Reactive Lymphocytes 9 % (0-10)
[2022-08-14 11:57] LABS: Anion Gap 14 mmol/L (10-20); BUN (Urea Nitrogen) 19 mg/dL (9.8-20.1); Calc. Creatinine Clearance 74 mL/min (70-130); Calcium 8.2 mg/dL (7.8-10.44); Carbon Dioxide 20 mmol/L (23-31); Chloride 104 mmol/L (98-107); Estimated GFR 74; Glucose 179 mg/dL (83-110); Potassium 3.9 mmol/L (3.5-5.1); Sodium 134 mmol/L (136-145)
[2022-08-14] MEDS: Potassium Chloride 20 MEQ/100 ML PREMIX BAG IVPB PRN ×2 (12:22→16:56)
[2022-08-14] MEDS: fentaNYL 50 mcg/mL 1 mL Vial SLOW IVP PRN ×4 (12:46→21:25)
[2022-08-14] MEDS: CEFAZOLIN 2 GM in Sodium Chloride 0.9% 100 ML IVPB SCH ×2 (13:49→22:37)
[2022-08-14] MEDS: traMADol HCl 50 MG TAB PO PRN ×2 (13:50→22:36)
[2022-08-14 16:22] LABS: Hemoglobin 9.9 g/dL (12.0-16.0)
[2022-08-14 16:34] LABS: Potassium 3.9 mmol/L (3.5-5.1)
[2022-08-14] MEDS: Famotidine/PF 20 mg/2ml Vial SLOW IVP SCH (21:37)
[2022-08-14] MEDS: Atorvastatin Calcium 10 MG TAB PO SCH (21:37)
[2022-08-14] MEDS: Acetaminophen 325 MG TAB PO PRN (22:36)
[2022-08-15] MEDS: fentaNYL 50 mcg/mL 1 mL Vial SLOW IVP PRN ×4 (02:29→17:02)
[2022-08-15] MEDS: Lactated Ringer's 1,000 ML IV SCH ×2 (02:30→02:50)
[2022-08-15 04:37] LABS: #Lymphocytes 1.2 thou/uL (1.20-3.40); #Monocytes 0.7 thou/uL (0.11-0.59); #Neutrophils 7.6 thou/uL (1.40-6.50); %Basophils 0.1 % (0.0-1.0); %Eosinophils 0.1 % (0.0-10.0); %Lymphocytes 12.9 % (21.0-51.0); %Monocytes 7.8 % (0.0-10.0); %Neutrophils 79.2 % (42.0-75.0); Hemoglobin 9.2 g/dL (12.0-16.0); Mean Corpuscular HGB CONC 33.6 g/dL (32.0-36.0); Mean Corpuscular Hemoglobin 33.4 pg (27.0-31.0); Mean Corpuscular Volume 99.3 fl (78.0-98.0); Mean Platelet Volume 7.8 fL (7.4-10.4); Platelet Count 198 10x3/uL (130-400); RBC Distribution Width 14.6 % (11.5-14.5); Red Blood Cell (RBC) Count 2.74 mill/uL (4.20-5.40); White Blood Cell (WBC) Count 9.6 10x3/uL (4.8-10.8)
[2022-08-15 04:54] LABS: Anion Gap 13 mmol/L (10-20); BUN (Urea Nitrogen) 15 mg/dL (9.8-20.1); Calc. Creatinine Clearance 83 mL/min (70-130); Calcium 7.6 mg/dL (7.8-10.44); Carbon Dioxide 18 mmol/L (23-31); Chloride 105 mmol/L (98-107); Estimated GFR 85; Glucose 166 mg/dL (83-110); Potassium 3.8 mmol/L (3.5-5.1); Sodium 132 mmol/L (136-145)
[2022-08-15] MEDS: traMADol HCl 50 MG TAB PO PRN ×4 (04:59→19:39)
[2022-08-15] MEDS: Acetaminophen 325 MG TAB PO PRN ×2 (04:59→09:53)
[2022-08-15] MEDS: Potassium Chloride 20 MEQ/100 ML PREMIX BAG IVPB PRN (05:21)
[2022-08-15] MEDS: CEFAZOLIN 2 GM in Sodium Chloride 0.9% 100 ML IVPB SCH (07:02)
[2022-08-15] MEDS: Polyethylene Glycol 3350 17 GM Packet PO SCH (08:06)
[2022-08-15] MEDS: Aspirin Chewable 81 MG TAB PO SCH (08:06)
[2022-08-15] MEDS: Sodium Bicarbonate Tab 325 MG TAB PO SCH ×3 (08:06→20:33)
[2022-08-15] MEDS: Famotidine/PF 20 mg/2ml Vial SLOW IVP SCH (08:06)
[2022-08-15] MEDS: Magnesium 2 GM/50 ML(in water) 2 GM in Premix Bag 1 BAG IVPB SCH (08:07)
[2022-08-15] MEDS ORDERED: Mineral Oil ENEMA PR PRN (08:20)
[2022-08-15] MEDS ORDERED: Nitroglycerin 0.4 MG TAB (25 Tab Bottle) SL PRN (08:20)
[2022-08-15] MEDS ORDERED: Dextrose 50% Abboject 50 ML SYRINGE SLOW IVP PRN (08:30)
[2022-08-15] MEDS ORDERED: Dextrose 5% in Water 1,000 ML IV PRN (08:30)
[2022-08-15] MEDS ORDERED: Insulin Glargine 30 UNITS/0.3 ML VIAL SC PRN (10:23)
[2022-08-15] MEDS: Insulin Regular 300 UNITS/3 ML VIAL SC PRN ×2 (17:13→21:36)
[2022-08-15] MEDS: Amiodarone 450 MG, Admixture Fee 1 EACH in Dextrose 5% in Water 250 ML IVPB SCH (19:20)
[2022-08-15] MEDS: Atorvastatin Calcium 10 MG TAB PO SCH (21:43)
[2022-08-16] MEDS: fentaNYL 50 mcg/mL 1 mL Vial SLOW IVP PRN (00:44)
[2022-08-16 04:58] LABS: #Monocytes 0.9 thou/uL (0.11-0.59); #Neutrophils 8.4 thou/uL (1.40-6.50); %Eosinophils 0.1 % (0.0-10.0); %Neutrophils 73.8 % (42.0-75.0); Hemoglobin 9.1 g/dL (12.0-16.0); Mean Corpuscular HGB CONC 33.2 g/dL (32.0-36.0); Mean Corpuscular Hemoglobin 32.9 pg (27.0-31.0); Mean Platelet Volume 8.2 fL (7.4-10.4); Platelet Count 204 10x3/uL (130-400); RBC Distribution Width 14.6 % (11.5-14.5); Red Blood Cell (RBC) Count 2.78 mill/uL (4.20-5.40); White Blood Cell (WBC) Count 11.3 10x3/uL (4.8-10.8)
[2022-08-16 05:10] LABS: Anion Gap 11 mmol/L (10-20); BUN (Urea Nitrogen) 16 mg/dL (9.8-20.1); Calc. Creatinine Clearance 85 mL/min (70-130); Calcium 7.7 mg/dL (7.8-10.44); Carbon Dioxide 22 mmol/L (23-31); Chloride 103 mmol/L (98-107); Estimated GFR 88; Glucose 139 mg/dL (83-110); Potassium 4.7 mmol/L (3.5-5.1); Sodium 131 mmol/L (136-145)
[2022-08-16] MEDS: traMADol HCl 50 MG TAB PO PRN ×5 (05:38→22:33)
[2022-08-16] MEDS: Acetaminophen 325 MG TAB PO PRN ×3 (05:39→19:59)
[2022-08-16] MEDS: Polyethylene Glycol 3350 17 GM Packet PO SCH (08:10)
[2022-08-16] MEDS: Furosemide 40 MG TAB PO SCH (08:10)
[2022-08-16] MEDS: Amiodarone 200 MG TAB PO SCH ×2 (08:11→21:13)
[2022-08-16] MEDS: Magnesium 2 GM/50 ML(in water) 2 GM in Premix Bag 1 BAG IVPB SCH (08:11)
[2022-08-16] MEDS: Aspirin Chewable 81 MG TAB PO SCH (08:11)
[2022-08-16] MEDS: Potassium Chloride 10 MEQ TAB PO SCH (08:11)
[2022-08-16 12:13] LABS: Actual Bicarbonate (HCO3v) 26 mEq/L (22-28); Analyzer IN Cardio OR; pH (venous) 7.33 (7.32-7.43)
[2022-08-16 12:13] LABS: Actual Bicarbonate (HCO3a) 24.4 mEq/L (22-28); Analyzer IN Cardio OR; Base Excess (BEa) 1.2 mEq/L (-2.0 to +3.0); CO2 Tension 33.7 mmHg (35.0-45.0); Calcium, Ionized (arterial) 1.08 mmol/L (1.12-1.30); Carboxyhemoglobin (COHb) 1.1 gm% (0.0-3.0); Hemoglobin (Hb) 11.5 g/dL (12.0-16.0); O2 Tension (PaO2), arterial 494.4 mmHg (> 70.0); pH, Arterial 7.477 (7.35-7.45)
[2022-08-16 12:13] LABS: Actual Bicarbonate (HCO3a) 22.4 mEq/L (22-28); Analyzer IN Cardio OR; Base Excess (BEa) -1.1 mEq/L (-2.0 to +3.0); CO2 Tension 33.1 mmHg (35.0-45.0); Calcium, Ionized (arterial) 1.06 mmol/L (1.12-1.30); Carboxyhemoglobin (COHb) 0.3 gm% (0.0-3.0); Hemoglobin (Hb) 10.5 g/dL (12.0-16.0); O2 Tension (PaO2), arterial 549.6 mmHg (> 70.0); Potassium - ABG Lab 3.45 mmol/L (3.70-5.30); pH, Arterial 7.449 (7.35-7.45)
[2022-08-16 12:14] LABS: Actual Bicarbonate (HCO3a) 22.6 mEq/L (22-28); Analyzer IN Cardio OR; Base Excess (BEa) -0.3 mEq/L (-2.0 to +3.0); Calcium, Ionized (arterial) 1.21 mmol/L (1.12-1.30); Carboxyhemoglobin (COHb) 0.7 gm% (0.0-3.0); Hemoglobin (Hb) 8.3 g/dL (12.0-16.0); O2 Tension (PaO2), arterial 353.2 mmHg (> 70.0); pH, Arterial 7.495 (7.35-7.45)
[2022-08-16 12:14] LABS: Actual Bicarbonate (HCO3a) 21.4 mEq/L (22-28); Analyzer IN Cardio OR; Base Excess (BEa) -3.8 mEq/L (-2.0 to +3.0); CO2 Tension 39.5 mmHg (35.0-45.0); Carboxyhemoglobin (COHb) 0.5 gm% (0.0-3.0); O2 Tension (PaO2), arterial 110.5 mmHg (> 70.0); Potassium - ABG Lab 3.91 mmol/L (3.70-5.30); pH, Arterial 7.352 (7.35-7.45)
[2022-08-16 12:14] LABS: Actual Bicarbonate (HCO3a) 24.2 mEq/L (22-28); Analyzer IN Cardio OR; Base Excess (BEa) -0.3 mEq/L (-2.0 to +3.0); CO2 Tension 38.5 mmHg (35.0-45.0); Calcium, Ionized (arterial) 0.94 mmol/L (1.12-1.30); Carboxyhemoglobin (COHb) 1.3 gm% (0.0-3.0); Hemoglobin (Hb) 7.1 g/dL (12.0-16.0); Potassium - ABG Lab 3.92 mmol/L (3.70-5.30); pH, Arterial 7.416 (7.35-7.45)
[2022-08-16 12:14] LABS: Base Excess -0.5 mEq/L (-2.0 to +3.0); Calcium, Ionized (venous) 0.96 mmol/L (1.16-1.32); Chloride (VBG) 103 mmol/L (98-106); Hemoglobin (Hb) 7.2 g/dL (11.7-16.1); Potassium (VBG) 3.78 mmol/L (3.70-5.30); Sodium 131.3 mmol/L (133-146)
[2022-08-16 12:15] LABS: Puncture Site Arterial Line
[2022-08-16 12:15] LABS: Puncture Site Arterial Line
[2022-08-16 12:15] LABS: Puncture Site Arterial Line
[2022-08-16 12:16] LABS: Puncture Site Arterial Line
[2022-08-16 12:16] LABS: Puncture Site Arterial Line
[2022-08-16] MEDS: Insulin Regular 300 UNITS/3 ML VIAL SC PRN ×2 (12:56→18:17)
[2022-08-16] MEDS: Amiodarone 450 MG, Admixture Fee 1 EACH in Dextrose 5% in Water 250 ML IVPB SCH (19:31)
[2022-08-16] MEDS: Metoprolol Tartrate 25 MG TAB PO SCH (21:12)
[2022-08-16] MEDS: Sacubitril 24MG/Valsartan 26 MG TAB PO SCH (21:12)
[2022-08-16] MEDS: Atorvastatin Calcium 10 MG TAB PO SCH (21:13)
[2022-08-17] MEDS: Ondansetron PF 4 MG/2 ML Vial IVP PRN (01:28)
[2022-08-17] MEDS: Amiodarone 450 MG, Admixture Fee 1 EACH in Dextrose 5% in Water 250 ML IVPB SCH ×2 (03:23→20:59)
[2022-08-17 05:16] LABS: Hemoglobin 9.3 g/dL (12.0-16.0); Platelet Count 189 10x3/uL (130-400)
[2022-08-17 05:34] LABS: Anion Gap 12 mmol/L (10-20); BUN (Urea Nitrogen) 19 mg/dL (9.8-20.1); Calc. Creatinine Clearance 81 mL/min (70-130); Calcium 7.9 mg/dL (7.8-10.44); Carbon Dioxide 17 mmol/L (23-31); Chloride 98 mmol/L (98-107); Estimated GFR 77; Glucose 141 mg/dL (83-110); Potassium 4.7 mmol/L (3.5-5.1); Sodium 122 mmol/L (136-145)
[2022-08-17] MEDS: Sacubitril 24MG/Valsartan 26 MG TAB PO SCH ×2 (08:40→20:11)
[2022-08-17] MEDS: Sodium Bicarbonate Tab 325 MG TAB PO SCH ×3 (08:40→20:11)
[2022-08-17] MEDS: Polyethylene Glycol 3350 17 GM Packet PO SCH (08:40)
[2022-08-17] MEDS: Aspirin Chewable 81 MG TAB PO SCH (08:40)
[2022-08-17] MEDS: Potassium Chloride 10 MEQ TAB PO SCH (08:41)
[2022-08-17] MEDS: Furosemide 40 MG TAB PO SCH (08:41)
[2022-08-17] MEDS: Metoprolol Tartrate 25 MG TAB PO SCH ×2 (08:41→20:10)
[2022-08-17] MEDS: Amiodarone 200 MG TAB PO SCH ×2 (08:41→20:09)
[2022-08-17] MEDS: traMADol HCl 50 MG TAB PO PRN (11:36)
[2022-08-17] MEDS: HYDROcodone/Acetaminophen 5/325 mg Tablet PO PRN ×2 (13:41→20:10)
[2022-08-17] MEDS: Atorvastatin Calcium 10 MG TAB PO SCH (20:10)
[2022-08-17] MEDS: Insulin Regular 300 UNITS/3 ML VIAL SC PRN (22:00)
[2022-08-18] MEDS ORDERED: Furosemide 40 MG/4 ML VIAL SLOW IVP SCH ×2 (06:45→17:00)
[2022-08-18] MEDS: Metoprolol Tartrate 25 MG TAB PO SCH ×2 (07:59→20:34)
[2022-08-18] MEDS: Polyethylene Glycol 3350 17 GM Packet PO SCH (07:59)
[2022-08-18] MEDS: Amiodarone 200 MG TAB PO SCH ×2 (07:59→20:35)
[2022-08-18] MEDS: Sacubitril 24MG/Valsartan 26 MG TAB PO SCH ×2 (07:59→20:34)
[2022-08-18] MEDS: Aspirin Chewable 81 MG TAB PO SCH (07:59)
[2022-08-18] MEDS: Furosemide 40 MG TAB PO SCH (07:59)
[2022-08-18] MEDS: Potassium Chloride 10 MEQ TAB PO SCH (07:59)
[2022-08-18] MEDS: Sodium Bicarbonate Tab 325 MG TAB PO SCH ×3 (07:59→20:34)
[2022-08-18 09:30] LABS: #Eosinphils 0.1 thou/uL (0.0-0.7); #Lymphocytes 2.8 thou/uL (1.20-3.40); #Monocytes 0.7 thou/uL (0.11-0.59); #Neutrophils 5.9 thou/uL (1.40-6.50); %Eosinophils 1.2 % (0.0-10.0); %Lymphocytes 29.2 % (21.0-51.0); %Monocytes 7.2 % (0.0-10.0); %Neutrophils 62.5 % (42.0-75.0); Mean Corpuscular HGB CONC 32.9 g/dL (32.0-36.0); Mean Corpuscular Hemoglobin 32.6 pg (27.0-31.0); Mean Platelet Volume 8.7 fL (7.4-10.4); Platelet Count 253 10x3/uL (130-400); RBC Distribution Width 14.3 % (11.5-14.5); Red Blood Cell (RBC) Count 3.07 mill/uL (4.20-5.40); White Blood Cell (WBC) Count 9.5 10x3/uL (4.8-10.8)
[2022-08-18 09:56] LABS: Anion Gap 12 mmol/L (10-20); BUN (Urea Nitrogen) 22 mg/dL (9.8-20.1); Calc. Creatinine Clearance 86 mL/min (70-130); Calcium 8.4 mg/dL (7.8-10.44); Carbon Dioxide 22 mmol/L (23-31); Chloride 96 mmol/L (98-107); Estimated GFR 78; Glucose 102 mg/dL (83-110); Potassium 5.3 mmol/L (3.5-5.1); Sodium 125 mmol/L (136-145)
[2022-08-18] MEDS: Ondansetron PF 4 MG/2 ML Vial IVP PRN (11:28)
[2022-08-18] MEDS: HYDROcodone/Acetaminophen 5/325 mg Tablet PO PRN ×2 (11:28→20:34)
[2022-08-18] MEDS ORDERED: LOKELMA 10 GM PACKET PO SCH (16:00)
[2022-08-18] MEDS: Atorvastatin Calcium 10 MG TAB PO SCH (20:35)
[2022-08-19] MEDS: HYDROcodone/Acetaminophen 5/325 mg Tablet PO PRN ×3 (04:46→13:55)
[2022-08-19 05:14] LABS: Anion Gap 16 mmol/L (10-20); BUN (Urea Nitrogen) 25 mg/dL (9.8-20.1); Calc. Creatinine Clearance 81 mL/min (70-130); Calcium 8.7 mg/dL (7.8-10.44); Carbon Dioxide 20 mmol/L (23-31); Chloride 96 mmol/L (98-107); Estimated GFR 73; Glucose 110 mg/dL (83-110); Potassium 4.7 mmol/L (3.5-5.1); Sodium 127 mmol/L (136-145)
[2022-08-19] MEDS: Furosemide 40 MG/4 ML VIAL SLOW IVP SCH (09:37)
[2022-08-19] MEDS: Amiodarone 200 MG TAB PO SCH ×2 (09:38→20:19)
[2022-08-19] MEDS: Polyethylene Glycol 3350 17 GM Packet PO SCH (09:39)
[2022-08-19] MEDS: Sacubitril 24MG/Valsartan 26 MG TAB PO SCH ×2 (09:39→20:18)
[2022-08-19] MEDS: Metoprolol Tartrate 25 MG TAB PO SCH ×2 (09:39→20:18)
[2022-08-19] MEDS: Aspirin Chewable 81 MG TAB PO SCH (09:39)
[2022-08-19] MEDS: Sodium Bicarbonate Tab 325 MG TAB PO SCH ×3 (09:39→20:17)
[2022-08-19] MEDS: Atorvastatin Calcium 10 MG TAB PO SCH (20:18)
[2022-08-19] MEDS: Acetaminophen 325 MG TAB PO PRN (20:18)
[2022-08-20] MEDS: Acetaminophen 325 MG TAB PO PRN ×2 (02:26→12:38)
[2022-08-20 05:22] LABS: Anion Gap 13 mmol/L (10-20); BUN (Urea Nitrogen) 28 mg/dL (9.8-20.1); Calc. Creatinine Clearance 66 mL/min (70-130); Calcium 8.4 mg/dL (7.8-10.44); Carbon Dioxide 23 mmol/L (23-31); Chloride 94 mmol/L (98-107); Estimated GFR 57; Glucose 173 mg/dL (83-110); Potassium 4.6 mmol/L (3.5-5.1); Sodium 125 mmol/L (136-145)
[2022-08-20] MEDS: Metoprolol Tartrate 25 MG TAB PO SCH ×2 (08:23→20:32)
[2022-08-20] MEDS: Amiodarone 200 MG TAB PO SCH ×2 (08:23→20:32)
[2022-08-20] MEDS: Empagliflozin 10 MG TAB PO SCH (08:23)
[2022-08-20] MEDS: Furosemide 40 MG/4 ML VIAL SLOW IVP SCH (08:23)
[2022-08-20] MEDS: Polyethylene Glycol 3350 17 GM Packet PO SCH (08:23)
[2022-08-20] MEDS: Sacubitril 24MG/Valsartan 26 MG TAB PO SCH ×2 (08:23→20:32)
[2022-08-20] MEDS: Sodium Bicarbonate Tab 325 MG TAB PO SCH ×2 (08:24→14:18)
[2022-08-20] MEDS: Aspirin Chewable 81 MG TAB PO SCH (08:24)
[2022-08-20] MEDS: Insulin Regular 300 UNITS/3 ML VIAL SC PRN (11:15)
[2022-08-20] MEDS: HYDROcodone/Acetaminophen 5/325 mg Tablet PO PRN ×2 (14:19→23:03)
[2022-08-20 16:21] LABS: Anion Gap 14 mmol/L (10-20); BUN (Urea Nitrogen) 27 mg/dL (9.8-20.1); Calc. Creatinine Clearance 70 mL/min (70-130); Calcium 8.5 mg/dL (7.8-10.44); Carbon Dioxide 24 mmol/L (23-31); Chloride 96 mmol/L (98-107); Estimated GFR 62; Glucose 122 mg/dL (83-110); Potassium 4.4 mmol/L (3.5-5.1); Sodium 130 mmol/L (136-145)
[2022-08-20] MEDS: Atorvastatin Calcium 10 MG TAB PO SCH (20:32)
[2022-08-20] MEDS: Simethicone Chewable 80 MG TAB PO PRN (20:33)
[2022-08-21] MEDS: HYDROcodone/Acetaminophen 5/325 mg Tablet PO PRN ×3 (03:44→19:59)
[2022-08-21] MEDS: Aspirin Chewable 81 MG TAB PO SCH (09:57)
[2022-08-21] MEDS: Metoprolol Tartrate 25 MG TAB PO SCH ×2 (09:57→19:58)
[2022-08-21] MEDS: Sacubitril 24MG/Valsartan 26 MG TAB PO SCH ×2 (09:57→19:59)
[2022-08-21] MEDS: Apixaban 5 MG TAB PO SCH ×2 (09:58→19:57)
[2022-08-21] MEDS: Furosemide 40 MG/4 ML VIAL SLOW IVP SCH (09:58)
[2022-08-21] MEDS: Empagliflozin 10 MG TAB PO SCH (09:58)
[2022-08-21] MEDS: Amiodarone 200 MG TAB PO SCH ×2 (09:58→19:57)
[2022-08-21] MEDS: Polyethylene Glycol 3350 17 GM Packet PO SCH (09:59)
[2022-08-21] MEDS: Simethicone Chewable 80 MG TAB PO PRN ×2 (10:14→20:08)
[2022-08-21] MEDS: Insulin Regular 300 UNITS/3 ML VIAL SC PRN (11:59)
[2022-08-21] MEDS: Ondansetron PF 4 MG/2 ML Vial IVP PRN (13:10)
[2022-08-21] MEDS: Atorvastatin Calcium 10 MG TAB PO SCH (19:57)
[2022-08-21] MEDS: Latanoprost 0.005% Ophth Soln 2.5 ml Bottle EA EYE SCH (20:00)
[2022-08-22] MEDS: HYDROcodone/Acetaminophen 5/325 mg Tablet PO PRN ×5 (00:54→22:19)
[2022-08-22 05:51] LABS: Anion Gap 14 mmol/L (10-20); BUN (Urea Nitrogen) 21 mg/dL (9.8-20.1); Calc. Creatinine Clearance 74 mL/min (70-130); Calcium 8.7 mg/dL (7.8-10.44); Carbon Dioxide 25 mmol/L (23-31); Chloride 101 mmol/L (98-107); Estimated GFR 67; Glucose 112 mg/dL (83-110); Potassium 4.8 mmol/L (3.5-5.1); Sodium 135 mmol/L (136-145)
[2022-08-22] MEDS: Aspirin Chewable 81 MG TAB PO SCH (08:20)
[2022-08-22] MEDS: Sacubitril 24MG/Valsartan 26 MG TAB PO SCH ×2 (08:20→21:12)
[2022-08-22] MEDS: Apixaban 5 MG TAB PO SCH ×2 (08:20→21:12)
[2022-08-22] MEDS: Amiodarone 200 MG TAB PO SCH ×2 (08:20→21:12)
[2022-08-22] MEDS: Metoprolol Tartrate 25 MG TAB PO SCH ×2 (08:20→21:12)
[2022-08-22] MEDS: Polyethylene Glycol 3350 17 GM Packet PO SCH ×2 (08:20→08:23)
[2022-08-22] MEDS: Empagliflozin 10 MG TAB PO SCH (08:21)
[2022-08-22] MEDS: Simethicone Chewable 80 MG TAB PO PRN ×2 (09:13→21:12)
[2022-08-22] MEDS ORDERED: Furosemide 40 MG/4 ML VIAL ONE (09:56)
[2022-08-22] MEDS: Furosemide 40 MG/4 ML VIAL SLOW IVP SCH (10:03)
[2022-08-22] MEDS: Atorvastatin Calcium 10 MG TAB PO SCH (21:12)
[2022-08-22] MEDS: Latanoprost 0.005% Ophth Soln 2.5 ml Bottle EA EYE SCH (21:13)
[2022-08-23] MEDS: HYDROcodone/Acetaminophen 5/325 mg Tablet PO PRN ×4 (04:28→21:53)
[2022-08-23 05:12] LABS: Anion Gap 12 mmol/L (10-20); BUN (Urea Nitrogen) 16 mg/dL (9.8-20.1); Calc. Creatinine Clearance 83 mL/min (70-130); Calcium 8.6 mg/dL (7.8-10.44); Carbon Dioxide 25 mmol/L (23-31); Chloride 100 mmol/L (98-107); Estimated GFR 78; Glucose 116 mg/dL (83-110); Potassium 4.1 mmol/L (3.5-5.1); Sodium 133 mmol/L (136-145)
[2022-08-23] MEDS: Apixaban 5 MG TAB PO SCH ×2 (08:22→20:05)
[2022-08-23] MEDS: Furosemide 40 MG/4 ML VIAL SLOW IVP SCH (08:22)
[2022-08-23] MEDS: Metoprolol Tartrate 25 MG TAB PO SCH ×2 (08:22→20:05)
[2022-08-23] MEDS: Empagliflozin 10 MG TAB PO SCH (08:22)
[2022-08-23] MEDS: Aspirin Chewable 81 MG TAB PO SCH (08:22)
[2022-08-23] MEDS: Amiodarone 200 MG TAB PO SCH ×2 (08:22→20:05)
[2022-08-23] MEDS: Polyethylene Glycol 3350 17 GM Packet PO SCH (08:22)
[2022-08-23] MEDS: Sacubitril 24MG/Valsartan 26 MG TAB PO SCH ×2 (08:22→20:05)
[2022-08-23] MEDS: Simethicone Chewable 80 MG TAB PO PRN ×2 (08:27→17:39)
[2022-08-23] MEDS: Insulin Regular 300 UNITS/3 ML VIAL SC PRN (11:18)
[2022-08-23] MEDS: Latanoprost 0.005% Ophth Soln 2.5 ml Bottle EA EYE SCH (20:05)
[2022-08-23] MEDS: Atorvastatin Calcium 10 MG TAB PO SCH (20:05)
[2022-08-24] MEDS: HYDROcodone/Acetaminophen 5/325 mg Tablet PO PRN (02:57)
[2022-08-24 05:35] LABS: Anion Gap 11 mmol/L (10-20); BUN (Urea Nitrogen) 15 mg/dL (9.8-20.1); Calc. Creatinine Clearance 81 mL/min (70-130); Calcium 8.7 mg/dL (7.8-10.44); Carbon Dioxide 28 mmol/L (23-31); Chloride 100 mmol/L (98-107); Estimated GFR 75; Glucose 107 mg/dL (83-110); Potassium 4.4 mmol/L (3.5-5.1); Sodium 135 mmol/L (136-145)
[2022-08-24] MEDS: Aspirin Chewable 81 MG TAB PO SCH (08:36)
[2022-08-24] MEDS: Polyethylene Glycol 3350 17 GM Packet PO SCH (08:36)
[2022-08-24] MEDS: Metoprolol Tartrate 25 MG TAB PO SCH ×2 (08:37→21:48)
[2022-08-24] MEDS: Furosemide 40 MG/4 ML VIAL SLOW IVP SCH (08:37)
[2022-08-24] MEDS: Apixaban 5 MG TAB PO SCH ×2 (08:37→21:48)
[2022-08-24] MEDS: Amiodarone 200 MG TAB PO SCH ×2 (08:37→21:48)
[2022-08-24] MEDS: Sacubitril 24MG/Valsartan 26 MG TAB PO SCH ×2 (08:37→21:48)
[2022-08-24] MEDS: Empagliflozin 10 MG TAB PO SCH (08:37)
[2022-08-24] MEDS: Simethicone Chewable 80 MG TAB PO PRN ×2 (08:39→16:21)
[2022-08-24] MEDS: Acetaminophen 325 MG TAB PO PRN (11:22)
[2022-08-24] MEDS: Insulin Regular 300 UNITS/3 ML VIAL SC PRN (11:23)
[2022-08-24] MEDS ORDERED: Cephalexin 250 MG CAP PO SCH (16:30)
[2022-08-24] MEDS ORDERED: Labetalol HCl 100 MG TAB PO SCH (17:15)
[2022-08-24] MEDS ORDERED: Labetalol HCl 100 MG/20 ML VIAL SLOW IVP SCH (17:15)
[2022-08-24 21:47] VITALS: BP 167/72; TEMP 97.9
[2022-08-24] MEDS: Atorvastatin Calcium 10 MG TAB PO SCH (21:48)
[2022-08-24] MEDS: Latanoprost 0.005% Ophth Soln 2.5 ml Bottle EA EYE SCH (22:07)
[2022-08-25] MEDS ORDERED: Amlodipine 5 MG TAB PO SCH (09:00)
== END 2022-08-24 22:09 | DRG 235 ==
LOC: ERS 03:39 → ERHOLD 08:04 → 2NO 15:57 → CCU 08-14 07:10 → 2NO 08-16 15:23
PROVIDERS: ADMIT Student in an Organized Health Care Education/Training Program; ATTEND Hospitalist
PROC: 02100Z9 Bypass Coronary Artery, One Artery from Left Internal Mammary, Open Approach (ICD-10-PCS; principal; 2022-08-14)
PROC: 021109W Bypass Coronary Artery, Two Arteries from Aorta with Autologous Venous Tissue, Open Approach (ICD-10-PCS; 2022-08-14)
PROC: 06BQ4ZZ Excision of Left Saphenous Vein, Percutaneous Endoscopic Approach (ICD-10-PCS; 2022-08-14)
PROC: 5A1221Z Performance of Cardiac Output, Continuous (ICD-10-PCS; 2022-08-14)
PROC: 02L70CK Occlusion of Left Atrial Appendage with Extraluminal Device, Open Approach (ICD-10-PCS; 2022-08-14)
PROC: 30233N1 Transfusion of Nonautologous Red Blood Cells into Peripheral Vein, Percutaneous Approach (ICD-10-PCS; 2022-08-14)
DX: I13.0 Hypertensive heart and chronic kidney disease with heart failure and stage 1 through stage 4 chronic kidney disease, or unspecified chronic kidney disease (principal); I21.4 Non-ST elevation (NSTEMI) myocardial infarction; I50.43 Acute on chronic combined systolic (congestive) and diastolic (congestive) heart failure; J96.01 Acute respiratory failure with hypoxia; E87.0 Hyperosmolality and hypernatremia; E22.2 Syndrome of inappropriate secretion of antidiuretic hormone; I25.10 Atherosclerotic heart disease of native coronary artery without angina pectoris; E11.22 Type 2 diabetes mellitus with diabetic chronic kidney disease; N18.2 Chronic kidney disease, stage 2 (mild); D63.1 Anemia in chronic kidney disease; E87.8 Other disorders of electrolyte and fluid balance, not elsewhere classified; E78.00 Pure hypercholesterolemia, unspecified; I16.0 Hypertensive urgency; E87.5 Hyperkalemia; I25.5 Ischemic cardiomyopathy; I95.1 Orthostatic hypotension; M79.7 Fibromyalgia; Z96.642 Presence of left artificial hip joint; Z88.7 Allergy status to serum and vaccine; Z79.01 Long term (current) use of anticoagulants; Z79.899 Other long term (current) drug therapy; Z79.84 Long term (current) use of oral hypoglycemic drugs; Z79.02 Long term (current) use of antithrombotics/antiplatelets; Z90.710 Acquired absence of both cervix and uterus; Z86.718 Personal history of other venous thrombosis and embolism; Z86.73 Personal history of transient ischemic attack (TIA), and cerebral infarction without residual deficits; I48.0 Paroxysmal atrial fibrillation
CPT/HCPCS: 36415; 36416; 36430; 71045; 76999; 80048; 80053; 82533; 82553; 82570; 82805; 82947; 83036; 83605; 83735; 83880; 83930; 83935; 84300; 84439; 84443; 84481; 84484; 84550; 85014; 85018; 85025; 85049; 85610; 85730; 86850; 86900; 86901; 93005; 93010; 93798; 94660; 94760; 96372; 96374; C1751; C1776; J0282; J1100; J1642; J1644; J1650; J1815; J1940; J2001; J2150; J2250; J2260; J2405; J2440; J2720; J3010; J3370; J3475; J3480; J3490; J7070; J7120; P9016; P9045; S0017; S0028; U0002

== ENCOUNTER 2022-10-31 10:33 | Emergency (ER) | payer MEDICARE ==
[2022-10-31 11:28] LABS: #Basophils 0.1 thou/uL (0.0-0.2); #Monocytes 0.4 thou/uL (0.11-0.59); #Neutrophils 6.8 thou/uL (1.40-6.50); %Basophils 0.5 % (0.0-1.0); %Eosinophils 0.2 % (0.0-10.0); %Monocytes 4.3 % (0.0-10.0); %Neutrophils 68.5 % (42.0-75.0); Hemoglobin 11.9 g/dL (12.0-16.0); Mean Corpuscular HGB CONC 31.6 g/dL (32.0-36.0); Mean Corpuscular Hemoglobin 28.5 pg (27.0-31.0); Mean Corpuscular Volume 90.2 fl (78.0-98.0); Mean Platelet Volume 9.3 fL (7.4-10.4); Platelet Count 256 10x3/uL (130-400); RBC Distribution Width 18.6 % (11.5-14.5); Red Blood Cell (RBC) Count 4.17 mill/uL (4.20-5.40); White Blood Cell (WBC) Count 9.9 10x3/uL (4.8-10.8)
[2022-10-31 11:43] LABS: INR-International Normal Ratio 1.1; PTT 28.5 sec (22.9-36.1); Prothrombin Time 14.8 sec (12.0-14.7)
[2022-10-31 11:51] LABS: ALT (SGPT) 32 U/L (8-55); AST (SGOT) 30 U/L (5-34); Albumin 3.1 g/dL (3.4-4.8); Alkaline Phosphatase 106 U/L (40-110); Anion Gap 16 mmol/L (10-20); BUN (Urea Nitrogen) 14 mg/dL (9.8-20.1); Bilirubin, Total 0.5 mg/dL (0.2-1.2); Calc. Creatinine Clearance 0 mL/min (70-130); Calcium 8.9 mg/dL (7.8-10.44); Carbon Dioxide 21 mmol/L (23-31); Chloride 98 mmol/L (98-107); Estimated GFR 65; Globulin 3.8 g/dL (2.4-3.5); Glucose 165 mg/dL (83-110); Potassium 3.5 mmol/L (3.5-5.1); Protein, Total 6.9 g/dL (5.8-8.1); Sodium 131 mmol/L (136-145)
== END 2022-10-31 14:45 | disposition home or self-care (01) ==
LOC: ERS 10:33
DX: R55 Syncope and collapse (principal); R53.1 Weakness; J90 Pleural effusion, not elsewhere classified; E11.9 Type 2 diabetes mellitus without complications; E78.00 Pure hypercholesterolemia, unspecified; I10 Essential (primary) hypertension; Z79.01 Long term (current) use of anticoagulants; Z79.82 Long term (current) use of aspirin
CPT/HCPCS: 36415; 36416; 70450; 71045; 80053; 84484; 85025; 85610; 85730; 86850; 86900; 86901; 93005; 96360; 96361